=== PATIENT | male | born 1940 | race Caucasian/White ===

== ENCOUNTER 2016-10-22 20:12 | Inpatient (IN) | payer MEDICARE ==
[~2016-10-22] VITALS: Ht 167.6 cm; Wt 66.6 kg
[2016-10-22 20:13] VITALS: O2SAT 96
[2016-10-22] MEDS ORDERED: DIPHTH/TETANUS/ACEL PERTUSSIS (BOOSTER) 0.5 ML VIAL/PFS IM ONE (20:39)
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
[2016-10-22] MEDS ORDERED: MORPHINE SULFATE 4 MG/ML INJ IV PUSH ONE (20:45)
[2016-10-22 20:46] LABS: AUTOMATED NEUTROPHIL # 6.8 TH/MM3 (1.8-7.7); BASOPHIL % 0.5 % (0.0-2.0); EOSINOPHIL # 0.2 TH/MM3 (0-0.4); EOSINOPHIL % 2.3 % (0.0-4.0); HEMATOCRIT 37.9 % (39.0-51.0); HEMO FLAGS DIFF FINAL; LYMPH % 24.9 % (9.0-44.0); LYMPHOCYTE # 2.6 TH/MM3 (1.0-4.8); MEAN CORPUSCULAR HEMOGLOBIN 32.7 PG (27.0-34.0); MEAN CORPUSCULAR HGB CONC 33.7 % (32.0-36.0); MONO % 7.4 % (0.0-8.0); NEUT % 64.9 % (16.0-70.0); PLATELET COUNT 147 TH/MM3 (150-450); RED BLOOD COUNT 3.91 MIL/MM3 (4.50-5.90); RED CELL DISTRIBUTION WIDTH 14.2 % (11.6-17.2); WHITE BLOOD COUNT 10.4 TH/MM3 (4.0-11.0)
[2016-10-22 20:52] LABS: I-STAT POTASSIUM 3.5 MMOL/L (3.5-4.9)
[2016-10-22] MEDS ORDERED: IOHEXOL 350 MG/ML 10 ML VIAL (for RAD DIAG) IV ONE (20:55)
[2016-10-22 20:58] LABS: APTT (PATIENT) 28.8 SEC (24.3-30.1); PROTHROMBIN TIME - PATIENT 11.6 SEC (9.8-11.6)
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
[2016-10-22] MEDS ORDERED: HYDROmorphone HCL PF 1 MG/ML VIAL IV PUSH ONE (22:00)
[2016-10-22] MEDS ORDERED: MORPHINE SULFATE 30 MG/30 ML PCA IV SCH (22:15)
[2016-10-22] MEDS ORDERED: ONDANSETRON HCL 4 MG/2 ML VIAL IV PRN (22:15)
[2016-10-22] MEDS ORDERED: NALOXONE HCL 0.4 MG/ML AMP IV PRN (22:15)
[2016-10-22] MEDS ORDERED: MAGNESIUM HYDROXIDE SUSP 30 ML CUP PO PRN (22:15)
[2016-10-22] MEDS ORDERED: ENALAPRILAT 1.25 MG/ML VIAL IV PRN (22:15)
[2016-10-22] MEDS: PCA - TOTAL MG MORPHINE DELIVERED PER SHIFT SCH (22:15)
[2016-10-22] MEDS ORDERED: MISCELLANEOUS NURSING INFORMATION XX SCH ×2 (22:15)
[2016-10-22] MEDS ORDERED: CHLORHEXIDINE GLUCONATE 2 % 1 PACK (2 CLOTHS) TOP PRN (22:15)
[2016-10-22 22:29] LABS: BLOOD GAS BASE EXCESS -2.4 mmol/L (-2-2); BLOOD GAS HCO3 22 mmol/L (22-26); BLOOD GAS METHEMOGLOBIN 0.3 % (0-2); BLOOD GAS O2 HGB SATURATION 98 % (90-100); BLOOD GAS OXYGEN CONTENT 13.2 Vol % (12.0-20.0); BLOOD GAS PCO2 39 mmHg (38-42); BLOOD GAS PO2 141 mmHG (61-120); BLOOD GAS TOTAL HGB 9.4 G/DL (12.0-16.0); TEMP CORR TO 98.6
[2016-10-22 22:30] LABS: CRITICAL VALUE NO; DRAW SITE RT RADIAL; FIO2 100 %; LITER FLOW 15 L/M; NUMBER OF ARTERIAL PUNCTURES 1; STAT YES; ULNAR PULSE PRESENT
[2016-10-22] MEDS ORDERED: CALCIUM CHLORIDE 10% SOLN 1 GRAM/10 ML SYR IV PUSH ONE (23:00)
[2016-10-22] MEDS ORDERED: SODIUM CHLOR 0.9% 1000 ML INJ 1,000 ML IV ONE (23:15)
[2016-10-22] MEDS ORDERED: NOREPINEPHRINE-DEXTROSE DRIP 250 ML IV ONE (23:16)
[2016-10-22] MEDS ORDERED: ALBUMIN HUMAN 5% 25 GM/500 ML BOTTLE ONE (23:19)
[2016-10-22] MEDS ORDERED: NOREPINEPHRINE 4 MG/4 ML AMP ONE (23:25)
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
[2016-10-22 23:42] VITALS: BP_SYST 104; BP_SYST 105; BP_SYST 107; BP_SYST 114; BP_DIAS 45; BP_DIAS 66; BP_DIAS 71; BP_DIAS 75; PULSE 105; PULSE 95; RESP 20; RESP 32; TEMP 97.6; O2SAT 95; O2SAT 96
[2016-10-22] MEDS: PANTOPRAZOLE SODIUM 40 MG VIAL IVP SCH (23:52)
[2016-10-22 23:54] LABS: INTERNATIONAL NORMALIZED RATIO 1.2 RATIO; PROTHROMBIN TIME - PATIENT 13.2 SEC (9.8-11.6)
[2016-10-22 23:55] VITALS: BP_SYST 102; BP_SYST 103; BP_DIAS 62; BP_DIAS 65; PULSE 95; RESP 22; TEMP 97.6; O2SAT 95
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
[2016-10-23] VITALS (18 sets, daily range): BP systolic 82–165; BP diastolic 43–69; PULSE 84–110; RESP 20–38; TEMP 97.6–99.4; O2SAT 90–100
[2016-10-23] MEDS ORDERED: GLUCAGON 1 MG/ML VIAL OTHER PRN ×2 (00:15→15:30)
[2016-10-23] MEDS ORDERED: DEXTROSE 50% IN WATER 50 ML VIAL(D50) IV PUSH PRN ×2 (00:15→15:30)
[2016-10-23] MEDS ORDERED: RESP: ALBUTEROL 2.5 MG/3 ML NEB (PRN) NEB (00:15)
--- NOTE | 2016-10-23 00:45 | RADRPT ---
EXAM DATE/TIME: 10/23/2016 00:11 [facility] COMPARISON: CHEST SINGLE AP, October 22, 2016, 20:23. INDICATIONS : Central line placement. MEDICAL HISTORY : Unobtainable. SURGICAL HISTORY : Unobtainable. ENCOUNTER: Subsequent ACUITY: 1 day PAIN SCORE: Non-responsive. LOCATION: Bilateral chest FINDINGS: Interval placement of right subclavian catheter with tip projected over the mid superior vena cava. Persistent opacity at the right apex. Multiple right rib fractures and fracture right clavicle. The heart is normal size. Both hemidiaphragms are well delineated. No pneumothorax is seen on the supi ne film, but CT performed earlier today had demonstrated a small right pneumothorax. CONCLUSION: Right central line good position. Persistent opacity right upper lung. Stanley Street MD on October 23, 2016 at 0:41 Board Certified Radiologist. This report was verified electronically.
--- NOTE | 2016-10-23 01:04 | PD.PROCEDR ---
Procedure Note Procedure DATE: 10/22/16 PROCEDURE: Left radial arterial catheter placement INDICATION: Hemorrhagic shock DETAILS OF PROCEDURE The patient was placed in supine position. The skin was cleansed with Chloraprep 2. Additional barrier precautions included large sterile drape, sterile gloves, sterile gown, face mask, and hat. Under direct ultrasound guidance and on the first attempt, the artery was accessed with an introducer needle. The guide wire was advanced. Using Seldinger technique 20 gauge arterial catheter was placed. The guide wire was removed. The catheter was connected to a transducer line and flushed with saline. The video monitor displayed normal arterial wave forms. The catheter was secured with 2-0 silk. A sterile dressing with antibiotic disc was applied. ESTIMATED BLOOD LOSS: minimal COMPLICATIONS: None Destinee Lew MD Oct 23, 2016 01:04
[2016-10-23] MEDS ORDERED: MAGNESIUM OXIDE 400 MG TAB PO PRN (01:30)
[2016-10-23] MEDS ORDERED: POTASSIUM PHOSPHATE MONOBASIC 500 MG TAB PO PRN (01:30)
[2016-10-23] MEDS ORDERED: MAGNESIUM SULFATE INJ 4 GM in SODIUM CHLORIDE 0.9% INJ 92 ML IV PRN (01:30)
[2016-10-23] MEDS ORDERED: SODIUM CHLOR 0.9% 250 ML INJ 250 ML IV ONE ×2 (01:30→11:00)
[2016-10-23] MEDS ORDERED: POTASSIUM CHLOR 40 MEQ PREMIX 100 ML IV PRN (01:30)
[2016-10-23] MEDS ORDERED: POTASSIUM PHOSPHATE MONOBASIC 500 MG TAB PO/TUBE PRN (01:30)
[2016-10-23] MEDS ORDERED: POTASSIUM PHOSPHATE INJ 30 MMOL in SODIUM CHLOR 0.9% 250 ML INJ 250 ML IV PRN (01:30)
[2016-10-23] MEDS ORDERED: MAGNESIUM SULFATE INJ 2 GM in SODIUM CHLORIDE 0.9% INJ 96 ML IV PRN (01:30)
[2016-10-23] MEDS: SODIUM CHLOR 0.9% 1000 ML INJ 1,000 ML IV SCH ×5 (01:43→23:59)
[2016-10-23] MEDS: INSULIN ASPART SUPPLEMENTAL SCALE SQ SCH ×5 (01:51→23:58)
[2016-10-23] MEDS: BACITRACIN TOP OINT 15 GM TUBE TOP SCH ×3 (02:06→21:17)
[2016-10-23] MEDS: RESP: ALBUTEROL 2.5 MG/IPRATROPIUM 0.5 MG NEB (SCH) NEB ×4 (03:39→20:46)
[2016-10-23] MEDS: CHLORHEXIDINE GLUCONATE 2 % 1 PACK (2 CLOTHS) TOP SCH (04:13)
[2016-10-23 04:19] LABS: AUTOMATED NEUTROPHIL # 9.9 TH/MM3 (1.8-7.7); BASOPHIL % 0.1 % (0.0-2.0); HEMATOCRIT 23.5 % (39.0-51.0); LYMPH % 4.6 % (9.0-44.0); LYMPHOCYTE # 0.5 TH/MM3 (1.0-4.8); MEAN CELL VOLUME 92.8 FL (80.0-100.0); MEAN CORPUSCULAR HGB CONC 34.5 % (32.0-36.0); MONO % 7.7 % (0.0-8.0); NEUT % 87.6 % (16.0-70.0); PLATELET COUNT 83 TH/MM3 (150-450); RED BLOOD COUNT 2.53 MIL/MM3 (4.50-5.90); RED CELL DISTRIBUTION WIDTH 16.8 % (11.6-17.2); WHITE BLOOD COUNT 11.3 TH/MM3 (4.0-11.0)
[2016-10-23 04:27] LABS: HEMO FLAGS AUTO DIFF
[2016-10-23 04:46] LABS: BICARBONATE 24.7 MEQ/L (21.0-32.0); POTASSIUM 4.6 MEQ/L (3.5-5.1)
[2016-10-23 05:44] LABS: APTT (PATIENT) 28.9 SEC (24.3-30.1); INTERNATIONAL NORMALIZED RATIO 1.1 RATIO; PROTHROMBIN TIME - PATIENT 12.7 SEC (9.8-11.6)
[2016-10-23] MEDS: PCA - TOTAL MG MORPHINE DELIVERED PER SHIFT SCH ×3 (06:00→21:09)
[2016-10-23 06:28] LABS: BLOOD, URINE LARGE (NEG); GLUCOSE,URINE NEG (NEG); KETONE, URINE NEG (NEG); MUCUS URINE FEW /lpf (OCC); NITRITE,URINE NEG (NEG); PH, URINE 5.5 (5.0-8.5); SQUAMOUS EPITHELIAL CELL URINE 1 /hpf (0-5); URINE COLOR YELLOW (YELLW/STRAW)
[2016-10-23 06:29] LABS: COMMENT (UR) CATH-CULTURE IND; CULTURE IF INDICATED CATH CULTURE IND
--- NOTE | 2016-10-23 08:09 | RADRPT ---
EXAM DATE/TIME: 10/23/2016 07:51 [facility] COMPARISON: CT THORAX W CONTRAST, October 22, 2016, 20:30. CHEST SINGLE AP, October 23, 2016, 0:11. INDICATIONS : Short of Breath. MEDICAL HISTORY : Unobtainable. SURGICAL HISTORY : Unobtainable. ENCOUNTER: Initial ACUITY: 1 day PAIN SCORE: Non-responsive. LOCATION: Bilateral chest FINDINGS: There is a right subclavian line in good position. The heart size is normal. There continues to be in creased density over the right upper lung. The lungs are otherwise clear. There is a possible small p neumothorax seen along the lateral and upper right chest without mass effect. Multiple right rib frac tures and a right clavicle fracture are seen. CONCLUSION: 1. Persistent increased density in the right upper lung likely related to contusion or aspiration. 2. Numerous right rib fractures and right clavicle fracture. 3. Possible minimal pneumothorax along the lateral and upper right chest measuring only a few millime ters in thickness. The patient did have a small pneumothorax seen on the CT examination of the chest. Charly Arias MD on October 23, 2016 at 8:02 Board Certified Radiologist. This report was verified electronically.
[2016-10-23] MEDS ORDERED: LIDOCAINE HCL 5% PATCH TD SCH (09:00)
[2016-10-23] MEDS: METHOCARBAMOL 500 MG TAB PO SCH ×3 (09:13→21:11)
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
[2016-10-23 09:24] LABS: BANDS 21 % (0-6); NEUTROPHIL # MANUAL DIFF 10.6 TH/MM3 (1.8-7.7); POLYS (SEG NEUTROPHILS) 73 % (16-70); WBC DIFF SAMPLE 100
[2016-10-23 09:25] LABS: PLATELET ESTIMATE SMEAR LOW (NORMAL); PLATELET MORPHOLOGY NORMAL (NORMAL); SCAN/DIFF FINAL DIFF MANUAL
[2016-10-23] MEDS: ACETAMINOPHEN 1000 MG/100 ML VIAL IV SCH ×3 (09:43→21:09)
[2016-10-23] MEDS: POLYETHYLENE GLYCOL 17 GM PKG PO SCH (09:57)
[2016-10-23] MEDS: DOCUSATE SODIUM 100 MG CAP PO SCH ×2 (09:57→20:32)
[2016-10-23 10:06] LABS: HEMATOCRIT 21.3 % (39.0-51.0); MEAN CELL VOLUME 92.7 FL (80.0-100.0); MEAN CORPUSCULAR HEMOGLOBIN 31.9 PG (27.0-34.0); MEAN CORPUSCULAR HGB CONC 34.5 % (32.0-36.0); PLATELET COUNT 81 TH/MM3 (150-450); RED CELL DISTRIBUTION WIDTH 16.7 % (11.6-17.2); WHITE BLOOD COUNT 9.9 TH/MM3 (4.0-11.0)
[2016-10-23 10:10] LABS: REVIEW FLAG FINAL
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
[2016-10-23 10:29] LABS: INTERNATIONAL NORMALIZED RATIO 1.2 RATIO; PROTHROMBIN TIME - PATIENT 13.1 SEC (9.8-11.6)
[2016-10-23] MEDS ORDERED: TERBUTALINE INJ 1 MG/ML AMP SQ PRN (10:45)
[2016-10-23 11:03] LABS: BLOOD GAS BASE EXCESS -5.2 mmol/L (-2-2); BLOOD GAS CARBOXYHEMOGLOBIN 1.5 % (0-4); BLOOD GAS HCO3 19 mmol/L (22-26); BLOOD GAS METHEMOGLOBIN 0.8 % (0-2); BLOOD GAS O2 HGB SATURATION 95 % (90-100); BLOOD GAS OXYGEN CONTENT 9.7 Vol % (12.0-20.0); BLOOD GAS PCO2 32 mmHg (38-42); BLOOD GAS PO2 88 mmHg (61-120); BLOOD GAS TOTAL HGB 7.1 G/DL (12.0-16.0); CRITICAL VALUE NO; DRAW SITE ART LINE; FIO2 50 %; LITER FLOW 6 L/M; OXYGEN DEVICE Venti Mask; STAT YES; TEMP CORR TO 98.6
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
[2016-10-23] MEDS: LEVOFLOXACIN 500 MG PREMIX INJ 100 ML IV SCH (11:33)
[2016-10-23] MEDS ORDERED: IOHEXOL 350 MG/ML 10 ML VIAL (for RAD DIAG) IV ONE (12:32)
--- NOTE | 2016-10-23 13:09 | RADRPT ---
EXAM DATE/TIME: 10/23/2016 12:27 [facility] COMPARISON: CHEST SINGLE AP, October 23, 2016, 7:51. CT THORAX W CONTRAST, October 22, 2016, 20:30. INDICATIONS : Shortness of breath. IV CONTRAST: 77 cc Omnipaque 350 (iohexol) IV ; Cumulative dose for multiple exams. RADIATION DOSE: 19.45 CTDIvol (mGy) ; Combined studies - Thorax/Abdomen/Pelvis MEDICAL HISTORY : None SURGICAL HISTORY : Umbilical hernia repair. ENCOUNTER: Initial ACUITY: 1 day PAIN SCALE: 7/10 LOCATION: Bilateral lower chest TECHNIQUE: Volumetric scanning of the chest was performed. Using automated exposure control and adjustment of t he mA and/or kV according to patient size, radiation dose was kept as low as reasonably achievable to obtain optimal diagnostic quality images. FINDINGS: There continues to be a mild pneumothorax seen over the anterior and superior aspect of the right alysha g. Significant shift of the heart and mediastinal structures is not seen. This pneumothorax appears similar to slightly larger on the current examination. It measures up to 1.5 cm in AP dimension. T here continues to be increased density in the posterior right upper lung likely related to contusion or potentially aspiration. There is increased density at the posterior right lower lung and to a les ser degree posterior left lower lobe likely related to contusions or areas of atelectasis. The media stinal structures appear grossly intact. Coronary artery calcifications are present. There is fracturing of the right clavicle. There is fracturing of the 2nd through 9th right ribs. T he more inferior ribs are not included on the CT examination of the chest. There is air in the poste rior soft tissues. There does appear to be increased soft-tissue density in the posterolateral soft tissues lateral to the fractured ribs consistent with a soft tissue hematoma. CONCLUSION: 1. Persistent mild right pneumothorax. 2. Numerous right-sided rib fractures and right clavicle fracture with increased soft-tissue density in the posterolateral soft tissues consistent with a soft tissue hematoma. 3. Increased density in the right upper lung related to contusion or aspiration. 4. Increased density identified in the posterior lung bases being worse on the right related to cont usions or areas of atelectasis. Charly Arias MD on October 23, 2016 at 12:54 Board Certified Radiologist. This report was verified electronically.
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
--- NOTE | 2016-10-23 13:14 | RADRPT ---
EXAM DATE/TIME: 10/23/2016 12:27 [facility] COMPARISON: CT ABDOMEN & PELVIS W CONTRAST, October 22, 2016, 20:30. INDICATIONS : Abdominal pain. IV CONTRAST: 77 cc Omnipaque 350 (iohexol) IV ; Cumulative dose for multiple exams. ORAL CONTRAST: No oral contrast ingested. RADIATION DOSE: 19.45 CTDIvol (mGy) ; Combined studies - Thorax/Abdomen/Pelvis MEDICAL HISTORY : None SURGICAL HISTORY : Umbilical hernia repair. ENCOUNTER: Initial ACUITY: 1 day PAIN SCALE: 7/10 LOCATION: Bilateral upper quadrant TECHNIQUE: Volumetric scanning of the abdomen and pelvis was performed. Using automated exposure control and ad justment of the mA and/or kV according to patient size, radiation dose was kept as low as reasonably achievable to obtain optimal diagnostic quality images. FINDINGS: There is fracturing of the L1 through L5 transverse process on the right. There is fracturing of the L1 and L2 transverse process on the left. There is fracturing of the L4 and L5 spinous processes. There is fracturing of multiple lower right ribs. Again noted is a large right psoas hematoma. There is also hematoma at the right gluteus cosme. T he muscle is enlarged. This area measures approximately 12 x 5 cm. There is some induration likely representing some hemorrhage in the right retroperitoneum and extending into the right pericolic gutt er region. The liver, spleen, adrenal glands and kidneys appear grossly normal. There is fatty atrophy of the p ancreas. There is a Hanks catheter in the bladder. Pelvic structures appear grossly intact. Coloni c diverticula are present. CONCLUSION: 1. Fracturing of multiple transverse processes being more prominent on the right than the left. The re is a right psoas and paraspinous hematoma and a right gluteal hematoma. These have progressed sin ce the prior examination and appear larger. There is also some induration in the right retroperitone um and extending into the posterior right peritoneal reflection. This finding also appears more prom inent. Charly Arias MD on October 23, 2016 at 13:03 Board Certified Radiologist. This report was verified electronically.
[2016-10-23 14:37] LABS: BICARBONATE 21.6 MEQ/L (21.0-32.0); CALCIUM-PROTEIN CORRECTED 8.4 MG/DL (8.5-10.1); POTASSIUM 4.8 MEQ/L (3.5-5.1); TOTAL BILIRUBIN ADULT 0.9 MG/DL (0.2-1.0)
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
[2016-10-23 15:59] LABS: LACTIC ACID GHOST NOT REPORTABLE
[2016-10-23] MEDS ORDERED: INSULIN NovoLIN REGULAR SUPPLEMENTAL SCALE SQ SCH (16:00)
[2016-10-23 18:00] LABS: HEMATOCRIT 23.6 % (39.0-51.0); MEAN CORPUSCULAR HEMOGLOBIN 31.3 PG (27.0-34.0); MEAN CORPUSCULAR HGB CONC 34.7 % (32.0-36.0); PLATELET COUNT 61 TH/MM3 (150-450); RED BLOOD COUNT 2.62 MIL/MM3 (4.50-5.90); RED CELL DISTRIBUTION WIDTH 16.1 % (11.6-17.2); WHITE BLOOD COUNT 8.9 TH/MM3 (4.0-11.0)
[2016-10-23 18:06] LABS: REVIEW FLAG FINAL
[2016-10-23 18:11] LABS: APTT (PATIENT) 29.1 SEC (24.3-30.1); INTERNATIONAL NORMALIZED RATIO 1.1 RATIO; PROTHROMBIN TIME - PATIENT 12.3 SEC (9.8-11.6)
[2016-10-23] MEDS: levETIRAcetam INJ 500 MG in SODIUM CHLORIDE 0.9% INJ 100 ML IV SCH (20:32)
[2016-10-23] MEDS ORDERED: REMOVE OLD PATCH T-DERMAL SCH (21:00)
[2016-10-23] MEDS: PANTOPRAZOLE SODIUM 40 MG VIAL IVP SCH (22:25)
[2016-10-24] VITALS (20 sets, daily range): BP systolic 96–144; BP diastolic 47–65; PULSE 84–109; RESP 12–26; TEMP 97.4–99; O2SAT 96–100
[2016-10-24 01:49] LABS: BLOOD GAS BASE EXCESS -4.2 mmol/L (-2-2); BLOOD GAS CARBOXYHEMOGLOBIN 1.7 % (0-4); BLOOD GAS HCO3 20 mmol/L (22-26); BLOOD GAS METHEMOGLOBIN 0.6 % (0-2); BLOOD GAS O2 HGB SATURATION 93 % (90-100); BLOOD GAS OXYGEN CONTENT 9.7 Vol % (12.0-20.0); BLOOD GAS PCO2 34 mmHg (38-42); BLOOD GAS PO2 73 mmHg (61-120); BLOOD GAS TOTAL HGB 7.3 G/DL (12.0-16.0); TEMP CORR TO 98.6
[2016-10-24 01:50] LABS: CRITICAL VALUE YES; DRAW SITE ALINE; FIO2 50 %; LITER FLOW 6 L/M; OXYGEN DEVICE Venti Mask; STAT YES
[2016-10-24] MEDS: ALPRAZolam 0.5 MG TAB PO PRN (03:05)
[2016-10-24] MEDS: ACETAMINOPHEN 1000 MG/100 ML VIAL IV SCH (03:21)
[2016-10-24] MEDS: RESP: ALBUTEROL 2.5 MG/IPRATROPIUM 0.5 MG NEB (SCH) NEB ×4 (04:00→20:23)
[2016-10-24] MEDS: CHLORHEXIDINE GLUCONATE 2 % 1 PACK (2 CLOTHS) TOP SCH (04:02)
[2016-10-24 04:10] LABS: AUTOMATED NEUTROPHIL # 4.1 TH/MM3 (1.8-7.7); BASOPHIL % 0.1 % (0.0-2.0); EOSINOPHIL % 0.6 % (0.0-4.0); LYMPH % 16.4 % (9.0-44.0); LYMPHOCYTE # 0.9 TH/MM3 (1.0-4.8); MEAN CELL VOLUME 90.9 FL (80.0-100.0); MEAN CORPUSCULAR HEMOGLOBIN 31.4 PG (27.0-34.0); MEAN CORPUSCULAR HGB CONC 34.5 % (32.0-36.0); MONO % 8.3 % (0.0-8.0); NEUT % 74.6 % (16.0-70.0); PLATELET COUNT 45 TH/MM3 (150-450); RED BLOOD COUNT 2.22 MIL/MM3 (4.50-5.90); RED CELL DISTRIBUTION WIDTH 16.2 % (11.6-17.2); WHITE BLOOD COUNT 5.4 TH/MM3 (4.0-11.0)
[2016-10-24 04:28] LABS: HEMATOCRIT 20.2 % (39.0-51.0); HEMO FLAGS DIFF FINAL
[2016-10-24] MEDS ORDERED: THIAMINE IV ONE (04:30)
[2016-10-24] MEDS ORDERED: [UNRECOGNIZED DRUG - OTHER] IV ONE (04:30)
[2016-10-24] MEDS ORDERED: MULTIVITAMIN IV ONE (04:30)
[2016-10-24] MEDS ORDERED: FOLIC ACID IV ONE (04:30)
[2016-10-24 04:38] LABS: APTT (PATIENT) 29.9 SEC (24.3-30.1); INTERNATIONAL NORMALIZED RATIO 1.2 RATIO; PROTHROMBIN TIME - PATIENT 13.1 SEC (9.8-11.6)
[2016-10-24 05:01] LABS: BICARBONATE 23.8 MEQ/L (21.0-32.0); MAGNESIUM 1.7 MG/DL (1.5-2.5); POTASSIUM 3.9 MEQ/L (3.5-5.1)
[2016-10-24 05:29] LABS: CALCIUM-PROTEIN CORRECTED 8.5 MG/DL (8.5-10.1); CKMB 13.3 NG/ML (0.5-3.6)
[2016-10-24] MEDS ORDERED: MORPHINE SULFATE 4 MG/ML INJ IV PUSH STA (05:54)
[2016-10-24] MEDS: PCA - TOTAL MG MORPHINE DELIVERED PER SHIFT SCH (06:00)
[2016-10-24] MEDS: METHOCARBAMOL 500 MG TAB PO SCH ×3 (06:16→21:06)
[2016-10-24] MEDS: INSULIN ASPART SUPPLEMENTAL SCALE SQ SCH (06:16)
[2016-10-24] MEDS: SODIUM CHLOR 0.9% 1000 ML INJ 1,000 ML IV SCH ×3 (06:27→20:51)
[2016-10-24] MEDS ORDERED: MORPHINE SULFATE 4 MG/ML INJ IV ONE (06:30)
--- NOTE | 2016-10-24 06:31 | RADRPT ---
EXAM DATE/TIME: 10/24/2016 04:33 [facility] COMPARISON: CT THORAX W CONTRAST, October 23, 2016, 12:27. CHEST SINGLE AP, October 23, 2016, 7:51. INDICATIONS : Shortness of breath. MEDICAL HISTORY : None. SURGICAL HISTORY : None. ENCOUNTER: Subsequent ACUITY: 3 days PAIN SCORE: Non-responsive. LOCATION: Bilateral chest FINDINGS: Extensive subcutaneous emphysema about the lateral right chest wall. Multiple right rib fractures an d fracture of the right clavicle. 3 mm apical pneumothorax. Right subclavian catheter tip projects over the mid superior vena cava. There are some patchy areas of opacity in the lower and lateral rig ht lung. There is left basilar consolidation or atelectasis with air bronchograms. The mid and uppe r left lung are clear. The heart is normal size. CONCLUSION: 1. 3 mm apical right pneumothorax similar in size to prior CT. 2. Patchy areas of infiltrate in the right lower lung and left basilar consolidation or atelectasis. Stanley Street MD on October 24, 2016 at 6:27 Board Certified Radiologist. This report was verified electronically.
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
[2016-10-24] MEDS ORDERED: PROPOFOL 1000 MG/100 ML INJ 100 ML ONE ×3 (07:23→12:26)
[2016-10-24] MEDS ORDERED: ETOMIDATE 20 MG/10 ML VIAL ONE (07:23)
[2016-10-24] MEDS ORDERED: SUCCINYLCHOLINE CHLORIDE 200 MG/10 ML VIAL ONE (07:23)
--- NOTE | 2016-10-24 08:02 | PD.PROCEDR ---
Procedure Note Procedure Date: October 24, 2016 Time: 755 AM Indication: Respiratory Distress A time-out was completed verifying correct patient, procedure, site, positioning , and special equipment if applicable. The patient was placed in a flat position. Sedation was obtained using Etomidate 20mg>. The patient was easily ventilated using an ambu bag. The <[employer]/ MAC 4 BLADE> was used and inserted into the oropharynx at which time there was a Grade 1 view of the vocal cords. A 8-setswana endotracheal tube was inserted and visualized going through the vocal cords. The stylette was removed. Colorimetric change was visualized on the CO2 meter. Breath sounds were heard in both lung tidwell equally. The endotracheal tube was placed at 23 cm, measured at the teeth. A chest x-ray was ordered to assess for pneumothorax and verify endotrachealtube placement. Shotry Pop MD Oct 24, 2016 08:02
[2016-10-24] MEDS: fentaNYL DRIP 250 ML IV SCH ×2 (08:34→22:00)
[2016-10-24] MEDS: POLYETHYLENE GLYCOL 17 GM PKG PO SCH (08:34)
[2016-10-24] MEDS: ALLOPURINOL 100 MG TAB PO SCH (08:34)
[2016-10-24] MEDS: levETIRAcetam INJ 500 MG in SODIUM CHLORIDE 0.9% INJ 100 ML IV SCH ×2 (08:34→20:52)
[2016-10-24] MEDS: DOCUSATE SODIUM 100 MG CAP PO SCH ×2 (08:34→20:52)
--- NOTE | 2016-10-24 08:58 | RADRPT ---
EXAM DATE/TIME: 10/24/2016 08:17 [facility] COMPARISON: CT THORAX W CONTRAST, October 23, 2016, 12:27. CHEST SINGLE AP, October 24, 2016, 4:33. INDICATIONS : Evaluate ET tube placement. MEDICAL HISTORY : None. SURGICAL HISTORY : None. ENCOUNTER: Initial ACUITY: 3 days PAIN SCORE: 0/10 LOCATION: Bilateral chest FINDINGS: The ET tube NG tube and right subclavian line are well placed. There is a right pneumothorax seen med ially and along the superior and lateral aspects of the right chest. Shift of the mediastinal structu res is not seen. There is extensive subcutaneous emphysema seen in the right neck and chest. Multiple right rib fractures and a right clavicle fracture are seen. There some minimal increased density at the left base. CONCLUSION: 1. ET tube in good position. 2. Persistent right pneumothorax. This is at least mild. This was present previously. Mediastinal jessica ft is not seen. 3. Multiple right rib fractures and right clavicle fracture. Charly Arias MD on October 24, 2016 at 8:53 Board Certified Radiologist. This report was verified electronically.
[2016-10-24] MEDS: BACITRACIN TOP OINT 15 GM TUBE TOP SCH ×2 (09:00→22:01)
[2016-10-24 10:11] LABS: BLOOD GAS BASE EXCESS -4.3 mmol/L (-2-2); BLOOD GAS CARBOXYHEMOGLOBIN 1.5 % (0-4); BLOOD GAS HCO3 21 mmol/L (22-26); BLOOD GAS METHEMOGLOBIN 0.9 % (0-2); BLOOD GAS O2 HGB SATURATION 96 % (90-100); BLOOD GAS OXYGEN CONTENT 11.7 Vol % (12.0-20.0); BLOOD GAS PCO2 44 mmHg (38-42); BLOOD GAS PO2 112 mmHg (61-120); BLOOD GAS TOTAL HGB 8.5 G/DL (12.0-16.0); CRITICAL VALUE NO; DRAW SITE ART LINE; FIO2 60 %; OXYGEN DEVICE VENTILATOR; TEMP CORR TO 98.6; VENT SETTINGS A/C 12/550/5PEEP
[2016-10-24] MEDS ORDERED: FUROSEMIDE 40 MG/4 ML VIAL IV PUSH ONE (12:00)
--- NOTE | 2016-10-24 12:25 | RADRPT ---
EXAM DATE/TIME: 10/24/2016 11:27 [facility] COMPARISON: CT BRAIN W/O CONTRAST, October 22, 2016, 20:27. INDICATIONS : Follow up bleed. RADIATION DOSE: 56.35 CTDIvol (mGy) MEDICAL HISTORY : Non-responsive. SURGICAL HISTORY : Non-responsive. ENCOUNTER: Subsequent ACUITY: 2 days PAIN SCALE: Non-responsive LOCATION: cranial TECHNIQUE: Multiple contiguous axial images were obtained of the head. Using automated exposure control and adj ustment of the mA and/or kV according to patient size, radiation dose was kept as low as reasonably a chievable to obtain optimal diagnostic quality images. FINDINGS: CEREBRUM: There are small focal areas of hemorrhage seen in the superior medial left parietal region likely rel ated to focal subarachnoid hemorrhage. 2 focal areas are seen measuring less than 1 cm. Significant m ass effect is not seen. The ventricles are normal for age. No evidence of midline shift, mass lesion , or acute infarction. No extra-axial fluid collections are seen. POSTERIOR FOSSA: The cerebellum and brainstem are intact. The 4th ventricle is midline. The cerebellopontine angle i s unremarkable. EXTRACRANIAL: The visualized portion of the orbits is intact. SKULL: The calvaria is intact. No evidence of skull fracture. CONCLUSION: Small focal areas of suspected subarachnoid hemorrhage in the superior medial left parietal lobe. Charly Arias MD on October 24, 2016 at 12:18 Board Certified Radiologist. This report was verified electronically.
[2016-10-24] MEDS: LEVOFLOXACIN 500 MG PREMIX INJ 100 ML IV SCH (12:30)
[2016-10-24 14:16] LABS: BICARBONATE 26.9 MEQ/L (21.0-32.0)
[2016-10-24 14:35] LABS: CALCIUM-PROTEIN CORRECTED 7.9 MG/DL (8.5-10.1)
--- NOTE | 2016-10-24 16:36 | RADRPT ---
EXAM DATE/TIME: 10/24/2016 16:22 [facility] COMPARISON: CHEST SINGLE AP, October 24, 2016, 8:17. INDICATIONS : Chest tube placement. MEDICAL HISTORY : None. SURGICAL HISTORY : None. ENCOUNTER: Initial ACUITY: 1 day PAIN SCORE: Non-responsive. LOCATION: Bilateral chest FINDINGS: Right chest tube has been placed, tip projecting over the suprahilar region. I don't see a pneumothor ax but considerable chest wall emphysema again seen. Multiple right rib fractures are again noted. Mild diffuse consolidation on the right and basilar consolidation on the left, not significantly pierson ged. Endotracheal tube tip is about 2.5 cm above the jamey. There is a nasogastric tube coiled in the sto mach. Right subclavian central venous catheter are again seen, tip in the superior vena cava. CONCLUSION: New right chest tube as above. No pneumothorax. Considerable chest wall emphysema again noted. No sig nificant change of other findings in the interim. Charly Lizarraga MD on October 24, 2016 at 16:32 Board Certified Radiologist. This report was verified electronically.
--- NOTE | 2016-10-24 17:01 | PD.PROCEDR ---
Procedure Note Procedure DX: Right Tension Pneumothorax. OP: Insertion Right Anterior Chest Tube Indications: Patient developed right tension pneumothorax with peak airway pressures 45 - 50 cm H2O, hypoxemia, and sudden 5 cm vertical post- traumatic subcutaneous emphysema over the entire right anterior and lateral chest wall. Procedure: Right anterior chest wall prepped and draped. 2 cm horizontal incision made over the 3rd rib, mid-clavicular line. Blunt dissection carried down to the top of the 3rd rib and ventilator circuit disconnected. Pleural space entered with blunt dissection and 28 Fr chest tube delivered into the upper thorax using a sterile Crile clamp. Large sanabria of air encountered and ventilator reconnected. Chest tube placed to suction, sewn to skin with 0-silk, dressing applied. Panfilo Moreau MD Oct 24, 2016 17:01
[2016-10-24] MEDS: PROPOFOL 1000 MG/100 ML INJ 100 ML IV SCH (18:04)
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
[2016-10-24] MEDS: CHLORHEXIDINE 0.12% (ORAL KIT) 15 ML CUP MT SCH (20:51)
[2016-10-24] MEDS: PANTOPRAZOLE SODIUM 40 MG VIAL IVP SCH (23:06)
[2016-10-25] VITALS (17 sets, daily range): BP systolic 100–136; BP diastolic 47–58; PULSE 70–86; RESP 16–27; TEMP 97.8–100.1; O2SAT 92–100
[2016-10-25] MEDS ORDERED: CALCIUM GLUCONATE INJ 1 GM in SODIUM CHLORIDE 0.9% INJ 100 ML IV ONE (00:15)
[2016-10-25] MEDS ORDERED: DEXTROSE 50% IN WATER 50 ML VIAL(D50) IV PUSH PRN (00:15)
[2016-10-25] MEDS ORDERED: GLUCAGON 1 MG/ML VIAL OTHER PRN (00:15)
[2016-10-25] MEDS ORDERED: SODIUM CHLOR 0.9% 1000 ML INJ 1,000 ML IV STA (01:46)
[2016-10-25] MEDS: SODIUM CHLOR 0.9% 1000 ML INJ 1,000 ML IV SCH (02:53)
[2016-10-25] MEDS: NOREPINEPHRINE-DEXTROSE DRIP 250 ML IV SCH ×2 (03:12→11:58)
[2016-10-25] MEDS: RESP: ALBUTEROL 2.5 MG/IPRATROPIUM 0.5 MG NEB (SCH) NEB ×3 (03:38→17:22)
[2016-10-25 03:54] LABS: AUTOMATED NEUTROPHIL # 4.1 TH/MM3 (1.8-7.7); BASOPHIL % 0.3 % (0.0-2.0); EOSINOPHIL # 0.1 TH/MM3 (0-0.4); EOSINOPHIL % 2.3 % (0.0-4.0); LYMPHOCYTE # 0.7 TH/MM3 (1.0-4.8); MEAN CELL VOLUME 90.7 FL (80.0-100.0); MEAN CORPUSCULAR HEMOGLOBIN 30.8 PG (27.0-34.0); MONO % 9.2 % (0.0-8.0); NEUT % 75.2 % (16.0-70.0); PLATELET COUNT 69 TH/MM3 (150-450); RED BLOOD COUNT 2.54 MIL/MM3 (4.50-5.90); RED CELL DISTRIBUTION WIDTH 16.1 % (11.6-17.2); WHITE BLOOD COUNT 5.4 TH/MM3 (4.0-11.0)
[2016-10-25 04:03] LABS: HEMO FLAGS AUTO DIFF
[2016-10-25 04:35] LABS: BICARBONATE 25.3 MEQ/L (21.0-32.0); CALCIUM-PROTEIN CORRECTED 8.5 MG/DL (8.5-10.1); TOTAL BILIRUBIN ADULT 1.1 MG/DL (0.2-1.0)
[2016-10-25] MEDS: CHLORHEXIDINE GLUCONATE 2 % 1 PACK (2 CLOTHS) TOP SCH (04:47)
[2016-10-25 04:56] LABS: BANDS 25 % (0-6); EOSINOPHILS 4 % (0-4); METAMYELOCYTES 1 % (0-1); NEUTROPHIL # MANUAL DIFF 4.8 TH/MM3 (1.8-7.7); POLYS (SEG NEUTROPHILS) 62 % (16-70); SCAN/DIFF FINAL DIFF MANUAL; WBC DIFF SAMPLE 100
[2016-10-25 04:57] LABS: PLATELET ESTIMATE SMEAR LOW (NORMAL); PLATELET MORPHOLOGY NORMAL (NORMAL); TOXIC GRANULATION 1+ (NORMAL)
[2016-10-25 05:39] LABS: BLOOD GAS BASE EXCESS -3.4 mmol/L (-2-2); BLOOD GAS CARBOXYHEMOGLOBIN 1.6 % (0-4); BLOOD GAS HCO3 21 mmol/L (22-26); BLOOD GAS METHEMOGLOBIN 0.8 % (0-2); BLOOD GAS O2 HGB SATURATION 95 % (90-100); BLOOD GAS OXYGEN CONTENT 15.1 Vol % (12.0-20.0); BLOOD GAS PCO2 38 mmHg (38-42); BLOOD GAS PO2 89 mmHg (61-120); BLOOD GAS TOTAL HGB 11.2 G/DL (12.0-16.0); TEMP CORR TO 98.6
[2016-10-25 05:40] LABS: CRITICAL VALUE NO; DRAW SITE ALINE; FIO2 40 %; OXYGEN DEVICE VENTILATOR; STAT NO
[2016-10-25] MEDS: METHOCARBAMOL 500 MG TAB PO SCH ×3 (05:58→22:00)
--- NOTE | 2016-10-25 06:01 | RADRPT ---
EXAM DATE/TIME: 10/25/2016 04:29 [facility] COMPARISON: CHEST SINGLE AP, October 24, 2016, 16:22. INDICATIONS : Shortness of breath. MEDICAL HISTORY : Arthritis. SURGICAL HISTORY : None. ENCOUNTER: Subsequent ACUITY: 3 days PAIN SCORE: Non-responsive. LOCATION: Bilateral chest FINDINGS: Single AP view of the chest. Endotracheal tube, nasogastric tube, right subclavian central venous cat heter, and right-sided chest tube remain in place. Lung volumes are low. Extensive bilateral subcutan eous emphysema again seen. No evidence of pneumothorax. CONCLUSION: No significant interval change. Persistent bilateral subcutaneous emphysema. No evidence of pneumotho rax. Walker Morillo MD on October 25, 2016 at 5:58 Board Certified Radiologist. This report was verified electronically.
[2016-10-25] MEDS: INSULIN ASPART SUPPLEMENTAL SCALE SQ SCH ×4 (06:10→18:00)
[2016-10-25] MEDS: PROPOFOL 1000 MG/100 ML INJ 100 ML IV SCH ×3 (06:19→20:39)
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
[2016-10-25] MEDS: POLYETHYLENE GLYCOL 17 GM PKG PO SCH (08:57)
[2016-10-25] MEDS: levETIRAcetam INJ 500 MG in SODIUM CHLORIDE 0.9% INJ 100 ML IV SCH ×2 (08:57→21:00)
[2016-10-25] MEDS: ALLOPURINOL 100 MG TAB PO SCH (08:58)
[2016-10-25] MEDS: DOCUSATE SODIUM 100 MG CAP PO SCH ×2 (08:58→21:00)
[2016-10-25] MEDS: CHLORHEXIDINE 0.12% (ORAL KIT) 15 ML CUP MT SCH ×2 (08:59→20:00)
[2016-10-25] MEDS: fentaNYL DRIP 250 ML IV SCH (08:59)
[2016-10-25] MEDS: BACITRACIN TOP OINT 15 GM TUBE TOP SCH ×2 (08:59→21:00)
--- NOTE | 2016-10-25 10:15 | PD.ORT.PN ---
Subjective Subjective Remarks Intubated and stable Objective Vitals Vital Signs Date Time Temp Pulse Resp B/P Pulse Ox O2 Delivery O2 Flow Rate FiO2 10/25/16 08:30 97 40 10/25/16 08:00 99.5 78 16 120/56 95 10/25/16 08:00 79 10/25/16 07:00 96 Mechanical Ventilator 40 10/25/16 06:00 74 10/25/16 04:00 99.6 86 27 114/56 96 111/58 10/25/16 04:00 83 10/25/16 03:39 98 40 10/25/16 02:00 81 10/25/16 00:00 100.1 84 22 100/55 100 108/47 10/25/16 00:00 84 10/24/16 22:00 91 10/24/16 20:23 98 50 10/24/16 20:00 89 10/24/16 20:00 98.9 84 22 96/51 100 107/47 10/24/16 19:00 100 Mechanical Ventilator 50 10/24/16 18:00 86 10/24/16 17:30 98 50 10/24/16 16:00 100 10/24/16 16:00 97.8 100 12 132/65 98 10/24/16 15:26 99 50 10/24/16 14:00 95 10/24/16 12:00 97.6 89 12 129/63 99 10/24/16 12:00 100 10/24/16 11:20 99 50 10/24/16 10:12 96 55 I/O 10/24/16 10/24/16 10/24/16 10/25/16 10/25/16 10/25/16 07:00 15:00 23:00 07:00 15:00 23:00 Intake Total 2099 ml 1354 ml 1432 ml 3010 ml Output Total 450 ml 800 ml 943 ml 900 ml Balance 1649 ml 554 ml 489 ml 2110 ml IV Total 1811 ml 1354 ml 1432 ml 2990 ml Platelets 288 ml Other 20 ml Output Urine Total 450 ml 800 ml 750 ml 425 ml Gastric Drainage Total 125 ml 150 ml Chest Tube Drainage Total 68 ml 325 ml # Bowel Movements 0 0 Result Diagram: 10/25/16 0340 10/25/16 0340 Imaging Last 72 hours Impressions Chest X-Ray 10/24/16 0600 Signed Impressions: Service Date/Time: Monday, October 24, 2016 04:33 - CONCLUSION: 1. 3 mm apical right pneumothorax similar in size to prior CT. 2. Patchy areas of infiltrate in the right lower lung and left basilar consolidation or atelectasis. Stanley Street MD Chest X-Ray 10/24/16 0000 Signed Impressions: Service Date/Time: Monday, October 24, 2016 08:17 - CONCLUSION: 1. ET tube in good position. 2. Persistent right pneumothorax. This is at least mild. This was present previously. Mediastinal shift is not seen. 3. Multiple right rib fractures and right clavicle fracture. Charly Arias MD Lumbar Spine CT 10/23/16 0000 Signed Impressions: Service Date/Time: Saturday, October 22, 2016 20:49 - CONCLUSION: 1. Fractures of the L1 through L5 right transverse processes and theleft L1 transverse process. There is some questionable minimal deformity at the 2nd left transverse process. 2. Fracturing of the L4 and L5 spinous processes. 3. Fracturing of the right 12th rib. 4. Mild lower lumbar degenerative change especially at the facet joints. Charly Arias MD Chest X-Ray 10/23/16 0000 Signed Impressions: Service Date/Time: Sunday, October 23, 2016 07:51 - CONCLUSION: 1. Persistent increased density in the right upper lung likely related to contusion or aspiration. 2. Numerous right rib fractures and right clavicle fracture. 3. Possible minimal pneumothorax along the lateral and upper right chest measuring only a few millimeters in thickness. The patient did have a small pneumothorax seen on the CT examination of the chest. Charly Arias MD Chest CT 10/23/16 0000 Signed Impressions: Service Date/Time: Sunday, October 23, 2016 12:27 - CONCLUSION: 1. Persistent mild right pneumothorax. 2. Numerous right-sided rib fractures and right clavicle fracture with increased soft-tissue density in the posterolateral soft tissues consistent with a soft tissue hematoma. 3. Increased density in the right upper lung related to contusion or aspiration. 4. Increased density identified in the posterior lung bases being worse on the right related to contusions or areas of atelectasis. Charly Arias MD Abdomen/Pelvis CT 10/23/16 0000 Signed Impressions: Service Date/Time: Sunday, October 23, 2016 12:27 - CONCLUSION: 1. Fracturing of multiple transverse processes being more prominent on the right than the left. There is a right psoas and paraspinous hematoma and a right gluteal hematoma. These have progressed since the prior examination and appear larger. There is also some induration in the right retroperitoneum and extending into the posterior right peritoneal reflection. This finding also appears more prominent. Charly Arias MD Pelvis X-Ray 10/22/162023 Signed Impressions: Service Date/Time: Saturday, October 22, 2016 20:23 - CONCLUSION: Intact pelvis. Charly Lizarraga MD Head CT 10/22/162023 Signed Impressions: Service Date/Time: Saturday, October 22, 2016 20:27 - CONCLUSION: Suspected small intracranial hemorrhage as above. Followup noncontrast chest CT surveillance recommended. Charly Lizarraga MD Chest X-Ray 10/22/162023 Signed Impressions: Service Date/Time: Saturday, October 22, 2016 20:23 - CONCLUSION: Right upper lobe and left base consolidation. Multiple right rib fractures. No definite pneumothorax. Chest CT to follow. Charly Lizarraga MD Chest CT 10/22/162023 Signed Impressions: Service Date/Time: Saturday, October 22, 2016 20:30 - CONCLUSION: 1. Right posterior and posterolateral rib fractures, third through 12. 2. Fairly large parenchymal contusion in the right lung, especially the right upper. 3. Small right pneumothorax. No tension. 4. Very small right hemothorax. 5. No acute abnormality seen of the heart or mediastinum. 6. There is a comminuted but not significantly displaced fracture of the midshaft of the right clavicle. Charly Lizarraga MD Cervical Spine CT 10/22/162023 Signed Impressions: Service Date/Time: Saturday, October 22, 2016 20:29 - CONCLUSION: Intact cervical spine. Charly Lizarraga MD Abdomen/Pelvis CT 10/22/162023 Signed Impressions: Service Date/Time: Saturday, October 22, 2016 20:30 - CONCLUSION: 1. Posterior spinous and bilateral transverse process fractures of the lumbar spine as above. Also the lower right ribs are all fractured. There is a paraspinous hematoma of the right lumbar region with hematomas in the paraspinous muscles, subcutaneous fat and psoas muscle. There is a focus of active bleeding within the right psoas muscle. 2. Small right retroperitoneal component of hematoma without evidence of active bleeding. 3. No visceral organ injury. Charly Lizarraga MD Objective Remarks Right upper extremity moderate swelling over clavicle. No laxity in elbow or wrist. Distally good capillary refills in distal pulses Assessment & Plan Assessment and Plan Right clavicle fracture Right-sided rib fractures 3 through 12 Nothing by mouth after midnight Plan surgery tomorrow for plating of ribs between 3 through [address] Arriaga and Sign consents Need to move A-line to left side NAFISA MYRICK PA-C Oct 25, 2016 10:15
[2016-10-25] MEDS ORDERED: FUROSEMIDE 40 MG/4 ML VIAL IV PUSH ONE (10:30)
[2016-10-25] MEDS: LEVOFLOXACIN 500 MG PREMIX INJ 100 ML IV SCH (10:54)
[2016-10-25] MEDS ORDERED: SODIUM CHLOR 0.9% 250 ML INJ 250 ML IV ONE (12:00)
--- NOTE | 2016-10-25 13:43 | PD.PROCEDR ---
Central Line Procedure REASON FOR PROCEDURE Central venous access PROCEDURE PERFORMED Central line placement: L subclavian central line CONSENT Informed consent for procedure was obtained and time out performed. The risks and benefits of the procedure were discussed to include but limited to bleeding , clot formation, infection, and even . ANESTHESIA Local injection of 1% Lidocaine DESCRIPTION OF THE PROCEDURE The patient was placed in supine, mild Trendelenburg position. The area was exposed and cleansed with ChloraPrep, times two. Large sterile drape was used to cover the patient, with the site exposed, under sterile conditions including cap, face mask, sterile gown, and sterile gloves. On single attempt, the introducer needle was inserted with negative pressure in syringe and venous flash was obtained. The guide wire was then advanced without any restriction and the needle was removed. The dilator was used without any complications. Using Seldinger technique the 20 CM 7F catheter was advanced over the guide wire to a depth of 18 centimeters. The guide wire was removed. All ports were aspirated with dark venous blood return and flushed easily with sterile saline. All ports were capped. Antibiotic disc was placed around central line at puncture site. The central line was secured to the skin with two interrupted 2.0 silk sutures. The area was bandaged with sterile see-through central line bandage. COMPLICATIONS: No apparent complications ESTIMATED BLOOD LOSS: Less than 1 cc. Amber Parks MD Oct 25, 2016 13:42
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
--- NOTE | 2016-10-25 14:41 | RADRPT ---
EXAM DATE/TIME: 10/25/2016 13:47 [place] COMPARISON: CHEST SINGLE AP, October 25, 2016, 4:29. INDICATIONS : Central line placement. MEDICAL HISTORY : None. Multiple rib fractures. SURGICAL HISTORY : ENCOUNTER: [facility] ACUITY: 4 - 6 days PAIN SCORE: Non-responsive. LOCATION: Chest FINDINGS: There is a right-sided chest tube in place. There is a mild pneumothorax seen along the lower lateral right chest measuring 7 mm in thickness. Midline shift is not seen. The ET tube, NG tube and bilat eral subclavian lines are well placed. The heart size is upper limits of normal. There is some patch y density seen at the lung bases bilaterally. There is silhouetting of the left hemidiaphragm. Ther e is fairly extensive subcutaneous emphysema. There is a right clavicle fracture and right rib fract ures present. CONCLUSION: 1. Right-sided chest tube with a small right pneumothorax. 2. Patchy density at the bases likely representing some atelectasis. Some mild effusion on the left side cannot be excluded. 3. Subcutaneous emphysema. Charly Arias MD on October 25, 2016 at 14:32 Board Certified Radiologist. This report was verified electronically.
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
[2016-10-25] MEDS: PANTOPRAZOLE SODIUM 40 MG VIAL IVP SCH (23:00)
[2016-10-26] VITALS (16 sets, daily range): BP systolic 108–145; BP diastolic 46–64; PULSE 40–110; RESP 16; TEMP 96.7–100.5; O2SAT 93–100
[2016-10-26] MEDS: fentaNYL DRIP 250 ML IV SCH ×2 (00:29→08:38)
[2016-10-26] MEDS: SODIUM CHLOR 0.9% 1000 ML INJ 1,000 ML IV SCH (01:55)
[2016-10-26] MEDS: CHLORHEXIDINE GLUCONATE 2 % 1 PACK (2 CLOTHS) TOP SCH (04:00)
[2016-10-26] MEDS: RESP: ALBUTEROL 2.5 MG/IPRATROPIUM 0.5 MG NEB (SCH) NEB ×4 (04:01→20:12)
--- NOTE | 2016-10-26 04:49 | RADRPT ---
EXAM DATE/TIME: 10/26/2016 03:45 [facility] COMPARISON: CHEST SINGLE AP, October 25, 2016, 4:29. CHEST SINGLE AP, October 25, 2016, 13:47. INDICATIONS : Short of breath. MEDICAL HISTORY : None. SURGICAL HISTORY : None. ENCOUNTER: Subsequent ACUITY: 4 - 6 days PAIN SCORE: Non-responsive. LOCATION: Bilateral chest FINDINGS: Single AP view of the chest. Endotracheal tube, nasogastric tube, left subclavian central venous cath eter, and right-sided chest tube remain in place. Right-sided subclavian central venous catheter is n o longer seen. Right-sided pneumothorax is again seen and has increased in size, now measuring 2 cm l aterally at the level of the midlung. Subcutaneous emphysema again noted bilaterally. Small bilateral pleural effusions. No evidence of pneumothorax on the left. Bilateral pulmonary parenchymal opacity unchanged. CONCLUSION: 1. Increase in size of right-sided pneumothorax, now measuring 2 cm at the level of the midlung laura red to 0.7 cm on the prior study. Right-sided chest tube remains in place. 2. Right subclavian central venous catheter no longer seen. 3. No other significant interval change. Walker Morillo MD on October 26, 2016 at 4:42 Board Certified Radiologist. This report was verified electronically.
[2016-10-26] MEDS: METHOCARBAMOL 500 MG TAB PO SCH ×2 (06:00→20:45)
[2016-10-26] MEDS: INSULIN ASPART SUPPLEMENTAL SCALE SQ SCH ×4 (06:00→18:00)
[2016-10-26] MEDS: CHLORHEXIDINE 0.12% (ORAL KIT) 15 ML CUP MT SCH ×2 (08:00→20:46)
--- NOTE | 2016-10-26 08:34 | PD.ORT.PN ---
Subjective Subjective Remarks s/p right clavicle and rib fxs Objective Vitals Vital Signs Date Time Temp Pulse Resp B/P Pulse Ox O2 Delivery O2 Flow Rate FiO2 10/26/16 07:47 98 30 10/26/16 06:00 60 10/26/16 04:01 95 30 10/26/16 04:00 99.0 70 16 124/54 95 10/26/16 04:00 30 10/26/16 04:00 70 10/26/16 02:00 78 10/26/16 01:20 94 30 10/26/16 00:00 100.5 80 16 130/52 93 10/26/16 00:00 30 10/26/16 00:00 80 10/25/16 22:32 92 30 10/25/16 22:00 82 10/25/16 20:00 98.9 80 16 136/56 93 10/25/16 20:00 80 10/25/16 20:00 30 10/25/16 19:00 96 Mechanical Ventilator 40 10/25/16 18:00 81 10/25/16 17:17 100 30 10/25/16 16:00 97.8 74 16 118/52 99 10/25/16 16:00 74 10/25/16 14:00 74 10/25/16 12:22 100 40 10/25/16 12:00 70 10/25/16 12:00 98.5 70 16 122/54 97 10/25/16 10:00 73 I/O 10/25/16 10/25/16 10/25/16 10/26/16 10/26/16 10/26/16 07:00 15:00 23:00 07:00 15:00 23:00 Intake Total 3010 ml 1495 ml 1279 ml 1094 ml Output Total 900 ml 3050 ml 570 ml 500 ml Balance 2110 ml -1555 ml 709 ml 594 ml IV Total 2990 ml 1495 ml 633 ml 594 ml Lipid 56 ml Platelets 590 ml 500 ml Other 20 ml Output Urine Total 425 ml 2700 ml 450 ml 400 ml Stool Total 0 ml 0 ml Gastric Drainage Total 150 ml 0 ml 0 ml 0 ml Chest Tube Drainage Total 325 ml 350 ml 120 ml 100 ml # Bowel Movements 0 0 Result Diagram: 10/25/16 0340 10/25/16 0340 Imaging Last 72 hours Impressions Chest X-Ray 10/24/16 0600 Signed Impressions: Service Date/Time: Monday, October 24, 2016 04:33 - CONCLUSION: 1. 3 mm apical right pneumothorax similar in size to prior CT. 2. Patchy areas of infiltrate in the right lower lung and left basilar consolidation or atelectasis. Stanley Street MD Chest X-Ray 10/24/16 0000 Signed Impressions: Service Date/Time: Monday, October 24, 2016 08:17 - CONCLUSION: 1. ET tube in good position. 2. Persistent right pneumothorax. This is at least mild. This was present previously. Mediastinal shift is not seen. 3. Multiple right rib fractures and right clavicle fracture. Charly Arias MD Lumbar Spine CT 10/23/16 Signed Impressions: Service Date/Time: Saturday, October 22, 2016 20:49 - CONCLUSION: 1. Fractures of the L1 through L5 right transverse processes and theleft L1 transverse process. There is some questionable minimal deformity at the 2nd left transverse process. 2. Fracturing of the L4 and L5 spinous processes. 3. Fracturing of the right 12th rib. 4. Mild lower lumbar degenerative change especially at the facet joints. Charly Arias MD Chest X-Ray 10/23/16 Signed Impressions: Service Date/Time: Sunday, October 23, 2016 07:51 - CONCLUSION: 1. Persistent increased density in the right upper lung likely related to contusion or aspiration. 2. Numerous right rib fractures and right clavicle fracture. 3. Possible minimal pneumothorax along the lateral and upper right chest measuring only a few millimeters in thickness. The patient did have a small pneumothorax seen on the CT examination of the chest. Charly Arias MD Chest CT 10/23/16 Signed Impressions: Service Date/Time: Sunday, October 23, 2016 12:27 - CONCLUSION: 1. Persistent mild right pneumothorax. 2. Numerous right-sided rib fractures and right clavicle fracture with increased soft-tissue density in the posterolateral soft tissues consistent with a soft tissue hematoma. 3. Increased density in the right upper lung related to contusion or aspiration. 4. Increased density identified in the posterior lung bases being worse on the right related to contusions or areas of atelectasis. Charly Arias MD Abdomen/Pelvis CT 10/23/16 Signed Impressions: Service Date/Time: Sunday, October 23, 2016 12:27 - CONCLUSION: 1. Fracturing of multiple transverse processes being more prominent on the right than the left. There is a right psoas and paraspinous hematoma and a right gluteal hematoma. These have progressed since the prior examination and appear larger. There is also some induration in the right retroperitoneum and extending into the posterior right peritoneal reflection. This finding also appears more prominent. Charly Arias MD Pelvis X-Ray 10/22/162023 Signed Impressions: Service Date/Time: Saturday, October 22, 2016 20:23 - CONCLUSION: Intact pelvis. Charly Lizarraga MD Head CT 10/22/162023 Signed Impressions: Service Date/Time: Saturday, October 22, 2016 20:27 - CONCLUSION: Suspected small intracranial hemorrhage as above. Followup noncontrast chest CT surveillance recommended. Charly Lizarraga MD Chest X-Ray 10/22/162023 Signed Impressions: Service Date/Time: Saturday, October 22, 2016 20:23 - CONCLUSION: Right upper lobe and left base consolidation. Multiple right rib fractures. No definite pneumothorax. Chest CT to follow. Charly Lizarraga MD Chest CT 10/22/162023 Signed Impressions: Service Date/Time: Saturday, October 22, 2016 20:30 - CONCLUSION: 1. Right posterior and posterolateral rib fractures, third through 12. 2. Fairly large parenchymal contusion in the right lung, especially the right upper. 3. Small right pneumothorax. No tension. 4. Very small right hemothorax. 5. No acute abnormality seen of the heart or mediastinum. 6. There is a comminuted but not significantly displaced fracture of the midshaft of the right clavicle. Charly Lizarraga MD Cervical Spine CT 10/22/162023 Signed Impressions: Service Date/Time: Saturday, October 22, 2016 20:29 - CONCLUSION: Intact cervical spine. Charly Lizarraga MD Abdomen/Pelvis CT 10/22/162023 Signed Impressions: Service Date/Time: Saturday, October 22, 2016 20:30 - CONCLUSION: 1. Posterior spinous and bilateral transverse process fractures of the lumbar spine as above. Also the lower right ribs are all fractured. There is a paraspinous hematoma of the right lumbar region with hematomas in the paraspinous muscles, subcutaneous fat and psoas muscle. There is a focus of active bleeding within the right psoas muscle. 2. Small right retroperitoneal component of hematoma without evidence of active bleeding. 3. No visceral organ injury. Charly Lizarraga MD Objective Remarks Right upper extremity moderate swelling over clavicle. No laxity in elbow or wrist. Distally good capillary refills in distal pulses Assessment & Plan Assessment and Plan 1) Right clavicle fracture 2) Right-sided rib fractures 3 through 12 surgery today for rib plating Saulo Samuel Oct 26, 2016 08:34
[2016-10-26] MEDS: PROPOFOL 1000 MG/100 ML INJ 100 ML IV SCH ×3 (08:38→20:45)
[2016-10-26] MEDS: ALLOPURINOL 100 MG TAB PO SCH (08:38)
[2016-10-26] MEDS: DOCUSATE SODIUM 100 MG CAP PO SCH ×2 (08:38→21:00)
[2016-10-26] MEDS: BACITRACIN TOP OINT 15 GM TUBE TOP SCH ×2 (08:39→21:00)
[2016-10-26] MEDS: levETIRAcetam INJ 500 MG in SODIUM CHLORIDE 0.9% INJ 100 ML IV SCH ×2 (08:39→20:45)
[2016-10-26] MEDS: POLYETHYLENE GLYCOL 17 GM PKG PO SCH (08:39)
[2016-10-26 08:59] LABS: AUTOMATED NEUTROPHIL # 3.2 TH/MM3 (1.8-7.7); BASOPHIL % 0.3 % (0.0-2.0); EOSINOPHIL # 0.2 TH/MM3 (0-0.4); EOSINOPHIL % 3.8 % (0.0-4.0); HEMATOCRIT 30.2 % (39.0-51.0); HEMO FLAGS DIFF FINAL; LYMPH % 12.8 % (9.0-44.0); LYMPHOCYTE # 0.6 TH/MM3 (1.0-4.8); MEAN CELL VOLUME 88.9 FL (80.0-100.0); MEAN CORPUSCULAR HEMOGLOBIN 30.6 PG (27.0-34.0); MEAN CORPUSCULAR HGB CONC 34.5 % (32.0-36.0); MONO % 8.6 % (0.0-8.0); NEUT % 74.5 % (16.0-70.0); PLATELET COUNT 111 TH/MM3 (150-450); RED CELL DISTRIBUTION WIDTH 15.9 % (11.6-17.2); WHITE BLOOD COUNT 4.3 TH/MM3 (4.0-11.0)
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
--- NOTE | 2016-10-26 09:18 | PD.PROCEDR ---
Procedure Note Procedure DX: Right pneumothorax, Hypoxemia. OP: Insertion right chest tube 32 fr Procedure: Through 2 cm horizontal incision, using blunt dissection over the 3rd rib, a 32 Fr chest tube was delivered into the right thorax utilizing the 2nd intercostal space. Gush of air released, sats to m100%. Dressing applied after sutures placed. CXR ordered. Panfilo Moreau MD Oct 26, 2016 09:18
[2016-10-26 09:30] LABS: BICARBONATE 27.6 MEQ/L (21.0-32.0); CALCIUM-PROTEIN CORRECTED 8.2 MG/DL (8.5-10.1); POTASSIUM 3.3 MEQ/L (3.5-5.1)
--- NOTE | 2016-10-26 09:34 | EC ---
Study Study Date:10/25/2016 STUDY CONCLUSIONS SUMMARY - Procedure narrative: Image quality was poor. Technically difficult due to chest trauma. - Left ventricle: The cavity size was normal. Systolic function was probably normal. The estimated ejection fraction was in the range of 50% to 55%. - Tricuspid valve: Mild regurgitation. - Pericardium, extracardiac: In limited views, no pericardial effusion is noted. If concern clinically, consider other modality. If LV function is below 40, please consider prescribing an ACEI or ARB or document rationale for non-use. PROCEDURE DATA STUDY STATUS: Elective. Procedure: Transthoracic echocardiography. Image quality was poor. Scanning was performed from the parasternal, apical, and subcostal acoustic windows. Study completion: The patient tolerated the procedure well. Transthoracic echocardiography. M-mode, complete 2D, complete spectral Doppler, and color Doppler. Patient status: Inpatient. CARDIAC ANATOMY LEFT VENTRICLE: The cavity size was normal. Systolic function was probably normal. The estimated ejection fraction was in the range of 50% to 55%. Images were inadequate for LV wall motion assessment. AORTIC VALVE: The valve appears to be grossly normal. Doppler: There was no stenosis. No significant regurgitation. Peak gradient: 11mm Hg (S). MITRAL VALVE: The valve appears to be grossly normal. Doppler: There was no evidence for stenosis. Trace regurgitation. Peak gradient: 3mm Hg (D). RIGHT VENTRICLE: The cavity size was normal. PULMONIC VALVE: Not well visualized. TRICUSPID VALVE: The valve appears to be grossly normal. Doppler: There was no evidence for stenosis. Mild regurgitation. PERICARDIUM: In limited views, no pericardial effusion is noted. If concern clinically, consider other modality. BASIC MEASUREMENTS ADULT Normal Left ventricle LV internal dimension, ED, chordal level, 51.6 mm 43-52 PLAX LV internal dimension, ES, chordal level, *39.2 mm 23-38 PLAX Fractional shortening, chordal level, PLAX *24 % >29 LV posterior wall thickness, ED 7.08 mm IVS/LVPW ratio, ED 1.13 <1.3 Ventricular septum Septal thickness, ED 7.97 mm Aortic valve Leaflet separation 20 mm 15-26 Left atrium Anterior-posterior dimension 32 mm BASIC MEASUREMENTS ADULT Normal Aortic valve Leaflet separation 20 mm 15-26 Aorta Root diameter, ED 36 mm 20-37 DOPPLER MEASUREMENTS ADULT Normal Aortic valve Peak velocity, S 167 cm/s Peak gradient, S 11 mm Hg Mitral valve Peak E-wave velocity 79.5 cm/s Peak A-wave velocity 98.2 cm/s Peak gradient, D 3 mm Hg Peak E/A ratio 0.8 Tricuspid valve Regurgitant peak velocity 296 cm/s Peak RV-RA gradient, S 35 mm Hg Maximal regurgitant velocity 296 cm/s LEGEND: Mean values are shown as u=mean value. Asterisk (*) enciso values outside specified normal range. Prepared and signed by Matt Pruett [id number]
--- NOTE | 2016-10-26 09:58 | RADRPT ---
EXAM DATE/TIME: 10/26/2016 09:09 [facility] COMPARISON: CHEST SINGLE AP, October 26, 2016, 3:45. INDICATIONS: Post chest tube placement MEDICAL HISTORY: Pneumothorax, subcutaneous air SURGICAL HISTORY: None. ENCOUNTER: Subsequent ACUITY: 4 - 6 days PAIN SCORE: Non-responsive. LOCATION: Bilateral chest FINDINGS: Patient is intubated with the tip of the ET tube 3 cm from the jamey. An NG tube is in place with t ip directed into the stomach. There is a right-sided chest tube in place. A pneumothorax is not seen . There is fairly extensive subcutaneous emphysema seen. The heart size is borderline enlarged. Th ere is patchy density identified at the lung bases. There is some pleural disease along the right la teral chest. Patient has right rib and right clavicle fractures. There is a left subclavian line in place with tip overlying the SVC. CONCLUSION: 1. Tubes and lines in good position. 2. The previously seen right pneumothorax has been successfully treated with a right-sided chest tub e. 3. Bibasilar areas of consolidation or atelectasis. Charly Arias MD on October 26, 2016 at 9:50 Board Certified Radiologist. This report was verified electronically.
[2016-10-26] MEDS ORDERED: SODIUM CHLOR 0.9% 250 ML INJ 250 ML IV ONE (12:15)
[2016-10-26] MEDS ORDERED: PROPOFOL 200 MG/20 ML AMP IV ONE (12:15)
[2016-10-26] MEDS ORDERED: SUGAMMADEX SODIUM 200 MG/2 ML VIAL IV PUSH ONE ×2 (12:38)
[2016-10-26] MEDS ORDERED: GENTAMICIN SULFATE 80 MG/2 ML VIAL ONE (13:43)
[2016-10-26] MEDS ORDERED: BUPIVACAINE/EPINEPHRINE 0.25% 50 ML VIAL ONE (13:44)
[2016-10-26] MEDS ORDERED: ASPI81CH37 CHEW (14:26)
[2016-10-26] MEDS ORDERED: ALLO100T PO (14:26)
[2016-10-26] MEDS ORDERED: METF500T PO (14:26)
[2016-10-26] MEDS ORDERED: ceFAZolin INJ 1,000 MG VIAL ONE (14:39)
[2016-10-26] MEDS ORDERED: VANCOMYCIN HCL 1000 MG VIAL ONE (14:39)
[2016-10-26] MEDS ORDERED: SODIUM CHLOR 0.9% 250 ML INJ 250 ML ONE (14:39)
--- NOTE | 2016-10-26 14:44 | EKG ---
Date Performed: 10/26/2016 Time Performed: 05:47:10 PTAGE: 75 years EKG: Sinus rhythm Normal ECG NO PREVIOUS TRACING DOCTOR: Shamar Sanders Interpretating Date/Time 10/26/2016 14:39:54
[2016-10-26] MEDS ORDERED: HYDROmorphone HCL PF 2 MG/ML VIAL ONE (15:02)
[2016-10-26] MEDS ORDERED: ACETAMINOPHEN 1000 MG/100 ML VIAL IV ONE (15:03)
--- NOTE | 2016-10-26 16:34 | HHI.PR ---
cc: Garth Gallo MD Immediate Post Op Note Procedure Date: Oct 26, 2016 Pre Op Diagnosis: right sided flail chest from multiple rib fractures Post Op Diagnosis: Surgeon: Garth Albert Truck Loader Overhead Crane(s): Catalino Odonnell PA-C The surgical procedure was assisted by my physician assistant softball coach. My P.A. presence was necessary throughout this case for the manipulation and positioning of the surgical extremity. My P.A. was assisting me throughout the duration of this procedure. The skill set of a physician assistant softball coach was medically necessary to complete this procedure. During the surgical case the surgical scrub technician was working at the back table and the physician assistant softball coach was directly assisting me. Procedure: Right-sided chest wall reconstruction with open reduction internal fixation of ribs 5,6,7,&8 Estimated blood loss: 200 cc Anesthesia: General Drains: LC Patient to: [facility] Garth Gallo MD Oct 26, 2016 16:34
--- NOTE | 2016-10-26 16:45 | RADRPT ---
EXAM DATE/TIME: 10/26/2016 16:06 [facility] COMPARISON: No previous studies available for comparison. INDICATIONS : ORIF right ribs in the operating room. MEDICAL HISTORY : None. SURGICAL HISTORY : None. ENCOUNTER: Subsequent ACUITY: 4 - 6 days PAIN SCORE: Non-responsive. LOCATION: Right chest FINDINGS: Multiple views of the right ribs were performed. There are long plates seen along 4 adjacent right r ibs. CONCLUSION: Placement of 4 plates along 4 adjacent right ribs. Charly Arias MD on October 26, 2016 at 16:42 Board Certified Radiologist. This report was verified electronically.
[2016-10-26] MEDS: LACTATED RINGER'S 1000 ML INJ 1,000 ML IV SCH (17:00)
[2016-10-26] MEDS ORDERED: MIDAZOLAM HCL 2 MG/2 ML VIAL ONE (17:13)
[2016-10-26] MEDS ORDERED: fentaNYL CITRATE 250 MCG/5 ML AMP ONE (17:14)
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
--- NOTE | 2016-10-26 19:10 | RADRPT ---
EXAM DATE/TIME: 10/26/2016 17:25 [facility] COMPARISON: CHEST SINGLE AP, October 26, 2016, 9:09. INDICATIONS : Post rib-surgery. MEDICAL HISTORY : Pneumothorax, subcutaneous air SURGICAL HISTORY : None. ENCOUNTER: Subsequent ACUITY: 4 - 6 days PAIN SCORE: Non-responsive. LOCATION: Bilateral chest FINDINGS: A single AP semierect portable view of the chest was obtained and again demonstrates the endotracheal tube in place with tip approximately 3-4 cm above the jamey. A nasogastric tube is seen coursing th rough the esophagus and stomach. There is a right-sided chest tube in place. Extensive bilateral subc utaneous emphysema is present. There has been placement of multiple right-sided screw-plate fixation devices over 4 of the ribs. There is no definite visualized pneumothorax. The heart size is at the up per limits of normal. There is abnormal opacity at the left lung base with obscuration of the left he midiaphragm and blunting of the costophrenic angle. The left subclavian central venous line remains i n place. CONCLUSION: 1. Interval placement for screw-plate fixation devices along the right ribs. 2. Subcutaneous emphysema with no definite visualized pneumothorax. A right-sided chest tube remains in place. 3. Endotracheal tube and nasogastric tube remain in place. Randal Mabry MD on October 26, 2016 at 19:07 Board Certified Radiologist. This report was verified electronically.
[2016-10-26] MEDS: ceFAZolin 2 GM PREMIX 50 ML IV SCH (22:00)
[2016-10-26] MEDS: PANTOPRAZOLE SODIUM 40 MG VIAL IVP SCH (23:00)
[2016-10-27] VITALS (18 sets, daily range): BP systolic 101–134; BP diastolic 44–56; PULSE 64–89; RESP 12–16; TEMP 97.8–100.5; O2SAT 97–100
[2016-10-27] MEDS: PROPOFOL 1000 MG/100 ML INJ 100 ML IV SCH ×3 (01:03→08:02)
[2016-10-27] MEDS: fentaNYL DRIP 250 ML IV SCH ×2 (01:04→08:04)
[2016-10-27] MEDS: LACTATED RINGER'S 1000 ML INJ 1,000 ML IV SCH ×3 (03:00→23:00)
[2016-10-27] MEDS: CHLORHEXIDINE GLUCONATE 2 % 1 PACK (2 CLOTHS) TOP SCH (04:00)
[2016-10-27 04:56] LABS: AUTOMATED NEUTROPHIL # 3.3 TH/MM3 (1.8-7.7); BASOPHIL % 0.4 % (0.0-2.0); EOSINOPHIL # 0.2 TH/MM3 (0-0.4); EOSINOPHIL % 4.5 % (0.0-4.0); HEMATOCRIT 29.5 % (39.0-51.0); HEMO FLAGS DIFF FINAL; LYMPH % 12.9 % (9.0-44.0); LYMPHOCYTE # 0.6 TH/MM3 (1.0-4.8); MEAN CELL VOLUME 89.1 FL (80.0-100.0); MEAN CORPUSCULAR HEMOGLOBIN 30.7 PG (27.0-34.0); MEAN CORPUSCULAR HGB CONC 34.5 % (32.0-36.0); MONO % 12.1 % (0.0-8.0); NEUT % 70.1 % (16.0-70.0); PLATELET COUNT 111 TH/MM3 (150-450); RED BLOOD COUNT 3.32 MIL/MM3 (4.50-5.90); RED CELL DISTRIBUTION WIDTH 15.3 % (11.6-17.2); WHITE BLOOD COUNT 4.7 TH/MM3 (4.0-11.0)
--- NOTE | 2016-10-27 05:11 | RADRPT ---
EXAM DATE/TIME: 10/27/2016 03:52 [facility] COMPARISON: CHEST SINGLE AP, October 26, 2016, 17:25. INDICATIONS : Shortness of breath. MEDICAL HISTORY : None. SURGICAL HISTORY : None. ENCOUNTER: Subsequent ACUITY: 3 days PAIN SCORE: Non-responsive. LOCATION: Bilateral chest FINDINGS: Single AP view of the chest. Endotracheal tube, nasogastric tube, and left subclavian central venous catheter remain in place. Right-sided chest tube remains in place. Lung volumes are low. Decrease in bilateral perihilar opacity suggesting decreased pulmonary edema. Left lower lobe atelectasis again s een. Bilateral subcutaneous emphysema. Possible pneumothorax versus skinfold on the right. It is a pn eumothorax then measures 2 cm at the apex. CONCLUSION: 1. Possible right pneumothorax versus skinfold. Right-sided chest tube remains in place. Recommend at tention on followup. 2. Decreased lung volumes. Decreased pulmonary edema. Walker Morillo MD on October 27, 2016 at 5:04 Board Certified Radiologist. This report was verified electronically.
[2016-10-27 05:15] LABS: BICARBONATE 28.5 MEQ/L (21.0-32.0); CALCIUM-PROTEIN CORRECTED 8.4 MG/DL (8.5-10.1); MAGNESIUM 1.7 MG/DL (1.5-2.5); POTASSIUM 3.8 MEQ/L (3.5-5.1); TOTAL BILIRUBIN ADULT 2.4 MG/DL (0.2-1.0)
[2016-10-27] MEDS: INSULIN ASPART SUPPLEMENTAL SCALE SQ SCH ×4 (06:00→18:00)
[2016-10-27] MEDS: ceFAZolin 2 GM PREMIX 50 ML IV SCH ×3 (06:00→22:00)
[2016-10-27] MEDS: METHOCARBAMOL 500 MG TAB PO SCH ×3 (06:00→22:00)
[2016-10-27 06:16] LABS: BLOOD GAS HCO3 27 mmol/L (22-26); BLOOD GAS METHEMOGLOBIN 1.2 % (0-2); BLOOD GAS O2 HGB SATURATION 93 % (90-100); BLOOD GAS OXYGEN CONTENT 13.2 Vol % (12.0-20.0); BLOOD GAS PCO2 45 mmHg (38-42); BLOOD GAS PO2 78 mmHg (61-120); BLOOD GAS TOTAL HGB 10.1 G/DL (12.0-16.0); CRITICAL VALUE NO; OXYGEN DEVICE VENTILATOR; TEMP CORR TO 98.6
[2016-10-27 06:17] LABS: DRAW SITE ART LINE; FIO2 50 %; STAT NO; VENT SETTINGS PRVC/AC
[2016-10-27 07:12] LABS: STAT NO
--- NOTE | 2016-10-27 07:25 | PD.ORT.PN ---
Subjective Subjective Remarks POD 1 s/p ORIF Right ribs s/p right clavicle fx nurse reports drainage of right rib cage that was reinforced with ABD Objective Vitals Vital Signs Date Time Temp Pulse Resp B/P Pulse Ox O2 Delivery O2 Flow Rate FiO2 10/27/16 06:00 68 10/27/16 04:25 99 50 10/27/16 04:00 30 10/27/16 04:00 97.9 70 16 134/56 100 10/27/16 04:00 70 10/27/16 02:00 64 10/27/16 01:22 98 50 10/27/16 00:00 97.8 64 16 102/44 100 10/27/16 00:00 30 10/27/16 00:00 64 10/26/16 22:00 64 10/26/16 20:30 100 50 10/26/16 20:00 97.8 62 16 108/46 98 10/26/16 20:00 62 10/26/16 20:00 30 10/26/16 19:00 Mechanical Ventilator 10/26/16 18:00 68 10/26/16 17:00 96.7 70 16 128/58 100 10/26/16 12:00 30 10/26/16 12:00 67 10/26/16 12:00 98.6 67 16 145/64 100 10/26/16 11:16 97 50 10/26/16 10:00 40 10/26/16 08:00 30 10/26/16 08:00 98.8 110 16 144/62 95 10/26/16 08:00 70 10/26/16 07:47 98 30 I/O 10/26/16 10/26/16 10/26/16 10/27/16 10/27/16 10/27/16 07:00 15:00 23:00 07:00 15:00 23:00 Intake Total 1094 ml 786 ml 920 ml 1097 ml Output Total 500 ml 580 ml 920 ml 388 ml Balance 594 ml 206 ml 0 ml 709 ml IV Total 594 ml 786 ml 920 ml 1097 ml Platelets 500 ml Output Urine Total 400 ml 300 ml 350 ml 300 ml Stool Total 0 ml 0 ml 0 ml Gastric Drainage Total 0 ml 0 ml 400 ml Chest Tube Drainage Total 100 ml 280 ml 170 ml 58 ml Drainage Total 30 ml # Bowel Movements 0 Result Diagram: 10/27/16 0430 10/27/16 0430 Imaging Last 72 hours Impressions Chest X-Ray 10/24/16 0600 Signed Impressions: Service Date/Time: Monday, October 24, 2016 04:33 - CONCLUSION: 1. 3 mm apical right pneumothorax similar in size to prior CT. 2. Patchy areas of infiltrate in the right lower lung and left basilar consolidation or atelectasis. Stanley Street MD Chest X-Ray 10/24/16 0000 Signed Impressions: Service Date/Time: Monday, October 24, 2016 08:17 - CONCLUSION: 1. ET tube in good position. 2. Persistent right pneumothorax. This is at least mild. This was present previously. Mediastinal shift is not seen. 3. Multiple right rib fractures and right clavicle fracture. Charly Arias MD Lumbar Spine CT 10/23/16 0000 Signed Impressions: Service Date/Time: Saturday, October 22, 2016 20:49 - CONCLUSION: 1. Fractures of the L1 through L5 right transverse processes and theleft L1 transverse process. There is some questionable minimal deformity at the 2nd left transverse process. 2. Fracturing of the L4 and L5 spinous processes. 3. Fracturing of the right 12th rib. 4. Mild lower lumbar degenerative change especially at the facet joints. Charly Arias MD Chest X-Ray 10/23/16 0000 Signed Impressions: Service Date/Time: Sunday, October 23, 2016 07:51 - CONCLUSION: 1. Persistent increased density in the right upper lung likely related to contusion or aspiration. 2. Numerous right rib fractures and right clavicle fracture. 3. Possible minimal pneumothorax along the lateral and upper right chest measuring only a few millimeters in thickness. The patient did have a small pneumothorax seen on the CT examination of the chest. Charly Arias MD Chest CT 10/23/16 0000 Signed Impressions: Service Date/Time: Sunday, October 23, 2016 12:27 - CONCLUSION: 1. Persistent mild right pneumothorax. 2. Numerous right-sided rib fractures and right clavicle fracture with increased soft-tissue density in the posterolateral soft tissues consistent with a soft tissue hematoma. 3. Increased density in the right upper lung related to contusion or aspiration. 4. Increased density identified in the posterior lung bases being worse on the right related to contusions or areas of atelectasis. Charly Arias MD Abdomen/Pelvis CT 10/23/16 0000 Signed Impressions: Service Date/Time: Sunday, October 23, 2016 12:27 - CONCLUSION: 1. Fracturing of multiple transverse processes being more prominent on the right than the left. There is a right psoas and paraspinous hematoma and a right gluteal hematoma. These have progressed since the prior examination and appear larger. There is also some induration in the right retroperitoneum and extending into the posterior right peritoneal reflection. This finding also appears more prominent. Charly Arias MD Pelvis X-Ray 10/22/162023 Signed Impressions: Service Date/Time: Saturday, October 22, 2016 20:23 - CONCLUSION: Intact pelvis. Charly Lizarraga MD Head CT 10/22/162023 Signed Impressions: Service Date/Time: Saturday, October 22, 2016 20:27 - CONCLUSION: Suspected small intracranial hemorrhage as above. Followup noncontrast chest CT surveillance recommended. Charly Lizarraga MD Chest X-Ray 10/22/162023 Signed Impressions: Service Date/Time: Saturday, October 22, 2016 20:23 - CONCLUSION: Right upper lobe and left base consolidation. Multiple right rib fractures. No definite pneumothorax. Chest CT to follow. Charly Lizarraga MD Chest CT 10/22/162023 Signed Impressions: Service Date/Time: Saturday, October 22, 2016 20:30 - CONCLUSION: 1. Right posterior and posterolateral rib fractures, third through 12. 2. Fairly large parenchymal contusion in the right lung, especially the right upper. 3. Small right pneumothorax. No tension. 4. Very small right hemothorax. 5. No acute abnormality seen of the heart or mediastinum. 6. There is a comminuted but not significantly displaced fracture of the midshaft of the right clavicle. Charly Lizarraga MD Cervical Spine CT 10/22/162023 Signed Impressions: Service Date/Time: Saturday, October 22, 2016 20:29 - CONCLUSION: Intact cervical spine. Charly Lizarraga MD Abdomen/Pelvis CT 10/22/162023 Signed Impressions: Service Date/Time: Saturday, October 22, 2016 20:30 - CONCLUSION: 1. Posterior spinous and bilateral transverse process fractures of the lumbar spine as above. Also the lower right ribs are all fractured. There is a paraspinous hematoma of the right lumbar region with hematomas in the paraspinous muscles, subcutaneous fat and psoas muscle. There is a focus of active bleeding within the right psoas muscle. 2. Small right retroperitoneal component of hematoma without evidence of active bleeding. 3. No visceral organ injury. Charly Lizarraga MD Objective Remarks Right upper extremity: moderate swelling over clavicle. No laxity in elbow or wrist. Distally good capillary refills in distal pulses. dressings of right rib cage are intact. mild drainage. +drain Assessment & Plan Assessment and Plan 1) Right clavicle fracture 2) Right-sided rib fractures 3 through 12 s/p ORIF - POD 1 -maintain sling right arm -maintain drain -dressing changes to right rib cage -[facility] Saulo Samuel Oct 27, 2016 07:25
[2016-10-27] MEDS: DOCUSATE SODIUM 100 MG CAP PO SCH ×2 (08:01→21:00)
[2016-10-27] MEDS: ALLOPURINOL 100 MG TAB PO SCH (08:01)
[2016-10-27] MEDS: POLYETHYLENE GLYCOL 17 GM PKG PO SCH (08:02)
[2016-10-27] MEDS: levETIRAcetam INJ 500 MG in SODIUM CHLORIDE 0.9% INJ 100 ML IV SCH ×2 (08:02→21:00)
[2016-10-27] MEDS: CHLORHEXIDINE 0.12% (ORAL KIT) 15 ML CUP MT SCH ×2 (08:04→20:00)
[2016-10-27] MEDS: BACITRACIN TOP OINT 15 GM TUBE TOP SCH ×2 (08:04→21:00)
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
[2016-10-27 09:20] LABS: BLOOD GAS BASE EXCESS 0.6 mmol/L (-2-2); BLOOD GAS HCO3 26 mmol/L (22-26); BLOOD GAS METHEMOGLOBIN 0.9 % (0-2); BLOOD GAS O2 HGB SATURATION 93 % (90-100); BLOOD GAS OXYGEN CONTENT 17.5 Vol % (12.0-20.0); BLOOD GAS PCO2 48 mmHg (38-42); BLOOD GAS PO2 85 mmHg (61-120); BLOOD GAS TOTAL HGB 13.3 G/DL (12.0-16.0); CRITICAL VALUE NO; OXYGEN DEVICE VENTILATOR; TEMP CORR TO 98.6
[2016-10-27 09:22] LABS: DRAW SITE ART LINE; FIO2 50 %; STAT NO; VENT SETTINGS BIPHASIC/APRV
[2016-10-27] MEDS ORDERED: POTASSIUM CHLOR 40 MEQ PREMIX 100 ML IV ONE (12:30)
[2016-10-27] MEDS ORDERED: FUROSEMIDE 40 MG/4 ML VIAL IV PUSH ONE (12:30)
[2016-10-27] MEDS: MAGNESIUM SULFATE 1 GM PREMIX 100 ML IV SCH ×2 (12:47→14:47)
[2016-10-27] MEDS: ENOXAPARIN SODIUM 30 MG/0.3 ML SYRINGE SQ SCH (12:47)
--- NOTE | 2016-10-27 16:34 | RADRPT ---
EXAM DATE/TIME: 10/27/2016 15:35 [facility] COMPARISON: CHEST SINGLE AP, October 27, 2016, 3:52. INDICATIONS : Short of breath. MEDICAL HISTORY : None. SURGICAL HISTORY : None. ENCOUNTER: Subsequent ACUITY: 4 - 6 days PAIN SCORE: Non-responsive. LOCATION: Bilateral chest FINDINGS: There continues to be a right-sided chest tube. There continues to be a right pneumothorax seen over the right apex measuring approximately 8 mm. This is unchanged from the prior exam. There continue s to be subcutaneous emphysema. The patient is intubated with tip of the ET tube 5 cm from the joellen a. An NG tube is in place with tip directed into the stomach. There is a left subclavian line in pl iris with tip overlying the SVC. There is surgical hardware seen over four adjacent right ribs. Skin johnathan are seen over this region. There is a right mid clavicle fracture. The heart size appears normal. The lungs are grossly clear. CONCLUSION: 1. Right chest tube with a persistent small right pneumothorax. This is unchanged from the prior exa m. 2. Fairly extensive subcutaneous emphysema. 3. Surgical hardware along four adjacent right ribs. Charly Arias MD on October 27, 2016 at 16:17 Board Certified Radiologist. This report was verified electronically.
[2016-10-27 17:15] LABS: BLOOD GAS BASE EXCESS 0.4 mmol/L (-2-2); BLOOD GAS CARBOXYHEMOGLOBIN 2.1 % (0-4); BLOOD GAS HCO3 24 mmol/L (22-26); BLOOD GAS METHEMOGLOBIN 0.9 % (0-2); BLOOD GAS O2 HGB SATURATION 96 % (90-100); BLOOD GAS OXYGEN CONTENT 14.1 Vol % (12.0-20.0); BLOOD GAS PCO2 31 mmHg (38-42); BLOOD GAS PO2 104 mmHg (61-120); BLOOD GAS TOTAL HGB 10.4 G/DL (12.0-16.0); TEMP CORR TO 98.6
[2016-10-27 17:16] LABS: CRITICAL VALUE NO; OXYGEN DEVICE VENTILATOR
[2016-10-27 17:17] LABS: DRAW SITE ART LINE; FIO2 40 %; STAT YES; VENT SETTINGS APRV
[2016-10-27 17:53] LABS: MAGNESIUM 2.1 MG/DL (1.5-2.5)
[2016-10-27 18:09] LABS: CKMB 3.6 NG/ML (0.5-3.6)
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
[2016-10-27 22:12] LABS: BICARBONATE 27.8 MEQ/L (21.0-32.0); POTASSIUM 3.8 MEQ/L (3.5-5.1)
[2016-10-27 22:35] LABS: CALCIUM-PROTEIN CORRECTED 8.2 MG/DL (8.5-10.1)
[2016-10-27] MEDS: PANTOPRAZOLE SODIUM 40 MG VIAL IVP SCH (23:00)
[2016-10-27 23:59] LABS: BLOOD GAS BASE EXCESS 2.5 mmol/L (-2-2); BLOOD GAS CARBOXYHEMOGLOBIN 1.8 % (0-4); BLOOD GAS HCO3 25 mmol/L (22-26); BLOOD GAS METHEMOGLOBIN 0.9 % (0-2); BLOOD GAS O2 HGB SATURATION 95 % (90-100); BLOOD GAS OXYGEN CONTENT 18.5 Vol % (12.0-20.0); BLOOD GAS PCO2 31 mmHg (38-42); BLOOD GAS PO2 81 mmHg (61-120); BLOOD GAS TOTAL HGB 13.9 G/DL (12.0-16.0); TEMP CORR TO 98.6
[2016-10-28] VITALS (18 sets, daily range): BP systolic 112–130; BP diastolic 55–58; PULSE 61–82; RESP 12–16; TEMP 98.8–99.8; O2SAT 92–97
[2016-10-28] LABS: CRITICAL VALUE YES; OXYGEN DEVICE VENTILATOR
[2016-10-28 00:02] LABS: FIO2 40 %
[2016-10-28 00:03] LABS: DRAW SITE ART LINE; STAT YES; ULNAR PULSE PRESENT
[2016-10-28] MEDS: CHLORHEXIDINE GLUCONATE 2 % 1 PACK (2 CLOTHS) TOP SCH (04:00)
[2016-10-28 04:45] LABS: BASOPHIL % 0.3 % (0.0-2.0); EOSINOPHIL # 0.1 TH/MM3 (0-0.4); EOSINOPHIL % 2.2 % (0.0-4.0); HEMATOCRIT 30.1 % (39.0-51.0); HEMO FLAGS DIFF FINAL; LYMPH % 10.6 % (9.0-44.0); LYMPHOCYTE # 0.7 TH/MM3 (1.0-4.8); MEAN CORPUSCULAR HEMOGLOBIN 30.5 PG (27.0-34.0); MEAN CORPUSCULAR HGB CONC 34.2 % (32.0-36.0); MONO % 12.4 % (0.0-8.0); NEUT % 74.5 % (16.0-70.0); PLATELET COUNT 119 TH/MM3 (150-450); RED BLOOD COUNT 3.39 MIL/MM3 (4.50-5.90); RED CELL DISTRIBUTION WIDTH 15.5 % (11.6-17.2); WHITE BLOOD COUNT 6.7 TH/MM3 (4.0-11.0)
[2016-10-28 04:57] LABS: BLOOD GAS BASE EXCESS 2.8 mmol/L (-2-2); BLOOD GAS CARBOXYHEMOGLOBIN 1.7 % (0-4); BLOOD GAS HCO3 26 mmol/L (22-26); BLOOD GAS METHEMOGLOBIN 0.7 % (0-2); BLOOD GAS O2 HGB SATURATION 96 % (90-100); BLOOD GAS OXYGEN CONTENT 19.4 Vol % (12.0-20.0); BLOOD GAS PCO2 36 mmHg (38-42); BLOOD GAS PO2 97 mmHg (61-120); BLOOD GAS TOTAL HGB 14.4 G/DL (12.0-16.0); CRITICAL VALUE NO; OXYGEN DEVICE VENTILATOR; TEMP CORR TO 98.6
[2016-10-28 04:59] LABS: DRAW SITE ART LINE; FIO2 40 %; STAT NO; ULNAR PULSE PRESENT
[2016-10-28 05:17] LABS: BICARBONATE 27.9 MEQ/L (21.0-32.0); CALCIUM-PROTEIN CORRECTED 8.1 MG/DL (8.5-10.1); MAGNESIUM 2.3 MG/DL (1.5-2.5); POTASSIUM 3.7 MEQ/L (3.5-5.1); TOTAL BILIRUBIN ADULT 2.3 MG/DL (0.2-1.0)
[2016-10-28] MEDS: METHOCARBAMOL 500 MG TAB PO SCH ×3 (06:00→22:00)
[2016-10-28] MEDS: INSULIN ASPART SUPPLEMENTAL SCALE SQ SCH ×4 (06:00→17:47)
[2016-10-28] MEDS: ceFAZolin 2 GM PREMIX 50 ML IV SCH ×3 (06:00→22:00)
--- NOTE | 2016-10-28 06:28 | RADRPT ---
EXAM DATE/TIME: 10/28/2016 05:23 [place] COMPARISON: CHEST SINGLE AP, October 27, 2016, 15:35. INDICATIONS : Follow up pneumothorax. MEDICAL HISTORY : None. SURGICAL HISTORY : None. ENCOUNTER: Subsequent ACUITY: 3 days PAIN SCORE: Non-responsive. LOCATION: Bilateral chest FINDINGS: Single AP view of the chest. Endotracheal tube, nasogastric tube, and left subclavian central venous catheter remain in place. Right-sided chest tube remains in place. Subcutaneous emphysema seen bilate rally. Right apical pneumothorax measures 7 mm compared to 8 mm on the prior study. No pneumothorax i s seen on the left. Persistent left lower lobe consolidation versus atelectasis. CONCLUSION: 1. No significant interval change. Persistent right-sided chest tube and small right apical pneumotho rax. 2. Left lower lobe atelectasis versus consolidation. Walker Morillo MD on October 28, 2016 at 6:25 Board Certified Radiologist. This report was verified electronically.
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
[2016-10-28] MEDS ORDERED: BISACODYL 10 MG SUPP RECTAL ONE (07:30)
[2016-10-28] MEDS ORDERED: BISACODYL 10 MG SUPP RECTAL PRN (07:30)
[2016-10-28] MEDS: CHLORHEXIDINE 0.12% (ORAL KIT) 15 ML CUP MT SCH ×2 (08:00→20:00)
[2016-10-28] MEDS: DOCUSATE SODIUM 50 MG/SENNA 8.6 MG TAB PO SCH ×2 (08:01→21:00)
[2016-10-28] MEDS: POLYETHYLENE GLYCOL 17 GM PKG PO SCH (08:01)
[2016-10-28] MEDS: ALLOPURINOL 100 MG TAB PO SCH (08:01)
[2016-10-28] MEDS: levETIRAcetam INJ 500 MG in SODIUM CHLORIDE 0.9% INJ 100 ML IV SCH ×2 (08:02→21:00)
[2016-10-28] MEDS: BACITRACIN TOP OINT 15 GM TUBE TOP SCH ×2 (08:02→21:00)
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
[2016-10-28] MEDS: fentaNYL DRIP 250 ML IV SCH (08:39)
[2016-10-28] MEDS: LACTATED RINGER'S 1000 ML INJ 1,000 ML IV SCH ×2 (08:40→19:00)
[2016-10-28] MEDS: SODIUM PHOSPHATE INJ 30 MMOL in SODIUM CHLOR 0.9% 250 ML INJ 240 ML IV PRN (09:09)
[2016-10-28] MEDS: ENOXAPARIN SODIUM 30 MG/0.3 ML SYRINGE SQ SCH ×2 (12:42)
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
[2016-10-28] MEDS: PROPOFOL 1000 MG/100 ML INJ 100 ML IV SCH (16:46)
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
[2016-10-28] MEDS: PANTOPRAZOLE SODIUM 40 MG VIAL IVP SCH (23:00)
[2016-10-29] VITALS (19 sets, daily range): BP systolic 108–126; BP diastolic 50–62; PULSE 69–85; RESP 15–22; TEMP 98.4–100; O2SAT 92–98
[2016-10-29] MEDS: CHLORHEXIDINE GLUCONATE 2 % 1 PACK (2 CLOTHS) TOP SCH (04:00)
[2016-10-29 04:40] LABS: AUTOMATED NEUTROPHIL # 4.8 TH/MM3 (1.8-7.7); BASOPHIL % 0.7 % (0.0-2.0); EOSINOPHIL # 0.2 TH/MM3 (0-0.4); EOSINOPHIL % 3.6 % (0.0-4.0); HEMO FLAGS DIFF FINAL; LYMPH % 10.2 % (9.0-44.0); LYMPHOCYTE # 0.7 TH/MM3 (1.0-4.8); MEAN CORPUSCULAR HEMOGLOBIN 29.7 PG (27.0-34.0); MEAN CORPUSCULAR HGB CONC 32.7 % (32.0-36.0); MONO % 11.3 % (0.0-8.0); NEUT % 74.2 % (16.0-70.0); PLATELET COUNT 106 TH/MM3 (150-450); RED BLOOD COUNT 3.51 MIL/MM3 (4.50-5.90); RED CELL DISTRIBUTION WIDTH 15.7 % (11.6-17.2); WHITE BLOOD COUNT 6.5 TH/MM3 (4.0-11.0)
[2016-10-29] MEDS: LACTATED RINGER'S 1000 ML INJ 1,000 ML IV SCH ×2 (05:00→15:00)
--- NOTE | 2016-10-29 05:06 | RADRPT ---
EXAM DATE/TIME: 10/29/2016 04:07 [place] COMPARISON: CHEST SINGLE AP, October 28, 2016, 5:23. INDICATIONS : Shortness of breath. MEDICAL HISTORY : None. SURGICAL HISTORY : None. ENCOUNTER: Subsequent ACUITY: 1 week PAIN SCORE: Non-responsive. LOCATION: chest FINDINGS: A single view of the chest demonstrates a small to moderate right pneumothorax with about 2.3 cm pleu ral separation which is increased over the last day. Right chest tube remains present. There is plate and screw fixation of multiple right rib fractures. There is bibasal airspace disease in the lungs. Left central line in superior vena cava. Endotracheal tube in satisfactory position. NG enters stomach. CONCLUSION: 1. Right chest tube with [id number] right pneumothorax that has increased over the last day. E ndotracheal tube, nasogastric tube and left central line unchanged. Maximus Arita MD on October 29, 2016 at 5:02 Board Certified Radiologist. This report was verified electronically.
[2016-10-29 05:22] LABS: CALCIUM-PROTEIN CORRECTED 8.2 MG/DL (8.5-10.1); MAGNESIUM 2.5 MG/DL (1.5-2.5); POTASSIUM 4.1 MEQ/L (3.5-5.1); TOTAL BILIRUBIN ADULT 2.9 MG/DL (0.2-1.0)
[2016-10-29 05:28] LABS: BLOOD GAS BASE EXCESS 4.6 mmol/L (-2-2); BLOOD GAS CARBOXYHEMOGLOBIN 2.2 % (0-4); BLOOD GAS HCO3 29 mmol/L (22-26); BLOOD GAS METHEMOGLOBIN 0.5 % (0-2); BLOOD GAS O2 HGB SATURATION 94 % (90-100); BLOOD GAS OXYGEN CONTENT 16.1 Vol % (12.0-20.0); BLOOD GAS PCO2 44 mmHg (38-42); BLOOD GAS PO2 85 mmHg (61-120); BLOOD GAS TOTAL HGB 12.1 G/DL (12.0-16.0); CRITICAL VALUE NO; FIO2 40 %; OXYGEN DEVICE VENTILATOR; TEMP CORR TO 98.6
[2016-10-29 05:29] LABS: DRAW SITE ALINE; STAT NO
[2016-10-29] MEDS: METHOCARBAMOL 500 MG TAB PO SCH ×3 (06:00→21:05)
[2016-10-29] MEDS: INSULIN ASPART SUPPLEMENTAL SCALE SQ SCH ×5 (06:00→23:24)
[2016-10-29] MEDS: ceFAZolin 2 GM PREMIX 50 ML IV SCH ×2 (06:00→14:00)
[2016-10-29] MEDS: SODIUM PHOSPHATE INJ 30 MMOL in SODIUM CHLOR 0.9% 250 ML INJ 240 ML IV PRN (06:23)
[2016-10-29] MEDS: PROPOFOL 1000 MG/100 ML INJ 100 ML IV SCH ×2 (07:44→17:02)
[2016-10-29] MEDS: CHLORHEXIDINE 0.12% (ORAL KIT) 15 ML CUP MT SCH ×2 (07:44→21:00)
--- NOTE | 2016-10-29 07:49 | PD.ORT.PN ---
Subjective Subjective Remarks POD 3 s/p ORIF Right ribs s/p right clavicle fx nurse reports drainage of right rib cage that was reinforced with ABD. dressing change performed and nurse reports incision healing well Objective Vitals Vital Signs Date Time Temp Pulse Resp B/P Pulse Ox O2 Delivery O2 Flow Rate FiO2 10/29/16 07:14 96 40 10/29/16 06:00 78 10/29/16 04:26 96 40 10/29/16 04:00 98.6 74 22 126/62 96 10/29/16 04:00 30 10/29/16 04:00 74 10/29/16 02:00 78 10/29/16 00:57 93 40 10/29/16 00:00 30 10/29/16 00:00 72 10/29/16 00:00 99.2 72 16 118/56 96 10/28/16 22:00 78 10/28/16 20:00 70 10/28/16 20:00 30 10/28/16 20:00 99.0 70 16 116/58 96 10/28/16 19:42 96 40 10/28/16 18:00 68 10/28/16 16:29 97 50 10/28/16 16:00 98.8 72 16 112/56 94 10/28/16 16:00 50 10/28/16 16:00 72 10/28/16 14:00 78 10/28/16 12:00 30 10/28/16 12:00 82 10/28/16 12:00 98.9 82 16 124/58 94 10/28/16 11:27 92 30 10/28/16 10:00 82 10/28/16 08:00 30 10/28/16 08:00 99.2 68 16 122/56 94 10/28/16 08:00 68 I/O 10/28/16 10/28/16 10/28/16 10/29/16 10/29/16 10/29/16 07:00 15:00 23:00 07:00 15:00 23:00 Intake Total 1323 ml 1727 ml 1509 ml 1335 ml Output Total 640 ml 1540 ml 1300 ml 1010 ml Balance 683 ml 187 ml 209 ml 325 ml IV Total 1145 ml 1358 ml 999 ml 825 ml Tube Feeding 178 ml 309 ml 450 ml 450 ml Tube Irrigant 60 ml 60 ml 60 ml Output Urine Total 300 ml 475 ml 350 ml 300 ml Tube Feeding Residual Discard 0 ml 0 ml 0 ml Chest Tube Drainage Total 330 ml 1050 ml 950 ml 700 ml Drainage Total 10 ml 15 ml 0 ml 10 ml # Bowel Movements 0 0 0 Result Diagram: 10/29/16 0425 10/29/16 0425 Imaging Last 72 hours Impressions Chest X-Ray 10/24/16 0600 Signed Impressions: Service Date/Time: Monday, October 24, 2016 04:33 - CONCLUSION: 1. 3 mm apical right pneumothorax similar in size to prior CT. 2. Patchy areas of infiltrate in the right lower lung and left basilar consolidation or atelectasis. Stanley Street MD Chest X-Ray 10/24/16 0000 Signed Impressions: Service Date/Time: Monday, October 24, 2016 08:17 - CONCLUSION: 1. ET tube in good position. 2. Persistent right pneumothorax. This is at least mild. This was present previously. Mediastinal shift is not seen. 3. Multiple right rib fractures and right clavicle fracture. Charly Arias MD Lumbar Spine CT 10/23/16 0000 Signed Impressions: Service Date/Time: Saturday, October 22, 2016 20:49 - CONCLUSION: 1. Fractures of the L1 through L5 right transverse processes and theleft L1 transverse process. There is some questionable minimal deformity at the 2nd left transverse process. 2. Fracturing of the L4 and L5 spinous processes. 3. Fracturing of the right 12th rib. 4. Mild lower lumbar degenerative change especially at the facet joints. Charly Arias MD Chest X-Ray 10/23/16 0000 Signed Impressions: Service Date/Time: Sunday, October 23, 2016 07:51 - CONCLUSION: 1. Persistent increased density in the right upper lung likely related to contusion or aspiration. 2. Numerous right rib fractures and right clavicle fracture. 3. Possible minimal pneumothorax along the lateral and upper right chest measuring only a few millimeters in thickness. The patient did have a small pneumothorax seen on the CT examination of the chest. Charly Arias MD Chest CT 10/23/16 0000 Signed Impressions: Service Date/Time: Sunday, October 23, 2016 12:27 - CONCLUSION: 1. Persistent mild right pneumothorax. 2. Numerous right-sided rib fractures and right clavicle fracture with increased soft-tissue density in the posterolateral soft tissues consistent with a soft tissue hematoma. 3. Increased density in the right upper lung related to contusion or aspiration. 4. Increased density identified in the posterior lung bases being worse on the right related to contusions or areas of atelectasis. Charly Arias MD Abdomen/Pelvis CT 10/23/16 0000 Signed Impressions: Service Date/Time: Sunday, October 23, 2016 12:27 - CONCLUSION: 1. Fracturing of multiple transverse processes being more prominent on the right than the left. There is a right psoas and paraspinous hematoma and a right gluteal hematoma. These have progressed since the prior examination and appear larger. There is also some induration in the right retroperitoneum and extending into the posterior right peritoneal reflection. This finding also appears more prominent. Charly Arias MD Pelvis X-Ray 10/22/162023 Signed Impressions: Service Date/Time: Saturday, October 22, 2016 20:23 - CONCLUSION: Intact pelvis. Charly Lizarraga MD Head CT 10/22/162023 Signed Impressions: Service Date/Time: Saturday, October 22, 2016 20:27 - CONCLUSION: Suspected small intracranial hemorrhage as above. Followup noncontrast chest CT surveillance recommended. Charly Lizarraga MD Chest X-Ray 10/22/162023 Signed Impressions: Service Date/Time: Saturday, October 22, 2016 20:23 - CONCLUSION: Right upper lobe and left base consolidation. Multiple right rib fractures. No definite pneumothorax. Chest CT to follow. Charly Lizarraga MD Chest CT 10/22/162023 Signed Impressions: Service Date/Time: Saturday, October 22, 2016 20:30 - CONCLUSION: 1. Right posterior and posterolateral rib fractures, third through 12. 2. Fairly large parenchymal contusion in the right lung, especially the right upper. 3. Small right pneumothorax. No tension. 4. Very small right hemothorax. 5. No acute abnormality seen of the heart or mediastinum. 6. There is a comminuted but not significantly displaced fracture of the midshaft of the right clavicle. Charly Lizarraga MD Cervical Spine CT 10/22/162023 Signed Impressions: Service Date/Time: Saturday, October 22, 2016 20:29 - CONCLUSION: Intact cervical spine. Charly Lizarraga MD Abdomen/Pelvis CT 10/22/162023 Signed Impressions: Service Date/Time: Saturday, October 22, 2016 20:30 - CONCLUSION: 1. Posterior spinous and bilateral transverse process fractures of the lumbar spine as above. Also the lower right ribs are all fractured. There is a paraspinous hematoma of the right lumbar region with hematomas in the paraspinous muscles, subcutaneous fat and psoas muscle. There is a focus of active bleeding within the right psoas muscle. 2. Small right retroperitoneal component of hematoma without evidence of active bleeding. 3. No visceral organ injury. Charly Lizarraga MD Objective Remarks Right upper extremity: moderate swelling over clavicle. No laxity in elbow or wrist. Distally good capillary refills in distal pulses. dressings of right rib cage are intact. mild drainage. +drain Assessment & Plan Assessment and Plan 1) Right clavicle fracture 2) Right-sided rib fractures 3 through 12 s/p ORIF - POD3 -maintain sling right arm -maintain drain -dressing changes to right rib cage -[facility] Saulo Samuel Oct 29, 2016 07:49
[2016-10-29] MEDS: POLYETHYLENE GLYCOL 17 GM PKG PO SCH (08:49)
[2016-10-29] MEDS: levETIRAcetam INJ 500 MG in SODIUM CHLORIDE 0.9% INJ 100 ML IV SCH ×2 (08:49→21:05)
[2016-10-29] MEDS: ALLOPURINOL 100 MG TAB PO SCH (09:00)
[2016-10-29] MEDS: DOCUSATE SODIUM 50 MG/SENNA 8.6 MG TAB PO SCH ×2 (09:00→21:05)
[2016-10-29] MEDS: BACITRACIN TOP OINT 15 GM TUBE TOP SCH ×2 (09:00→21:01)
[2016-10-29] MEDS: fentaNYL DRIP 250 ML IV SCH (10:06)
[2016-10-29] MEDS ORDERED: BISACODYL 10 MG SUPP RECTAL ONE (10:45)
[2016-10-29] MEDS: ENOXAPARIN SODIUM 30 MG/0.3 ML SYRINGE SQ SCH ×3 (12:35→23:00)
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
[2016-10-29] MEDS ORDERED: IOHEXOL 350 MG/ML 10 ML VIAL (for RAD DIAG) IV ONE (14:24)
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
--- NOTE | 2016-10-29 14:49 | RADRPT ---
EXAM DATE/TIME: 10/29/2016 14:22 [facility] COMPARISON: CT THORAX W CONTRAST, October 23, 2016, 12:27. INDICATIONS : Follow up trauma. IV CONTRAST: 70 cc Omnipaque 350 (iohexol) IV RADIATION DOSE: 7.86 CTDIvol (mGy) MEDICAL HISTORY : Non-responsive. SURGICAL HISTORY : Non-responsive. ENCOUNTER: Subsequent ACUITY: 1 week PAIN SCALE: Non-responsive LOCATION: Left chest TECHNIQUE: Volumetric scanning of the chest was performed. Using automated exposure control and adjustment of t he mA and/or kV according to patient size, radiation dose was kept as low as reasonably achievable to obtain optimal diagnostic quality images. FINDINGS: LUNGS: A right-sided pneumothorax has enlarged. A large bore thoracostomy tube is identified entering the ri ght hemithorax from the anterior apical region. Right lower lobe consolidation is worsening. Lung con tusion with possible laceration is identified the superior segment of the right lower lobe. There is a focal wedge-shaped defect in the lung which is now fluid-filled. Small left pleural effusion with peripheral consolidating airspace disease is seen in the left b ase. Left lung is otherwise well-expanded without evidence of pneumothorax. PLEURA: Small bilateral pleural effusions are present. MEDIASTINUM: Stable without evidence of vascular injury or significant hematoma. AXILLAE: Subcutaneous emphysema has developed extends into the right axilla. SKELETAL: Displaced right-sided rib fractures have been openly reduced and fixated with plates. These include t he sixth, seventh, eighth and ninth ribs. Nondisplaced fractures of the second, third, fourth and fifth ribs are stable. Again noted is fr acture of the right clavicle. Multiple nondisplaced rib fractures on the right adjacent to the costovertebral junction are sta ble. Thoracic vertebral bodies remain intact without evidence of significant compression deformity or listhesis. MISCELLANEOUS: The visualized upper abdominal organs demonstrate no acute abnormality. CONCLUSION: Enlarging right pneumothorax. Suspected lung laceration involving the superior segment of the right lower lobe which is now fluid-f illed. Interval placement of a right-sided large bore thoracostomy tube Developing subcutaneous emphysema. Status post ORIF of displaced rib fractures as described. Stable right-sided nondisplaced rib fractures. Endotracheal and nasogastric tubes are in good position. Randy Oliver MD on October 29, 2016 at 14:34 Board Certified Radiologist. This report was verified electronically.
[2016-10-29] MEDS: PANTOPRAZOLE SODIUM 40 MG VIAL IVP SCH (22:08)
[2016-10-30] VITALS (18 sets, daily range): BP systolic 112–146; BP diastolic 47–59; PULSE 66–88; RESP 14–17; TEMP 98.8–100.1; O2SAT 93–100
[2016-10-30] MEDS: LACTATED RINGER'S 1000 ML INJ 1,000 ML IV SCH (01:00)
[2016-10-30] MEDS: CHLORHEXIDINE GLUCONATE 2 % 1 PACK (2 CLOTHS) TOP SCH (03:11)
[2016-10-30] MEDS: fentaNYL DRIP 250 ML IV SCH (03:15)
[2016-10-30] MEDS: PROPOFOL 1000 MG/100 ML INJ 100 ML IV SCH ×2 (03:15→15:45)
[2016-10-30 03:51] LABS: AUTOMATED NEUTROPHIL # 4.9 TH/MM3 (1.8-7.7); BASOPHIL % 0.3 % (0.0-2.0); EOSINOPHIL # 0.2 TH/MM3 (0-0.4); EOSINOPHIL % 3.3 % (0.0-4.0); HEMATOCRIT 30.1 % (39.0-51.0); HEMO FLAGS DIFF FINAL; LYMPH % 10.2 % (9.0-44.0); LYMPHOCYTE # 0.7 TH/MM3 (1.0-4.8); MEAN CELL VOLUME 91.7 FL (80.0-100.0); MEAN CORPUSCULAR HEMOGLOBIN 30.4 PG (27.0-34.0); MEAN CORPUSCULAR HGB CONC 33.2 % (32.0-36.0); MONO % 10.6 % (0.0-8.0); NEUT % 75.6 % (16.0-70.0); PLATELET COUNT 117 TH/MM3 (150-450); RED BLOOD COUNT 3.28 MIL/MM3 (4.50-5.90); RED CELL DISTRIBUTION WIDTH 15.8 % (11.6-17.2); WHITE BLOOD COUNT 6.4 TH/MM3 (4.0-11.0)
[2016-10-30 04:29] LABS: BICARBONATE 31.4 MEQ/L (21.0-32.0); CALCIUM-PROTEIN CORRECTED 8.3 MG/DL (8.5-10.1); MAGNESIUM 2.7 MG/DL (1.5-2.5); POTASSIUM 4.4 MEQ/L (3.5-5.1); TOTAL BILIRUBIN ADULT 2.7 MG/DL (0.2-1.0)
[2016-10-30] MEDS: INSULIN ASPART SUPPLEMENTAL SCALE SQ SCH ×3 (05:35→17:05)
[2016-10-30] MEDS: METHOCARBAMOL 500 MG TAB PO SCH ×3 (05:35→21:01)
--- NOTE | 2016-10-30 07:22 | RADRPT ---
EXAM DATE/TIME: 10/30/2016 04:22 [facility] COMPARISON: CHEST SINGLE AP, October 29, 2016, 4:07. INDICATIONS : Shortness of breath. MEDICAL HISTORY : None. SURGICAL HISTORY : None. ENCOUNTER: Subsequent ACUITY: 1 week PAIN SCORE: Non-responsive. LOCATION: Bilateral chest FINDINGS: Endotracheal tube in satisfactory position. Left central line in superior vena cava. NG coiled in sto mach. Previous fixation of multiple right rib fractures. Right chest tube present without significant pneumothorax identified on the current exam. Subcutaneous air in right chest wall. CONCLUSION: 1. Right chest tube remains present with decrease in size of previous right pneumothorax. Postoperati ve fixation of lower right ribs. Basilar airspace disease relatively stable. Maximus Arita MD on October 30, 2016 at 7:19 Board Certified Radiologist. This report was verified electronically.
[2016-10-30] MEDS: DOCUSATE SODIUM 50 MG/SENNA 8.6 MG TAB PO SCH ×2 (08:32→20:05)
[2016-10-30] MEDS: POLYETHYLENE GLYCOL 17 GM PKG PO SCH (08:32)
[2016-10-30] MEDS: ALLOPURINOL 100 MG TAB PO SCH (08:32)
[2016-10-30] MEDS: levETIRAcetam INJ 500 MG in SODIUM CHLORIDE 0.9% INJ 100 ML IV SCH ×2 (08:33→20:05)
[2016-10-30] MEDS: BACITRACIN TOP OINT 15 GM TUBE TOP SCH ×2 (08:33→20:06)
[2016-10-30] MEDS: CHLORHEXIDINE 0.12% (ORAL KIT) 15 ML CUP MT SCH ×2 (08:33→19:47)
[2016-10-30] MEDS: ENOXAPARIN SODIUM 30 MG/0.3 ML SYRINGE SQ SCH (11:26)
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
[2016-10-30 14:50] LABS: BLOOD GAS BASE EXCESS 5.7 mmol/L (-2-2); BLOOD GAS CARBOXYHEMOGLOBIN 2.3 % (0-4); BLOOD GAS HCO3 30 mmol/L (22-26); BLOOD GAS METHEMOGLOBIN 0.8 % (0-2); BLOOD GAS O2 HGB SATURATION 93 % (90-100); BLOOD GAS OXYGEN CONTENT 14.5 Vol % (12.0-20.0); BLOOD GAS PCO2 42 mmHg (38-42); BLOOD GAS PO2 76 mmHg (61-120); BLOOD GAS TOTAL HGB 11.1 G/DL (12.0-16.0); CRITICAL VALUE NO; DRAW SITE ART LINE; FIO2 40 %; OXYGEN DEVICE VENTILATOR; STAT NO; TEMP CORR TO 98.6; ULNAR PULSE PRESENT; VENT SETTINGS PRVC/AC
--- NOTE | 2016-10-30 15:28 | RADRPT ---
EXAM DATE/TIME: 10/30/2016 15:08 [facility] COMPARISON: CT BRAIN W/O CONTRAST, October 24, 2016, 11:27. INDICATIONS : Unequal pupils, upward left gaze. History of recent hemorrhage. RADIATION DOSE: 44.04 CTDIvol (mGy) MEDICAL HISTORY : Non-responsive. SURGICAL HISTORY : Non-responsive. ENCOUNTER: Initial ACUITY: 1 day PAIN SCALE: Non-responsive LOCATION: cranial TECHNIQUE: Multiple contiguous axial images were obtained of the head. Using automated exposure control and adj ustment of the mA and/or kV according to patient size, radiation dose was kept as low as reasonably a chievable to obtain optimal diagnostic quality images. FINDINGS: CEREBRUM: The ventricles are normal for age. No evidence of midline shift, mass lesion, hemorrhage or acute in farction. No extra-axial fluid collections are seen. POSTERIOR FOSSA: The cerebellum and brainstem are intact. The 4th ventricle is midline. The cerebellopontine angle i s unremarkable. EXTRACRANIAL: The visualized portion of the orbits is intact. There is mucosal thickening in the ethmoidal air cell s and left maxillary sinus. SKULL: The calvaria is intact. No evidence of skull fracture. CONCLUSION: 1. No acute hemorrhage or mass effect. 2. Mucosal thickening in the ethmoidal air cells and left maxillary sinus. Randal Mabry MD on October 30, 2016 at 15:25 Board Certified Radiologist. This report was verified electronically.
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
[2016-10-31] VITALS (18 sets, daily range): BP systolic 122–160; BP diastolic 51–65; PULSE 73–102; RESP 11–25; TEMP 99.4–101; O2SAT 94–100
[2016-10-31] MEDS: PANTOPRAZOLE SODIUM 40 MG VIAL IVP SCH ×2 (00:01→23:48)
[2016-10-31] MEDS: ENOXAPARIN SODIUM 30 MG/0.3 ML SYRINGE SQ SCH ×3 (00:02→23:48)
[2016-10-31] MEDS: INSULIN ASPART SUPPLEMENTAL SCALE SQ SCH ×5 (00:07→23:49)
[2016-10-31] MEDS: CHLORHEXIDINE GLUCONATE 2 % 1 PACK (2 CLOTHS) TOP SCH (03:10)
[2016-10-31 04:59] LABS: AUTOMATED NEUTROPHIL # 8.1 TH/MM3 (1.8-7.7); BASOPHIL % 0.2 % (0.0-2.0); EOSINOPHIL # 0.2 TH/MM3 (0-0.4); EOSINOPHIL % 2.3 % (0.0-4.0); HEMATOCRIT 32.6 % (39.0-51.0); HEMO FLAGS DIFF FINAL; LYMPH % 7.6 % (9.0-44.0); LYMPHOCYTE # 0.8 TH/MM3 (1.0-4.8); MEAN CELL VOLUME 92.8 FL (80.0-100.0); MEAN CORPUSCULAR HEMOGLOBIN 30.4 PG (27.0-34.0); MEAN CORPUSCULAR HGB CONC 32.8 % (32.0-36.0); MONO % 7.5 % (0.0-8.0); NEUT % 82.4 % (16.0-70.0); PLATELET COUNT 115 TH/MM3 (150-450); RED BLOOD COUNT 3.51 MIL/MM3 (4.50-5.90); RED CELL DISTRIBUTION WIDTH 16.2 % (11.6-17.2); WHITE BLOOD COUNT 9.8 TH/MM3 (4.0-11.0)
[2016-10-31] MEDS: METHOCARBAMOL 500 MG TAB PO SCH ×3 (05:16→21:01)
[2016-10-31 05:28] LABS: ANION GAP 9 MEQ/L (5-15); AST (GOT) 80 U/L (15-37); BICARBONATE 30.3 MEQ/L (21.0-32.0); BLOOD UREA NITROGEN 39 MG/DL (7-18); CHLORIDE 112 MEQ/L (98-107); GLOMERULAR FILTRATION RATE 79 ML/MIN (>89); POTASSIUM 4.4 MEQ/L (3.5-5.1); SODIUM (NA) 151 MEQ/L (136-145)
[2016-10-31 05:31] LABS: ALKALINE PHOSPHATASE 289 U/L (45-117); ALT (GPT) 35 U/L (12-78); TOTAL BILIRUBIN ADULT 3.1 MG/DL (0.2-1.0)
--- NOTE | 2016-10-31 06:14 | RADRPT ---
EXAM DATE/TIME: 10/31/2016 04:45 [place] COMPARISON: CHEST SINGLE AP, October 30, 2016, 4:22. INDICATIONS : Shortness of breath. MEDICAL HISTORY : None. SURGICAL HISTORY : None. ENCOUNTER: Subsequent ACUITY: 1 week PAIN SCORE: Non-responsive. LOCATION: Bilateral chest FINDINGS: Endotracheal tube in satisfactory position. NG enters stomach. A central line in superior vena cava. Right chest tube without significant pneumothorax. Plain screw fixation multiple right ribs. Basilar airspace disease similar to prior study. CONCLUSION: 1. Stable exam since October 30. Support apparatus unchanged and in satisfactory position. Maximus Arita MD on October 31, 2016 at 6:12 Board Certified Radiologist. This report was verified electronically.
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
[2016-10-31] MEDS ORDERED: FUROSEMIDE 40 MG/4 ML VIAL IV PUSH ONE (08:15)
[2016-10-31] MEDS: CHLORHEXIDINE 0.12% (ORAL KIT) 15 ML CUP MT SCH ×2 (08:27→20:03)
[2016-10-31] MEDS: DOCUSATE SODIUM 50 MG/SENNA 8.6 MG TAB PO SCH ×2 (08:28→20:03)
[2016-10-31] MEDS: SODIUM CHLORIDE 0.9% FLUSH 5 ML FLUSH IVF PRN (08:28)
[2016-10-31] MEDS: levETIRAcetam INJ 500 MG in SODIUM CHLORIDE 0.9% INJ 100 ML IV SCH ×2 (08:28→20:02)
[2016-10-31] MEDS: ALLOPURINOL 100 MG TAB PO SCH (08:28)
[2016-10-31] MEDS: POLYETHYLENE GLYCOL 17 GM PKG PO SCH (08:28)
[2016-10-31] MEDS: SODIUM PHOSPHATE INJ 30 MMOL in SODIUM CHLOR 0.9% 250 ML INJ 240 ML IV PRN (08:28)
[2016-10-31] MEDS: BACITRACIN TOP OINT 15 GM TUBE TOP SCH ×2 (08:29→20:03)
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
[2016-10-31 16:19] LABS: HDL CHOLESTEROL 19.3 MG/DL (40.0-60.0)
[2016-10-31 18:30] LABS: CHOLESTEROL, PLEURAL FLUID LESS THAN 50 MG/DL
[2016-10-31] MEDS: ACETAMINOPHEN 325 MG TAB PO PRN (21:01)
[2016-11-01] VITALS (20 sets, daily range): BP systolic 138–160; BP diastolic 60–73; PULSE 84–100; RESP 17–26; TEMP 99.1–101.7; O2SAT 93–97
[2016-11-01] MEDS: ALPRAZolam 0.5 MG TAB PO PRN (02:37)
[2016-11-01] MEDS: CHLORHEXIDINE GLUCONATE 2 % 1 PACK (2 CLOTHS) TOP SCH (03:34)
[2016-11-01 04:27] LABS: AUTOMATED NEUTROPHIL # 11.3 TH/MM3 (1.8-7.7); BASOPHIL % 0.3 % (0.0-2.0); EOSINOPHIL # 0.1 TH/MM3 (0-0.4); EOSINOPHIL % 0.5 % (0.0-4.0); HEMO FLAGS DIFF FINAL; LYMPHOCYTE # 0.9 TH/MM3 (1.0-4.8); MEAN CELL VOLUME 92.4 FL (80.0-100.0); MEAN CORPUSCULAR HEMOGLOBIN 29.7 PG (27.0-34.0); MEAN CORPUSCULAR HGB CONC 32.1 % (32.0-36.0); MONO % 5.9 % (0.0-8.0); NEUT % 86.3 % (16.0-70.0); PLATELET COUNT 122 TH/MM3 (150-450); RED BLOOD COUNT 3.57 MIL/MM3 (4.50-5.90); RED CELL DISTRIBUTION WIDTH 15.9 % (11.6-17.2); WHITE BLOOD COUNT 13.1 TH/MM3 (4.0-11.0)
[2016-11-01 04:47] LABS: ALT (GPT) 40 U/L (12-78); ANION GAP 7 MEQ/L (5-15); AST (GOT) 69 U/L (15-37); BICARBONATE 32.8 MEQ/L (21.0-32.0); BLOOD UREA NITROGEN 44 MG/DL (7-18); CHLORIDE 111 MEQ/L (98-107); GLOMERULAR FILTRATION RATE 77 ML/MIN (>89); MAGNESIUM 2.7 MG/DL (1.5-2.5); POTASSIUM 4.1 MEQ/L (3.5-5.1); SODIUM (NA) 151 MEQ/L (136-145)
[2016-11-01 04:49] LABS: ALKALINE PHOSPHATASE 270 U/L (45-117); TOTAL BILIRUBIN ADULT 3.1 MG/DL (0.2-1.0)
--- NOTE | 2016-11-01 05:16 | RADRPT ---
EXAM DATE/TIME: 11/01/2016 04:12 [place] COMPARISON: CHEST SINGLE AP, October 31, 2016, 4:45. INDICATIONS : Shortness of breath. MEDICAL HISTORY : None. SURGICAL HISTORY : None. ENCOUNTER: Subsequent ACUITY: 1 week PAIN SCORE: Non-responsive. LOCATION: Bilateral chest FINDINGS: EKG leads, endotracheal tube and left subclavian line are noted. NG tube courses beneath the diaphrag m. The lungs are clear. Plate and screw fixation of 4 right lateral thoracic ribs. Surgical skin stap les are seen on the right. Right-sided chest tube is present. CONCLUSION: Clear lungs. Fady Cochran MD on November 01, 2016 at 5:13 Board Certified Radiologist. This report was verified electronically.
[2016-11-01] MEDS: ACETAMINOPHEN 325 MG TAB PO PRN (05:42)
[2016-11-01] MEDS: METHOCARBAMOL 500 MG TAB PO SCH ×3 (05:42→20:10)
[2016-11-01] MEDS: INSULIN ASPART SUPPLEMENTAL SCALE SQ SCH ×3 (05:50→17:07)
[2016-11-01] MEDS: POLYETHYLENE GLYCOL 17 GM PKG PO SCH (08:06)
[2016-11-01] MEDS: DOCUSATE SODIUM 50 MG/SENNA 8.6 MG TAB PO SCH ×2 (08:06→20:04)
[2016-11-01] MEDS: levETIRAcetam INJ 500 MG in SODIUM CHLORIDE 0.9% INJ 100 ML IV SCH ×2 (08:12→20:10)
[2016-11-01] MEDS: CHLORHEXIDINE 0.12% (ORAL KIT) 15 ML CUP MT SCH ×2 (08:12→20:03)
[2016-11-01] MEDS: ALLOPURINOL 100 MG TAB PO SCH (08:12)
[2016-11-01] MEDS: BACITRACIN TOP OINT 15 GM TUBE TOP SCH ×2 (08:13→20:10)
[2016-11-01] MEDS: ENOXAPARIN SODIUM 30 MG/0.3 ML SYRINGE SQ SCH ×2 (11:34→23:17)
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
[2016-11-01] MEDS: PANTOPRAZOLE SODIUM 40 MG VIAL IVP SCH (23:17)
[2016-11-02] VITALS (18 sets, daily range): BP systolic 141–159; BP diastolic 61–79; PULSE 90–98; RESP 14–26; TEMP 97.9–100.2; O2SAT 90–99
[2016-11-02] MEDS: CHLORHEXIDINE GLUCONATE 2 % 1 PACK (2 CLOTHS) TOP SCH (03:35)
[2016-11-02 04:18] LABS: AUTOMATED NEUTROPHIL # 12.7 TH/MM3 (1.8-7.7); BASOPHIL # 0.2 TH/MM3 (0-0.2); BASOPHIL % 1.2 % (0.0-2.0); EOSINOPHIL % 0.3 % (0.0-4.0); HEMATOCRIT 32.8 % (39.0-51.0); LYMPH % 5.3 % (9.0-44.0); LYMPHOCYTE # 0.8 TH/MM3 (1.0-4.8); MEAN CELL VOLUME 91.8 FL (80.0-100.0); MEAN CORPUSCULAR HEMOGLOBIN 30.6 PG (27.0-34.0); MEAN CORPUSCULAR HGB CONC 33.4 % (32.0-36.0); MONO % 5.7 % (0.0-8.0); NEUT % 87.5 % (16.0-70.0); PLATELET COUNT 143 TH/MM3 (150-450); RED BLOOD COUNT 3.58 MIL/MM3 (4.50-5.90); RED CELL DISTRIBUTION WIDTH 16.1 % (11.6-17.2); WHITE BLOOD COUNT 14.5 TH/MM3 (4.0-11.0)
[2016-11-02 04:22] LABS: HEMO FLAGS AUTO DIFF
[2016-11-02 04:46] LABS: ANION GAP 7 MEQ/L (5-15); AST (GOT) 65 U/L (15-37); BICARBONATE 31.2 MEQ/L (21.0-32.0); BLOOD UREA NITROGEN 46 MG/DL (7-18); CHLORIDE 112 MEQ/L (98-107); GLOMERULAR FILTRATION RATE 77 ML/MIN (>89); MAGNESIUM 2.8 MG/DL (1.5-2.5); POTASSIUM 4.1 MEQ/L (3.5-5.1); SODIUM (NA) 150 MEQ/L (136-145)
[2016-11-02 04:51] LABS: ALKALINE PHOSPHATASE 261 U/L (45-117); ALT (GPT) 40 U/L (12-78); TOTAL BILIRUBIN ADULT 2.9 MG/DL (0.2-1.0)
--- NOTE | 2016-11-02 05:53 | RADRPT ---
EXAM DATE/TIME: 11/02/2016 04:01 [place] COMPARISON: CHEST SINGLE AP, November 01, 2016, 4:12. INDICATIONS : Shortness of breath. MEDICAL HISTORY : None. SURGICAL HISTORY : None. ENCOUNTER: Subsequent ACUITY: 1 week PAIN SCORE: Non-responsive. LOCATION: Bilateral chest FINDINGS: Endotracheal tube, left subclavian line, enteric tube and right-sided chest tube again seen. The lung s are clear. Plate and screw fixation of the right sixth through ninth ribs identified, right-sided r ib fractures are present. Skin johnathan are seen. CONCLUSION: No significant change has occurred. Fady Cochran MD on November 02, 2016 at 5:50 Board Certified Radiologist. This report was verified electronically.
[2016-11-02] MEDS: INSULIN ASPART SUPPLEMENTAL SCALE SQ SCH ×2 (06:00)
[2016-11-02] MEDS: METHOCARBAMOL 500 MG TAB PO SCH ×3 (06:37→20:11)
[2016-11-02 06:54] LABS: BANDS 2 % (0-6); MYELOCYTES 2 % (0-0); NEUTROPHIL # MANUAL DIFF 13.1 TH/MM3 (1.8-7.7); POLYS (SEG NEUTROPHILS) 86 % (16-70); WBC DIFF SAMPLE 100
[2016-11-02 06:56] LABS: PLATELET ESTIMATE SMEAR LOW (NORMAL); PLATELET MORPHOLOGY ENLARGED (NORMAL); SCAN/DIFF FINAL DIFF MANUAL
[2016-11-02] MEDS: POLYETHYLENE GLYCOL 17 GM PKG PO SCH (07:42)
[2016-11-02] MEDS: DOCUSATE SODIUM 50 MG/SENNA 8.6 MG TAB PO SCH ×2 (07:42→20:11)
[2016-11-02] MEDS: CHLORHEXIDINE 0.12% (ORAL KIT) 15 ML CUP MT SCH ×2 (08:00→20:10)
[2016-11-02] MEDS: levETIRAcetam INJ 500 MG in SODIUM CHLORIDE 0.9% INJ 100 ML IV SCH ×2 (08:16→20:10)
[2016-11-02] MEDS: BACITRACIN TOP OINT 15 GM TUBE TOP SCH ×2 (08:16→20:11)
[2016-11-02] MEDS: ALLOPURINOL 100 MG TAB PO SCH (08:16)
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
[2016-11-02] MEDS ORDERED: DEXTROSE 50% IN WATER 50 ML VIAL(D50) IV PUSH PRN (11:00)
[2016-11-02] MEDS: ENOXAPARIN SODIUM 30 MG/0.3 ML SYRINGE SQ SCH ×2 (11:39→23:10)
[2016-11-02] MEDS: INSULIN NovoLIN REGULAR SUPPLEMENTAL SCALE SQ SCH ×3 (11:39→23:10)
[2016-11-02 12:21] LABS: BLOOD, URINE NEG (NEG); GLUCOSE,URINE TRACE mg/dL (NEG); KETONE, URINE NEG (NEG); MUCUS URINE FEW /lpf (OCC); NITRITE,URINE NEG (NEG); PH, URINE 5.5 (5.0-8.5); URINE COLOR DARK-YELLOW (YELLW/STRAW)
[2016-11-02 12:27] LABS: COMMENT (UR) CATH-CULT NOT IND; CULTURE IF INDICATED CATH CULTURE NOT IND
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
[2016-11-02] MEDS: PANTOPRAZOLE SODIUM 40 MG VIAL IVP SCH (22:32)
[2016-11-03] VITALS (21 sets, daily range): BP systolic 113–145; BP diastolic 65–73; PULSE 81–102; RESP 17–27; TEMP 98.5–100.7; O2SAT 92–97
[2016-11-03] MEDS: ALPRAZolam 0.5 MG TAB PO PRN (00:28)
[2016-11-03] MEDS: CHLORHEXIDINE GLUCONATE 2 % 1 PACK (2 CLOTHS) TOP SCH (03:11)
[2016-11-03 04:16] LABS: AUTOMATED NEUTROPHIL # 11.2 TH/MM3 (1.8-7.7); BASOPHIL % 0.2 % (0.0-2.0); EOSINOPHIL # 0.1 TH/MM3 (0-0.4); EOSINOPHIL % 0.6 % (0.0-4.0); HEMATOCRIT 33.3 % (39.0-51.0); HEMO FLAGS DIFF FINAL; LYMPH % 5.8 % (9.0-44.0); LYMPHOCYTE # 0.8 TH/MM3 (1.0-4.8); MEAN CELL VOLUME 93.2 FL (80.0-100.0); MEAN CORPUSCULAR HGB CONC 32.1 % (32.0-36.0); NEUT % 86.4 % (16.0-70.0); PLATELET COUNT 135 TH/MM3 (150-450); RED BLOOD COUNT 3.57 MIL/MM3 (4.50-5.90); RED CELL DISTRIBUTION WIDTH 16.3 % (11.6-17.2)
[2016-11-03 04:37] LABS: ALT (GPT) 51 U/L (12-78); ANION GAP 7 MEQ/L (5-15); AST (GOT) 82 U/L (15-37); BICARBONATE 32.6 MEQ/L (21.0-32.0); BLOOD UREA NITROGEN 44 MG/DL (7-18); CHLORIDE 113 MEQ/L (98-107); GLOMERULAR FILTRATION RATE 76 ML/MIN (>89); MAGNESIUM 2.8 MG/DL (1.5-2.5); POTASSIUM 3.7 MEQ/L (3.5-5.1); SODIUM (NA) 153 MEQ/L (136-145)
[2016-11-03 04:39] LABS: ALKALINE PHOSPHATASE 278 U/L (45-117); TOTAL BILIRUBIN ADULT 3.5 MG/DL (0.2-1.0)
--- NOTE | 2016-11-03 04:48 | RADRPT ---
EXAM DATE/TIME: 11/03/2016 03:39 [facility] COMPARISON: CHEST SINGLE AP, November 02, 2016, 4:01. INDICATIONS : Shortness of breath. MEDICAL HISTORY : None. SURGICAL HISTORY : None. ENCOUNTER: Subsequent ACUITY: 2 weeks PAIN SCORE: Non-responsive. LOCATION: Bilateral chest FINDINGS: No change in appearance of the chest. Endotracheal tube, enteric tube, right-sided chest tube, plate and screw fixation of multiple right ribs are noted. Lungs are clear. CONCLUSION: No significant change has occurred. Fady Cochran MD on November 03, 2016 at 4:46 Board Certified Radiologist. This report was verified electronically.
[2016-11-03 05:25] LABS: BLOOD GAS BASE EXCESS 9.6 mmol/L (-2-2); BLOOD GAS CARBOXYHEMOGLOBIN 1.7 % (0-4); BLOOD GAS HCO3 34 mmol/L (22-26); BLOOD GAS METHEMOGLOBIN 0.7 % (0-2); BLOOD GAS O2 HGB SATURATION 97 % (90-100); BLOOD GAS OXYGEN CONTENT 23.1 Vol % (12.0-20.0); BLOOD GAS PCO2 47 mmHg (38-42); BLOOD GAS PO2 153 mmHg (61-120); BLOOD GAS TOTAL HGB 16.8 G/DL (12.0-16.0); TEMP CORR TO 98.6
[2016-11-03 05:26] LABS: CRITICAL VALUE NO; DRAW SITE RT RADIAL; FIO2 40 %; NUMBER OF ARTERIAL PUNCTURES 1; OXYGEN DEVICE VENTILATOR; STAT NO; ULNAR PULSE PRESENT
[2016-11-03] MEDS: METHOCARBAMOL 500 MG TAB PO SCH (05:39)
[2016-11-03] MEDS: INSULIN NovoLIN REGULAR SUPPLEMENTAL SCALE SQ SCH ×4 (05:39→20:00)
[2016-11-03] MEDS: CHLORHEXIDINE 0.12% (ORAL KIT) 15 ML CUP MT SCH ×2 (08:00→20:00)
[2016-11-03] MEDS ORDERED: DEXTROSE 50% IN WATER 50 ML VIAL(D50) IV PUSH PRN (08:15)
[2016-11-03] MEDS ORDERED: FUROSEMIDE 40 MG/4 ML VIAL IV PUSH ONE (08:15)
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
[2016-11-03] MEDS: LACTULOSE SYRUP 20 GM/30 ML CUP PO SCH ×3 (08:57→21:18)
[2016-11-03] MEDS: DOCUSATE SODIUM 50 MG/SENNA 8.6 MG TAB PO SCH ×2 (08:58→21:00)
[2016-11-03] MEDS: ALLOPURINOL 100 MG TAB PO SCH (08:58)
[2016-11-03] MEDS: BACITRACIN TOP OINT 15 GM TUBE TOP SCH ×2 (08:58→21:00)
[2016-11-03] MEDS: levETIRAcetam INJ 500 MG in SODIUM CHLORIDE 0.9% INJ 100 ML IV SCH ×2 (08:58→21:17)
[2016-11-03] MEDS: POLYETHYLENE GLYCOL 17 GM PKG PO SCH (08:58)
[2016-11-03] MEDS: INSULIN DETEMIR 100 UNITS/ML VIAL SQ SCH (08:58)
[2016-11-03] MEDS: ENOXAPARIN SODIUM 30 MG/0.3 ML SYRINGE SQ SCH (11:11)
--- NOTE | 2016-11-03 12:59 | RADRPT ---
EXAM DATE/TIME: 11/03/2016 11:58 [facility] COMPARISON: CHEST SINGLE AP, November 03, 2016, 3:39. INDICATIONS : Water seal chest tube. MEDICAL HISTORY : Unobtainable. SURGICAL HISTORY : Unobtainable. ENCOUNTER: Subsequent ACUITY: 2 weeks PAIN SCORE: Non-responsive. LOCATION: Bilateral chest FINDINGS: The right-sided chest tube is again noted and unchanged. No pneumothorax is noted. Hardware is note d within at least four contiguous ribs on the right and is unchanged. There are fractures involving the lateral aspects of the right third, fourth and fifth ribs also which are stable. The endotrachea l tube has its tip 4 cm above the jamey. A nasogastric tube has its tip below the diaphragm. The l eft lung is clear. The heart is stable. CONCLUSION: 1. No pneumothorax. 2. Multiple tubes and lines are stable. Alberto Stroud MD on November 03, 2016 at 12:49 Board Certified Radiologist. This report was verified electronically.
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
[2016-11-03] MEDS: ACETAMINOPHEN 325 MG TAB PO PRN (21:18)
[2016-11-03] MEDS: SODIUM CHLORIDE 0.9% FLUSH 5 ML FLUSH IVF PRN (21:18)
[2016-11-03] MEDS: PANTOPRAZOLE SODIUM 40 MG VIAL IVP SCH (21:18)
[2016-11-04] VITALS (19 sets, daily range): BP systolic 113–141; BP diastolic 60–75; PULSE 78–106; RESP 19–31; TEMP 97.9–102.1; O2SAT 92–100
[2016-11-04] MEDS: ENOXAPARIN SODIUM 30 MG/0.3 ML SYRINGE SQ SCH ×3 (02:29→22:58)
[2016-11-04] MEDS: INSULIN NovoLIN REGULAR SUPPLEMENTAL SCALE SQ SCH ×6 (02:57→19:54)
[2016-11-04] MEDS: CHLORHEXIDINE GLUCONATE 2 % 1 PACK (2 CLOTHS) TOP SCH (02:59)
[2016-11-04] MEDS ORDERED: ACETAMINOPHEN 1000 MG/100 ML VIAL IV PRN (04:15)
[2016-11-04 04:31] LABS: AUTOMATED NEUTROPHIL # 13.5 TH/MM3 (1.8-7.7); BASOPHIL % 0.2 % (0.0-2.0); EOSINOPHIL # 0.1 TH/MM3 (0-0.4); EOSINOPHIL % 0.7 % (0.0-4.0); HEMO FLAGS DIFF FINAL; LYMPH % 3.7 % (9.0-44.0); LYMPHOCYTE # 0.5 TH/MM3 (1.0-4.8); MEAN CELL VOLUME 93.1 FL (80.0-100.0); MEAN CORPUSCULAR HEMOGLOBIN 30.5 PG (27.0-34.0); MEAN CORPUSCULAR HGB CONC 32.8 % (32.0-36.0); MONO % 4.7 % (0.0-8.0); NEUT % 90.7 % (16.0-70.0); PLATELET COUNT 159 TH/MM3 (150-450); RED BLOOD COUNT 3.76 MIL/MM3 (4.50-5.90); RED CELL DISTRIBUTION WIDTH 16.8 % (11.6-17.2); WHITE BLOOD COUNT 14.8 TH/MM3 (4.0-11.0)
[2016-11-04 04:53] LABS: ALKALINE PHOSPHATASE 327 U/L (45-117); ALT (GPT) 75 U/L (12-78); ANION GAP 10 MEQ/L (5-15); AST (GOT) 108 U/L (15-37); BICARBONATE 28.4 MEQ/L (21.0-32.0); BLOOD UREA NITROGEN 47 MG/DL (7-18); CHLORIDE 116 MEQ/L (98-107); GLOMERULAR FILTRATION RATE 67 ML/MIN (>89); MAGNESIUM 2.8 MG/DL (1.5-2.5); SODIUM (NA) 154 MEQ/L (136-145); TOTAL BILIRUBIN ADULT 4.6 MG/DL (0.2-1.0)
[2016-11-04 05:03] LABS: POTASSIUM 2.9 MEQ/L (3.5-5.1)
[2016-11-04] MEDS: POTASSIUM CHLOR 20 MEQ PREMIX 100 ML IV PRN ×2 (05:15→12:09)
[2016-11-04] MEDS ORDERED: Vancomycin Consult Pharmacy 1 EA OTHER SCH (06:30)
[2016-11-04] MEDS: metroNIDAZOLE 500 MG INJ 100 ML IV SCH ×3 (06:38→19:55)
[2016-11-04] MEDS: FREE WATER G-TUBE SCH ×4 (07:15→22:57)
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
[2016-11-04] MEDS: CHLORHEXIDINE 0.12% (ORAL KIT) 15 ML CUP MT SCH ×2 (08:00→19:54)
[2016-11-04] MEDS: LACTULOSE SYRUP 20 GM/30 ML CUP PO SCH ×4 (08:01→19:56)
[2016-11-04] MEDS: levETIRAcetam INJ 500 MG in SODIUM CHLORIDE 0.9% INJ 100 ML IV SCH ×2 (08:01→19:56)
[2016-11-04] MEDS: ALLOPURINOL 100 MG TAB PO SCH (08:01)
[2016-11-04] MEDS: CEFEPIME INJ 1,000 MG in SODIUM CHLORIDE 0.9% INJ 100 ML IV SCH ×3 (08:01→22:58)
[2016-11-04] MEDS: INSULIN DETEMIR 100 UNITS/ML VIAL SQ SCH (08:02)
[2016-11-04] MEDS: BACITRACIN TOP OINT 15 GM TUBE TOP SCH ×2 (08:02→19:57)
[2016-11-04] MEDS: DOCUSATE SODIUM 50 MG/SENNA 8.6 MG TAB PO SCH ×2 (08:02→19:56)
[2016-11-04] MEDS: POLYETHYLENE GLYCOL 17 GM PKG PO SCH (08:02)
--- NOTE | 2016-11-04 08:44 | PD.ORT.PN ---
Subjective Subjective Remarks POD 9 s/p ORIF Right ribs s/p right clavicle fx nurse reports rib incision is clean and dry and healing appropriate. drain was DCd. reports that chest tube is still in place and has been draining profusely Objective Vitals Vital Signs Date Time Temp Pulse Resp B/P Pulse Ox O2 Delivery O2 Flow Rate FiO2 11/04/16 08:22 96 50 11/04/16 06:00 103 11/04/16 05:30 21 11/04/16 04:00 40 11/04/16 04:00 106 11/04/16 04:00 101.7 104 21 141/73 95 11/04/16 04:00 94 40 11/04/16 02:00 102 11/04/16 01:12 92 50 11/04/16 00:00 103 11/04/16 00:00 40 11/04/16 00:00 102.1 93 27 113/65 96 11/03/16 22:46 92 40 11/03/16 22:18 24 11/03/16 22:00 102 11/03/16 20:14 95 40 11/03/16 20:00 96 11/03/16 20:00 100.7 93 27 113/65 96 11/03/16 20:00 40 11/03/16 18:16 95 40 11/03/16 18:16 40 11/03/16 18:00 95 11/03/16 17:27 97 40 11/03/16 16:00 93 11/03/16 16:00 40 11/03/16 16:00 100.7 93 27 113/65 96 11/03/16 14:00 91 11/03/16 13:55 97 40 11/03/16 12:00 40 11/03/16 12:00 94 11/03/16 12:00 99.0 92 27 120/70 97 11/03/16 11:11 96 40 11/03/16 10:00 97 I/O 11/03/16 11/03/16 11/03/16 11/04/16 11/04/16 11/04/16 07:00 15:00 23:00 07:00 15:00 23:00 Intake Total 374 ml 657 ml 517 ml 543 ml Output Total 1150 ml 3300 ml 1450 ml 600 ml Balance -776 ml -2643 ml -933 ml -57 ml IV Total 117 ml 167 ml Tube Feeding 314 ml 420 ml 397 ml 316 ml Other 60 ml 120 ml 120 ml 60 ml Output Urine Total 450 ml 2100 ml 950 ml 600 ml Chest Tube Drainage Total 700 ml 1200 ml 500 ml # Bowel Movements 1 2 2 2 Result Diagram: 11/04/1640011/04/16 0401 Imaging Last 72 hours Impressions Chest X-Ray 10/24/16 0600 Signed Impressions: Service Date/Time: Monday, October 24, 2016 04:33 - CONCLUSION: 1. 3 mm apical right pneumothorax similar in size to prior CT. 2. Patchy areas of infiltrate in the right lower lung and left basilar consolidation or atelectasis. Stanley Street MD Chest X-Ray 10/24/16 0000 Signed Impressions: Service Date/Time: Monday, October 24, 2016 08:17 - CONCLUSION: 1. ET tube in good position. 2. Persistent right pneumothorax. This is at least mild. This was present previously. Mediastinal shift is not seen. 3. Multiple right rib fractures and right clavicle fracture. Charly Arias MD Lumbar Spine CT 10/23/16 0000 Signed Impressions: Service Date/Time: Saturday, October 22, 2016 20:49 - CONCLUSION: 1. Fractures of the L1 through L5 right transverse processes and theleft L1 transverse process. There is some questionable minimal deformity at the 2nd left transverse process. 2. Fracturing of the L4 and L5 spinous processes. 3. Fracturing of the right 12th rib. 4. Mild lower lumbar degenerative change especially at the facet joints. Charly Arias MD Chest X-Ray 10/23/16 0000 Signed Impressions: Service Date/Time: Sunday, October 23, 2016 07:51 - CONCLUSION: 1. Persistent increased density in the right upper lung likely related to contusion or aspiration. 2. Numerous right rib fractures and right clavicle fracture. 3. Possible minimal pneumothorax along the lateral and upper right chest measuring only a few millimeters in thickness. The patient did have a small pneumothorax seen on the CT examination of the chest. Charly Arias MD Chest CT 10/23/16 0000 Signed Impressions: Service Date/Time: Sunday, October 23, 2016 12:27 - CONCLUSION: 1. Persistent mild right pneumothorax. 2. Numerous right-sided rib fractures and right clavicle fracture with increased soft-tissue density in the posterolateral soft tissues consistent with a soft tissue hematoma. 3. Increased density in the right upper lung related to contusion or aspiration. 4. Increased density identified in the posterior lung bases being worse on the right related to contusions or areas of atelectasis. Charly Arias MD Abdomen/Pelvis CT 10/23/16 0000 Signed Impressions: Service Date/Time: Sunday, October 23, 2016 12:27 - CONCLUSION: 1. Fracturing of multiple transverse processes being more prominent on the right than the left. There is a right psoas and paraspinous hematoma and a right gluteal hematoma. These have progressed since the prior examination and appear larger. There is also some induration in the right retroperitoneum and extending into the posterior right peritoneal reflection. This finding also appears more prominent. Charly Arias MD Pelvis X-Ray 10/22/162023 Signed Impressions: Service Date/Time: Saturday, October 22, 2016 20:23 - CONCLUSION: Intact pelvis. Charly Lizarraga MD Head CT 10/22/162023 Signed Impressions: Service Date/Time: Saturday, October 22, 2016 20:27 - CONCLUSION: Suspected small intracranial hemorrhage as above. Followup noncontrast chest CT surveillance recommended. Charly Lizarraga MD Chest X-Ray 10/22/162023 Signed Impressions: Service Date/Time: Saturday, October 22, 2016 20:23 - CONCLUSION: Right upper lobe and left base consolidation. Multiple right rib fractures. No definite pneumothorax. Chest CT to follow. Charly Lizarraga MD Chest CT 10/22/162023 Signed Impressions: Service Date/Time: Saturday, October 22, 2016 20:30 - CONCLUSION: 1. Right posterior and posterolateral rib fractures, third through 12. 2. Fairly large parenchymal contusion in the right lung, especially the right upper. 3. Small right pneumothorax. No tension. 4. Very small right hemothorax. 5. No acute abnormality seen of the heart or mediastinum. 6. There is a comminuted but not significantly displaced fracture of the midshaft of the right clavicle. Charly Lizarraga MD Cervical Spine CT 10/22/162023 Signed Impressions: Service Date/Time: Saturday, October 22, 2016 20:29 - CONCLUSION: Intact cervical spine. Charly Lizarraga MD Abdomen/Pelvis CT 10/22/162023 Signed Impressions: Service Date/Time: Saturday, October 22, 2016 20:30 - CONCLUSION: 1. Posterior spinous and bilateral transverse process fractures of the lumbar spine as above. Also the lower right ribs are all fractured. There is a paraspinous hematoma of the right lumbar region with hematomas in the paraspinous muscles, subcutaneous fat and psoas muscle. There is a focus of active bleeding within the right psoas muscle. 2. Small right retroperitoneal component of hematoma without evidence of active bleeding. 3. No visceral organ injury. Charly Lizarraga MD Objective Remarks Right upper extremity: moderate swelling over clavicle. No laxity in elbow or wrist. Distally good capillary refills in distal pulses. dressings of right rib cage are intact. Assessment & Plan Assessment and Plan 1) Right clavicle fracture 2) Right-sided rib fractures 3 through 12 s/p ORIF - POD9 -maintain sling right arm -dressing changes to right rib cage -[facility] -Dr Hsu informed today that unknown cause of fever. concerned may be empyema or related to chest tube. will further evaluate and let us know if any infection around rib plating. Saulo Samuel Nov 04, 2016 08:44
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
[2016-11-04] MEDS ORDERED: VANCOMYCIN INJ 1,250 MG in SODIUM CHLOR 0.9% 250 ML INJ 250 ML IV ONE (09:00)
[2016-11-04] MEDS ORDERED: PROPOFOL 500 MG/50 ML INJ 50 ML ONE (10:28)
[2016-11-04] MEDS ORDERED: IOHEXOL 350 MG/ML 10 ML VIAL (for RAD DIAG) IV ONE (10:49)
[2016-11-04 10:59] LABS: C. DIFF EPI 027 PRESUMPTIVE NEGATIVE (NEGATIVE); C. DIFF TOXIN PCR NEGATIVE (NEGATIVE)
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
[2016-11-04] MEDS: VANCOMYCIN INJ 1,500 MG in SODIUM CHLORID 0.9% 500 ML INJ 500 ML IV SCH (19:56)
[2016-11-04] MEDS: PANTOPRAZOLE SODIUM 40 MG VIAL IVP SCH (22:57)
[2016-11-04] MEDS: ACETAMINOPHEN 1000 MG/100 ML VIAL IV PRN (22:58)
[2016-11-05] VITALS (19 sets, daily range): BP systolic 102–136; BP diastolic 55–73; PULSE 78–102; RESP 19–28; TEMP 99.3–100.8; O2SAT 94–98
[2016-11-05] MEDS: metroNIDAZOLE 500 MG INJ 100 ML IV SCH ×4 (00:07→17:14)
[2016-11-05 03:43] LABS: AUTOMATED NEUTROPHIL # 11.5 TH/MM3 (1.8-7.7); BASOPHIL % 0.3 % (0.0-2.0); EOSINOPHIL % 0.3 % (0.0-4.0); HEMATOCRIT 33.5 % (39.0-51.0); LYMPH % 4.4 % (9.0-44.0); LYMPHOCYTE # 0.6 TH/MM3 (1.0-4.8); MEAN CELL VOLUME 94.2 FL (80.0-100.0); MEAN CORPUSCULAR HEMOGLOBIN 30.2 PG (27.0-34.0); MONO % 4.6 % (0.0-8.0); NEUT % 90.4 % (16.0-70.0); PLATELET COUNT 140 TH/MM3 (150-450); RED BLOOD COUNT 3.56 MIL/MM3 (4.50-5.90); RED CELL DISTRIBUTION WIDTH 17.2 % (11.6-17.2); WHITE BLOOD COUNT 12.7 TH/MM3 (4.0-11.0)
[2016-11-05 03:44] LABS: HEMO FLAGS AUTO DIFF
[2016-11-05] MEDS: INSULIN NovoLIN REGULAR SUPPLEMENTAL SCALE SQ SCH ×6 (04:00→20:00)
[2016-11-05] MEDS: CHLORHEXIDINE GLUCONATE 2 % 1 PACK (2 CLOTHS) TOP SCH (04:00)
[2016-11-05 04:06] LABS: ALT (GPT) 71 U/L (12-78); ANION GAP 10 MEQ/L (5-15); AST (GOT) 84 U/L (15-37); BICARBONATE 24.3 MEQ/L (21.0-32.0); BLOOD UREA NITROGEN 50 MG/DL (7-18); CHLORIDE 118 MEQ/L (98-107); GLOMERULAR FILTRATION RATE 61 ML/MIN (>89); POTASSIUM 3.2 MEQ/L (3.5-5.1); SODIUM (NA) 152 MEQ/L (136-145)
[2016-11-05 04:09] LABS: ALKALINE PHOSPHATASE 303 U/L (45-117); TOTAL BILIRUBIN ADULT 3.5 MG/DL (0.2-1.0)
[2016-11-05] MEDS: POTASSIUM CHLOR 40 MEQ PREMIX 100 ML IV PRN ×2 (04:49→09:08)
[2016-11-05] MEDS: FREE WATER G-TUBE SCH ×3 (05:00→18:00)
[2016-11-05 05:04] LABS: BANDS 19 % (0-6); EOSINOPHILS 1 % (0-4); NEUTROPHIL # MANUAL DIFF 11.4 TH/MM3 (1.8-7.7); POLYS (SEG NEUTROPHILS) 71 % (16-70); WBC DIFF SAMPLE 100
[2016-11-05 05:05] LABS: SCAN/DIFF FINAL DIFF MANUAL
[2016-11-05 05:07] LABS: PLATELET ESTIMATE SMEAR LOW (NORMAL); PLATELET MORPHOLOGY NORMAL (NORMAL)
--- NOTE | 2016-11-05 07:24 | PD.ORT.PN ---
Subjective Subjective Remarks POD 10 s/p ORIF Right ribs s/p right clavicle fx nurse reports rib incision is clean and dry and healing appropriate. drain was DCd. reports that chest tube is still in place and has been draining profusely Objective Vitals Vital Signs Date Time Temp Pulse Resp B/P Pulse Ox O2 Delivery O2 Flow Rate FiO2 11/05/16 06:00 87 11/05/16 04:52 95 50 11/05/16 04:00 90 11/05/16 04:00 100.0 90 20 110/55 95 11/05/16 04:00 40 11/05/16 02:00 93 11/05/16 01:29 96 40 11/05/16 00:00 40 11/05/16 00:00 102 11/05/16 00:00 100.8 102 20 102/60 94 11/04/16 22:30 93 40 11/04/16 22:00 103 11/04/16 21:22 94 50 11/04/16 20:00 101.2 103 22 141/75 94 11/04/16 20:00 40 11/04/16 20:00 100 11/04/16 18:00 94 11/04/16 17:08 92 40 11/04/16 16:00 93 11/04/16 16:00 40 11/04/16 16:00 99.1 93 31 126/60 92 11/04/16 14:00 85 11/04/16 12:00 40 11/04/16 12:00 97.9 78 23 119/66 96 11/04/16 12:00 78 11/04/16 11:36 50 11/04/16 11:35 94 50 11/04/16 10:30 100 100 11/04/16 10:00 83 11/04/16 08:22 96 50 11/04/16 08:00 87 11/04/16 08:00 100.4 87 19 118/60 96 11/04/16 08:00 40 I/O 11/04/16 11/04/16 11/04/16 11/05/16 11/05/16 11/05/16 07:00 15:00 23:00 07:00 15:00 23:00 Intake Total 543 ml 1694 ml 1259 ml 1558 ml Output Total 600 ml 1235 ml 1710 ml 1950 ml Balance -57 ml 459 ml -451 ml -392 ml IV Total 167 ml 1184 ml 693 ml 560 ml Tube Feeding 316 ml 90 ml 446 ml 398 ml Other 60 ml 420 ml 120 ml 600 ml Output Urine Total 600 ml 650 ml 500 ml 430 ml Stool Total 25 ml 250 ml 300 ml Gastric Drainage Total 20 ml 20 ml Chest Tube Drainage Total 560 ml 940 ml 1200 ml # Bowel Movements 2 Result Diagram: 11/05/16 0321 11/05/16 0321 Imaging Last 72 hours Impressions Chest X-Ray 10/24/16 0600 Signed Impressions: Service Date/Time: Monday, October 24, 2016 04:33 - CONCLUSION: 1. 3 mm apical right pneumothorax similar in size to prior CT. 2. Patchy areas of infiltrate in the right lower lung and left basilar consolidation or atelectasis. Stanley Street MD Chest X-Ray 10/24/16 0000 Signed Impressions: Service Date/Time: Monday, October 24, 2016 08:17 - CONCLUSION: 1. ET tube in good position. 2. Persistent right pneumothorax. This is at least mild. This was present previously. Mediastinal shift is not seen. 3. Multiple right rib fractures and right clavicle fracture. Charly Arias MD Lumbar Spine CT 10/23/16 0000 Signed Impressions: Service Date/Time: Saturday, October 22, 2016 20:49 - CONCLUSION: 1. Fractures of the L1 through L5 right transverse processes and theleft L1 transverse process. There is some questionable minimal deformity at the 2nd left transverse process. 2. Fracturing of the L4 and L5 spinous processes. 3. Fracturing of the right 12th rib. 4. Mild lower lumbar degenerative change especially at the facet joints. Charly Arias MD Chest X-Ray 10/23/16 0000 Signed Impressions: Service Date/Time: Sunday, October 23, 2016 07:51 - CONCLUSION: 1. Persistent increased density in the right upper lung likely related to contusion or aspiration. 2. Numerous right rib fractures and right clavicle fracture. 3. Possible minimal pneumothorax along the lateral and upper right chest measuring only a few millimeters in thickness. The patient did have a small pneumothorax seen on the CT examination of the chest. Charly Arias MD Chest CT 10/23/16 0000 Signed Impressions: Service Date/Time: Sunday, October 23, 2016 12:27 - CONCLUSION: 1. Persistent mild right pneumothorax. 2. Numerous right-sided rib fractures and right clavicle fracture with increased soft-tissue density in the posterolateral soft tissues consistent with a soft tissue hematoma. 3. Increased density in the right upper lung related to contusion or aspiration. 4. Increased density identified in the posterior lung bases being worse on the right related to contusions or areas of atelectasis. Charly Arias MD Abdomen/Pelvis CT 10/23/16 0000 Signed Impressions: Service Date/Time: Sunday, October 23, 2016 12:27 - CONCLUSION: 1. Fracturing of multiple transverse processes being more prominent on the right than the left. There is a right psoas and paraspinous hematoma and a right gluteal hematoma. These have progressed since the prior examination and appear larger. There is also some induration in the right retroperitoneum and extending into the posterior right peritoneal reflection. This finding also appears more prominent. Charly Arias MD Pelvis X-Ray 10/22/162023 Signed Impressions: Service Date/Time: Saturday, October 22, 2016 20:23 - CONCLUSION: Intact pelvis. Charly Lizarraga MD Head CT 10/22/162023 Signed Impressions: Service Date/Time: Saturday, October 22, 2016 20:27 - CONCLUSION: Suspected small intracranial hemorrhage as above. Followup noncontrast chest CT surveillance recommended. Charly Lizarraga MD Chest X-Ray 10/22/162023 Signed Impressions: Service Date/Time: Saturday, October 22, 2016 20:23 - CONCLUSION: Right upper lobe and left base consolidation. Multiple right rib fractures. No definite pneumothorax. Chest CT to follow. Charly Lizarraga MD Chest CT 10/22/162023 Signed Impressions: Service Date/Time: Saturday, October 22, 2016 20:30 - CONCLUSION: 1. Right posterior and posterolateral rib fractures, third through 12. 2. Fairly large parenchymal contusion in the right lung, especially the right upper. 3. Small right pneumothorax. No tension. 4. Very small right hemothorax. 5. No acute abnormality seen of the heart or mediastinum. 6. There is a comminuted but not significantly displaced fracture of the midshaft of the right clavicle. Charly Lizarraga MD Cervical Spine CT 10/22/162023 Signed Impressions: Service Date/Time: Saturday, October 22, 2016 20:29 - CONCLUSION: Intact cervical spine. Charly Lizarraga MD Abdomen/Pelvis CT 10/22/162023 Signed Impressions: Service Date/Time: Saturday, October 22, 2016 20:30 - CONCLUSION: 1. Posterior spinous and bilateral transverse process fractures of the lumbar spine as above. Also the lower right ribs are all fractured. There is a paraspinous hematoma of the right lumbar region with hematomas in the paraspinous muscles, subcutaneous fat and psoas muscle. There is a focus of active bleeding within the right psoas muscle. 2. Small right retroperitoneal component of hematoma without evidence of active bleeding. 3. No visceral organ injury. Charly Lizarraga MD Objective Remarks Right upper extremity: moderate swelling over clavicle. No laxity in elbow or wrist. Distally good capillary refills in distal pulses. dressings of right rib cage are intact. Assessment & Plan Assessment and Plan 1) Right clavicle fracture 2) Right-sided rib fractures 6 through 9 s/p ORIF - POD10 -maintain sling right arm -dressing changes to right rib cage -[facility] Saulo Samuel Nov 05, 2016 07:24
[2016-11-05] MEDS: LACTULOSE SYRUP 20 GM/30 ML CUP PO SCH ×4 (08:43→20:49)
[2016-11-05] MEDS: CHLORHEXIDINE 0.12% (ORAL KIT) 15 ML CUP MT SCH ×2 (08:45→20:55)
[2016-11-05] MEDS: CEFEPIME INJ 1,000 MG in SODIUM CHLORIDE 0.9% INJ 100 ML IV SCH ×2 (08:45→17:13)
[2016-11-05] MEDS: levETIRAcetam INJ 500 MG in SODIUM CHLORIDE 0.9% INJ 100 ML IV SCH ×2 (08:47→20:55)
[2016-11-05] MEDS: POLYETHYLENE GLYCOL 17 GM PKG PO SCH (08:47)
[2016-11-05] MEDS: ALLOPURINOL 100 MG TAB PO SCH (08:47)
[2016-11-05] MEDS: BACITRACIN TOP OINT 15 GM TUBE TOP SCH ×2 (08:47→20:55)
[2016-11-05] MEDS: INSULIN DETEMIR 100 UNITS/ML VIAL SQ SCH (08:47)
[2016-11-05] MEDS: DOCUSATE SODIUM 50 MG/SENNA 8.6 MG TAB PO SCH ×2 (08:47→20:55)
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
[2016-11-05] MEDS: ENOXAPARIN SODIUM 30 MG/0.3 ML SYRINGE SQ SCH (12:29)
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
[2016-11-05] MEDS: VANCOMYCIN INJ 1,500 MG in SODIUM CHLORID 0.9% 500 ML INJ 500 ML IV SCH (15:00)
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
[2016-11-05] MEDS ORDERED: AMANTADINE HCL 100 MG CAP PO ONE (16:00)
[2016-11-05] MEDS: ACETAMINOPHEN 1000 MG/100 ML VIAL IV PRN (16:06)
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
[2016-11-06] VITALS (20 sets, daily range): BP systolic 98–135; BP diastolic 59–72; PULSE 76–93; RESP 18–29; TEMP 97.7–99.9; O2SAT 94–100
[2016-11-06] MEDS: PIPERACIL-TAZO 3.375 GM PREMIX 50 ML IV SCH ×6 (00:24→23:12)
[2016-11-06] MEDS: ENOXAPARIN SODIUM 30 MG/0.3 ML SYRINGE SQ SCH ×3 (00:24→23:12)
[2016-11-06] MEDS: CHLORHEXIDINE GLUCONATE 2 % 1 PACK (2 CLOTHS) TOP SCH (03:57)
[2016-11-06] MEDS: INSULIN NovoLIN REGULAR SUPPLEMENTAL SCALE SQ SCH ×7 (04:00→23:36)
[2016-11-06 05:16] LABS: AUTOMATED NEUTROPHIL # 8.9 TH/MM3 (1.8-7.7); BASOPHIL % 0.2 % (0.0-2.0); EOSINOPHIL # 0.3 TH/MM3 (0-0.4); EOSINOPHIL % 2.6 % (0.0-4.0); HEMATOCRIT 33.6 % (39.0-51.0); HEMO FLAGS DIFF FINAL; LYMPH % 6.1 % (9.0-44.0); LYMPHOCYTE # 0.6 TH/MM3 (1.0-4.8); MEAN CELL VOLUME 94.7 FL (80.0-100.0); MEAN CORPUSCULAR HEMOGLOBIN 30.3 PG (27.0-34.0); MEAN CORPUSCULAR HGB CONC 32.1 % (32.0-36.0); MONO % 5.8 % (0.0-8.0); NEUT % 85.3 % (16.0-70.0); PLATELET COUNT 164 TH/MM3 (150-450); RED BLOOD COUNT 3.55 MIL/MM3 (4.50-5.90); RED CELL DISTRIBUTION WIDTH 17.2 % (11.6-17.2); WHITE BLOOD COUNT 10.4 TH/MM3 (4.0-11.0)
[2016-11-06 05:29] LABS: ALKALINE PHOSPHATASE 314 U/L (45-117); ALT (GPT) 62 U/L (12-78); ANION GAP 9 MEQ/L (5-15); AST (GOT) 71 U/L (15-37); BICARBONATE 24.5 MEQ/L (21.0-32.0); BLOOD UREA NITROGEN 45 MG/DL (7-18); CHLORIDE 126 MEQ/L (98-107); GLOMERULAR FILTRATION RATE 83 ML/MIN (>89); POTASSIUM 3.4 MEQ/L (3.5-5.1); TOTAL BILIRUBIN ADULT 2.6 MG/DL (0.2-1.0)
[2016-11-06 05:34] LABS: SODIUM (NA) 159 MEQ/L (136-145)
[2016-11-06] MEDS: FREE WATER G-TUBE SCH ×7 (05:41→23:12)
[2016-11-06] MEDS: POTASSIUM CHLOR 20 MEQ PREMIX 100 ML IV PRN ×2 (05:43→11:55)
[2016-11-06] MEDS: AMANTADINE HCL 100 MG CAP PO SCH ×2 (05:44→08:46)
--- NOTE | 2016-11-06 05:46 | RADRPT ---
EXAM DATE/TIME: 11/06/2016 04:49 [place] COMPARISON: CHEST SINGLE AP, November 03, 2016, 11:58. INDICATIONS : Shortness of breath, possible pulmonary disease. MEDICAL HISTORY : None. SURGICAL HISTORY : None. ENCOUNTER: Subsequent ACUITY: 2 weeks PAIN SCORE: Non-responsive. LOCATION: Bilateral chest FINDINGS: A single portable frontal view of the chest shows the tip of the endotracheal tube 4 cm cephalad to t he jamey. Right-sided thoracostomy tube and nasogastric tube noted. No pneumothorax. Lungs are clear . No effusions. Orthopedic plates seen involving multiple right sided ribs. CONCLUSION: Clear lungs. Stanley Hernandez Jr., MD on November 06, 2016 at 5:44 Board Certified Radiologist. This report was verified electronically.
[2016-11-06] MEDS: DEXTROSE 5% IN WATE 1000ML INJ 1,000 ML IV SCH (06:15)
[2016-11-06] MEDS: CHLORHEXIDINE 0.12% (ORAL KIT) 15 ML CUP MT SCH ×2 (08:00→20:41)
[2016-11-06] MEDS: LACTULOSE SYRUP 20 GM/30 ML CUP PO SCH ×4 (08:45→20:40)
[2016-11-06] MEDS: levETIRAcetam INJ 500 MG in SODIUM CHLORIDE 0.9% INJ 100 ML IV SCH ×2 (08:45→20:40)
[2016-11-06] MEDS ORDERED: PHARMACY ORDERED LAB XX ONE (08:45)
[2016-11-06] MEDS: POLYETHYLENE GLYCOL 17 GM PKG PO SCH (08:45)
[2016-11-06] MEDS: DOCUSATE SODIUM 50 MG/SENNA 8.6 MG TAB PO SCH ×2 (08:45→21:00)
[2016-11-06] MEDS: BACITRACIN TOP OINT 15 GM TUBE TOP SCH ×2 (08:46→21:00)
[2016-11-06] MEDS: INSULIN DETEMIR 100 UNITS/ML VIAL SQ SCH (08:46)
[2016-11-06] MEDS: ALLOPURINOL 100 MG TAB PO SCH (08:46)
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
[2016-11-06] MEDS: SODIUM CHLORIDE 0.9% FLUSH 5 ML FLUSH IVF PRN (20:41)
[2016-11-06] MEDS ORDERED: PROPOFOL 1000 MG/100 ML IV SCH (23:15)
[2016-11-07] VITALS (19 sets, daily range): BP systolic 108–163; BP diastolic 64–75; PULSE 77–86; RESP 16–27; TEMP 99–100.2; O2SAT 97–99
[2016-11-07] MEDS: DEXTROSE 5% IN WATE 1000ML INJ 1,000 ML IV SCH ×2 (03:36→22:15)
[2016-11-07] MEDS: INSULIN NovoLIN REGULAR SUPPLEMENTAL SCALE SQ SCH ×6 (04:00→23:35)
[2016-11-07] MEDS: CHLORHEXIDINE GLUCONATE 2 % 1 PACK (2 CLOTHS) TOP SCH (04:00)
[2016-11-07] MEDS: FREE WATER G-TUBE SCH ×6 (04:00→23:35)
[2016-11-07] MEDS: PIPERACIL-TAZO 3.375 GM PREMIX 50 ML IV SCH ×4 (05:14→23:35)
--- NOTE | 2016-11-07 06:17 | RADRPT ---
EXAM DATE/TIME: 11/07/2016 05:17 [facility] COMPARISON: CHEST SINGLE AP, November 06, 2016, 4:49. INDICATIONS : Shortness of breath, possible pulmonary disease. MEDICAL HISTORY : None. SURGICAL HISTORY : None. ENCOUNTER: Subsequent ACUITY: 2 weeks PAIN SCORE: Non-responsive. LOCATION: Bilateral chest FINDINGS: A single view of the chest demonstrates the lungs to be symmetrically aerated without evidence of mas s, infiltrate or effusion. The cardiomediastinal contours are unremarkable. Tip of the endotracheal tube 4 cm proximal to jamey. Nasogastric tube tip courses off the inferior margin of the film. Right thoracostomy tube without pneumothorax. Multiple orthopedic plates involving multiple right sided ri bs. CONCLUSION: Clear lungs. No pneumothorax. Stanley Hernandez Jr., MD on November 07, 2016 at 6:15 Board Certified Radiologist. This report was verified electronically.
[2016-11-07 06:39] LABS: ALKALINE PHOSPHATASE 351 U/L (45-117); ALT (GPT) 59 U/L (12-78); ANION GAP 7 MEQ/L (5-15); AST (GOT) 68 U/L (15-37); BICARBONATE 26.1 MEQ/L (21.0-32.0); BLOOD UREA NITROGEN 43 MG/DL (7-18); CHLORIDE 122 MEQ/L (98-107); GLOMERULAR FILTRATION RATE 84 ML/MIN (>89); MAGNESIUM 2.9 MG/DL (1.5-2.5); POTASSIUM 3.7 MEQ/L (3.5-5.1); SODIUM (NA) 155 MEQ/L (136-145); TOTAL BILIRUBIN ADULT 1.8 MG/DL (0.2-1.0)
[2016-11-07 07:16] LABS: AUTOMATED NEUTROPHIL # 6.5 TH/MM3 (1.8-7.7); BASOPHIL % 0.2 % (0.0-2.0); EOSINOPHIL # 0.4 TH/MM3 (0-0.4); EOSINOPHIL % 4.5 % (0.0-4.0); LYMPH % 9.7 % (9.0-44.0); LYMPHOCYTE # 0.8 TH/MM3 (1.0-4.8); MEAN CORPUSCULAR HGB CONC 31.6 % (32.0-36.0); MONO % 7.9 % (0.0-8.0); NEUT % 77.7 % (16.0-70.0); PLATELET COUNT 178 TH/MM3 (150-450); RED BLOOD COUNT 3.58 MIL/MM3 (4.50-5.90); RED CELL DISTRIBUTION WIDTH 17.4 % (11.6-17.2); WHITE BLOOD COUNT 8.3 TH/MM3 (4.0-11.0)
[2016-11-07] MEDS: CHLORHEXIDINE 0.12% (ORAL KIT) 15 ML CUP MT SCH ×2 (07:49→20:16)
[2016-11-07] MEDS: POLYETHYLENE GLYCOL 17 GM PKG PO SCH (07:50)
[2016-11-07] MEDS: DOCUSATE SODIUM 50 MG/SENNA 8.6 MG TAB PO SCH ×2 (07:50→20:16)
[2016-11-07] MEDS: ALLOPURINOL 100 MG TAB PO SCH (08:02)
[2016-11-07] MEDS: INSULIN DETEMIR 100 UNITS/ML VIAL SQ SCH (08:02)
[2016-11-07] MEDS: BACITRACIN TOP OINT 15 GM TUBE TOP SCH ×2 (08:02→20:17)
[2016-11-07] MEDS: LACTULOSE SYRUP 20 GM/30 ML CUP PO SCH ×4 (08:02→20:16)
[2016-11-07] MEDS: levETIRAcetam INJ 500 MG in SODIUM CHLORIDE 0.9% INJ 100 ML IV SCH ×2 (08:02→20:16)
[2016-11-07] MEDS: AMANTADINE HCL 100 MG CAP PO SCH (08:02)
[2016-11-07 08:12] LABS: HEMO FLAGS AUTO DIFF
[2016-11-07 10:51] LABS: BANDS 16 % (0-6); EOSINOPHILS 3 % (0-4); PLATELET ESTIMATE SMEAR NORMAL (NORMAL); PLATELET MORPHOLOGY CLUMPED (NORMAL); POLYS (SEG NEUTROPHILS) 68 % (16-70); SCAN/DIFF FINAL DIFF MANUAL; WBC DIFF SAMPLE 100
[2016-11-07] MEDS: ALPRAZolam 0.5 MG TAB PO PRN ×2 (11:21→22:49)
[2016-11-07] MEDS: ENOXAPARIN SODIUM 30 MG/0.3 ML SYRINGE SQ SCH ×2 (11:21→23:35)
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
[2016-11-08] VITALS (20 sets, daily range): BP systolic 105–128; BP diastolic 55–75; PULSE 65–81; RESP 14–25; TEMP 97.7–99.7; O2SAT 32–100
[2016-11-08] MEDS: FREE WATER G-TUBE SCH ×5 (03:34→20:45)
[2016-11-08] MEDS: CHLORHEXIDINE GLUCONATE 2 % 1 PACK (2 CLOTHS) TOP SCH (03:35)
[2016-11-08] MEDS: INSULIN NovoLIN REGULAR SUPPLEMENTAL SCALE SQ SCH ×5 (03:35→20:00)
[2016-11-08 04:23] LABS: AUTOMATED NEUTROPHIL # 5.7 TH/MM3 (1.8-7.7); BASOPHIL # 0.1 TH/MM3 (0-0.2); BASOPHIL % 0.8 % (0.0-2.0); EOSINOPHIL # 0.3 TH/MM3 (0-0.4); EOSINOPHIL % 3.9 % (0.0-4.0); HEMATOCRIT 34.8 % (39.0-51.0); LYMPH % 10.9 % (9.0-44.0); LYMPHOCYTE # 0.8 TH/MM3 (1.0-4.8); MEAN CORPUSCULAR HEMOGLOBIN 30.8 PG (27.0-34.0); MEAN CORPUSCULAR HGB CONC 32.8 % (32.0-36.0); MONO % 8.7 % (0.0-8.0); NEUT % 75.7 % (16.0-70.0); PLATELET COUNT 178 TH/MM3 (150-450); RED BLOOD COUNT 3.71 MIL/MM3 (4.50-5.90); RED CELL DISTRIBUTION WIDTH 17.1 % (11.6-17.2); WHITE BLOOD COUNT 7.5 TH/MM3 (4.0-11.0)
[2016-11-08 04:25] LABS: HEMO FLAGS AUTO DIFF
[2016-11-08 04:39] LABS: ANION GAP 7 MEQ/L (5-15); AST (GOT) 85 U/L (15-37); BICARBONATE 25.8 MEQ/L (21.0-32.0); BLOOD UREA NITROGEN 38 MG/DL (7-18); CHLORIDE 120 MEQ/L (98-107); GLOMERULAR FILTRATION RATE 96 ML/MIN (>89); MAGNESIUM 2.7 MG/DL (1.5-2.5); POTASSIUM 3.9 MEQ/L (3.5-5.1); SODIUM (NA) 153 MEQ/L (136-145)
[2016-11-08 04:41] LABS: ALKALINE PHOSPHATASE 470 U/L (45-117); ALT (GPT) 68 U/L (12-78)
[2016-11-08 05:29] LABS: SCAN/DIFF AUTO DIFF CONFIRMED
[2016-11-08] MEDS: PIPERACIL-TAZO 3.375 GM PREMIX 50 ML IV SCH ×2 (05:43→12:12)
--- NOTE | 2016-11-08 06:11 | RADRPT ---
EXAM DATE/TIME: 11/08/2016 05:17 [place] COMPARISON: CHEST SINGLE AP, November 07, 2016, 5:17. INDICATIONS : Follow up trauma. Respiratory status. MEDICAL HISTORY : None. SURGICAL HISTORY : None. ORIF ENCOUNTER: Subsequent ACUITY: 4 - 6 days PAIN SCORE: Non-responsive. LOCATION: Bilateral chest FINDINGS: A single view of the chest demonstrates right-sided chest tube, unchanged. No pneumothorax. Minimal r ight basilar atelectasis. Postsurgical changes with multiple plate and screws along multiple right si ded ribs. Endotracheal tube and nasogastric tube are unchanged. CONCLUSION: Minimal right basal atelectasis. Jerardo Hearn MD on November 08, 2016 at 6:08 Board Certified Radiologist. This report was verified electronically.
[2016-11-08] MEDS: BACITRACIN TOP OINT 15 GM TUBE TOP SCH ×2 (08:54→20:46)
[2016-11-08] MEDS: INSULIN DETEMIR 100 UNITS/ML VIAL SQ SCH (08:54)
[2016-11-08] MEDS: LACTULOSE SYRUP 20 GM/30 ML CUP PO SCH ×4 (08:54→20:45)
[2016-11-08] MEDS: ALLOPURINOL 100 MG TAB PO SCH (08:55)
[2016-11-08] MEDS: POLYETHYLENE GLYCOL 17 GM PKG PO SCH (08:55)
[2016-11-08] MEDS: AMANTADINE HCL 100 MG CAP PO SCH (08:55)
[2016-11-08] MEDS: levETIRAcetam INJ 500 MG in SODIUM CHLORIDE 0.9% INJ 100 ML IV SCH ×2 (08:57→20:45)
[2016-11-08] MEDS: CHLORHEXIDINE 0.12% (ORAL KIT) 15 ML CUP MT SCH ×2 (09:01→20:45)
[2016-11-08] MEDS: DOCUSATE SODIUM 50 MG/SENNA 8.6 MG TAB PO SCH ×2 (09:02→20:46)
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
[2016-11-08] MEDS: ENOXAPARIN SODIUM 30 MG/0.3 ML SYRINGE SQ SCH (12:13)
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
[2016-11-08] MEDS: cefTRIAXone INJ 2,000 MG in SODIUM CHLORIDE 0.9% INJ 100 ML IV SCH (15:50)
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
[2016-11-08] MEDS: OCTREOTIDE INJ 100 MCG/ML VIAL SQ SCH (17:55)
[2016-11-09] VITALS (17 sets, daily range): BP systolic 114–130; BP diastolic 60–77; PULSE 64–71; RESP 12–24; TEMP 98.1–99.1; O2SAT 93–100
[2016-11-09] MEDS: ENOXAPARIN SODIUM 30 MG/0.3 ML SYRINGE SQ SCH ×2 (00:12→09:23)
[2016-11-09] MEDS: ALPRAZolam 0.5 MG TAB PO PRN (00:12)
[2016-11-09] MEDS: FREE WATER G-TUBE SCH ×7 (00:13→23:14)
[2016-11-09] MEDS: OCTREOTIDE INJ 100 MCG/ML VIAL SQ SCH ×3 (02:06→16:10)
[2016-11-09] MEDS: INSULIN NovoLIN REGULAR SUPPLEMENTAL SCALE SQ SCH ×6 (04:00→20:00)
[2016-11-09] MEDS: CHLORHEXIDINE GLUCONATE 2 % 1 PACK (2 CLOTHS) TOP SCH (04:00)
[2016-11-09 04:04] LABS: AUTOMATED NEUTROPHIL # 6.5 TH/MM3 (1.8-7.7); BASOPHIL # 0.1 TH/MM3 (0-0.2); BASOPHIL % 0.7 % (0.0-2.0); EOSINOPHIL # 0.3 TH/MM3 (0-0.4); EOSINOPHIL % 3.8 % (0.0-4.0); HEMATOCRIT 34.4 % (39.0-51.0); LYMPH % 13.2 % (9.0-44.0); LYMPHOCYTE # 1.2 TH/MM3 (1.0-4.8); MEAN CELL VOLUME 94.1 FL (80.0-100.0); MEAN CORPUSCULAR HEMOGLOBIN 30.5 PG (27.0-34.0); MEAN CORPUSCULAR HGB CONC 32.4 % (32.0-36.0); MONO % 8.5 % (0.0-8.0); NEUT % 73.8 % (16.0-70.0); PLATELET COUNT 204 TH/MM3 (150-450); RED BLOOD COUNT 3.65 MIL/MM3 (4.50-5.90); RED CELL DISTRIBUTION WIDTH 17.3 % (11.6-17.2); WHITE BLOOD COUNT 8.8 TH/MM3 (4.0-11.0)
[2016-11-09 04:07] LABS: HEMO FLAGS AUTO DIFF
[2016-11-09 04:19] LABS: ALT (GPT) 67 U/L (12-78); ANION GAP 8 MEQ/L (5-15); AST (GOT) 71 U/L (15-37); BICARBONATE 26.9 MEQ/L (21.0-32.0); BLOOD UREA NITROGEN 41 MG/DL (7-18); CHLORIDE 116 MEQ/L (98-107); GLOMERULAR FILTRATION RATE 104 ML/MIN (>89); MAGNESIUM 2.6 MG/DL (1.5-2.5); POTASSIUM 4.1 MEQ/L (3.5-5.1); SODIUM (NA) 151 MEQ/L (136-145)
[2016-11-09 04:22] LABS: ALKALINE PHOSPHATASE 422 U/L (45-117); TOTAL BILIRUBIN ADULT 1.9 MG/DL (0.2-1.0)
[2016-11-09 05:28] LABS: BLOOD GAS BASE EXCESS 1.5 mmol/L (-2-2); BLOOD GAS CARBOXYHEMOGLOBIN 1.8 % (0-4); BLOOD GAS HCO3 25 mmol/L (22-26); BLOOD GAS METHEMOGLOBIN 0.7 % (0-2); BLOOD GAS O2 HGB SATURATION 94 % (90-100); BLOOD GAS OXYGEN CONTENT 17.9 Vol % (12.0-20.0); BLOOD GAS PCO2 39 mmHg (38-42); BLOOD GAS PO2 87 mmHg (61-120); BLOOD GAS TOTAL HGB 13.5 G/DL (12.0-16.0); CRITICAL VALUE NO; DRAW SITE LT FOOT; FIO2 40 %; NUMBER OF ARTERIAL PUNCTURES 1; OXYGEN DEVICE VENTILATOR; STAT NO; TEMP CORR TO 98.6; VENT SETTINGS CPAP 8PEEP 10PS
--- NOTE | 2016-11-09 06:23 | RADRPT ---
EXAM DATE/TIME: 11/09/2016 04:30 [place] COMPARISON: CHEST SINGLE AP, November 08, 2016, 5:17. INDICATIONS : Shortness of breath. MEDICAL HISTORY : None. SURGICAL HISTORY : None. ENCOUNTER: Subsequent ACUITY: 2 weeks PAIN SCORE: Non-responsive. LOCATION: Bilateral chest FINDINGS: Endotracheal tube in satisfactory position. NG enters stomach. Right chest tube with tiny right-sided pneumothorax. Plate and screw fixation multiple right ribs. Basilar airspace disease similar to James magnus 27. CONCLUSION: 1. Right chest tube with tiny right apical pneumothorax not seen on prior study. Endotracheal tube an d nasogastric tube unchanged. Maximus Arita MD on November 09, 2016 at 6:20 Board Certified Radiologist. This report was verified electronically.
[2016-11-09 07:04] LABS: BANDS 11 % (0-6); BASOPHILS 2 % (0-2); EOSINOPHILS 7 % (0-4); METAMYELOCYTES 1 % (0-1); MYELOCYTES 2 % (0-0); POLYS (SEG NEUTROPHILS) 66 % (16-70); WBC DIFF SAMPLE 100
[2016-11-09 07:05] LABS: PLATELET ESTIMATE SMEAR NORMAL (NORMAL); PLATELET MORPHOLOGY ENLARGED (NORMAL)
[2016-11-09 07:06] LABS: SCAN/DIFF FINAL DIFF MANUAL
[2016-11-09] MEDS: CHLORHEXIDINE 0.12% (ORAL KIT) 15 ML CUP MT SCH ×2 (07:49→20:58)
[2016-11-09] MEDS: AMANTADINE HCL 100 MG CAP PO SCH (07:49)
[2016-11-09] MEDS: levETIRAcetam INJ 500 MG in SODIUM CHLORIDE 0.9% INJ 100 ML IV SCH (07:50)
[2016-11-09] MEDS: POLYETHYLENE GLYCOL 17 GM PKG PO SCH (07:50)
[2016-11-09] MEDS: SODIUM CHLORIDE 0.9% FLUSH 5 ML FLUSH IVF PRN (07:50)
[2016-11-09] MEDS: DOCUSATE SODIUM 50 MG/SENNA 8.6 MG TAB PO SCH ×2 (07:50→20:58)
[2016-11-09] MEDS: ALLOPURINOL 100 MG TAB PO SCH (07:50)
[2016-11-09] MEDS: LACTULOSE SYRUP 20 GM/30 ML CUP PO SCH ×4 (07:50→20:58)
[2016-11-09] MEDS: BACITRACIN TOP OINT 15 GM TUBE TOP SCH ×2 (07:53→20:58)
[2016-11-09] MEDS: INSULIN DETEMIR 100 UNITS/ML VIAL SQ SCH (07:54)
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
[2016-11-09] MEDS ORDERED: RESP: RACEPINEPHRINE 2.25% 0.5 ML NEB ONE (13:00)
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
[2016-11-09] MEDS: LACTATED RINGER'S 1000 ML INJ 1,000 ML IV SCH (16:02)
[2016-11-09] MEDS: cefTRIAXone INJ 2,000 MG in SODIUM CHLORIDE 0.9% INJ 100 ML IV SCH (16:09)
[2016-11-10] VITALS (15 sets, daily range): BP systolic 120–144; BP diastolic 55–68; PULSE 58–74; RESP 15–26; TEMP 97.5–98.4; O2SAT 93–98
[2016-11-10] MEDS: LACTATED RINGER'S 1000 ML INJ 1,000 ML IV SCH ×2 (03:41→11:31)
[2016-11-10] MEDS: FREE WATER G-TUBE SCH ×4 (03:41→15:09)
[2016-11-10] MEDS: OCTREOTIDE INJ 100 MCG/ML VIAL SQ SCH ×3 (03:41→17:06)
[2016-11-10] MEDS: INSULIN NovoLIN REGULAR SUPPLEMENTAL SCALE SQ SCH ×7 (04:00→23:37)
[2016-11-10] MEDS: CHLORHEXIDINE GLUCONATE 2 % 1 PACK (2 CLOTHS) TOP SCH (04:00)
[2016-11-10 04:32] LABS: AUTOMATED NEUTROPHIL # 5.9 TH/MM3 (1.8-7.7); BASOPHIL % 0.5 % (0.0-2.0); EOSINOPHIL # 0.3 TH/MM3 (0-0.4); EOSINOPHIL % 4.2 % (0.0-4.0); LYMPH % 12.3 % (9.0-44.0); MEAN CELL VOLUME 94.8 FL (80.0-100.0); MEAN CORPUSCULAR HEMOGLOBIN 31.3 PG (27.0-34.0); MEAN CORPUSCULAR HGB CONC 33.1 % (32.0-36.0); PLATELET COUNT 183 TH/MM3 (150-450); RED CELL DISTRIBUTION WIDTH 17.4 % (11.6-17.2)
[2016-11-10 04:40] LABS: HEMO FLAGS AUTO DIFF
[2016-11-10 04:51] LABS: ALKALINE PHOSPHATASE 412 U/L (45-117); ALT (GPT) 54 U/L (12-78); ANION GAP 5 MEQ/L (5-15); AST (GOT) 54 U/L (15-37); BICARBONATE 30.8 MEQ/L (21.0-32.0); BLOOD UREA NITROGEN 35 MG/DL (7-18); CHLORIDE 114 MEQ/L (98-107); GLOMERULAR FILTRATION RATE 114 ML/MIN (>89); POTASSIUM 4.1 MEQ/L (3.5-5.1); SODIUM (NA) 150 MEQ/L (136-145); TOTAL BILIRUBIN ADULT 2.5 MG/DL (0.2-1.0)
[2016-11-10 05:35] LABS: SCAN/DIFF AUTO DIFF CONFIRMED
[2016-11-10] MEDS: LACTULOSE SYRUP 20 GM/30 ML CUP PO SCH ×5 (08:18→19:53)
[2016-11-10] MEDS: DOCUSATE SODIUM 50 MG/SENNA 8.6 MG TAB PO SCH ×2 (08:19→19:53)
[2016-11-10] MEDS: INSULIN DETEMIR 100 UNITS/ML VIAL SQ SCH (08:19)
[2016-11-10] MEDS: ALLOPURINOL 100 MG TAB PO SCH ×2 (08:19→10:50)
[2016-11-10] MEDS: AMANTADINE HCL 100 MG CAP PO SCH ×2 (08:19→10:50)
[2016-11-10] MEDS: BACITRACIN TOP OINT 15 GM TUBE TOP SCH ×2 (08:29→20:24)
[2016-11-10] MEDS: CHLORHEXIDINE 0.12% (ORAL KIT) 15 ML CUP MT SCH (08:30)
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
[2016-11-10] MEDS: ENOXAPARIN SODIUM 30 MG/0.3 ML SYRINGE SQ SCH ×2 (10:50→23:37)
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
[2016-11-10] MEDS: cefTRIAXone INJ 2,000 MG in SODIUM CHLORIDE 0.9% INJ 100 ML IV SCH (15:10)
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
[2016-11-10] MEDS: RESP: ALBUTEROL 2.5 MG/IPRATROPIUM 0.5 MG NEB (SCH) NEB ×2 (16:50→20:33)
[2016-11-10] MEDS: NYSTATIN SUSP 500,000 U/5 ML CUP SWISH-SWAL SCH ×2 (17:06→20:23)
[2016-11-10] MEDS: RIFAXIMIN 550 MG TAB PO SCH (20:23)
[2016-11-11] VITALS (14 sets, daily range): BP systolic 112–138; BP diastolic 52–68; PULSE 60–85; RESP 12–28; TEMP 96.1–98.4; O2SAT 92–98
[2016-11-11] MEDS: LACTATED RINGER'S 1000 ML INJ 1,000 ML IV SCH ×2 (03:24→11:27)
[2016-11-11] MEDS: OCTREOTIDE INJ 100 MCG/ML VIAL SQ SCH ×3 (03:24→18:08)
--- NOTE | 2016-11-11 03:24 | RADRPT ---
EXAM DATE/TIME: 11/11/2016 02:17 [place] COMPARISON: CHEST SINGLE AP, November 09, 2016, 4:30. INDICATIONS : Respiratory failure. MEDICAL HISTORY : None. SURGICAL HISTORY : None. ENCOUNTER: Subsequent ACUITY: 1 week PAIN SCORE: Non-responsive. LOCATION: Bilateral chest FINDINGS: A single view of the chest demonstrates right chest tube. Plate and screw fixation multiple right rib s. No pneumothorax. Mildly displaced right clavicle fracture. Mild airspace disease in the lungs. CONCLUSION: Interval extubation and removal of NG tube. Mild airspace disease in the lung slightly increased from prior study on November 09. Right chest tube remains without pneumothorax. Maximus Arita MD on November 11, 2016 at 3:18 Board Certified Radiologist. This report was verified electronically.
[2016-11-11] MEDS: RESP: ALBUTEROL 2.5 MG/IPRATROPIUM 0.5 MG NEB (SCH) NEB ×4 (03:34→20:54)
[2016-11-11] MEDS: CHLORHEXIDINE GLUCONATE 2 % 1 PACK (2 CLOTHS) TOP SCH (03:35)
[2016-11-11] MEDS: INSULIN NovoLIN REGULAR SUPPLEMENTAL SCALE SQ SCH ×5 (04:00→20:00)
[2016-11-11 04:23] LABS: HEMATOCRIT 38.2 % (39.0-51.0); MEAN CELL VOLUME 96.3 FL (80.0-100.0); MEAN CORPUSCULAR HEMOGLOBIN 30.5 PG (27.0-34.0); MEAN CORPUSCULAR HGB CONC 31.7 % (32.0-36.0); PLATELET COUNT 168 TH/MM3 (150-450); RED BLOOD COUNT 3.97 MIL/MM3 (4.50-5.90); RED CELL DISTRIBUTION WIDTH 17.1 % (11.6-17.2); REVIEW FLAG FINAL; WHITE BLOOD COUNT 8.1 TH/MM3 (4.0-11.0)
[2016-11-11 04:47] LABS: BICARBONATE 28.2 MEQ/L (21.0-32.0); POTASSIUM 3.9 MEQ/L (3.5-5.1)
[2016-11-11] MEDS: LACTULOSE SYRUP 20 GM/30 ML CUP PO SCH ×4 (08:06→20:44)
[2016-11-11] MEDS: ALLOPURINOL 100 MG TAB PO SCH (08:06)
[2016-11-11] MEDS: DOCUSATE SODIUM 50 MG/SENNA 8.6 MG TAB PO SCH ×2 (08:06→20:44)
[2016-11-11] MEDS: NYSTATIN SUSP 500,000 U/5 ML CUP SWISH-SWAL SCH ×4 (08:06→20:44)
[2016-11-11] MEDS: BACITRACIN TOP OINT 15 GM TUBE TOP SCH ×2 (08:06→20:44)
[2016-11-11] MEDS: AMANTADINE HCL 100 MG CAP PO SCH (08:06)
[2016-11-11] MEDS: RIFAXIMIN 550 MG TAB PO SCH ×2 (08:06→20:44)
[2016-11-11] MEDS: INSULIN DETEMIR 100 UNITS/ML VIAL SQ SCH (08:07)
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
[2016-11-11] MEDS: ENOXAPARIN SODIUM 30 MG/0.3 ML SYRINGE SQ SCH (11:27)
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
[2016-11-11] MEDS: cefTRIAXone INJ 2,000 MG in SODIUM CHLORIDE 0.9% INJ 100 ML IV SCH (16:10)
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
[2016-11-12] VITALS (7 sets, daily range): BP systolic 110–132; BP diastolic 64–73; PULSE 69–86; RESP 16–18; TEMP 95.6–97.5; O2SAT 92–97
[2016-11-12] MEDS: ENOXAPARIN SODIUM 30 MG/0.3 ML SYRINGE SQ SCH ×2 (00:29→11:50)
[2016-11-12] MEDS: RESP: ALBUTEROL 2.5 MG/IPRATROPIUM 0.5 MG NEB (SCH) NEB ×4 (02:45→21:07)
[2016-11-12] MEDS: OCTREOTIDE INJ 100 MCG/ML VIAL SQ SCH ×3 (03:27→18:08)
[2016-11-12] MEDS: CHLORHEXIDINE GLUCONATE 2 % 1 PACK (2 CLOTHS) TOP SCH (04:00)
[2016-11-12] MEDS: INSULIN NovoLIN REGULAR SUPPLEMENTAL SCALE SQ SCH ×6 (04:00→19:49)
[2016-11-12] MEDS: LACTATED RINGER'S 1000 ML INJ 1,000 ML IV SCH ×2 (05:54→13:01)
[2016-11-12 07:36] LABS: HEMATOCRIT 36.4 % (39.0-51.0); MEAN CELL VOLUME 94.8 FL (80.0-100.0); MEAN CORPUSCULAR HEMOGLOBIN 32.1 PG (27.0-34.0); MEAN CORPUSCULAR HGB CONC 33.9 % (32.0-36.0); PLATELET COUNT 207 TH/MM3 (150-450); RED BLOOD COUNT 3.84 MIL/MM3 (4.50-5.90); RED CELL DISTRIBUTION WIDTH 17.7 % (11.6-17.2); REVIEW FLAG FINAL; WHITE BLOOD COUNT 7.3 TH/MM3 (4.0-11.0)
[2016-11-12 08:05] LABS: POTASSIUM 3.8 MEQ/L (3.5-5.1)
[2016-11-12] MEDS: ALLOPURINOL 100 MG TAB PO SCH (09:05)
[2016-11-12] MEDS: LACTULOSE SYRUP 20 GM/30 ML CUP PO SCH ×4 (09:05→19:49)
[2016-11-12] MEDS: DOCUSATE SODIUM 50 MG/SENNA 8.6 MG TAB PO SCH ×2 (09:05→19:49)
[2016-11-12] MEDS: RIFAXIMIN 550 MG TAB PO SCH ×2 (09:05→19:50)
[2016-11-12] MEDS: NYSTATIN SUSP 500,000 U/5 ML CUP SWISH-SWAL SCH ×4 (09:05→19:51)
[2016-11-12] MEDS: INSULIN DETEMIR 100 UNITS/ML VIAL SQ SCH (09:19)
[2016-11-12] MEDS: BACITRACIN TOP OINT 15 GM TUBE TOP SCH ×2 (09:37→19:53)
[2016-11-12] MEDS: AMANTADINE HCL 100 MG CAP PO SCH (09:37)
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
[2016-11-12] MEDS: cefTRIAXone INJ 2,000 MG in SODIUM CHLORIDE 0.9% INJ 100 ML IV SCH (16:32)
[2016-11-12] MEDS: FAMOTIDINE 20 MG TAB PO SCH (19:50)
[2016-11-13] VITALS (7 sets, daily range): BP systolic 108–125; BP diastolic 68–82; PULSE 73–89; RESP 17–18; TEMP 95.9–97; O2SAT 92–95
[2016-11-13] MEDS: ENOXAPARIN SODIUM 30 MG/0.3 ML SYRINGE SQ SCH ×2 (00:25→11:45)
[2016-11-13] MEDS: OCTREOTIDE INJ 100 MCG/ML VIAL SQ SCH ×3 (02:38→17:48)
[2016-11-13] MEDS: RESP: ALBUTEROL 2.5 MG/IPRATROPIUM 0.5 MG NEB (SCH) NEB ×4 (03:15→20:16)
[2016-11-13] MEDS: INSULIN NovoLIN REGULAR SUPPLEMENTAL SCALE SQ SCH ×6 (03:41→20:00)
--- NOTE | 2016-11-13 06:45 | RADRPT ---
EXAM DATE/TIME: 11/13/2016 05:42 [place] COMPARISON: CHEST SINGLE AP, November 11, 2016, 2:17. INDICATIONS : Shortness of breath. MEDICAL HISTORY : None. SURGICAL HISTORY : None. ENCOUNTER: Subsequent ACUITY: 3 weeks PAIN SCORE: Non-responsive. LOCATION: Bilateral chest FINDINGS: Portable AP view of the chest demonstrates a normal-sized cardiac silhouette. Right chest tube remain s present and no pneumothorax is seen. Lungs are underinflated with likely some atelectasis at the ri ght base. Rib side plate and screws remain present at 4 adjacent levels. Right clavicle fracture mukul ins visualized. CONCLUSION: 1. Right chest tube remains present and no pneumothorax is visualized. 2. Underinflation with mild atelectasis at the lung bases. Charly Juárez MD on November 13, 2016 at 6:42 Board Certified Radiologist. This report was verified electronically.
[2016-11-13] MEDS: NYSTATIN SUSP 500,000 U/5 ML CUP SWISH-SWAL SCH ×4 (08:22→21:00)
[2016-11-13] MEDS: ALLOPURINOL 100 MG TAB PO SCH (08:22)
[2016-11-13] MEDS: RIFAXIMIN 550 MG TAB PO SCH ×2 (08:22→21:00)
[2016-11-13] MEDS: INSULIN DETEMIR 100 UNITS/ML VIAL SQ SCH (08:23)
[2016-11-13] MEDS: AMANTADINE HCL 100 MG CAP PO SCH (08:25)
[2016-11-13] MEDS: DOCUSATE SODIUM 50 MG/SENNA 8.6 MG TAB PO SCH ×2 (08:25→20:59)
[2016-11-13] MEDS: LACTULOSE SYRUP 20 GM/30 ML CUP PO SCH ×4 (08:25→20:59)
[2016-11-13] MEDS: BACITRACIN TOP OINT 15 GM TUBE TOP SCH ×2 (08:27→21:01)
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
[2016-11-13] MEDS: cefTRIAXone INJ 2,000 MG in SODIUM CHLORIDE 0.9% INJ 100 ML IV SCH (15:32)
[2016-11-13] MEDS: FAMOTIDINE 20 MG TAB PO SCH (21:00)
[2016-11-14] VITALS (7 sets, daily range): BP systolic 114–133; BP diastolic 60–92; PULSE 68–90; RESP 16–20; TEMP 96–98; O2SAT 94–99
[2016-11-14] MEDS: ENOXAPARIN SODIUM 30 MG/0.3 ML SYRINGE SQ SCH ×2 (00:43→11:43)
[2016-11-14] MEDS: OCTREOTIDE INJ 100 MCG/ML VIAL SQ SCH ×3 (00:44→11:25)
[2016-11-14] MEDS: RESP: ALBUTEROL 2.5 MG/IPRATROPIUM 0.5 MG NEB (SCH) NEB ×2 (03:55→07:03)
[2016-11-14] MEDS: INSULIN NovoLIN REGULAR SUPPLEMENTAL SCALE SQ SCH ×6 (04:00→20:00)
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
[2016-11-14] MEDS: RIFAXIMIN 550 MG TAB PO SCH ×2 (07:44→20:39)
[2016-11-14] MEDS: LACTULOSE SYRUP 20 GM/30 ML CUP PO SCH ×4 (07:44→20:38)
[2016-11-14] MEDS: AMANTADINE HCL 100 MG CAP PO SCH (07:44)
[2016-11-14] MEDS: DOCUSATE SODIUM 50 MG/SENNA 8.6 MG TAB PO SCH ×2 (07:44→20:39)
[2016-11-14] MEDS: ALLOPURINOL 100 MG TAB PO SCH (07:44)
[2016-11-14] MEDS: BACITRACIN TOP OINT 15 GM TUBE TOP SCH ×2 (07:45→20:39)
[2016-11-14] MEDS: INSULIN DETEMIR 100 UNITS/ML VIAL SQ SCH (07:50)
[2016-11-14] MEDS: NYSTATIN SUSP 500,000 U/5 ML CUP SWISH-SWAL SCH ×4 (09:09→20:39)
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
[2016-11-14] MEDS: cefTRIAXone INJ 2,000 MG in SODIUM CHLORIDE 0.9% INJ 100 ML IV SCH (15:46)
[2016-11-14] MEDS: OCTREOTIDE INJ 500 MCG/ML AMP SQ SCH (20:00)
[2016-11-14] MEDS: FAMOTIDINE 20 MG TAB PO SCH (20:39)
[2016-11-15] VITALS: BP 121/74; PULSE 88; RESP 20; TEMP 98.2; O2SAT 96
[2016-11-15] MEDS: ENOXAPARIN SODIUM 30 MG/0.3 ML SYRINGE SQ SCH ×2 (01:08→12:17)
[2016-11-15] MEDS: INSULIN NovoLIN REGULAR SUPPLEMENTAL SCALE SQ SCH ×6 (04:00→20:00)
[2016-11-15] MEDS: OCTREOTIDE INJ 500 MCG/ML AMP SQ SCH ×3 (04:09→20:00)
--- NOTE | 2016-11-15 06:35 | RADRPT ---
EXAM DATE/TIME: 11/15/2016 05:43 [facility] COMPARISON: CHEST SINGLE AP, November 14, 2016, 5:41. INDICATIONS : Short of breath, evaluate right pneumothorax and chest tube MEDICAL HISTORY : right rib fractures, pneumothorax, right clavicle fracture SURGICAL HISTORY : right rib fractures repaired ENCOUNTER: Subsequent ACUITY: 3 weeks PAIN SCORE: 0/10 LOCATION: Right chest FINDINGS: A single view of the chest demonstrates the lungs to be symmetrically aerated without evidence of mas s, infiltrate or effusion. A much better inspiratory effort seen on current study. The cardiomediasti nal contours are unremarkable. A right thoracostomy tube again noted. No pneumothorax. Orthopedic mora tomas seen involving 4 right ribs. A right clavicular fracture noted. CONCLUSION: 1. No pneumothorax. Stanley Hernandez Jr., MD on November 15, 2016 at 6:32 Board Certified Radiologist. This report was verified electronically.
[2016-11-15 08:00] VITALS: BP 117/69; PULSE 75; RESP 16; TEMP 95.9; O2SAT 95
[2016-11-15] MEDS: AMANTADINE HCL 100 MG CAP PO SCH (08:13)
[2016-11-15] MEDS: NYSTATIN SUSP 500,000 U/5 ML CUP SWISH-SWAL SCH ×4 (08:13→21:05)
[2016-11-15] MEDS: RIFAXIMIN 550 MG TAB PO SCH ×2 (08:13→21:00)
[2016-11-15] MEDS: LACTULOSE SYRUP 20 GM/30 ML CUP PO SCH ×4 (08:13→21:00)
[2016-11-15] MEDS: ALLOPURINOL 100 MG TAB PO SCH (08:13)
[2016-11-15] MEDS: DOCUSATE SODIUM 50 MG/SENNA 8.6 MG TAB PO SCH ×2 (08:13→21:05)
[2016-11-15] MEDS: INSULIN DETEMIR 100 UNITS/ML VIAL SQ SCH (08:14)
[2016-11-15] MEDS: BACITRACIN TOP OINT 15 GM TUBE TOP SCH ×2 (08:15→21:06)
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
[2016-11-15 12:00] VITALS: BP 135/60; PULSE 68; RESP 16; TEMP 95.8; O2SAT 94
[2016-11-15] MEDS ORDERED: ACETAMINOPHEN 325 MG TAB PO PRN (13:15)
[2016-11-15] MEDS: cefTRIAXone INJ 2,000 MG in SODIUM CHLORIDE 0.9% INJ 100 ML IV SCH (15:30)
[2016-11-15 16:00] VITALS: BP 111/64; PULSE 65; RESP 16; TEMP 95.6; O2SAT 92
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
[2016-11-15] MEDS: FAMOTIDINE 20 MG TAB PO SCH (21:05)
[2016-11-16] VITALS: BP 145/70; PULSE 66; RESP 20; TEMP 97; O2SAT 96
[2016-11-16] MEDS: ENOXAPARIN SODIUM 30 MG/0.3 ML SYRINGE SQ SCH ×2 (00:28→11:42)
[2016-11-16] MEDS: OCTREOTIDE INJ 500 MCG/ML AMP SQ SCH ×3 (03:03→20:59)
[2016-11-16] MEDS: INSULIN NovoLIN REGULAR SUPPLEMENTAL SCALE SQ SCH ×6 (03:04→20:00)
[2016-11-16 08:00] VITALS: BP 135/66; PULSE 70; RESP 18; TEMP 97.1; O2SAT 93
[2016-11-16] MEDS: BACITRACIN TOP OINT 15 GM TUBE TOP SCH ×2 (09:00→21:00)
[2016-11-16] MEDS: INSULIN DETEMIR 100 UNITS/ML VIAL SQ SCH (09:02)
[2016-11-16] MEDS: ALLOPURINOL 100 MG TAB PO SCH (09:02)
[2016-11-16] MEDS: RIFAXIMIN 550 MG TAB PO SCH ×2 (09:02→20:59)
[2016-11-16] MEDS: LACTULOSE SYRUP 20 GM/30 ML CUP PO SCH ×2 (09:02→11:42)
[2016-11-16] MEDS: AMANTADINE HCL 100 MG CAP PO SCH (09:02)
[2016-11-16] MEDS: DOCUSATE SODIUM 50 MG/SENNA 8.6 MG TAB PO SCH ×2 (09:02→20:59)
[2016-11-16] MEDS: NYSTATIN SUSP 500,000 U/5 ML CUP SWISH-SWAL SCH ×4 (09:02→20:59)
[2016-11-16 12:00] VITALS: BP 133/69; PULSE 68; RESP 17; TEMP 97.6; O2SAT 94
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
[2016-11-16] MEDS: cefTRIAXone INJ 2,000 MG in SODIUM CHLORIDE 0.9% INJ 100 ML IV SCH (16:17)
[2016-11-16 20:00] VITALS: BP 119/66; PULSE 62; RESP 18; TEMP 96.2; O2SAT 94
[2016-11-16] MEDS: FAMOTIDINE 20 MG TAB PO SCH (20:59)
[2016-11-17] VITALS: BP 116/72; PULSE 69; RESP 18; TEMP 97.2; O2SAT 93
[2016-11-17] MEDS: ENOXAPARIN SODIUM 30 MG/0.3 ML SYRINGE SQ SCH ×3 (00:30→23:25)
[2016-11-17] MEDS: INSULIN NovoLIN REGULAR SUPPLEMENTAL SCALE SQ SCH ×6 (04:00→20:00)
[2016-11-17] MEDS: OCTREOTIDE INJ 500 MCG/ML AMP SQ SCH ×3 (04:21→23:25)
[2016-11-17 06:13] LABS: ALKALINE PHOSPHATASE 585 U/L (45-117); ALT (GPT) 53 U/L (12-78); ANION GAP 9 MEQ/L (5-15); AST (GOT) 63 U/L (15-37); BICARBONATE 28.4 MEQ/L (21.0-32.0); BLOOD UREA NITROGEN 16 MG/DL (7-18); CHLORIDE 102 MEQ/L (98-107); GLOMERULAR FILTRATION RATE 120 ML/MIN (>89); POTASSIUM 3.9 MEQ/L (3.5-5.1); SODIUM (NA) 139 MEQ/L (136-145); TOTAL BILIRUBIN ADULT 1.5 MG/DL (0.2-1.0)
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
[2016-11-17 08:00] VITALS: BP 124/71; PULSE 64; RESP 17; TEMP 97.2; O2SAT 96
[2016-11-17 08:30] LABS: AUTOMATED NEUTROPHIL # 5.4 TH/MM3 (1.8-7.7); BASOPHIL % 0.5 % (0.0-2.0); EOSINOPHIL # 0.2 TH/MM3 (0-0.4); EOSINOPHIL % 3.4 % (0.0-4.0); HEMATOCRIT 39.3 % (39.0-51.0); HEMO FLAGS DIFF FINAL; LYMPH % 15.7 % (9.0-44.0); LYMPHOCYTE # 1.1 TH/MM3 (1.0-4.8); MEAN CELL VOLUME 95.8 FL (80.0-100.0); MEAN CORPUSCULAR HEMOGLOBIN 31.7 PG (27.0-34.0); MEAN CORPUSCULAR HGB CONC 33.1 % (32.0-36.0); MONO % 6.7 % (0.0-8.0); NEUT % 73.7 % (16.0-70.0); PLATELET COUNT 132 TH/MM3 (150-450); RED BLOOD COUNT 4.11 MIL/MM3 (4.50-5.90); WHITE BLOOD COUNT 7.3 TH/MM3 (4.0-11.0)
[2016-11-17] MEDS: INSULIN DETEMIR 100 UNITS/ML VIAL SQ SCH (08:40)
[2016-11-17] MEDS: LACTULOSE SYRUP 20 GM/30 ML CUP PO SCH (08:42)
[2016-11-17] MEDS: RIFAXIMIN 550 MG TAB PO SCH ×2 (08:42→23:25)
[2016-11-17] MEDS: NYSTATIN SUSP 500,000 U/5 ML CUP SWISH-SWAL SCH ×4 (08:42→23:25)
[2016-11-17] MEDS: ALLOPURINOL 100 MG TAB PO SCH (08:44)
[2016-11-17] MEDS: DOCUSATE SODIUM 50 MG/SENNA 8.6 MG TAB PO SCH ×2 (08:44→23:25)
[2016-11-17] MEDS: BACITRACIN TOP OINT 15 GM TUBE TOP SCH ×2 (08:44→23:25)
[2016-11-17] MEDS: AMANTADINE HCL 100 MG CAP PO SCH (09:00)
[2016-11-17 12:00] VITALS: BP 127/66; PULSE 73; RESP 18; TEMP 97.3; O2SAT 98
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
[2016-11-17 16:00] VITALS: BP 117/71; PULSE 66; RESP 16; TEMP 97.2; O2SAT 93
[2016-11-17] MEDS ORDERED: SODIUM CHLORIDE 0.9% FLUSH 10 ML FLUSH IV FLUSH PRN (16:00)
[2016-11-17] MEDS ORDERED: CHLORHEXIDINE GLUCONATE 4% SOLN 120 ML BTL TOPICAL SCH (16:00)
[2016-11-17] MEDS ORDERED: ceFAZolin 2 GM PREMIX 50 ML IV SCH (16:00)
[2016-11-17] MEDS ORDERED: CEFAZOLIN INJ 500 MG in SODIUM CHLORIDE 0.9% IRR BTL 500 ML IRRIGATION SCH (16:00)
[2016-11-17] MEDS: cefTRIAXone INJ 2,000 MG in SODIUM CHLORIDE 0.9% INJ 100 ML IV SCH (16:06)
[2016-11-17 20:27] VITALS: BP 140/74; PULSE 83; RESP 18; TEMP 97; O2SAT 96
[2016-11-17] MEDS: SODIUM CHLORIDE 0.9% FLUSH 10 ML FLUSH IV FLUSH SCH (21:00)
[2016-11-17] MEDS: FAMOTIDINE 20 MG TAB PO SCH (23:25)
[2016-11-18] VITALS: BP 128/64; PULSE 67; RESP 18; TEMP 97.1; O2SAT 94
[2016-11-18] MEDS: INSULIN NovoLIN REGULAR SUPPLEMENTAL SCALE SQ SCH ×7 (04:00→23:58)
[2016-11-18] MEDS: OCTREOTIDE INJ 500 MCG/ML AMP SQ SCH ×3 (04:53→20:50)
--- NOTE | 2016-11-18 06:51 | RADRPT ---
EXAM DATE/TIME: 11/18/2016 06:07 [place] COMPARISON: CHEST SINGLE AP, November 15, 2016, 5:43. INDICATIONS : Short of breath, evaluate right pneumothorax and chest tube MEDICAL HISTORY : right rib fractures, pneumothorax, right clavicle fracture SURGICAL HISTORY : right ribs repaired ENCOUNTER: Subsequent ACUITY: 3 weeks PAIN SCORE: 5/10 LOCATION: Right chest FINDINGS: 2 portable frontal views of the chest show a right thoracostomy tube. A tiny apical pneumothorax is n ow seen. Low lung volumes noted. No infiltrates or effusions the heart is normal in size. Orthopedic plates involving multiple right ribs. CONCLUSION: 1. Tiny apical pneumothorax on the right. Stanley Hernandez Jr., MD on November 18, 2016 at 6:48 Board Certified Radiologist. This report was verified electronically.
[2016-11-18 08:00] VITALS: BP 98/63; PULSE 100; RESP 16; TEMP 97.2; O2SAT 94
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
[2016-11-18] MEDS: BACITRACIN TOP OINT 15 GM TUBE TOP SCH ×2 (09:00→20:51)
[2016-11-18] MEDS: ALLOPURINOL 100 MG TAB PO SCH (09:17)
[2016-11-18] MEDS: RIFAXIMIN 550 MG TAB PO SCH ×2 (09:17→20:50)
[2016-11-18] MEDS: AMANTADINE HCL 100 MG CAP PO SCH (09:18)
[2016-11-18] MEDS: INSULIN DETEMIR 100 UNITS/ML VIAL SQ SCH (09:18)
[2016-11-18] MEDS: NYSTATIN SUSP 500,000 U/5 ML CUP SWISH-SWAL SCH ×4 (09:18→20:50)
[2016-11-18] MEDS: DOCUSATE SODIUM 50 MG/SENNA 8.6 MG TAB PO SCH ×2 (09:18→20:50)
[2016-11-18] MEDS: LACTULOSE SYRUP 20 GM/30 ML CUP PO SCH (09:18)
[2016-11-18] MEDS: SODIUM CHLORIDE 0.9% FLUSH 10 ML FLUSH IV FLUSH SCH ×2 (09:19→20:50)
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
[2016-11-18 12:00] VITALS: BP 127/64; PULSE 76; RESP 17; TEMP 97.2; O2SAT 94
[2016-11-18] MEDS: ENOXAPARIN SODIUM 30 MG/0.3 ML SYRINGE SQ SCH ×2 (12:34→23:55)
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
[2016-11-18 16:00] VITALS: BP 135/68; PULSE 74; RESP 18; TEMP 96.1; O2SAT 95
[2016-11-18] MEDS: cefTRIAXone INJ 2,000 MG in SODIUM CHLORIDE 0.9% INJ 100 ML IV SCH (16:00)
--- NOTE | 2016-11-18 16:36 | PD.CAR.PN ---
CVT Progress Note Subjective/Hospital Course: pt has 510cc/ chest tube drainage in 12 hrs Torin Ozuna spoke with Dr Hernandez / pt to have pleurodesis through chest tube today by IR if unsuccessful will need surgical pleurodesis possible on tuesday discussed with pt and family Objective: GENERAL: SKIN: Warm and dry.right posterior lateral chest incision intact and well approximated HEAD: Normocephalic. EYES: No scleral icterus. No injection or drainage. NECK: Supple, trachea midline. No JVD or lymphadenopathy. CARDIOVASCULAR: Regular rate and rhythm without murmurs, gallops, or rubs. RESPIRATORY: diminished in right lower lobe, chest tube to wall suction, no air leak draining serous drainage No accessory muscle use. GASTROINTESTINAL: Abdomen soft, non-tender, nondistended. MUSCULOSKELETAL: No cyanosis, or edema. BACK: Nontender without obvious deformity. No CVA tenderness. Vital Signs Date Time Temp Pulse Resp B/P Pulse Ox O2 Delivery O2 Flow Rate FiO2 11/18/16 12:00 97.2 76 17 127/64 94 11/18/16 08:00 97.2 100 16 98/63 94 11/18/16 00:00 97.1 67 18 128/64 94 11/17/16 20:27 97.0 83 18 140/74 96 Result Diagram: 11/17/16 0816 11/17/16 0525 Telemetry: NSR (1) Multiple rib fractures (2) Right pulmonary contusion Plan: s/p right chest plating persistent chest tube drainage eval for pleurodesis by IR if unsuccessful / eval for surgical pleurodesis next week Problem Qualifiers (1) Multiple rib fractures: Qualified Code: S22.41XA - Closed fracture of multiple ribs of right side, initial encounter Francoise Colón Nov 18, 2016 16:36
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
[2016-11-18 20:00] VITALS: BP 119/64; PULSE 69; RESP 18; TEMP 96; O2SAT 92
[2016-11-18] MEDS: FAMOTIDINE 20 MG TAB PO SCH (20:50)
[2016-11-19] VITALS: BP 117/68; PULSE 61; RESP 16; TEMP 96.3; O2SAT 93
[2016-11-19] MEDS: OCTREOTIDE INJ 500 MCG/ML AMP SQ SCH (03:56)
[2016-11-19] MEDS: INSULIN NovoLIN REGULAR SUPPLEMENTAL SCALE SQ SCH ×6 (03:57→23:53)
[2016-11-19 08:00] VITALS: BP 110/63; PULSE 76; RESP 18; TEMP 96.4; O2SAT 92
[2016-11-19] MEDS: ALLOPURINOL 100 MG TAB PO SCH (08:43)
[2016-11-19] MEDS: DOCUSATE SODIUM 50 MG/SENNA 8.6 MG TAB PO SCH ×2 (08:43→19:52)
[2016-11-19] MEDS: RIFAXIMIN 550 MG TAB PO SCH ×2 (08:43→19:52)
[2016-11-19] MEDS: INSULIN DETEMIR 100 UNITS/ML VIAL SQ SCH (08:44)
[2016-11-19] MEDS: NYSTATIN SUSP 500,000 U/5 ML CUP SWISH-SWAL SCH ×4 (08:44→19:52)
[2016-11-19] MEDS: BACITRACIN TOP OINT 15 GM TUBE TOP SCH ×2 (08:49→19:52)
[2016-11-19] MEDS: LACTULOSE SYRUP 20 GM/30 ML CUP PO SCH (08:53)
[2016-11-19] MEDS: SODIUM CHLORIDE 0.9% FLUSH 10 ML FLUSH IV FLUSH SCH ×2 (08:54→19:51)
[2016-11-19] MEDS: ENOXAPARIN SODIUM 30 MG/0.3 ML SYRINGE SQ SCH ×2 (11:28→23:52)
[2016-11-19 12:00] VITALS: BP 124/69; PULSE 83; RESP 20; TEMP 95.8; O2SAT 94
[2016-11-19] MEDS: AMANTADINE HCL 100 MG CAP PO SCH (12:18)
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
[2016-11-19] MEDS ORDERED: LACTATED RINGER'S 1000 ML INJ 1,000 ML IV PRN (14:00)
--- NOTE | 2016-11-19 15:30 | PD.CAR.PN ---
CVT Progress Note Subjective/Hospital Course: pt has 7000cc/ chest tube drainage in 24hrs, 150ml since 7am IR unsuccessful for pleuodesis yesterday will start decardron IV in hopes of decreases chest tube drainage then clamp chest tube , tuesday am / to allow fluid collection/ for surgery on Tuesday discussed with pt and family Objective: GENERAL: SKIN: Warm and dry. incision intact to right posterior chest wall chest tube to wall suction with serous drainage HEAD: Normocephalic. EYES: No scleral icterus. No injection or drainage. NECK: Supple, trachea midline. No JVD or lymphadenopathy. CARDIOVASCULAR: Regular rate and rhythm without murmurs, gallops, or rubs. RESPIRATORY: diminished right lower lobe No accessory muscle use. GASTROINTESTINAL: Abdomen soft, non-tender, nondistended. MUSCULOSKELETAL: No cyanosis, or edema. BACK: Nontender without obvious deformity. No CVA tenderness. Vital Signs Date Time Temp Pulse Resp B/P Pulse Ox O2 Delivery O2 Flow Rate FiO2 11/19/16 12:00 95.8 83 20 124/69 94 11/19/16 08:00 96.4 76 18 110/63 92 11/19/16 00:00 96.3 61 16 117/68 93 11/18/16 20:00 96.0 69 18 119/64 92 11/18/16 16:00 96.1 74 18 135/68 95 Result Diagram: 11/17/16 0816 11/17/16 0525 (1) Multiple rib fractures (2) Right pulmonary contusion Plan: s/p right chest plating persistent chest tube drainage for surgical pleurodesis on tuesday Problem Qualifiers (1) Multiple rib fractures: Qualified Code: S22.41XA - Closed fracture of multiple ribs of right side, initial encounter Francoise Colón Nov 19, 2016 15:30
[2016-11-19 16:00] VITALS: BP 109/58; PULSE 86; RESP 16; TEMP 97.2; O2SAT 93
[2016-11-19] MEDS: cefTRIAXone INJ 2,000 MG in SODIUM CHLORIDE 0.9% INJ 100 ML IV SCH (17:04)
[2016-11-19] MEDS: DEXAMETHASONE SOD PHOS 4 MG/ML VIAL IV PUSH SCH ×2 (17:04→23:53)
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
[2016-11-19] MEDS: FAMOTIDINE 20 MG TAB PO SCH (19:52)
[2016-11-19 20:00] VITALS: BP 122/70; PULSE 67; RESP 18; TEMP 96.2; O2SAT 93
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
[2016-11-20] VITALS: BP 117/64; PULSE 56; RESP 18; TEMP 95.8; O2SAT 93
[2016-11-20] MEDS: INSULIN NovoLIN REGULAR SUPPLEMENTAL SCALE SQ SCH ×5 (04:00→20:00)
[2016-11-20 08:00] VITALS: BP 105/69; PULSE 82; RESP 16; TEMP 96.5; O2SAT 94
[2016-11-20] MEDS: INSULIN DETEMIR 100 UNITS/ML VIAL SQ SCH (08:10)
[2016-11-20] MEDS: DEXAMETHASONE SOD PHOS 4 MG/ML VIAL IV PUSH SCH ×2 (08:16→15:52)
[2016-11-20] MEDS: ALLOPURINOL 100 MG TAB PO SCH (08:17)
[2016-11-20] MEDS: NYSTATIN SUSP 500,000 U/5 ML CUP SWISH-SWAL SCH ×4 (08:17→21:03)
[2016-11-20] MEDS: RIFAXIMIN 550 MG TAB PO SCH ×2 (08:17→21:03)
[2016-11-20] MEDS: SODIUM CHLORIDE 0.9% FLUSH 10 ML FLUSH IV FLUSH SCH ×2 (08:18→21:00)
[2016-11-20] MEDS: DOCUSATE SODIUM 50 MG/SENNA 8.6 MG TAB PO SCH ×2 (08:18→21:03)
[2016-11-20] MEDS: LACTULOSE SYRUP 20 GM/30 ML CUP PO SCH (08:18)
[2016-11-20] MEDS: AMANTADINE HCL 100 MG CAP PO SCH (08:19)
[2016-11-20] MEDS: BACITRACIN TOP OINT 15 GM TUBE TOP SCH ×2 (08:22→21:03)
[2016-11-20 12:00] VITALS: BP 112/67; PULSE 93; RESP 20; TEMP 96.8; O2SAT 95
[2016-11-20] MEDS: ENOXAPARIN SODIUM 30 MG/0.3 ML SYRINGE SQ SCH (12:05)
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
[2016-11-20 16:00] VITALS: BP 133/69; PULSE 94; RESP 20; TEMP 96.1; O2SAT 97
[2016-11-20 20:00] VITALS: BP 131/67; PULSE 79; RESP 20; TEMP 97.1; O2SAT 94
[2016-11-20] MEDS: FAMOTIDINE 20 MG TAB PO SCH (21:03)
[2016-11-21] VITALS: BP 149/89; PULSE 77; RESP 20; TEMP 96.1; O2SAT 95
[2016-11-21] MEDS: ENOXAPARIN SODIUM 30 MG/0.3 ML SYRINGE SQ SCH ×3 (00:36→22:34)
[2016-11-21] MEDS: DEXAMETHASONE SOD PHOS 4 MG/ML VIAL IV PUSH SCH ×3 (00:41→20:24)
[2016-11-21] MEDS: INSULIN NovoLIN REGULAR SUPPLEMENTAL SCALE SQ SCH ×6 (04:00→20:00)
[2016-11-21 04:55] LABS: AUTOMATED NEUTROPHIL # 7.9 TH/MM3 (1.8-7.7); BASOPHIL % 0.5 % (0.0-2.0); HEMATOCRIT 36.2 % (39.0-51.0); LYMPH % 6.5 % (9.0-44.0); LYMPHOCYTE # 0.6 TH/MM3 (1.0-4.8); MEAN CELL VOLUME 95.9 FL (80.0-100.0); MEAN CORPUSCULAR HEMOGLOBIN 31.3 PG (27.0-34.0); MEAN CORPUSCULAR HGB CONC 32.7 % (32.0-36.0); MONO % 4.2 % (0.0-8.0); NEUT % 88.8 % (16.0-70.0); PLATELET COUNT 90 TH/MM3 (150-450); RED BLOOD COUNT 3.78 MIL/MM3 (4.50-5.90); RED CELL DISTRIBUTION WIDTH 19.4 % (11.6-17.2); WHITE BLOOD COUNT 8.8 TH/MM3 (4.0-11.0)
[2016-11-21 05:03] LABS: BICARBONATE 30.8 MEQ/L (21.0-32.0)
[2016-11-21 05:12] LABS: HEMO FLAGS AUTO DIFF
[2016-11-21 05:13] LABS: INTERNATIONAL NORMALIZED RATIO 1.1 RATIO; PROTHROMBIN TIME - PATIENT 11.8 SEC (9.8-11.6)
[2016-11-21 08:00] VITALS: BP 117/73; PULSE 86; RESP 20; TEMP 96.5; O2SAT 98
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
[2016-11-21] MEDS: NYSTATIN SUSP 500,000 U/5 ML CUP SWISH-SWAL SCH ×4 (08:18→20:23)
[2016-11-21] MEDS: AMANTADINE HCL 100 MG CAP PO SCH (08:18)
[2016-11-21] MEDS: ALLOPURINOL 100 MG TAB PO SCH (08:18)
[2016-11-21] MEDS: LACTULOSE SYRUP 20 GM/30 ML CUP PO SCH (08:18)
[2016-11-21] MEDS: RIFAXIMIN 550 MG TAB PO SCH ×2 (08:18→20:23)
[2016-11-21] MEDS: INSULIN DETEMIR 100 UNITS/ML VIAL SQ SCH (08:18)
[2016-11-21] MEDS: SODIUM CHLORIDE 0.9% FLUSH 10 ML FLUSH IV FLUSH SCH ×2 (08:19→20:24)
[2016-11-21] MEDS: BACITRACIN TOP OINT 15 GM TUBE TOP SCH ×2 (08:19→20:25)
[2016-11-21] MEDS: DOCUSATE SODIUM 50 MG/SENNA 8.6 MG TAB PO SCH ×3 (08:19→20:25)
[2016-11-21 09:10] LABS: PLATELET ESTIMATE SMEAR LOW (NORMAL); PLATELET MORPHOLOGY NORMAL (NORMAL); SCAN/DIFF AUTO DIFF CONFIRMED
[2016-11-21 12:00] VITALS: BP 119/59; PULSE 75; RESP 16; TEMP 96.9; O2SAT 96
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
[2016-11-21 16:00] VITALS: BP 124/64; PULSE 76; RESP 18; TEMP 96.7; O2SAT 94
[2016-11-21 20:00] VITALS: BP 105/66; PULSE 64; RESP 20; TEMP 96.4; O2SAT 94
[2016-11-21] MEDS: FAMOTIDINE 20 MG TAB PO SCH (20:23)
[2016-11-22] VITALS: BP 110/68; PULSE 68; RESP 20; TEMP 97.2; O2SAT 96
[2016-11-22] MEDS ORDERED: POVIDONE IODINE 5% (ANTISEPSIS KIT) 4 APPLICATIONS EACH NARE PRN (00:15)
[2016-11-22] MEDS ORDERED: CHLORHEXIDINE GLUCONATE 2 % 1 PACK (2 CLOTHS) TOPICAL PRN (00:15)
[2016-11-22] MEDS ORDERED: LACTATED RINGER'S 1000 ML IV PRN (00:15)
[2016-11-22] MEDS: INSULIN NovoLIN REGULAR SUPPLEMENTAL SCALE SQ SCH ×6 (04:00→20:00)
[2016-11-22] MEDS ORDERED: SODIUM CHLORID 0.9% 500 ML INJ 500 ML IV ONE (07:40)
[2016-11-22] MEDS ORDERED: ONDANSETRON HCL 4 MG/2 ML VIAL IV PUSH ONE (07:40)
[2016-11-22] MEDS ORDERED: NEOSTIGMINE METHYLSULFATE 10 MG/10 ML VIAL IV PUSH ONE (07:40)
[2016-11-22] MEDS ORDERED: PROPOFOL 200 MG/20 ML AMP IV ONE (07:40)
[2016-11-22] MEDS ORDERED: LACTATED RINGER'S 1000 ML INJ 1,000 ML IV ONE (07:40)
[2016-11-22] MEDS ORDERED: NORMOSOL R INJ 1,000 ML IV ONE (07:41)
[2016-11-22 08:00] VITALS: BP 140/67; PULSE 52; RESP 16; TEMP 95.5; O2SAT 96
[2016-11-22] MEDS: DEXAMETHASONE SOD PHOS 4 MG/ML VIAL IV PUSH SCH (08:00)
[2016-11-22] MEDS: ALLOPURINOL 100 MG TAB PO SCH (08:03)
[2016-11-22] MEDS: RIFAXIMIN 550 MG TAB PO SCH ×2 (08:03→21:31)
[2016-11-22] MEDS: DOCUSATE SODIUM 50 MG/SENNA 8.6 MG TAB PO SCH ×2 (08:03→21:00)
[2016-11-22] MEDS: AMANTADINE HCL 100 MG CAP PO SCH (08:03)
[2016-11-22] MEDS: BACITRACIN TOP OINT 15 GM TUBE TOP SCH ×2 (08:04→21:34)
[2016-11-22] MEDS: SODIUM CHLORIDE 0.9% FLUSH 10 ML FLUSH IV FLUSH SCH ×2 (08:04→21:33)
[2016-11-22] MEDS: NYSTATIN SUSP 500,000 U/5 ML CUP SWISH-SWAL SCH ×4 (08:04→21:30)
[2016-11-22] MEDS: INSULIN DETEMIR 100 UNITS/ML VIAL SQ SCH (08:04)
[2016-11-22] MEDS: LACTULOSE SYRUP 20 GM/30 ML CUP PO SCH (08:04)
[2016-11-22] MEDS ORDERED: BUPIVACAINE LIPOSO PF 1.3% INJ 20 ML, DEXAMETHASONE INJ 4 MG, MORPHINE INJ 10 MG in SOD... P-ARTICULR SCH ×2 (11:00→11:30)
[2016-11-22] MEDS ORDERED: ceFAZolin 2 GM PREMIX 50 ML ONE (11:08)
[2016-11-22] MEDS ORDERED: STERILE TALC 4 GM AEROSOL CAN I-PLEURAL ONE (11:32)
[2016-11-22] MEDS: ENOXAPARIN SODIUM 30 MG/0.3 ML SYRINGE SQ SCH ×2 (12:00→23:57)
[2016-11-22] MEDS ORDERED: ACETAMINOPHEN/HYDROcodone 325 MG/5 MG TAB PO PRN (12:00)
[2016-11-22] MEDS ORDERED: Post-op Orders (for Pharmacy) MISC OTHER ONE (12:00)
[2016-11-22] MEDS ORDERED: MAGNESIUM HYDROXIDE SUSP 30 ML CUP PO PRN (12:00)
[2016-11-22] MEDS ORDERED: ACETAMINOPHEN 325 MG TAB PO PRN (12:00)
[2016-11-22] MEDS ORDERED: DO NOT ADM ANY ANTICOAGULANT DRUGS PRN (12:17)
[2016-11-22] MEDS ORDERED: fentaNYL CITRATE 250 MCG/5 ML AMP ONE (12:25)
[2016-11-22] MEDS: ACETAMINOPHEN 1000 MG/100 ML VIAL IV SCH ×3 (12:39→23:58)
[2016-11-22] MEDS: KETOROLAC TROMETHAMINE 30 MG/ML (IVP) VIAL IV PUSH SCH ×3 (12:39→23:58)
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
[2016-11-22 13:31] VITALS: BP 138/69; PULSE 50; RESP 12; TEMP 95.5; O2SAT 100
--- NOTE | 2016-11-22 13:50 | PD.OP ---
cc: Rula Albert MD; Rocio Ozuna MD; Garth Gallo MD Operative Report Date of Surgery: Nov 22, 2016 Preoperative Diagnosis: Postoperative Diagnosis: Procedure: 1. Right Video-Assisted Thoracoscopic Surgery (VATS). 2. Evacuation of Pleural Effusion. 3. PleurX catheter placement. 4. Talc Pleurodesis. 5. Intercostal Nerve Block . Surgeon: Rocio Ozuna . Mirror Specialist(s): Lima Wheeler . Operation and Findings: PREOPERATIVE DIAGNOSES 1. Right Persistent Pleural Effusion. 2. Traumatic Rib Fractures - s/p Open Rib Fixation POSTOPERATIVE DIAGNOSES Same SURGICAL PROCEDURE 1. Right Video-Assisted Thoracoscopic Surgery (VATS). 2. Evacuation of Pleural Effusion. 3. PleurX catheter placement. 4. Talc Pleurodesis. 5. Intercostal Nerve Block SURGEON Rocio Ozuna MD LIQUOR RUNNER Candelaria Wheeler, [facility] ANESTHESIA General double lumen endotracheal. MEMORIAL DESIGNER ELDON Garcia MD PREPARATION ChloraPrep. COUNTS Needle, sponge, and instrument counts are correct. DRAINS One PleurX catheter. COMPLICATIONS None. INDICATIONS The patient is a 75 to gentleman status post previous right chest tube placement for persistent pleural effusion and open rib fixation for fractures. The patient is being brought to the operating room for drainage and pleurodesis. DESCRIPTION OF PROCEDURE The patient was brought to the operating room and placed supine on the OR table. Following the induction of adequate general double lumen endotracheal anesthesia and placement of appropriate monitoring devices, the patient was placed in the left lateral decubitus position. The right chest and surrounding areas were then prepped and draped in a standard sterile fashion. A 5 mm camera port was introduced into the 9th intercostal space in posterior axillary line, and the camera introduced. A second 5 mm port was then placed anteriorly under direct visual guidance. Through the port, the suction device was advanced, and serous fluid evacuated. The right upper lobe was densely adherent to the chest wall. The screws for the rib plates were noted to be protruding into the pleural spaces beyond the posterior table about 1-2 mm. No lung injury was identified. Through the port site, talc pleurodesis was performed. The anterior port was removed and a PleurX catheter was introduced and tunneled for about 5 cm and exited through the anterolateral chest wall. This was maintained in place with a nonabsorbable suture. Both of the entry sites were injected with 0.5% Marcaine as was the port site. Following confirmation of the catheter in the proper place, the incisions were closed with 3 layers. Intercostal nerve block was performed using Ropivacaine/Morphine solution. The patient tolerated the procedure well and was extubated and transferred to the recovery room in stable condition. Rocio Ozuna MD Nov 22, 2016 13:50
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
[2016-11-22 16:00] VITALS: BP 102/60; PULSE 69; RESP 16; TEMP 96; O2SAT 97
[2016-11-22 17:53] VITALS: O2SAT 97
[2016-11-22 20:00] VITALS: BP 84/59; PULSE 84; RESP 20; TEMP 96.6; O2SAT 94
[2016-11-22] MEDS: DOCUSATE CALCIUM 240 MG CAP PO SCH (21:31)
[2016-11-22] MEDS: FAMOTIDINE 20 MG TAB PO SCH (21:31)
[2016-11-23] VITALS (7 sets, daily range): BP systolic 88–118; BP diastolic 50–63; PULSE 58–85; RESP 18–20; TEMP 96.7–97.8; O2SAT 92–95
[2016-11-23] MEDS: INSULIN NovoLIN REGULAR SUPPLEMENTAL SCALE SQ SCH ×6 (04:00→20:00)
[2016-11-23] MEDS: ACETAMINOPHEN 1000 MG/100 ML VIAL IV SCH (06:03)
[2016-11-23] MEDS: KETOROLAC TROMETHAMINE 30 MG/ML (IVP) VIAL IV PUSH SCH (06:03)
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
[2016-11-23] MEDS: NYSTATIN SUSP 500,000 U/5 ML CUP SWISH-SWAL SCH ×4 (08:32→21:03)
[2016-11-23] MEDS: SODIUM CHLORIDE 0.9% FLUSH 10 ML FLUSH IV FLUSH SCH ×2 (08:33→21:03)
[2016-11-23] MEDS: INSULIN DETEMIR 100 UNITS/ML VIAL SQ SCH (08:33)
[2016-11-23] MEDS: DOCUSATE SODIUM 50 MG/SENNA 8.6 MG TAB PO SCH ×2 (08:33→21:03)
[2016-11-23] MEDS: AMANTADINE HCL 100 MG CAP PO SCH (08:33)
[2016-11-23] MEDS: ALLOPURINOL 100 MG TAB PO SCH (08:33)
[2016-11-23] MEDS: BACITRACIN TOP OINT 15 GM TUBE TOP SCH ×2 (08:33→21:03)
[2016-11-23] MEDS: RIFAXIMIN 550 MG TAB PO SCH ×2 (08:33→21:03)
[2016-11-23] MEDS: ENOXAPARIN SODIUM 30 MG/0.3 ML SYRINGE SQ SCH (11:36)
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
[2016-11-23] MEDS ORDERED: WALKER WHEELS/F1 MIS (12:23)
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
--- NOTE | 2016-11-23 17:03 | PD.CAR.PN ---
CVT Progress Note Subjective/Hospital Course: 11/22 Right Video-Assisted Thoracoscopic Surgery (VATS), Evacuation of Pleural Effusion. , PleurX catheter placement, Talc Pleurodesis 11/23 right pleurx cath drained 500cc/ 12 hrs to wall suction at 20cm no chest tube drainage documented for right anterior chest tube / on water seal CXR noted, small apical PTX eval for removal of right anterior chest tube in am Objective: GENERAL: SKIN: Warm and dry.incision intact right posterior chest wall right anterior chest tube to water seal pleurx cath to pleura vac and suction HEAD: Normocephalic. EYES: No scleral icterus. No injection or drainage. NECK: Supple, trachea midline. No JVD or lymphadenopathy. CARDIOVASCULAR: Regular rate and rhythm without murmurs, gallops, or rubs. RESPIRATORY: diminished right lower lobe . No accessory muscle use. GASTROINTESTINAL: Abdomen soft, non-tender, nondistended. MUSCULOSKELETAL: No cyanosis, or edema. BACK: Nontender without obvious deformity. No CVA tenderness. Vital Signs Date Time Temp Pulse Resp B/P Pulse Ox O2 Delivery O2 Flow Rate FiO2 11/23/16 16:00 96.8 85 18 108/60 94 11/23/16 12:00 97.8 81 19 88/50 93 11/23/16 08:00 96.7 58 18 112/56 94 11/23/16 01:56 95 11/23/16 00:00 97.2 80 20 100/62 95 11/22/16 20:00 96.6 84 20 84/59 94 11/22/16 17:53 97 21 Result Diagram: 11/21/16 0403 11/21/16 0403 (1) Multiple rib fractures (2) Right pulmonary contusion Plan: s/p right chest plating keep right anterior chest tube to water seal pleurx cath to suction eval for removal of anterior chest tube in am Problem Qualifiers (1) Multiple rib fractures: Qualified Code: S22.41XA - Closed fracture of multiple ribs of right side, initial encounter Francoise Colón Nov 23, 2016 17:03
[2016-11-23] MEDS: ACETAMINOPHEN/HYDROcodone 325 MG/5 MG TAB PO PRN (21:03)
[2016-11-23] MEDS: FAMOTIDINE 20 MG TAB PO SCH (21:03)
[2016-11-23] MEDS: DOCUSATE CALCIUM 240 MG CAP PO SCH (21:03)
[2016-11-24] VITALS: BP 117/67; PULSE 80; RESP 18; TEMP 97.4; O2SAT 92
[2016-11-24] MEDS: ENOXAPARIN SODIUM 30 MG/0.3 ML SYRINGE SQ SCH ×2 (01:20→11:57)
[2016-11-24] MEDS: INSULIN NovoLIN REGULAR SUPPLEMENTAL SCALE SQ SCH ×6 (03:49→21:13)
--- NOTE | 2016-11-24 07:47 | RADRPT ---
EXAM DATE/TIME: 11/24/2016 06:48 [facility] COMPARISON: CHEST SINGLE AP, November 23, 2016, 6:17. INDICATIONS : Post thoracotomy. Right side chest pain. MEDICAL HISTORY : Pneumothorax. SURGICAL HISTORY : Right rib fracture repairs. Chest tube, right. ENCOUNTER: Subsequent ACUITY: 3 weeks PAIN SCORE: 5/10 LOCATION: Right chest FINDINGS: Right chest thoracostomy tube is again noted. Skin johnathan remain along the lateral chest wall. There appears to be some parenchymal opacity in the lung base and hazy density in the apex may be some ple ural thickening or loculated fluid. A Pleurx catheter is again noted coiling in the lung base. Left l mayra is stable and grossly clear. Cardiac contours are stable. CONCLUSION: No significant interval change Charly Dahl MD on November 24, 2016 at 7:42 Board Certified Radiologist. This report was verified electronically.
[2016-11-24 08:00] VITALS: BP_SYST 114; BP_DIAS 57; BP_DIAS 67; PULSE 67; RESP 16; TEMP 97; O2SAT 97
[2016-11-24] MEDS: NYSTATIN SUSP 500,000 U/5 ML CUP SWISH-SWAL SCH ×4 (08:12→21:13)
[2016-11-24] MEDS: RIFAXIMIN 550 MG TAB PO SCH ×2 (08:12→21:13)
[2016-11-24] MEDS: ALLOPURINOL 100 MG TAB PO SCH (08:12)
[2016-11-24] MEDS: DOCUSATE SODIUM 50 MG/SENNA 8.6 MG TAB PO SCH ×2 (08:12→21:13)
[2016-11-24] MEDS: INSULIN DETEMIR 100 UNITS/ML VIAL SQ SCH (08:13)
[2016-11-24] MEDS: SODIUM CHLORIDE 0.9% FLUSH 10 ML FLUSH IV FLUSH SCH ×2 (08:13→21:00)
[2016-11-24] MEDS: BACITRACIN TOP OINT 15 GM TUBE TOP SCH ×2 (08:14→21:15)
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
[2016-11-24 11:58] VITALS: BP 105/59; PULSE 66; RESP 16; TEMP 98.3; O2SAT 98
[2016-11-24] MEDS: LACTATED RINGER'S 1000 ML INJ 1,000 ML IV SCH (12:45)
[2016-11-24 12:52] VITALS: O2SAT 97
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
--- NOTE | 2016-11-24 15:55 | PD.CAR.PN ---
CVT Progress Note Subjective/Hospital Course: 11/22 Right Video-Assisted Thoracoscopic Surgery (VATS), Evacuation of Pleural Effusion. , PleurX catheter placement, Talc Pleurodesis 11/23 right pleurx cath drained 500cc/ 12 hrs to wall suction at 20cm no chest tube drainage documented for right anterior chest tube / on water seal CXR noted, small apical PTX eval for removal of right anterior chest tube in am 11/24 right anterior chest tube removed vaseline air tight dressing applied pt still has johnathan to right posterior chest from initial surgery/ discussed possible removal with BLOWER ROOM ATTENDANT for trauma recheck CXR in am ok to dc from CVS standpoint 1-2 days / has f/u in our office in 4 weeks / will go home with pleurx cath and HHC to drain Objective: GENERAL: SKIN: Warm and dry. right anterior chest tube removed Vaseline occlusive dressing applied right pleurx cath in place HEAD: Normocephalic. EYES: No scleral icterus. No injection or drainage. NECK: Supple, trachea midline. No JVD or lymphadenopathy. CARDIOVASCULAR: Regular rate and rhythm without murmurs, gallops, or rubs. RESPIRATORY: diminished right lower lobe Breath sounds equal bilaterally. No accessory muscle use. GASTROINTESTINAL: Abdomen soft, non-tender, nondistended. MUSCULOSKELETAL: No cyanosis, or edema. BACK: Nontender without obvious deformity. No CVA tenderness. Vital Signs Date Time Temp Pulse Resp B/P Pulse Ox O2 Delivery O2 Flow Rate FiO2 11/24/16 12:52 97 Nasal Cannula 2.00 11/24/16 11:58 98.3 66 16 105/59 98 11/24/16 08:00 97.0 67 16 114/57 97 11/24/16 00:00 97.4 80 18 117/67 92 11/23/16 21:32 92 Nasal Cannula 2.00 11/23/16 20:00 97.8 75 18 118/63 92 11/23/16 16:00 96.8 85 18 108/60 94 Result Diagram: 11/21/1640211/21/16402 (1) Multiple rib fractures (2) Right pulmonary contusion Plan: s/p right chest plating right anterior chest tube removed pleurx cath to suction ok to dc in 1-2 days will see as f/u in office 4 weeks / with CXR pleurx cath in place / HHC to drain Problem Qualifiers (1) Multiple rib fractures: Qualified Code: S22.41XA - Closed fracture of multiple ribs of right side, initial encounter Francoise Colón Nov 24, 2016 15:54
[2016-11-24] MEDS ORDERED: MILKSUS PO (17:07)
[2016-11-24] MEDS ORDERED: COLA100C3 PO (17:07)
[2016-11-24 20:13] VITALS: BP 134/67; PULSE 68; RESP 17; TEMP 97.9; O2SAT 96
[2016-11-24] MEDS: DOCUSATE CALCIUM 240 MG CAP PO SCH (21:14)
[2016-11-24] MEDS: FAMOTIDINE 20 MG TAB PO SCH (21:14)
[2016-11-25] MEDS: INSULIN NovoLIN REGULAR SUPPLEMENTAL SCALE SQ SCH ×6 (00:11→20:00)
[2016-11-25] MEDS: ENOXAPARIN SODIUM 30 MG/0.3 ML SYRINGE SQ SCH ×2 (00:11→11:42)
[2016-11-25 00:29] VITALS: BP 158/77; PULSE 70; RESP 18; TEMP 97.6; O2SAT 96
[2016-11-25] MEDS: LACTATED RINGER'S 1000 ML INJ 1,000 ML IV SCH (03:57)
--- NOTE | 2016-11-25 04:57 | RADRPT ---
EXAM DATE/TIME: 11/25/2016 04:18 [facility] COMPARISON: CHEST SINGLE AP, November 24, 2016, 6:48. INDICATIONS : Evaluate right pnuemothorax MEDICAL HISTORY : None. SURGICAL HISTORY : Right rib fracture repairs. Chest tube, right. ENCOUNTER: Subsequent ACUITY: 3 weeks PAIN SCORE: 4/10 LOCATION: Right chest FINDINGS: A single view of the chest demonstrates right-sided pleural-parenchymal density. Multiple right-sided rib fractures and right clavicle fracture. There is some volume loss on the right. No definite pneum othorax status post chest tube removal. The cardiomediastinal contours are unremarkable. CONCLUSION: Status post chest tube removal on the right. No pneumothorax. Jerardo Hearn MD on November 25, 2016 at 4:54 Board Certified Radiologist. This report was verified electronically.
[2016-11-25 05:09] LABS: AUTOMATED NEUTROPHIL # 4.6 TH/MM3 (1.8-7.7); BASOPHIL % 0.1 % (0.0-2.0); EOSINOPHIL # 0.2 TH/MM3 (0-0.4); EOSINOPHIL % 3.3 % (0.0-4.0); HEMATOCRIT 36.7 % (39.0-51.0); LYMPH % 9.7 % (9.0-44.0); LYMPHOCYTE # 0.6 TH/MM3 (1.0-4.8); MEAN CELL VOLUME 96.6 FL (80.0-100.0); MEAN CORPUSCULAR HEMOGLOBIN 32.4 PG (27.0-34.0); MEAN CORPUSCULAR HGB CONC 33.5 % (32.0-36.0); MONO % 7.5 % (0.0-8.0); NEUT % 79.4 % (16.0-70.0); PLATELET COUNT 63 TH/MM3 (150-450); RED CELL DISTRIBUTION WIDTH 20.1 % (11.6-17.2); WHITE BLOOD COUNT 5.7 TH/MM3 (4.0-11.0)
[2016-11-25 05:22] LABS: HEMO FLAGS AUTO DIFF
[2016-11-25 05:36] LABS: ALT (GPT) 90 U/L (12-78); ANION GAP 6 MEQ/L (5-15); AST (GOT) 81 U/L (15-37); BICARBONATE 29.6 MEQ/L (21.0-32.0); BLOOD UREA NITROGEN 13 MG/DL (7-18); CHLORIDE 103 MEQ/L (98-107); GLOMERULAR FILTRATION RATE 179 ML/MIN (>89); POTASSIUM 3.8 MEQ/L (3.5-5.1); SODIUM (NA) 139 MEQ/L (136-145)
[2016-11-25 05:37] LABS: ALKALINE PHOSPHATASE 548 U/L (45-117); TOTAL BILIRUBIN ADULT 1.4 MG/DL (0.2-1.0)
[2016-11-25 06:58] LABS: PLATELET ESTIMATE SMEAR LOW (NORMAL); PLATELET MORPHOLOGY NORMAL (NORMAL); SCAN/DIFF AUTO DIFF CONFIRMED
[2016-11-25 08:00] VITALS: BP 131/75; PULSE 74; RESP 16; TEMP 97.4; O2SAT 96
[2016-11-25] MEDS: INSULIN DETEMIR 100 UNITS/ML VIAL SQ SCH (08:09)
[2016-11-25] MEDS: NYSTATIN SUSP 500,000 U/5 ML CUP SWISH-SWAL SCH ×4 (08:10→21:46)
[2016-11-25] MEDS: BACITRACIN TOP OINT 15 GM TUBE TOP SCH ×2 (08:10→21:46)
[2016-11-25] MEDS: ALLOPURINOL 100 MG TAB PO SCH (08:10)
[2016-11-25] MEDS: RIFAXIMIN 550 MG TAB PO SCH ×2 (08:10→21:46)
[2016-11-25] MEDS: DOCUSATE SODIUM 50 MG/SENNA 8.6 MG TAB PO SCH ×2 (08:10→21:00)
[2016-11-25] MEDS: SODIUM CHLORIDE 0.9% FLUSH 10 ML FLUSH IV FLUSH SCH ×2 (08:10→21:45)
[2016-11-25 09:00] VITALS: O2SAT 97
[2016-11-25 12:00] VITALS: BP 125/68; PULSE 73; RESP 16; TEMP 96.5; O2SAT 95
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
[2016-11-25 16:00] VITALS: BP 126/73; PULSE 77; RESP 16; TEMP 98.4; O2SAT 95
--- NOTE | 2016-11-25 16:48 | PD.CAR.PN ---
CVT Progress Note Subjective/Hospital Course: 11/22 Right Video-Assisted Thoracoscopic Surgery (VATS), Evacuation of Pleural Effusion. , PleurX catheter placement, Talc Pleurodesis 11/23 right pleurx cath drained 500cc/ 12 hrs to wall suction at 20cm no chest tube drainage documented for right anterior chest tube / on water seal CXR noted, small apical PTX eval for removal of right anterior chest tube in am 11/24 right anterior chest tube removed vaseline air tight dressing applied pt still has johnathan to right posterior chest from initial surgery/ discussed possible removal with BULKING MACHINE OPERATOR for trauma recheck CXR in am ok to dc from [facility]S standpoint 1-2 days / has f/u in our office in 4 weeks / will go home with pleurx cath and HHC to drain 11/25 pt having significant drainage to right anterior chest tube site serous drainage / multiple dressing changes cxr noted no ptx right pleurx cath now not draining despite attempts at readjusting, tightly sutured in place may need replacement by IR , will re-eval in am Objective: GENERAL: SKIN: Warm and dry. dressing to right anterior chest wall serous drainage HEAD: Normocephalic. EYES: No scleral icterus. No injection or drainage. NECK: Supple, trachea midline. No JVD or lymphadenopathy. CARDIOVASCULAR: Regular rate and rhythm without murmurs, gallops, or rubs. RESPIRATORY: diminished on right No accessory muscle use. GASTROINTESTINAL: Abdomen soft, non-tender, nondistended. MUSCULOSKELETAL: No cyanosis, or edema. BACK: Nontender without obvious deformity. No CVA tenderness. Vital Signs Date Time Temp Pulse Resp B/P Pulse Ox O2 Delivery O2 Flow Rate FiO2 11/25/16 12:00 96.5 73 16 125/68 95 11/25/16 09:00 97 Nasal Cannula 2.00 11/25/16 08:00 97.4 74 16 131/75 96 11/25/16 00:29 97.6 70 18 158/77 96 11/24/16 20:13 97.9 68 17 134/67 96 11/24/16 18:22 21 Result Diagram: 11/25/16 0413 11/25/16 0413 (1) Multiple rib fractures (2) Right pulmonary contusion Plan: s/p right chest plating right anterior chest tube removed pleurx cath to suction no drainage in pleurx connectors all in place CXR viewed may need replacment may need small suture placed to right anterior chest wall CT site Problem Qualifiers (1) Multiple rib fractures: Qualified Code: S22.41XA - Closed fracture of multiple ribs of right side, initial encounter Francoise Colón Nov 25, 2016 16:48
[2016-11-25 20:00] VITALS: BP 147/69; PULSE 78; RESP 24; TEMP 97.8; O2SAT 96
[2016-11-25] MEDS: DOCUSATE CALCIUM 240 MG CAP PO SCH (21:00)
[2016-11-25] MEDS: FAMOTIDINE 20 MG TAB PO SCH (21:45)
[2016-11-26] VITALS: BP 145/75; PULSE 70; RESP 22; TEMP 97.8; O2SAT 95
[2016-11-26] MEDS: ENOXAPARIN SODIUM 30 MG/0.3 ML SYRINGE SQ SCH ×2 (00:11→11:25)
[2016-11-26] MEDS: INSULIN NovoLIN REGULAR SUPPLEMENTAL SCALE SQ SCH ×6 (04:00→19:48)
--- NOTE | 2016-11-26 07:31 | RADRPT ---
EXAM DATE/TIME: 11/26/2016 07:18 [place] COMPARISON: CHEST SINGLE AP, November 25, 2016, 4:18. CHEST SINGLE AP, November 24, 2016, 6:48. INDICATIONS : Evaluate right chest tube, short of breath. MEDICAL HISTORY : right rib fractures SURGICAL HISTORY : right ribs repaired, right chest tube ENCOUNTER: Subsequent ACUITY: 3 weeks PAIN SCORE: 4/10 LOCATION: Bilateral chest FINDINGS: A single view of the chest demonstrates the patient has 4 ribs fixated on the right. There is residua l right pleural effusion with consolidation right lung base. Left lung is relatively clear. Heart and mediastinum are stable. Right clavicular fracture unchanged. CONCLUSION: Multiple fixated where fractures. Moderate right pleural effusion with bilateral small and lines pers ist. Camilo Jain MD on November 26, 2016 at 7:29 Board Certified Radiologist. This report was verified electronically.
[2016-11-26 08:00] VITALS: BP 132/77; PULSE 67; RESP 17; TEMP 97.1; O2SAT 96
[2016-11-26] MEDS: SODIUM CHLORIDE 0.9% FLUSH 10 ML FLUSH IV FLUSH SCH ×2 (08:19→21:00)
[2016-11-26] MEDS: RIFAXIMIN 550 MG TAB PO SCH ×2 (08:19→20:08)
[2016-11-26] MEDS: BACITRACIN TOP OINT 15 GM TUBE TOP SCH ×2 (08:19→20:09)
[2016-11-26] MEDS: NYSTATIN SUSP 500,000 U/5 ML CUP SWISH-SWAL SCH ×4 (08:19→20:08)
[2016-11-26] MEDS: INSULIN DETEMIR 100 UNITS/ML VIAL SQ SCH (08:19)
[2016-11-26] MEDS: ALLOPURINOL 100 MG TAB PO SCH (08:19)
[2016-11-26] MEDS: DOCUSATE SODIUM 50 MG/SENNA 8.6 MG TAB PO SCH ×3 (08:19→20:07)
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
[2016-11-26 12:00] VITALS: BP 140/78; PULSE 60; RESP 17; TEMP 97.2; O2SAT 96
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
[2016-11-26 16:00] VITALS: BP 116/66; PULSE 84; RESP 16; TEMP 97.6; O2SAT 93
[2016-11-26 20:00] VITALS: BP 111/67; PULSE 79; RESP 20; TEMP 98.2; O2SAT 93
[2016-11-26] MEDS: DOCUSATE CALCIUM 240 MG CAP PO SCH (20:07)
[2016-11-26] MEDS: FAMOTIDINE 20 MG TAB PO SCH (20:08)
[2016-11-26 20:20] VITALS: O2SAT 95
[2016-11-27] VITALS: BP 122/72; PULSE 71; RESP 20; TEMP 97.9; O2SAT 93
[2016-11-27] MEDS: INSULIN NovoLIN REGULAR SUPPLEMENTAL SCALE SQ SCH ×7 (00:30→23:44)
[2016-11-27] MEDS: ENOXAPARIN SODIUM 30 MG/0.3 ML SYRINGE SQ SCH ×3 (00:31→23:44)
[2016-11-27 08:00] VITALS: BP 141/76; PULSE 75; RESP 17; TEMP 96.3; O2SAT 98
[2016-11-27] MEDS: RIFAXIMIN 550 MG TAB PO SCH ×2 (08:04→20:34)
[2016-11-27] MEDS: DOCUSATE SODIUM 50 MG/SENNA 8.6 MG TAB PO SCH ×2 (08:05→20:32)
[2016-11-27] MEDS: ALLOPURINOL 100 MG TAB PO SCH (08:05)
[2016-11-27] MEDS: NYSTATIN SUSP 500,000 U/5 ML CUP SWISH-SWAL SCH ×4 (08:06→20:34)
[2016-11-27] MEDS: SODIUM CHLORIDE 0.9% FLUSH 10 ML FLUSH IV FLUSH SCH ×2 (08:12→20:32)
[2016-11-27] MEDS: BACITRACIN TOP OINT 15 GM TUBE TOP SCH ×2 (08:13→20:35)
[2016-11-27] MEDS: INSULIN DETEMIR 100 UNITS/ML VIAL SQ SCH (09:23)
[2016-11-27 09:39] VITALS: O2SAT 96
[2016-11-27] MEDS ORDERED: METH500T3 PO (10:39)
[2016-11-27] MEDS ORDERED: ACET325T PO (10:39)
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
[2016-11-27 12:00] VITALS: BP 111/68; PULSE 93; RESP 16; TEMP 96.7; O2SAT 98
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
[2016-11-27 16:00] VITALS: BP 135/82; PULSE 92; RESP 17; TEMP 95.6; O2SAT 97
[2016-11-27 20:00] VITALS: BP 113/72; PULSE 86; RESP 20; TEMP 98.1; O2SAT 95
[2016-11-27] MEDS: DOCUSATE CALCIUM 240 MG CAP PO SCH (20:32)
[2016-11-27] MEDS: ACETAMINOPHEN/HYDROcodone 325 MG/5 MG TAB PO PRN (20:46)
[2016-11-27] MEDS: FAMOTIDINE 20 MG TAB PO SCH (20:46)
[2016-11-28] VITALS: BP 106/64; PULSE 74; RESP 20; TEMP 96.7; O2SAT 95
[2016-11-28] MEDS: INSULIN NovoLIN REGULAR SUPPLEMENTAL SCALE SQ SCH ×6 (04:00→23:54)
[2016-11-28 08:00] VITALS: BP 117/68; PULSE 68; RESP 16; TEMP 97; O2SAT 94
[2016-11-28] MEDS: ALLOPURINOL 100 MG TAB PO SCH (08:16)
[2016-11-28] MEDS: NYSTATIN SUSP 500,000 U/5 ML CUP SWISH-SWAL SCH ×4 (08:16→20:31)
[2016-11-28] MEDS: DOCUSATE SODIUM 50 MG/SENNA 8.6 MG TAB PO SCH ×3 (08:16→20:30)
[2016-11-28] MEDS: RIFAXIMIN 550 MG TAB PO SCH ×2 (08:16→20:30)
[2016-11-28] MEDS: SODIUM CHLORIDE 0.9% FLUSH 10 ML FLUSH IV FLUSH SCH ×2 (08:16→20:30)
[2016-11-28] MEDS: INSULIN DETEMIR 100 UNITS/ML VIAL SQ SCH (08:21)
[2016-11-28] MEDS: BACITRACIN TOP OINT 15 GM TUBE TOP SCH ×2 (08:27→20:32)
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
[2016-11-28] MEDS: ENOXAPARIN SODIUM 30 MG/0.3 ML SYRINGE SQ SCH ×2 (11:20→23:54)
[2016-11-28 12:00] VITALS: BP 108/60; PULSE 77; RESP 20; TEMP 97.8; O2SAT 96
[2016-11-28 16:00] VITALS: BP 102/59; PULSE 85; RESP 20; TEMP 97.2; O2SAT 95
[2016-11-28 20:00] VITALS: BP 118/60; PULSE 88; RESP 20; TEMP 98; O2SAT 94
[2016-11-28] MEDS: DOCUSATE CALCIUM 240 MG CAP PO SCH (20:30)
[2016-11-28] MEDS: FAMOTIDINE 20 MG TAB PO SCH (20:30)
[2016-11-28] MEDS: ACETAMINOPHEN/HYDROcodone 325 MG/5 MG TAB PO PRN (20:32)
[2016-11-29] VITALS: BP 112/64; PULSE 84; RESP 20; TEMP 97; O2SAT 95
[2016-11-29] MEDS: INSULIN NovoLIN REGULAR SUPPLEMENTAL SCALE SQ SCH ×4 (04:00→16:47)
--- NOTE | 2016-11-29 07:11 | RADRPT ---
EXAM DATE/TIME: 11/29/2016 05:44 [place] COMPARISON: CHEST SINGLE AP, November 26, 2016, 7:18. INDICATIONS : Short of breath, evaluate chest tube MEDICAL HISTORY : rib fractures SURGICAL HISTORY : ribs repaired, chest tube ENCOUNTER: Subsequent ACUITY: 3 weeks PAIN SCORE: 4/10 LOCATION: Bilateral chest FINDINGS: There is a right chest tube in place. There is a small right pneumothorax with 1.1 cm of separation.. The lungs are grossly clear. There is evidence of previous surgery to the right ribs. The heart size is stable. There are no pleural effusions. The bony structures are stable. CONCLUSION: Small right pneumothorax 1.1 cm of separation. Chay Marte MD on November 29, 2016 at 7:06 Board Certified Radiologist. This report was verified electronically.
[2016-11-29 08:00] VITALS: BP 119/65; PULSE 68; RESP 18; TEMP 96.3; O2SAT 95
[2016-11-29] MEDS: INSULIN DETEMIR 100 UNITS/ML VIAL SQ SCH (08:47)
[2016-11-29] MEDS: NYSTATIN SUSP 500,000 U/5 ML CUP SWISH-SWAL SCH ×2 (08:47→12:24)
[2016-11-29] MEDS: BACITRACIN TOP OINT 15 GM TUBE TOP SCH (08:47)
[2016-11-29] MEDS: ALLOPURINOL 100 MG TAB PO SCH (08:47)
[2016-11-29] MEDS: SODIUM CHLORIDE 0.9% FLUSH 10 ML FLUSH IV FLUSH SCH (08:47)
[2016-11-29] MEDS: DOCUSATE SODIUM 50 MG/SENNA 8.6 MG TAB PO SCH (08:47)
[2016-11-29] MEDS: RIFAXIMIN 550 MG TAB PO SCH (08:47)
[2016-11-29 12:00] VITALS: BP 120/67; PULSE 73; RESP 20; TEMP 97.3; O2SAT 95
[2016-11-29] MEDS: ENOXAPARIN SODIUM 30 MG/0.3 ML SYRINGE SQ SCH (12:24)
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
--- NOTE | 2016-11-29 14:58 | PD.CAR.PN ---
CVT Progress Note Subjective/Hospital Course: 11/22 Right Video-Assisted Thoracoscopic Surgery (VATS), Evacuation of Pleural Effusion. , PleurX catheter placement, Talc Pleurodesis 11/23 right pleurx cath drained 500cc/ 12 hrs to wall suction at 20cm no chest tube drainage documented for right anterior chest tube / on water seal CXR noted, small apical PTX eval for removal of right anterior chest tube in am 11/24 right anterior chest tube removed vaseline air tight dressing applied pt still has johnathan to right posterior chest from initial surgery/ discussed possible removal with [employer] for trauma recheck CXR in am ok to dc from [facility] standpoint 1-2 days / has f/u in our office in 4 weeks / will go home with pleurx cath and HHC to drain 11/25 pt having significant drainage to right anterior chest tube site serous drainage / multiple dressing changes cxr noted no ptx right pleurx cath now not draining despite attempts at readjusting, tightly sutured in place may need replacement by IR , will re-eval in am 11/26 no drainage from pleurx cath CXR noted, moderate right pleural effusion, right chest tube site draining serous drainage 1.0 silk suture placed to prior right anterior chest / optix dressing / pressure dressing applied hopefully this will help divert drainage to pleurx cath 11/29 pleurx cath now draining after suture to prior chest tube site on tuesday ok to dc home , has outpt f/u with Dr Ozuna Objective: Vital Signs Date Time Temp Pulse Resp B/P Pulse Ox O2 Delivery O2 Flow Rate FiO2 11/29/16 12:00 97.3 73 20 120/67 95 11/29/16 08:00 96.3 68 18 119/65 95 11/29/16 00:00 97.0 84 20 112/64 95 11/28/16 20:00 98.0 88 20 118/60 94 11/28/16 16:00 97.2 85 20 102/59 95 Result Diagram: 11/25/16 0413 11/25/16412 (1) Multiple rib fractures (2) Right pulmonary contusion Plan: s/p right chest plating right anterior chest tube removed pleurx cath to suction no drainage in pleurx mod right pleural effusion suture place to prior chest tube site eval if this helpd to divert pleural drainage from chest tube site to pleurx cath may need replacment Problem Qualifiers (1) Multiple rib fractures: Qualified Code: S22.41XA - Closed fracture of multiple ribs of right side, initial encounter Francoise Colón Nov 29, 2016 14:57
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
[2017-01-26] MEDS ORDERED: MULT10CA PO (09:53)
[2017-01-26] MEDS ORDERED: ALLO300T2 PO (10:02)
[2017-01-26] MEDS ORDERED: METF500T PO (10:02)
== END 2016-11-29 17:29 | disposition home health service (06) | DRG 957 ==
LOC: NEPI 20:12 → EDBD 20:25 → NEDA 20:25 → MERGE 20:25 → N03B 22:42 → N07A 11-11 21:38 → UNDODISIN 11-24 10:47
PROVIDERS: ADMIT Surgery; ATTEND Surgery
PROC: 03HY32Z Insertion of Monitoring Device into Upper Artery, Percutaneous Approach (ICD-10-PCS; 2016-10-22)
PROC: 30233K1 Transfusion of Nonautologous Frozen Plasma into Peripheral Vein, Percutaneous Approach (ICD-10-PCS; 2016-10-22)
PROC: 30233N1 Transfusion of Nonautologous Red Blood Cells into Peripheral Vein, Percutaneous Approach (ICD-10-PCS; 2016-10-22)
PROC: 02HV33Z Insertion of Infusion Device into Superior Vena Cava, Percutaneous Approach (ICD-10-PCS; 2016-10-22)
PROC: 30233R1 Transfusion of Nonautologous Platelets into Peripheral Vein, Percutaneous Approach (ICD-10-PCS; 2016-10-23)
PROC: 5A1955Z Respiratory Ventilation, Greater than 96 Consecutive Hours (ICD-10-PCS; 2016-10-24)
PROC: 0BH17EZ Insertion of Endotracheal Airway into Trachea, Via Natural or Artificial Opening (ICD-10-PCS; 2016-10-24)
PROC: 0W9930Z Drainage of Right Pleural Cavity with Drainage Device, Percutaneous Approach (ICD-10-PCS; 2016-10-24)
PROC: 05H633Z Insertion of Infusion Device into Left Subclavian Vein, Percutaneous Approach (ICD-10-PCS; 2016-10-25)
PROC: 0W9930Z Drainage of Right Pleural Cavity with Drainage Device, Percutaneous Approach (ICD-10-PCS; 2016-10-26)
PROC: 0PS104Z Reposition 1 to 2 Ribs with Internal Fixation Device, Open Approach (ICD-10-PCS; principal; 2016-10-26 14:02)
PROC: 0W9940Z Drainage of Right Pleural Cavity with Drainage Device, Percutaneous Endoscopic Approach (ICD-10-PCS; 2016-11-22)
PROC: 3E0L3GC Introduction of Other Therapeutic Substance into Pleural Cavity, Percutaneous Approach (ICD-10-PCS; 2016-11-22)
PROC: 3E0T3CZ (ICD-10-PCS; 2016-11-22)
DX: S22.5XXA Flail chest, initial encounter for closed fracture (principal); S06.6X9A Traumatic subarachnoid hemorrhage with loss of consciousness of unspecified duration, initial encounter; T79.4XXA Traumatic shock, initial encounter; J96.00 Acute respiratory failure, unspecified whether with hypoxia or hypercapnia; J90 Pleural effusion, not elsewhere classified; G93.41 Metabolic encephalopathy; S27.2XXA Traumatic hemopneumothorax, initial encounter; E87.0 Hyperosmolality and hypernatremia; S32.019A Unspecified fracture of first lumbar vertebra, initial encounter for closed fracture; D62 Acute posthemorrhagic anemia; S32.029A Unspecified fracture of second lumbar vertebra, initial encounter for closed fracture; S32.039A Unspecified fracture of third lumbar vertebra, initial encounter for closed fracture; S27.321A Contusion of lung, unilateral, initial encounter; S32.049A Unspecified fracture of fourth lumbar vertebra, initial encounter for closed fracture; S32.059A Unspecified fracture of fifth lumbar vertebra, initial encounter for closed fracture; S36.892A Contusion of other intra-abdominal organs, initial encounter; R78.81 Bacteremia; S30.1XXA Contusion of abdominal wall, initial encounter; E11.9 Type 2 diabetes mellitus without complications; S42.024A Nondisplaced fracture of shaft of right clavicle, initial encounter for closed fracture; D69.59 Other secondary thrombocytopenia; B95.4 Other streptococcus as the cause of diseases classified elsewhere; R19.7 Diarrhea, unspecified; M10.9 Gout, unspecified; V23.4XXA Motorcycle driver injured in collision with car, pick-up truck or van in traffic accident, initial encounter; Y92.410 Unspecified street and highway as the place of occurrence of the external cause; Z79.84 Long term (current) use of oral hypoglycemic drugs; Z87.891 Personal history of nicotine dependence
CPT/HCPCS: 31500; 32551; 36430; 36556; 36600; 70450; 71010; 71020; 71100; 71260; 72125; 72131; 72170; 74177; 76000; 76705; 76937; 77003; 80048; 80053; 80061; 81001; 82140; 82150; 82435; 82465; 82550; 82552; 82565; 82805; 82947; 82948; 83605; 83615; 83735; 83880; 84100; 84132; 84155; 84295; 84478; 84484; 84520; 85007; 85014; 85018; 85025; 85027; 85049; 85384; 85610; 85730; 86850; 86900; 86901; 86920; 86927; 86965; 87040; 87070; 87086; 87186; 87205; 87493; 87641; 90471; 93005; 93306; 94002; 94003; 94150; 94640; 94664; 95819; 99291; C1713; C1729; C1769; C9113; C9290; G0390; J0131; J0330; J0610; J0690; J0692; J0696; J1100; J1120; J1170; J1580; J1650; J1815; J1885; J1940; J1953; J1956; J2250; J2270; J2354; J2405; J2543; J2710; J3010; J3370; J3411; J3475; J3480; J7030; J7040; J7050; J7070; J7120; P9016; P9017; P9035; P9045; Q9967

== ENCOUNTER → 2017-01-27 | Day surgery (SDC) | payer MEDICARE ==
[~2017-01-27] VITALS: Ht 167.6 cm; Wt 72.5 kg
[~2017-01-27] MED LIST: ACETAMINOPHEN 1000 MG/100 ML VIAL IV ONE; ALLO300T2 PO; BUPIVACAINE HCL PF 0.5% 30 ML VIAL INFIL ONE; BUPIVACAINE/EPINEPHRINE 0.5% PF 30 ML VIAL INFIL ONE; BUPIVACAINE/EPINEPHRINE 0.5% PF 30 ML VIAL ONE; CHLORHEXIDINE GLUCONATE 2 % 1 PACK (2 CLOTHS) TOPICAL PRN; DO NOT ADM ANY ANTICOAGULANT DRUGS PRN; FAMOTIDINE 20 MG/2 ML VIAL ONE; INSULIN HUMAN REGULAR 1,000 UNITS/10 ML VIAL SQ PRN; LACTATED RINGER'S 1000 ML IV PRN; METF500T PO; METOPROLOL TARTRATE 25 MG TAB PO PRN; MIDAZOLAM HCL 2 MG/2 ML VIAL ONE; MULT10CA PO; PHENYLEPH/NS 1000 MCG/10 ML SYR IV ONE; POVIDONE IODINE 5% (ANTISEPSIS KIT) 4 APPLICATIONS EACH NARE PRN; SODIUM CHLORID 0.9% 500 ML IV PRN; WALKER WHEELS/F1 MIS; ceFAZolin 2 GM PREMIX 50 ML IV SCH; fentaNYL CITRATE 250 MCG/5 ML AMP ONE
[2017-01-27 06:24] VITALS: BP 112/69; PULSE 79; RESP 18; TEMP 98; O2SAT 94
[2017-01-27 07:09] LABS: PROTHROMBIN TIME - PATIENT 11.5 SEC (9.8-11.6)
--- NOTE | 2017-01-27 09:08 | RADRPT ---
EXAM DATE/TIME: 01/27/2017 07:46 [facility] COMPARISON: CHEST SINGLE AP, November 29, 2016, 5:44. INDICATIONS : PleurX catheter removal. MEDICAL HISTORY : Patient sedated, unobtainable. SURGICAL HISTORY : Patient sedated, unobtainable. ENCOUNTER: Initial ACUITY: 1 day PAIN SCORE: 5/10 LOCATION: Bilateral chest FINDINGS: Right-sided Pleurx catheter has been removed. There is no evidence of pneumothorax or significant sherri ccumulation of fluid. Lungs are hypoaerated. Mild airspace disease remains evident in the left base Heart and mediastinal structures are stable. CONCLUSION: No evidence of pneumothorax following Pleurx catheter removal Hypoaerated lungs with mild left basilar airspace disease. Randy Oliver MD on January 27, 2017 at 9:04 Board Certified Radiologist. This report was verified electronically.
[2017-01-27 09:30] VITALS: BP 114/69; PULSE 69; RESP 18; TEMP 97.5; O2SAT 96
--- NOTE | 2017-01-29 22:33 | MP ---
cc: SCAR BUTTS MD DATE OF SURGERY 01/27/17 PREOPERATIVE DIAGNOSIS 1. Recurrent right pleural effusion 2. Status post pleurodesis and Pleur-X catheter placement. 3. Resolving pleural effusion. SURGICAL PROCEDURES Removal of Pleur-X catheter SURGEON Dr. Michael Butts DEPARTMENT ADMINISTRATOR BRIAN Mark ANESTHESIA Local with IV sedation FRONT DESK REPRESENTATIVE Kacy Zhao CRNA and Merissa Valladares MD Sponge, instrument counts correct. DRAINS Bone COMPLICATIONS None. INDICATION Mr. Howard is 76 year old gentleman with recurrent right pleural effusion who underwent a right VATS with pleurodesis and Pleur-X catheter placement. With resolution of his pleural drainage and minimal output from his catheter, he is now being taken back to the operating room for removal of the catheter. PROCEDURE IN DETAIL The patient was brought to the operating room and placed supine on the OR table. Following the placement of appropriate monitoring devices. IV sedation was given and the right chest and surrounding area were prepped and draped in standard sterile fashion. The area overlying the exit site of the Pleurx catheter as well as the tunnelled portion was anesthetized with 0.5% Marcaine with epinephrine. The securing stitch was then removed and with gentle blunt and sharp dissection, the polyester cuff was then dissected free off the subcutaneous tissue and the Pleurx catheter was removed on bloc in its entirety without any difficulties. Sterile dressing was applied over the exit site and the patient was transferred to recovery room in stable condition. Scar WALTON/ /5:24 PM /10:28 PM MTDTera
== END | disposition home or self-care (01) ==
LOC: HSDC 05:33
PROVIDERS: ATTEND Thoracic Surgery (Cardiothoracic Vascular Surgery)
DX: Z48.03 Encounter for change or removal of drains (principal); Z88.8 Allergy status to other drugs, medicaments and biological substances; M10.9 Gout, unspecified; D64.9 Anemia, unspecified; E11.9 Type 2 diabetes mellitus without complications; Z85.828 Personal history of other malignant neoplasm of skin; Z79.84 Long term (current) use of oral hypoglycemic drugs
CPT/HCPCS: 32552; 71010; 85610; J0131; J0690; J2250; J2370; J3010; J7120

== ENCOUNTER 2017-03-15 09:56 | Day surgery (SDC) | payer MEDICARE ==
[~2017-03-15 09:56] MED LIST changes: -ACETAMINOPHEN 1000 MG/100 ML VIAL IV ONE; -BUPIVACAINE HCL PF 0.5% 30 ML VIAL INFIL ONE; -BUPIVACAINE/EPINEPHRINE 0.5% PF 30 ML VIAL INFIL ONE; -BUPIVACAINE/EPINEPHRINE 0.5% PF 30 ML VIAL ONE; -CHLORHEXIDINE GLUCONATE 2 % 1 PACK (2 CLOTHS) TOPICAL PRN; -DO NOT ADM ANY ANTICOAGULANT DRUGS PRN; -FAMOTIDINE 20 MG/2 ML VIAL ONE; -INSULIN HUMAN REGULAR 1,000 UNITS/10 ML VIAL SQ PRN; -LACTATED RINGER'S 1000 ML IV PRN; -METOPROLOL TARTRATE 25 MG TAB PO PRN; -MIDAZOLAM HCL 2 MG/2 ML VIAL ONE; -PHENYLEPH/NS 1000 MCG/10 ML SYR IV ONE; -POVIDONE IODINE 5% (ANTISEPSIS KIT) 4 APPLICATIONS EACH NARE PRN; -SODIUM CHLORID 0.9% 500 ML IV PRN; -WALKER WHEELS/F1 MIS; -ceFAZolin 2 GM PREMIX 50 ML IV SCH; -fentaNYL CITRATE 250 MCG/5 ML AMP ONE
[2017-03-15 10:44] VITALS: BP 116/75; PULSE 82; RESP 16; TEMP 97.1; O2SAT 96
[2017-03-15 11:20] VITALS: BP 107/67; PULSE 81; RESP 20; TEMP 98.3; O2SAT 93
[2017-03-15 11:35] VITALS: BP 103/67; PULSE 83; RESP 16; O2SAT 94
[2017-03-15 12:11] LABS: PERITONEAL HISTIOCYTES 9 %; PERITONEAL LYMPHS 86 %; PERITONEAL MESOTHELIAL 2 %; PERITONEAL POLYS(SEGS) 3 %; PERITONEAL WBC 187 /MM3 (0-10)
--- NOTE | 2017-03-15 12:31 | PD.RAD ---
Post US Procedure Prog Note Pre Procedure Diagnosis: (1) Ascites Post Procedure Diagnosis: (1) Ascites Procedure Date: Mar 15, 2017 Supervising Radiologist: Charly Juárez Estimated blood loss: none Anesthesia: Local Plan of Activity Patient to Unit: ROPU Patient Condition: Good See PACS Report for procedural detail/treatment Drainage Procedure Procedure 1 Imaging Guidance: Ultrasound Side: Right Procedure Type: Paracentesis Fluid Removal (CCs): 4000 Fluid Description: Clear, Yellow Plan to ROPU. Charly Juárez MD Mar 15, 2017 12:31
--- NOTE | 2017-03-15 12:35 | RADRPT ---
EXAM DATE/TIME: 03/15/2017 10:19 [facility] COMPARISON: No previous studies available for comparison. EXTERNAL COMPARISON: [facility], US ABDOMEN COMPLETE, Mar 03 2017. [facility], US ABDOMEN COMPLETE, Jul 29, 2016. INDICATIONS : Ascities. MEDICAL HISTORY : Arthritis. Macular degeneration of left eye. Transient ischemic attack. Rib fractures. Right side d rainage tube. Numbness. Diabetes. Skin cancer. SURGICAL HISTORY : Carpal tunnel syndrome. Right eye cataract surgery. Circumcision. ENCOUNTER: Initial ACUITY: 2 months PAIN SCORE: 3/10 LOCATION: Right lower quadrant FLUID: Total volume of 4000 cc of clear, yellow fluid was removed. Fluid was sent to lab for ordered studies. Post procedure scanning reveals no hematoma or other complication. TECHNIQUE: 1. Ultrasound guidance for abdominal paracentesis. 2. Paracentesis. The risks, benefits, and alternatives to ultrasound guided paracentesis were explained to the patient in detail including the risk of bleeding and infection. Written and verbal informed consent was obt ained. With the patient on the ultrasound table, ultrasound imaging was used to select the most appropriate approach for paracentesis. Overlying skin was prepped and draped in the usual sterile fashion and wi th a local anesthetic, a dermatotomy was made with an 11 blade scalpel. A 6 [place] [id number]-C-rufukskn ca theter was introduced into the peritoneal cavity and fluid was collected. The patient tolerated the procedure well and left the ultrasound suite in stable condition. CONCLUSION: Uncomplicated ultrasound guided paracentesis. Charly Juárez MD on March 15, 2017 at 12:19 Board Certified Radiologist. This report was verified electronically.
== END 2017-03-15 11:47 | disposition home or self-care (01) ==
LOC: HRAD 09:56 → HRIP 09:59 → HRAD 11:47
DX: R18.8 Other ascites (principal)
CPT/HCPCS: 49083; 82042; 89051; C1729

== ENCOUNTER 2017-06-10 07:50 | Day surgery (SDC) | payer MEDICARE ==
[2017-06-10 08:25] VITALS: BP 111/75; PULSE 63; RESP 16; TEMP 97; O2SAT 93
[2017-06-10] MEDS ORDERED: LIDOCAINE HCL 1% 20 ML VIAL ONE (09:15)
[2017-06-10 09:55] VITALS: BP 96/61; PULSE 61; RESP 20; TEMP 98.6; O2SAT 96
[2017-06-10 10:10] VITALS: BP 96/61; PULSE 61; RESP 20; TEMP 98.6; O2SAT 96
== END 2017-06-10 10:20 | disposition home or self-care (01) ==
LOC: HRIP 07:50 → HRAD 07:50
PROVIDERS: ATTEND Internal Medicine Gastroenterology
DX: R18.8 Other ascites (principal); K74.60 Unspecified cirrhosis of liver
CPT/HCPCS: 49083; C1729

== ENCOUNTER 2017-06-30 08:07 | Day surgery (SDC) | payer MEDICARE ==
[2017-06-30 08:29] VITALS: BP 116/72; PULSE 69; RESP 14; TEMP 97.6; O2SAT 92
[2017-06-30 09:50] VITALS: BP 92/61; PULSE 67; RESP 18; TEMP 98.2; O2SAT 98
[2017-06-30 10:05] VITALS: BP 93/64; PULSE 68; RESP 18; O2SAT 97
[2017-06-30] MEDS ORDERED: ALBUMIN HUMAN 25% 25GM-W/12.5GM FOR 37.5GM IV ONE (10:15)
[2017-06-30] MEDS ORDERED: ALBUMIN HUMAN 25% 12.5GM-W/25GM FOR 37.5GM IV ONE (10:15)
--- NOTE | 2017-06-30 11:42 | RADRPT ---
EXAM DATE/TIME: 06/30/2017 08:28 [facility] COMPARISON: EXTERNAL COMPARISON: US GUIDED ABD PARACENTESIS, June 10, 2017, 8:29. [facility], US ABDOMEN COMPLETE , Feb [id number]. INDICATIONS : Ascites. MEDICAL HISTORY : Arthritis. Diabetes mellitus type 2. Left eye macular degeneration. TIA. Skin cancer. Gout. Ascites. Occasional reflux. Numbness. SURGICAL HISTORY : Right cataract surgery. ORIF rib fractures. Right chest tube insertion. Bilateral carpel tunnel. Para centesis. ENCOUNTER: Subsequent ACUITY: 3 weeks PAIN SCORE: 3/10 LOCATION: Right lower quadrant FLUID: Total volume of 5400 cc of clear, yellow fluid was removed. Fluid was discarded. Paracentesis was therapeutic only. Post procedure scanning reveals no hematoma or other complication. TECHNIQUE: 1. Ultrasound guidance for abdominal paracentesis. 2. Paracentesis. The risks, benefits, and alternatives to ultrasound guided paracentesis were explained to the patient in detail including the risk of bleeding and infection. Written and verbal informed consent was obt ained. With the patient on the ultrasound table, ultrasound imaging was used to select the most appropriate approach for paracentesis. Overlying skin was prepped and draped in the usual sterile fashion and wi th a local anesthetic, a dermatotomy was made with an 11 blade scalpel. A 6 [place] Xmw-C-bzitfkpb ca theter was introduced into the peritoneal cavity and fluid was collected. The patient tolerated the procedure well and left the ultrasound suite in stable condition. CONCLUSION: Uncomplicated ultrasound guided paracentesis. Stanley Hernandez Jr., MD on June 30, 2017 at 11:41 Board Certified Radiologist. This report was verified electronically.
== END 2017-06-30 10:40 | disposition home or self-care (01) ==
LOC: HRIP 08:07 → HRAD 08:07
PROVIDERS: ATTEND Physician Assistant Medical
DX: R18.8 Other ascites (principal); E11.9 Type 2 diabetes mellitus without complications; Z85.828 Personal history of other malignant neoplasm of skin; M10.9 Gout, unspecified
CPT/HCPCS: 49083; 96365; C1729; P9047

== ENCOUNTER 2017-07-18 09:55 | Day surgery (SDC) | payer MEDICARE ==
[2017-07-18 10:26] VITALS: BP 116/81; PULSE 64; RESP 14; TEMP 98; O2SAT 100
[2017-07-18] MEDS ORDERED: LIDOCAINE HCL 1% 20 ML VIAL ONE (11:40)
[2017-07-18 12:35] VITALS: BP 100/59; PULSE 62; RESP 18; TEMP 98; O2SAT 92
[2017-07-18 12:50] VITALS: BP 97/59; PULSE 66; RESP 18; O2SAT 93
[2017-07-18] MEDS ORDERED: ALBUMIN HUMAN 25% 50 GM IV ONE (13:15)
--- NOTE | 2017-07-18 13:50 | RADRPT ---
EXAM DATE/TIME: 07/18/2017 10:19 [facility] COMPARISON: US GUIDED ABD PARACENTESIS, June 30, 2017, 8:28. INDICATIONS : Ascites. MEDICAL HISTORY : Arthritis. Diabetes mellitus type 2. Left eye macular degeneration. TIA. Skincancer. Gout. Ascites. O ccasional reflux. Numbness. SURGICAL HISTORY : Right cataract surgery. ORIF rib fractures. Right chest tube insertion. Bilateral carpel tunnel. Para centesis. ENCOUNTER: Subsequent ACUITY: 3 weeks PAIN SCORE: 0/10 LOCATION: Left lower quadrant FLUID: Total volume of 7,200 cc of clear, yellow fluid was removed. Fluid was discarded. Paracentesis was therapeutic only. Post procedure scanning reveals no hematoma or other complication. TECHNIQUE: 1. Ultrasound guidance for abdominal paracentesis. 2. Paracentesis. The risks, benefits, and alternatives to ultrasound guided paracentesis were explained to the patient in detail including the risk of bleeding and infection. Written and verbal informed consent was obt ained. With the patient on the ultrasound table, ultrasound imaging was used to select the most appropriate approach for paracentesis. Overlying skin was prepped and draped in the usual sterile fashion and wi th a local anesthetic, a dermatotomy was made with an 11 blade scalpel. A 6 [place]kin[place] Zcx-S-vdepmusw ca theter was introduced into the peritoneal cavity and fluid was collected. The patient tolerated the procedure well and left the ultrasound suite in stable condition. CONCLUSION: Uncomplicated ultrasound guided paracentesis. David Hillman MD on July 18, 2017 at 13:47 Board Certified Radiologist. This report was verified electronically.
== END 2017-07-18 13:52 | disposition home or self-care (01) ==
LOC: HRAD 09:55 → HRIP 09:55 → HRAD 13:52
DX: R18.8 Other ascites (principal); E11.9 Type 2 diabetes mellitus without complications; H35.30 Unspecified macular degeneration; M10.9 Gout, unspecified; K21.9 Gastro-esophageal reflux disease without esophagitis; Z86.73 Personal history of transient ischemic attack (TIA), and cerebral infarction without residual deficits
CPT/HCPCS: 49083; 96365; C1729; P9047

== ENCOUNTER 2017-07-29 07:51 | Day surgery (SDC) | payer MEDICARE ==
[2017-07-29] MEDS ORDERED: ALBUMIN HUMAN 25% 50 GM IV ONE (10:00)
[2017-07-29] MEDS ORDERED: LIDOCAINE HCL 1% 20 ML VIAL ONE (10:02)
[2017-07-29 10:05] VITALS: BP 87/56; PULSE 61; RESP 18; TEMP 96.8; O2SAT 97
[2017-07-29 10:20] VITALS: BP 92/60; PULSE 61; RESP 18; O2SAT 96
--- NOTE | 2017-07-29 11:10 | RADRPT ---
EXAM DATE/TIME: 07/29/2017 08:25 [facility] COMPARISON: EXTERNAL COMPARISON: US GUIDED ABD PARACENTESIS, July 18, 2017, 10:19. [facility], US ABDOMEN COMPLETE, Mar 03 2017. INDICATIONS : Ascites. MEDICAL HISTORY : Arthritis. Diabetes mellitus type 2. Left eye macular degeneration. TIA. Skin cancer. Gout. Ascites. Occasional reflux. Numbness. SURGICAL HISTORY : Right cataract surgery. ORIF rib fracture. Right chest tube insetion. Paracentesis. Bilateral carpel tunnel. ENCOUNTER: [facility] ACUITY: 2 weeks PAIN SCORE: 3/10 LOCATION: Right lower quadrant FLUID: Total volume of 7,200 cc of clear, yellowish green fluid was removed. Fluid was discarded. Paracentesis was therapeutic only. Post procedure scanning reveals no hematoma or other complication. TECHNIQUE: 1. Ultrasound guidance for abdominal paracentesis. 2. Paracentesis. The risks, benefits, and alternatives to ultrasound guided paracentesis were explained to the patient in detail including the risk of bleeding and infection. Written and verbal informed consent was obt ained. With the patient on the ultrasound table, ultrasound imaging was used to select the most appropriate approach for paracentesis. Overlying skin was prepped and draped in the usual sterile fashion and wi th a local anesthetic, a dermatotomy was made with an 11 blade scalpel. A 6 Romanian Gjq-H-mozpokrw ca theter was introduced into the peritoneal cavity and fluid was collected. The patient tolerated the procedure well and left the ultrasound suite in stable condition. CONCLUSION: Uncomplicated ultrasound guided paracentesis. Jessee Ramos MD on July 29, 2017 at 11:08 Board Certified Radiologist. This report was verified electronically.
== END 2017-07-29 11:15 | disposition home or self-care (01) ==
LOC: HRAD 07:51 → HRIP 07:52 → HRAD 11:15
DX: R18.8 Other ascites (principal); E11.9 Type 2 diabetes mellitus without complications; K21.9 Gastro-esophageal reflux disease without esophagitis; Z85.828 Personal history of other malignant neoplasm of skin; Z86.73 Personal history of transient ischemic attack (TIA), and cerebral infarction without residual deficits
CPT/HCPCS: 49083; 96365; 96366; C1729; P9047

== ENCOUNTER 2017-08-05 12:58 | Day surgery (SDC) | payer MEDICARE ==
[2017-08-05] MEDS ORDERED: LIDOCAINE HCL 1% 20 ML VIAL ONE (14:06)
[2017-08-05 14:35] VITALS: BP 100/69; PULSE 67; RESP 18; TEMP 97.8; O2SAT 95
--- NOTE | 2017-08-05 14:42 | RADRPT ---
EXAM DATE/TIME: 08/05/2017 13:17 [facility] COMPARISON: US GUIDED ABD PARACENTESIS, July 29, 2017, 8:25. INDICATIONS : Ascites. MEDICAL HISTORY : Arthritis. Diabetes mellitus type 2. Left eye macular degeneration. TIA. Skincancer. Gout. Ascites. O ccasional reflux. Numbness. SURGICAL HISTORY : Right cataract surgery. ORIF rib fracture. Right chest tube insetion. Paracentesis. Bilateral carpa l tunnel. ENCOUNTER: [facility] ACUITY: 2 days PAIN SCORE: 0/10 LOCATION: Right lower quadrant FLUID: Total volume of 6700 cc of clear, yellow fluid was removed. Fluid was discarded. Paracentesis was therapeutic only. Post procedure scanning reveals no hematoma or other complication. TECHNIQUE: 1. Ultrasound guidance for abdominal paracentesis. 2. Paracentesis. The risks, benefits, and alternatives to ultrasound guided paracentesis were explained to the patient in detail including the risk of bleeding and infection. Written and verbal informed consent was obt ained. With the patient on the ultrasound table, ultrasound imaging was used to select the most appropriate approach for paracentesis. Overlying skin was prepped and draped in the usual sterile fashion and wi th a local anesthetic, a dermatotomy was made with an 11 blade scalpel. A 6 Malian Jsy-D-itcvwuym ca theter was introduced into the peritoneal cavity and fluid was collected. The patient tolerated the procedure well and left the ultrasound suite in stable condition. CONCLUSION: Uncomplicated ultrasound guided paracentesis. Stanley Hernandez Jr., MD on August 05, 2017 at 14:38 Board Certified Radiologist. This report was verified electronically.
[2017-08-05] MEDS ORDERED: ALBUMIN HUMAN 25% 12.5GM-W/25GM FOR 37.5GM IV ONE (14:45)
[2017-08-05] MEDS ORDERED: ALBUMIN HUMAN 25% 25GM-W/12.5GM FOR 37.5GM IV ONE (14:45)
[2017-08-05 14:50] VITALS: BP 92/65; PULSE 65; RESP 18; O2SAT 92
== END 2017-08-05 15:30 | disposition home or self-care (01) ==
LOC: HRAD 12:58 → HRIP 13:07 → HRAD 15:30
DX: R18.8 Other ascites (principal); Z86.73 Personal history of transient ischemic attack (TIA), and cerebral infarction without residual deficits
CPT/HCPCS: 49083; 96365; C1729; P9047

== ENCOUNTER 2017-08-10 12:47 | Inpatient (IN) | payer MEDICARE ==
[~2017-08-10] VITALS: Ht 167.6 cm; Wt 58.6 kg
[~2017-08-10 12:47] MED LIST changes: +BUPIVACAINE/EPINEPHRINE 0.25% PF 30 ML VIAL ONE; +LIDOCAINE HCL 1% PF 5 ML SYRINGE OTHER ONE; +ONDANSETRON HCL 4 MG/2 ML VIAL IV ONE; +PHENYLEPH/NS 1000 MCG/10 ML SYR IV ONE; +PROPOFOL 200 MG/20 ML AMP IV ONE; +ROCURONIUM INJ 50 MG/5 ML SYRINGE IV PUSH ONE; +ePHEDrine/NS 25 MG/5 ML SYRINGE IV ONE
[2017-08-10] MEDS ORDERED: CHLORHEXIDINE GLUCONATE 2 % 1 PACK (2 CLOTHS) TOPICAL PRN (13:30)
[2017-08-10] MEDS ORDERED: LACTATED RINGER'S 1000 ML IV PRN (13:30)
[2017-08-10] MEDS ORDERED: SODIUM CHLORID 0.9% 500 ML IV PRN (13:30)
[2017-08-10] MEDS ORDERED: POVIDONE IODINE 5% (ANTISEPSIS KIT) 4 APPLICATIONS EACH NARE PRN (13:30)
[2017-08-10] MEDS ORDERED: METOPROLOL TARTRATE 25 MG TAB PO PRN (13:30)
[2017-08-10] MEDS ORDERED: FAMOTIDINE 20 MG/2 ML VIAL ONE (13:44)
[2017-08-10] MEDS ORDERED: ACETAMINOPHEN 1000 MG/100 ML 0 ML IV ONE (13:44)
[2017-08-10] MEDS ORDERED: VITA100064 PO (13:56)
[2017-08-10] MEDS ORDERED: ALDA50TA2 PO (13:56)
[2017-08-10] MEDS ORDERED: FURO20TA PO (13:56)
[2017-08-10 13:58] LABS: AUTOMATED NEUTROPHIL # 6.3 TH/MM3 (1.8-7.7); BASOPHIL % 0.6 % (0.0-2.0); EOSINOPHIL # 0.1 TH/MM3 (0-0.4); EOSINOPHIL % 1.8 % (0.0-4.0); HEMATOCRIT 41.3 % (39.0-51.0); LYMPH % 5.6 % (9.0-44.0); LYMPHOCYTE # 0.4 TH/MM3 (1.0-4.8); MEAN CORPUSCULAR HEMOGLOBIN 35.3 PG (27.0-34.0); MEAN PLATELET VOLUME 9.2 FL (7.0-11.0); MONO % 7.4 % (0.0-8.0); MONOCYTE # 0.6 TH/MM3 (0-0.9); NEUT % 84.6 % (16.0-70.0); PLATELET COUNT 221 TH/MM3 (150-450); RED BLOOD COUNT 3.98 MIL/MM3 (4.50-5.90); RED CELL DISTRIBUTION WIDTH 15.2 % (11.6-17.2); WHITE BLOOD COUNT 7.5 TH/MM3 (4.0-11.0)
[2017-08-10 14:06] LABS: INTERNATIONAL NORMALIZED RATIO 1.2 RATIO; PROTHROMBIN TIME - PATIENT 12.1 SEC (9.8-11.6)
[2017-08-10 14:17] LABS: ALBUMIN 2.6 GM/DL (3.4-5.0); ALT (GPT) 92 U/L (12-78); AST (GOT) 87 U/L (15-37); BICARBONATE 27.6 MEQ/L (21.0-32.0); BLOOD UREA NITROGEN 35 MG/DL (7-18); CALCIUM 8.5 MG/DL (8.5-10.1); CHLORIDE 98 MEQ/L (98-107); CREATININE 1.13 MG/DL (0.60-1.30); GLOMERULAR FILTRATION RATE 63 ML/MIN (>89); GLUCOSE,RANDOM 149 MG/DL (74-106); SODIUM (NA) 131 MEQ/L (136-145)
[2017-08-10 14:19] LABS: ALKALINE PHOSPHATASE 533 U/L (45-117); TOTAL BILIRUBIN ADULT 0.9 MG/DL (0.2-1.0); TOTAL PROTEIN 7.1 GM/DL (6.4-8.2)
[2017-08-10] MEDS ORDERED: SUGAMMADEX SODIUM 200 MG/2 ML VIAL IV PUSH ONE (14:52)
[2017-08-10] MEDS: ceFAZolin 2 GM PREMIX 50 ML IV SCH ×2 (14:55→15:39)
[2017-08-10] MEDS ORDERED: ALBUMIN 5% INJ 500 ML IV ONE (15:29)
[2017-08-10] MEDS ORDERED: IOHEXOL 350 MG/ML 50 ML BTL (for RAD DIAG) OTHER ONE (16:21)
[2017-08-10] MEDS ORDERED: DO NOT ADM ANY ANTICOAGULANT DRUGS PRN (17:20)
[2017-08-10] MEDS ORDERED: SODIUM CHLOR 0.9% 1000 ML INJ 1,000 ML IV SCH (17:43)
[2017-08-10] MEDS ORDERED: CHLORHEXIDINE GLUCONATE 2 % 1 PACK (2 CLOTHS) TOP PRN (17:45)
[2017-08-10] MEDS ORDERED: SODIUM CHLORIDE 0.9% FLUSH 10 ML FLUSH IV FLUSH PRN ×2 (17:45)
[2017-08-10] MEDS ORDERED: MAGNESIUM HYDROXIDE SUSP 30 ML CUP PO PRN (17:45)
[2017-08-10] MEDS ORDERED: MISCELLANEOUS NURSING INFORMATION XX SCH (17:45)
[2017-08-10] MEDS ORDERED: Post-op Orders (for Pharmacy) XX ONE (17:45)
[2017-08-10] MEDS ORDERED: SENNOSIDES 8.6 MG TAB PO PRN (17:45)
[2017-08-10] MEDS ORDERED: ONDANSETRON HCL 4 MG/2 ML VIAL IV PUSH PRN ×2 (17:45)
[2017-08-10] MEDS ORDERED: hydrOXYzine HCL 25 MG TAB PO PRN (17:45)
[2017-08-10] MEDS ORDERED: RESP: ALBUTEROL 2.5 MG/IPRATROPIUM 0.5 MG NEB (PRN) INH (17:45)
[2017-08-10] MEDS ORDERED: BENZOCAINE 20% ORAL SPR 60 ML CAN MT PRN (17:45)
[2017-08-10] MEDS ORDERED: NALOXONE HCL 0.4 MG/ML AMP IV PUSH PRN (17:45)
[2017-08-10] MEDS ORDERED: BISACODYL 10 MG SUPP RECTAL PRN (17:45)
[2017-08-10] MEDS ORDERED: MORPHINE SULFATE 2 MG/ML INJ IV PUSH PRN (17:45)
[2017-08-10] MEDS ORDERED: LACTULOSE SYRUP 20 GM/30 ML CUP PO PRN (17:45)
[2017-08-10] MEDS: PANTOPRAZOLE SOD 40 MG DELAYED RELEASE TAB PO SCH (18:00)
[2017-08-10] MEDS: SODIUM CHLOR 0.9% 1000 ML INJ 1,000 ML IV SCH (18:00)
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
[2017-08-10] MEDS ORDERED: DEXTROSE 50% IN WATER 50 ML VIAL(D50) IV PUSH PRN (18:15)
[2017-08-10] MEDS ORDERED: GLUCAGON 1 MG/ML VIAL OTHER PRN (18:15)
[2017-08-10] MEDS ORDERED: TERBUTALINE INJ 1 MG/ML AMP SQ PRN (18:15)
[2017-08-10] MEDS: ALBUMIN 25% INJ 100 ML IV SCH (18:34)
[2017-08-10] MEDS: INSULIN ASPART SUPPLEMENTAL SCALE SQ SCH (18:38)
[2017-08-10] MEDS: PIPERACIL-TAZO 3.375 GM PREMIX 50 ML IV SCH ×2 (18:39→23:32)
[2017-08-10] MEDS: NOREPINEPHRINE INJ 4 MG in SODIUM CHLOR 0.9% 250 ML INJ 246 ML IV PRN (19:34)
[2017-08-10 20:00] VITALS: BP 109/61; PULSE 61; RESP 25; TEMP 97.4; O2SAT 99
[2017-08-10 20:56] LABS: MAGNESIUM 2.2 MG/DL (1.5-2.5); PHOSPHORUS 3.8 MG/DL (2.5-4.9)
[2017-08-10] MEDS: DOCUSATE SODIUM 50 MG/SENNA 8.6 MG TAB PO SCH (21:00)
[2017-08-10] MEDS ORDERED: SODIUM CHLORIDE 0.9% FLUSH 10 ML FLUSH IV FLUSH SCH (21:00)
[2017-08-10] MEDS: MORPHINE SULFATE 2 MG/ML INJ IV PRN ×2 (21:11→23:32)
[2017-08-10] MEDS: FAMOTIDINE 20 MG/2 ML VIAL IV PUSH SCH (21:11)
[2017-08-10 22:00] VITALS: PULSE 58
[2017-08-10] MEDS: SODIUM CHLORIDE 0.9% FLUSH 10 ML FLUSH IV FLUSH SCH (22:14)
[2017-08-11] VITALS (13 sets, daily range): BP systolic 92–106; BP diastolic 48–71; PULSE 62–89; RESP 16–23; TEMP 97.9–99; O2SAT 95–99
[2017-08-11] MEDS: ALBUMIN 25% INJ 100 ML IV SCH ×4 (00:05→18:17)
[2017-08-11] MEDS: INSULIN ASPART SUPPLEMENTAL SCALE SQ SCH ×4 (00:15→18:30)
[2017-08-11] MEDS: CHLORHEXIDINE GLUCONATE 2 % 1 PACK (2 CLOTHS) TOP SCH (04:00)
[2017-08-11] MEDS: SODIUM CHLOR 0.9% 1000 ML INJ 1,000 ML IV SCH ×2 (04:20→18:17)
[2017-08-11] MEDS: MORPHINE SULFATE 2 MG/ML INJ IV PRN ×2 (04:20→11:15)
[2017-08-11 04:33] LABS: AUTOMATED NEUTROPHIL # 10.4 TH/MM3 (1.8-7.7); BASOPHIL % 0.3 % (0.0-2.0); EOSINOPHIL # 0.2 TH/MM3 (0-0.4); EOSINOPHIL % 1.3 % (0.0-4.0); HEMATOCRIT 37.8 % (39.0-51.0); HEMOGLOBIN 12.8 GM/DL (13.0-17.0); LYMPH % 3.8 % (9.0-44.0); LYMPHOCYTE # 0.4 TH/MM3 (1.0-4.8); MEAN CELL VOLUME 103.5 FL (80.0-100.0); MEAN CORPUSCULAR HGB CONC 33.8 % (32.0-36.0); MEAN PLATELET VOLUME 9.1 FL (7.0-11.0); MONO % 7.1 % (0.0-8.0); MONOCYTE # 0.8 TH/MM3 (0-0.9); NEUT % 87.5 % (16.0-70.0); PLATELET COUNT 193 TH/MM3 (150-450); RED BLOOD COUNT 3.65 MIL/MM3 (4.50-5.90); RED CELL DISTRIBUTION WIDTH 15.3 % (11.6-17.2); WHITE BLOOD COUNT 11.9 TH/MM3 (4.0-11.0)
[2017-08-11 04:45] LABS: INTERNATIONAL NORMALIZED RATIO 1.2 RATIO
[2017-08-11 05:02] LABS: BICARBONATE 22.1 MEQ/L (21.0-32.0); CALCIUM 7.8 MG/DL (8.5-10.1); CREATININE 0.76 MG/DL (0.60-1.30)
[2017-08-11] MEDS: PIPERACIL-TAZO 3.375 GM PREMIX 50 ML IV SCH ×3 (05:02→18:17)
--- NOTE | 2017-08-11 07:49 | MP ---
cc: QUINN CAAL DATE OF SURGERY 08/10/2017 PREOPERATIVE DIAGNOSES 1. Cirrhosis with uncontrolled abdominal ascites. 2. Severe chronic and acute cholecystitis. POSTOPERATIVE DIAGNOSIS 1. Cirrhosis with ascites. 2. Gangrenous cholecystitis. SURGERIES 1. Laparoscopic cholecystectomy. 2. Drainage of intraabdominal ascites. 3. Laparoscopic liver biopsy. 4. Attempted intraoperative cholangiogram. 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 ANESTHESIA General and local anesthetic. BLOOD LOSS 150 cc. COMPLICATIONS None. FINDINGS Severe longstanding gangrenous cholecystitis with feculent-appearing bile. Complete obliteration of the cystic duct. INDICATIONS FOR PROCEDURE The patient is a 76-year-old male who has a history of a cirrhosis well-controlled. The patient developed several weeks of increasing severe right upper quadrant pain, weight loss, inability to eat p.o. diet and overall decline. Workup did show evidence of gallbladder problems such as acute and chronic cholecystitis. The patient was referred for surgery. After a long discussion with the patient and his about his significant increased risk of complications and from performing cholecystectomy with active cirrhosis and uncontrolled ascites, the patient agreed to undergo the procedure. The alternatives were discussed as well and the patient also failed a trial of oral antibiotics. PROCEDURE The patient was taken to the operative room, placed in the supine position, placed under general endotracheal anesthesia. The patient's abdomen was shaved, prepped and draped in sterile fashion. Time-out was performed. The abdomen was entered through an Opti-View technique just to the left of the umbilicus. Made a small incision with an 11-blade scalpel and, after local anesthetic was instilled, used a 0-degree 5-mm camera to enter the abdomen. Once entered the abdomen we did suction out some ascites. We insufflated the abdomen. We surveyed the end with a 5-mm 30-degree camera without any evidence of any complication from our entry. There was significant cirrhosis of the liver. The gallbladder was green and gangrenous. There was what appeared to be a mild almost peritonitis throughout the abdomen as well. At this point in time we placed a 10-mm subxiphoid port and two 5-mm right upper quadrant ports under direct visualization of the laparoscope. He used a suction merchandise shopper to suction all ascites. We were able to grasp the gallbladder, retract it upward. There was limited mobility due to the patient's cirrhosis and the gallbladder being gangrenous. Basically this falling apart. At this point in time extensive dissection approximately over 1 hour of dissection with harmonic scalpel in a dome-down approach removing all gangrenous tissue from the gallbladder fossa. There was some relatively more viable tissue right at the infundibulum of the gallbladder as we got down to the infundibulum. At this point in time there was really no discernible triangle of Calot at this point time and I elected to perform an intraoperative angiogram. We did place a cholangiogram catheter, a Cook type catheter into the infundibulum of the gallbladder, making a small cholecystotomy with hot blade of a harmonic scalpel. We then placed a large locking clamp across the gangrenous portion of the gallbladder to decrease backflow into the gallbladder as we had debrided some of the necrotic portions of gallbladder and suctioned out all the bile and stones. Attempts with saline flush; there was essentially no flow past into the cystic duct. At this point in time I felt that the cystic duct was obliterated as we had not divided anything below the infundibulum. This again could not be discerned externally on looking at the mucosal side of the gallbladder nor externally. We used the harmonic scalpel to basically perform resection of the gallbladder wall and mucosa to remove this as a nidus of infection as this was gangrenous tissue. Again at this point in time there was still no discernible cystic duct and likely this was obliterated. There was a small artery anterior that was possibly consistent with the cystic artery but this was sealed with the harmonic scalpel. The gallbladder was removed with EndoCatch bag and sent for permanent processing and also sent for culture. We then used suction merchandise shopper again to irrigate the right upper quadrants until suctioning was clear. We had no bleeding, no bile leak. I felt that, even though the cystic duct was likely obliterated and we had no bile leak, this would likely need to be drained despite the patient's ascites due to the high risk of leak due to the gangrenous process extending down to the rosemarie hepatis. We placed a 10-Chilean round drain in the right upper quadrant with the drain in the gallbladder fossa. This was brought out through the lateral 10-mm port. We then placed this to bulb suction. We did perform a liver biopsy using a one pass with a Gautam-Cut. We needed some Bovie electrocautery to get hemostasis after we took the sample. This was a good solid core sample. It was sent for permanent processing, again had excellent hemostasis. We did place some Surgicel over the area of the liver biopsy as well as the area of the omentum with a small hematoma. Prior to leaving, we did remove all ports under visualization of the laparoscope and expressed pneumoperitoneum. We closed the fascia of four port sites including the port site with the drain traversing it. We closed the skin with 4-0 Monocryl and Dermabond. The patient was discontinued from anesthesia and taken to the PACU in stable condition. The patient tolerated the procedure well with no apparent complications. All counts were correct and I was present and scrubbed for the entire procedure. Quinn Caal MD AWG/SSB /5:35 PM /7:03 AM
[2017-08-11] MEDS: FAMOTIDINE 20 MG/2 ML VIAL IV PUSH SCH ×2 (10:36→21:33)
[2017-08-11] MEDS: DOCUSATE SODIUM 50 MG/SENNA 8.6 MG TAB PO SCH ×2 (10:36→21:33)
[2017-08-11] MEDS: SODIUM CHLORIDE 0.9% FLUSH 10 ML FLUSH IV FLUSH SCH ×2 (10:36→22:15)
[2017-08-11] MEDS: NOREPINEPHRINE INJ 4 MG in SODIUM CHLOR 0.9% 250 ML INJ 246 ML IV PRN ×2 (11:35→20:33)
--- NOTE | 2017-08-11 11:45 | HHI.CCPN ---
Subjective Remarks/Hospital Course 76 y/o man with chronic ascites and alcoholic cirrhosis required cholecystectomy today for gangrenous gall bladder. Intraoperatively 7 liters of ascites was removed to facilitate visualization. The man comes in reguklarly to IR for ascites removal. INR normal on admission and no problems with bleeding during operation. Received considerable albumin during the procedure. Extubated in PACU and breathing comfortably. 08/11: Good night but persistent hypotension. Some levophed still required due to reaccumulation of ascites. Does not appear septic. Objective Vital Signs Date Time Temp Pulse Resp B/P (MAP) Pulse Ox O2 Delivery O2 Flow Rate FiO2 08/11/17 11:35 90 90/48 08/11/17 04:25 17 08/11/17 04:00 98.5 98 08/10/17 19:45 Room Air 08/10/17 17:30 3 Intake and Output 08/11/17 08/11/17 08/12/17 08:00 16:00 00:00 Intake Total 1350 ml 300 ml Output Total 975 ml Balance 375 ml 300 ml Result Diagram: 08/11/1740908/11/17 041 Objective Remarks Head: Normal. Neck: Supple, airway widely patent. Lungs: Clear, good excursions, comfortable pattern. Good cough effort. Heart: NL S1S2, RRR. No JVD. Abdomen: Post-surgical, quiet. Moderately distended. Extremities; Warm, well perfused. Neuro: O X 3, alert, moves 4 limbs to command. A/P Assessment and Plan Assessment: 1. Gangrenous cholecystitis. 2. Alcoholic cirrhosis. 3. Intractable ascites. 4. Diabetes mellitus, Type 2. 5. S/P major chest injury and ICU course October 2016. Plan: 1. NC O2, BiPAP prn if abdominal distention ensues. 2. Albumin 3. Hold spironolactone and lasix tonight, restart a.m. 4. Low dose levophed prn to keep MAP > 65. 5. Broad abx coverage. 6. SCDs. 7. Avoid chemical DVT prophylaxis. 8. SSI for euglycemia. Overall impression: Elderly man with multiple severe medical problems - anticipated hemodynamic and large volume requirements despite our best efforts to avoid immediate recollection of ascites. Tolerating moderate fluid well, will restart spironolactone and lasix.. Panfilo Moreau MD Aug 11, 2017 11:44
--- NOTE | 2017-08-11 14:42 | HHI.PR ---
Subjective Subjective Notes Up to chair "I'm thirsty." Objective Vitals/I&O Vital Signs Date Time Temp Pulse Resp B/P (MAP) Pulse Ox O2 Delivery O2 Flow Rate FiO2 08/11/17 13:08 89 08/11/17 12:00 99.0 16 96/48 (64) 99 08/11/17 09:00 Room Air 08/11/17 07:00 2.00 Labs Laboratory Tests Test 08/10/17 21:55 08/11/17 04:10 Nasal Screen MRSA (PCR) MRSA NOT DETECTED White Blood Count 11.9 Red Blood Count 3.65 Hemoglobin 12.8 Hematocrit 37.8 Mean Corpuscular Volume 103.5 Mean Corpuscular Hemoglobin 35.0 Mean Corpuscular Hemoglobin Concent 33.8 Red Cell Distribution Width 15.3 Platelet Count 193 Mean Platelet Volume 9.1 Neutrophils (%) (Auto) 87.5 Lymphocytes (%) (Auto) 3.8 Monocytes (%) (Auto) 7.1 Eosinophils (%) (Auto) 1.3 Basophils (%) (Auto) 0.3 Neutrophils # (Auto) 10.4 Lymphocytes # (Auto) 0.4 Monocytes # (Auto) 0.8 Eosinophils # (Auto) 0.2 Basophils # (Auto) 0.0 CBC Comment DIFF FINAL Differential Comment Prothrombin Time 12.0 Prothromb Time International Ratio 1.2 Blood Urea Nitrogen 29 Creatinine 0.76 Random Glucose 118 Calcium Level 7.8 Sodium Level 135 Potassium Level 3.9 Chloride Level 104 Carbon Dioxide Level 22.1 Anion Gap 9 Estimat Glomerular Filtration Rate 100 Lactic Acid Level 1.3 Date/Time Source Procedure Growth Status 08/10/17 16:36 Fluid Other Fungal Smear - Final NO FUNGAL ELEMENTS SEEN. Resulted 08/10/17 16:36 Fluid Other Fungal Culture Pending Resulted Cardiovascular: Regular Lungs: Clear Abdomen: Other (distended; lap sites c/d/i; minimal tenderness; LC with serosanguineous) Extremities: No edema A/P Assessment and Plan 76 year old male POD1 lap yobany; drainage of 7L of intraabdominal ascites; liver biopsy -Starts sips of clear liquids ---low sodium -Continue diuretics -Continue routine LC care -Monitor labs -Wean Levophed as tolerated Attending Statement The exam, history, and the medical decision-making described in the above note were completed with the assistance of the mid-level provider. I reviewed and agree with the findings presented. I attest that I had a [id number] encounter with the patient on the same day, and personally performed and documented my assessment and findings in the medical record. gangrenous gallbladder, cirrhosis stable overall, continue fluid management, appreciate ICU help Maria T Perez Aug 11, 2017 14:42 Jonathan Bishop MD Aug 11, 2017 18:39
[2017-08-11] MEDS: PANTOPRAZOLE SOD 40 MG DELAYED RELEASE TAB PO SCH (18:17)
[2017-08-11] MEDS: FUROSEMIDE 20 MG TAB PO SCH (21:33)
[2017-08-11] MEDS: SPIRONOLACTONE 50 MG TAB PO SCH (21:34)
[2017-08-12] VITALS (16 sets, daily range): BP systolic 98–120; BP diastolic 48–76; PULSE 66–100; RESP 12–27; TEMP 97.5–98.4; O2SAT 97–100
[2017-08-12] MEDS: INSULIN ASPART SUPPLEMENTAL SCALE SQ SCH ×4 (00:15→18:15)
[2017-08-12] MEDS: PIPERACIL-TAZO 3.375 GM PREMIX 50 ML IV SCH ×5 (00:29→23:30)
[2017-08-12] MEDS: CHLORHEXIDINE GLUCONATE 2 % 1 PACK (2 CLOTHS) TOP SCH (03:11)
[2017-08-12] MEDS: NOREPINEPHRINE INJ 4 MG in SODIUM CHLOR 0.9% 250 ML INJ 246 ML IV PRN ×3 (07:13→23:30)
[2017-08-12] MEDS: FAMOTIDINE 20 MG/2 ML VIAL IV PUSH SCH ×2 (08:47→20:31)
[2017-08-12] MEDS: SODIUM CHLORIDE 0.9% FLUSH 10 ML FLUSH IV FLUSH SCH ×2 (08:47→20:32)
[2017-08-12] MEDS: DOCUSATE SODIUM 50 MG/SENNA 8.6 MG TAB PO SCH ×2 (08:48→20:31)
[2017-08-12] MEDS: FUROSEMIDE 20 MG TAB PO SCH ×2 (08:50→20:31)
[2017-08-12] MEDS: SPIRONOLACTONE 50 MG TAB PO SCH ×2 (08:59→20:31)
--- NOTE | 2017-08-12 09:07 | HHI.CCPN ---
Subjective Remarks/Hospital Course 76 y/o man with chronic ascites and alcoholic cirrhosis required cholecystectomy today for gangrenous gall bladder. Intraoperatively 7 liters of ascites was removed to facilitate visualization. The man comes in reguklarly to IR for ascites removal. INR normal on admission and no problems with bleeding during operation. Received considerable albumin during the procedure. Extubated in PACU and breathing comfortably. 08/11: Good night but persistent hypotension. Some levophed still required due to reaccumulation of ascites. Does not appear septic. 08/12: Stabilizing blood pressure. Diuretics restarted. Objective Vital Signs Date Time Temp Pulse Resp B/P (MAP) Pulse Ox O2 Delivery O2 Flow Rate FiO2 08/12/17 08:02 97 21 08/12/17 07:13 75 110/57 08/12/17 04:00 97.6 12 08/11/17 19:00 Room Air 08/11/17 07:00 2.00 Intake and Output 08/12/17 08/12/17 08/13/17 08:00 16:00 00:00 Intake Total 1001 ml Output Total 2090 ml Balance -1089 ml Result Diagram: 08/11/1740908/11/17409 Objective Remarks Head: Normal. Neck: Supple, airway widely patent. No obstruction. Lungs: Clear, good excursions, comfortable pattern. Good cough effort. Heart: NL S1S2, RRR. No JVD. Abdomen: Post-surgical, BS active. Moderately distended. Extremities; Warm, well perfused. Neuro: O X 3, alert, moves 4 limbs to command. Conversant. A/P Assessment and Plan Assessment: 1. Gangrenous cholecystitis. 2. Alcoholic cirrhosis. 3. Intractable ascites. 4. Diabetes mellitus, Type 2. 5. S/P major chest injury and ICU course October 2016. Plan: 1. NC O2, BiPAP prn if abdominal distention ensues. 2. Albumin 3. Start spironolactone and lasix tonight 4. Low dose levophed prn to keep MAP > 65. 5. Broad abx coverage. 6. SCDs. 7. Avoid chemical DVT prophylaxis. 8. SSI for euglycemia. Overall impression: Elderly man with multiple severe medical problems - anticipated hemodynamic and large volume requirements despite our best efforts to avoid immediate recollection of ascites. Stabilized now. Panfilo Moreau MD Aug 12, 2017 09:07
[2017-08-12] MEDS: SODIUM CHLOR 0.9% 1000 ML INJ 1,000 ML IV SCH (12:12)
--- NOTE | 2017-08-12 16:16 | HHI.PR ---
Subjective Subjective Notes Resting in bed Daughter at bedside No issues; tolerated breakfast and lunch today Objective Vitals/I&O Vital Signs Date Time Temp Pulse Resp B/P (MAP) Pulse Ox O2 Delivery O2 Flow Rate FiO2 08/12/17 12:00 97.8 91 27 120/68 (85) 100 08/12/17 08:02 21 08/12/17 07:00 Room Air 08/11/17 07:00 2.00 Labs Date/Time Source Procedure Growth Status 08/10/17 16:36 Fluid Other Fungal Smear - Final NO FUNGAL ELEMENTS SEEN. Resulted 08/10/17 16:36 Fluid Other Fungal Culture Pending Resulted Cardiovascular: Regular Lungs: Clear Abdomen: Other (distended (chronically); lap sites c/d/i; LC with SS drainage ) Extremities: No edema A/P Assessment and Plan 76 year old male POD2 lap yobany; drainage of 7L of intraabdominal ascites; liver biopsy -Regular diet -Continue diuretics -Continue routine LC care -Monitor labs -Levophed off; DC art line -Transfer to floor -Discussed with Dr. Moreau Attending Statement The exam, history, and the medical decision-making described in the above note were completed with the assistance of the mid-level provider. I reviewed and agree with the findings presented. I attest that I had a [id number] encounter with the patient on the same day, and personally performed and documented my assessment and findings in the medical record. Abdominal Exam: soft, non-distended, no rebound tenderness or peritonitis, postop tenderness more stable overnight appreciate fitness teacher help Maria T Perez Aug 12, 2017 16:16 Jonathan Bishop MD Aug 25, 2017 23:56
[2017-08-12] MEDS: PANTOPRAZOLE SOD 40 MG DELAYED RELEASE TAB PO SCH (18:37)
[2017-08-13] VITALS (14 sets, daily range): BP systolic 83–98; BP diastolic 55–67; PULSE 79–98; RESP 18–27; TEMP 97.6–99.1; O2SAT 96–98
[2017-08-13] MEDS: INSULIN ASPART SUPPLEMENTAL SCALE SQ SCH ×5 (00:24→23:37)
[2017-08-13] MEDS: CHLORHEXIDINE GLUCONATE 2 % 1 PACK (2 CLOTHS) TOP SCH ×2 (04:00→23:37)
[2017-08-13] MEDS: PIPERACIL-TAZO 3.375 GM PREMIX 50 ML IV SCH ×4 (05:24→23:32)
[2017-08-13] MEDS: SODIUM CHLOR 0.9% 1000 ML INJ 1,000 ML IV SCH (08:14)
[2017-08-13] MEDS: SPIRONOLACTONE 50 MG TAB PO SCH ×2 (08:35→21:00)
[2017-08-13] MEDS: DOCUSATE SODIUM 50 MG/SENNA 8.6 MG TAB PO SCH ×2 (08:35→21:18)
[2017-08-13] MEDS: FUROSEMIDE 20 MG TAB PO SCH ×2 (08:36→21:17)
[2017-08-13] MEDS: SODIUM CHLORIDE 0.9% FLUSH 10 ML FLUSH IV FLUSH SCH ×2 (08:37→21:18)
[2017-08-13] MEDS: FAMOTIDINE 20 MG/2 ML VIAL IV PUSH SCH ×2 (08:37→21:19)
--- NOTE | 2017-08-13 11:04 | HHI.CCPN ---
Subjective Remarks/Hospital Course 76 y/o man with chronic ascites and alcoholic cirrhosis required cholecystectomy today for gangrenous gall bladder. Intraoperatively 7 liters of ascites was removed to facilitate visualization. The man comes in reguklarly to IR for ascites removal. INR normal on admission and no problems with bleeding during operation. Received considerable albumin during the procedure. Extubated in PACU and breathing comfortably. 08/11: Good night but persistent hypotension. Some levophed still required due to reaccumulation of ascites. Does not appear septic. 08/12: Stabilizing blood pressure. Diuretics restarted. 08/13: LC drain in GB bed pulling off ascites as well. Add midodrine to help wean off levophed. Spironolactone and lasix restarted. May transfer when off levophed. Objective Vital Signs Date Time Temp Pulse Resp B/P (MAP) Pulse Ox O2 Delivery O2 Flow Rate FiO2 08/13/17 10:00 98 08/13/17 08:09 97 21 08/13/17 08:00 97.9 20 92/59 (70) 08/13/17 07:00 Room Air 08/11/17 07:00 2.00 Intake and Output 08/13/17 08/13/17 08/14/17 08:00 16:00 00:00 Intake Total 300 ml Output Total 2115 ml Balance -1815 ml Result Diagram: 08/11/17 0410 08/11/17 0410 Other Results Microbiology Date/Time Source Procedure Growth Status 08/10/17 16:36 Fluid Other Gram Stain - Final Complete 08/10/17 16:36 Fluid Other Body Fluid Culture - Final NO GROWTH IN 72 HRS.--AEROBICALLY OR ... Complete Objective Remarks Head: Normal. Neck: Supple, airway widely patent. No obstruction. Lungs: Clear, good excursions, comfortable pattern. Good cough effort. Heart: NL S1S2, RRR. No JVD. Abdomen: Post-surgical, BS active. Moderately distended with ascites. LC drain RUQ.. Extremities; Warm, well perfused. Neuro: O X 3, alert, moves 4 limbs to command. Conversant. A/P Assessment and Plan Assessment: 1. Gangrenous cholecystitis. 2. Alcoholic cirrhosis. 3. Intractable ascites. 4. Diabetes mellitus, Type 2. 5. S/P major chest injury and ICU course October 2016. Plan: 1. NC O2, BiPAP prn if abdominal distention ensues. 2. Albumin 3. Start spironolactone and lasix tonight 4. Low dose levophed prn to keep MAP > 65. 5. Broad abx coverage. 6. SCDs. 7. Avoid chemical DVT prophylaxis. 8. SSI for euglycemia. 9. Start midodrine, d/c levophed. Overall impression: Elderly man with multiple severe medical problems - anticipated hemodynamic and large volume requirements despite our best efforts to avoid immediate recollection of ascites. Stabilized now. Panfilo Moreau MD Aug 13, 2017 11:04
[2017-08-13] MEDS: MIDODRINE 5 MG TAB PO SCH ×2 (11:26→17:38)
--- NOTE | 2017-08-13 13:25 | HHI.PR ---
Subjective Subjective Notes c/o abdominal distention, hiccups. LC bulb just left full. Objective Vitals/I&O Vital Signs Date Time Temp Pulse Resp B/P (MAP) Pulse Ox O2 Delivery O2 Flow Rate FiO2 08/13/17 12:00 92 08/13/17 12:00 97.6 24 84/55 (65) 96 08/13/17 08:09 21 08/13/17 07:00 Room Air 08/11/17 07:00 2.00 Labs Date/Time Source Procedure Growth Status 08/10/17 16:36 Fluid Other Fungal Smear - Final NO FUNGAL ELEMENTS SEEN. Resulted 08/10/17 16:36 Fluid Other Fungal Culture Pending Resulted Abdomen: Other (incision sites healing well. No erythema. Drain with ascites, pink tinged. Abdomen tight, firm distended.) A/P Assessment and Plan Postop lap yobany, gangrenous cholecystitis. End stage liver disease, ascites. Symptomatic now, discussed with Dr Moreau, will put drain on low wall suction to try to alleviate symptoms. Mario Lynn MD Aug 13, 2017 13:24
[2017-08-13] MEDS: PANTOPRAZOLE SOD 40 MG DELAYED RELEASE TAB PO SCH (17:38)
[2017-08-14] VITALS (14 sets, daily range): BP systolic 84–97; BP diastolic 52–65; PULSE 70–83; RESP 18–21; TEMP 97.8–98.7; O2SAT 96–98
[2017-08-14] MEDS: SODIUM CHLOR 0.9% 1000 ML INJ 1,000 ML IV SCH (04:31)
[2017-08-14] MEDS: PIPERACIL-TAZO 3.375 GM PREMIX 50 ML IV SCH ×4 (05:11→23:42)
[2017-08-14] MEDS: INSULIN ASPART SUPPLEMENTAL SCALE SQ SCH ×4 (05:12→23:42)
[2017-08-14 06:19] LABS: BASOPHIL % 0.2 % (0.0-2.0); EOSINOPHIL # 0.1 TH/MM3 (0-0.4); EOSINOPHIL % 1.8 % (0.0-4.0); HEMATOCRIT 35.4 % (39.0-51.0); HEMOGLOBIN 12.2 GM/DL (13.0-17.0); LYMPH % 6.5 % (9.0-44.0); LYMPHOCYTE # 0.5 TH/MM3 (1.0-4.8); MEAN CELL VOLUME 103.8 FL (80.0-100.0); MEAN CORPUSCULAR HEMOGLOBIN 35.8 PG (27.0-34.0); MEAN CORPUSCULAR HGB CONC 34.5 % (32.0-36.0); MONO % 11.1 % (0.0-8.0); MONOCYTE # 0.8 TH/MM3 (0-0.9); NEUT % 80.4 % (16.0-70.0); PLATELET COUNT 173 TH/MM3 (150-450); RED BLOOD COUNT 3.41 MIL/MM3 (4.50-5.90); RED CELL DISTRIBUTION WIDTH 15.3 % (11.6-17.2); WHITE BLOOD COUNT 7.4 TH/MM3 (4.0-11.0)
[2017-08-14] MEDS: MIDODRINE 5 MG TAB PO SCH ×3 (06:28→17:34)
[2017-08-14 06:31] LABS: INTERNATIONAL NORMALIZED RATIO 1.2 RATIO
[2017-08-14 06:41] LABS: BICARBONATE 24.2 MEQ/L (21.0-32.0); CALCIUM 8.3 MG/DL (8.5-10.1)
[2017-08-14] MEDS: FUROSEMIDE 20 MG TAB PO SCH ×2 (08:32→21:07)
[2017-08-14] MEDS: SODIUM CHLORIDE 0.9% FLUSH 10 ML FLUSH IV FLUSH SCH ×2 (08:32→21:09)
[2017-08-14] MEDS: FAMOTIDINE 20 MG/2 ML VIAL IV PUSH SCH ×2 (08:32→21:07)
[2017-08-14] MEDS: SPIRONOLACTONE 50 MG TAB PO SCH ×2 (08:32→21:07)
[2017-08-14] MEDS: DOCUSATE SODIUM 50 MG/SENNA 8.6 MG TAB PO SCH ×2 (08:32→21:07)
--- NOTE | 2017-08-14 10:59 | HHI.PR ---
Subjective Subjective Notes still has hiccups, ate some ziti last night, not hungry today. passing flatus, no BM Objective Vitals/I&O Vital Signs Date Time Temp Pulse Resp B/P (MAP) Pulse Ox O2 Delivery O2 Flow Rate FiO2 08/14/17 10:00 74 08/14/17 09:04 98 21 08/14/17 08:00 97.9 21 97/65 (76) 08/14/17 07:00 Room Air 08/11/17 07:00 2.00 Labs Laboratory Tests Test 08/14/17 05:31 White Blood Count 7.4 Red Blood Count 3.41 Hemoglobin 12.2 Hematocrit 35.4 Mean Corpuscular Volume 103.8 Mean Corpuscular Hemoglobin 35.8 Mean Corpuscular Hemoglobin Concent 34.5 Red Cell Distribution Width 15.3 Platelet Count 173 Mean Platelet Volume 9.0 Neutrophils (%) (Auto) 80.4 Lymphocytes (%) (Auto) 6.5 Monocytes (%) (Auto) 11.1 Eosinophils (%) (Auto) 1.8 Basophils (%) (Auto) 0.2 Neutrophils # (Auto) 6.0 Lymphocytes # (Auto) 0.5 Monocytes # (Auto) 0.8 Eosinophils # (Auto) 0.1 Basophils # (Auto) 0.0 CBC Comment DIFF FINAL Differential Comment Prothrombin Time 12.0 Prothromb Time International Ratio 1.2 Blood Urea Nitrogen 32 Creatinine 1.00 Random Glucose 164 Calcium Level 8.3 Sodium Level 133 Potassium Level 4.4 Chloride Level 101 Carbon Dioxide Level 24.2 Anion Gap 8 Estimat Glomerular Filtration Rate 73 Date/Time Source Procedure Growth Status 08/10/17 16:36 Fluid Other Fungal Smear - Final NO FUNGAL ELEMENTS SEEN. Resulted 08/10/17 16:36 Fluid Other Fungal Culture Pending Resulted Cardiovascular: Regular Lungs: Clear Abdomen: Non-tender, Post-op tenderness Narrative Exam distended, abdomen quiet, LC with only 50cc/8 hours mostly serous Wound Wound : Wound Location: Abdomen Appearance: Clean & Dry A/P Assessment and Plan s/p lap yobany hiccups likely secondary to ileus,ascites. recommended limited po intake for now needs to get OOB, d/w RN and patient supportive care, high risk for complication, will leave in ISC for now Yariel Kerr MD Aug 14, 2017 10:59
--- NOTE | 2017-08-14 11:52 | HHI.CCPN ---
Subjective Remarks/Hospital Course 76 y/o man with chronic ascites and alcoholic cirrhosis required cholecystectomy today for gangrenous gall bladder. Intraoperatively 7 liters of ascites was removed to facilitate visualization. The man comes in reguklarly to IR for ascites removal. INR normal on admission and no problems with bleeding during operation. Received considerable albumin during the procedure. Extubated in PACU and breathing comfortably. 08/11: Good night but persistent hypotension. Some levophed still required due to reaccumulation of ascites. Does not appear septic. 08/12: Stabilizing blood pressure. Diuretics restarted. 08/13: LC drain in GB bed pulling off ascites as well. Add midodrine to help wean off levophed. Spironolactone and lasix restarted. May transfer when off levophed. 08/13: Ahead free water; will double lasix dose. Continue spironolactone at present dose. Will need to tolerate mild hypotension. Taper off levophed, MAP > 60 is OK. Objective Vital Signs Date Time Temp Pulse Resp B/P (MAP) Pulse Ox O2 Delivery O2 Flow Rate FiO2 08/14/17 10:00 74 08/14/17 09:04 98 21 08/14/17 08:00 97.9 21 97/65 (76) 08/14/17 07:00 Room Air 08/11/17 07:00 2.00 Intake and Output 08/14/17 08/14/17 08/15/17 08:00 16:00 00:00 Intake Total 897 ml Output Total 600 ml Balance 297 ml Result Diagram: 08/14/17 0531 08/14/17 0531 Objective Remarks Head: Normal. Neck: Supple, airway widely patent. No obstruction. Lungs: Clear, good excursions, comfortable pattern. Good cough effort. Heart: NL S1S2, RRR. No JVD. Abdomen: Post-surgical, BS active. Moderately-severely distended with ascites. LC drain RUQ, minimal drainage now. Extremities; Warm, well perfused. Neuro: O X 3, alert, moves 4 limbs to command. Conversant. A/P Assessment and Plan Assessment: 1. Gangrenous cholecystitis. 2. Alcoholic cirrhosis. 3. Intractable ascites. 4. Diabetes mellitus, Type 2. 5. S/P major chest injury and ICU course October 2016. Plan: 1. NC O2, BiPAP prn if abdominal distention ensues. 2. Albumin 3. Spironolactone and lasix. 4. Low dose levophed prn to keep MAP > 60. 5. Broad abx coverage. 6. SCDs. 7. Avoid chemical DVT prophylaxis. 8. SSI for euglycemia. 9. Continue midodrine, d/c levophed. Overall impression: Elderly man with multiple severe medical problems. Ascites reaccumulating as expected. Tapering off levophed. Panfilo Moreau MD Aug 14, 2017 11:52
[2017-08-14] MEDS: PANTOPRAZOLE SOD 40 MG DELAYED RELEASE TAB PO SCH (17:34)
[2017-08-15] VITALS (15 sets, daily range): BP systolic 83–91; BP diastolic 53–64; PULSE 62–83; RESP 17–27; TEMP 97.7–98.7; O2SAT 95–97
[2017-08-15] MEDS: CHLORHEXIDINE GLUCONATE 2 % 1 PACK (2 CLOTHS) TOP SCH (00:53)
[2017-08-15 05:21] LABS: BICARBONATE 27.8 MEQ/L (21.0-32.0); CREATININE 1.16 MG/DL (0.60-1.30)
[2017-08-15] MEDS: INSULIN ASPART SUPPLEMENTAL SCALE SQ SCH ×4 (05:21→23:15)
[2017-08-15] MEDS: MIDODRINE 5 MG TAB PO SCH ×3 (06:12→17:25)
[2017-08-15] MEDS: PIPERACIL-TAZO 3.375 GM PREMIX 50 ML IV SCH ×4 (06:12→22:59)
[2017-08-15] MEDS: SODIUM CHLORIDE 0.9% FLUSH 10 ML FLUSH IV FLUSH SCH ×2 (07:40→20:12)
[2017-08-15] MEDS: DOCUSATE SODIUM 50 MG/SENNA 8.6 MG TAB PO SCH ×2 (08:20→20:12)
[2017-08-15] MEDS: FAMOTIDINE 20 MG/2 ML VIAL IV PUSH SCH ×2 (08:20→20:11)
[2017-08-15] MEDS: SPIRONOLACTONE 50 MG TAB PO SCH ×2 (08:20→20:11)
[2017-08-15] MEDS: FUROSEMIDE 20 MG TAB PO SCH ×2 (08:20→20:11)
--- NOTE | 2017-08-15 11:16 | HHI.CCPN ---
Subjective Remarks/Hospital Course 76 y/o man with chronic ascites and alcoholic cirrhosis required cholecystectomy today for gangrenous gall bladder. Intraoperatively 7 liters of ascites was removed to facilitate visualization. The man comes in reguklarly to IR for ascites removal. INR normal on admission and no problems with bleeding during operation. Received considerable albumin during the procedure. Extubated in PACU and breathing comfortably. 08/11: Good night but persistent hypotension. Some levophed still required due to reaccumulation of ascites. Does not appear septic. 08/12: Stabilizing blood pressure. Diuretics restarted. 08/13: LC drain in GB bed pulling off ascites as well. Add midodrine to help wean off levophed. Spironolactone and lasix restarted. May transfer when off levophed. 08/14: Ahead free water; will double lasix dose. Continue spironolactone at present dose. Will need to tolerate mild hypotension. Taper off levophed, MAP > 60 is OK. 08/15/17: Patient remains off pressors maintaining map above 60. Urine output adequate LC drain with 425 mL output in 24 hours. Objective Vital Signs Date Time Temp Pulse Resp B/P (MAP) Pulse Ox O2 Delivery O2 Flow Rate FiO2 08/15/17 10:00 64 08/15/17 08:23 95 21 08/15/17 08:00 98.5 17 87/55 (66) 08/15/17 07:00 Room Air 08/11/17 07:00 2.00 Intake and Output 08/15/17 08/15/17 08/16/17 08:00 16:00 00:00 Intake Total 240 ml Output Total 575 ml Balance -335 ml Result Diagram: 08/14/17 0531 08/15/17 0447 Objective Remarks GEN: Ill appearing 76 yr old Head: Normal. Neck: Supple, airway widely patent. No obstruction. Lungs: Clear, good excursions, comfortable pattern. Heart: NL S1S2, RRR. No JVD. Abdomen: Post-surgical, BS active. Moderate distended with ascites. LC drain RUQ , with 425 ml last 24 hours Neuro: O X 3, alert, moves 4 limbs to command. No focal deficits A/P Assessment and Plan Assessment: 1. Gangrenous cholecystitis. 2. Alcoholic cirrhosis. 3. Intractable ascites. 4. Diabetes mellitus, Type 2. 5. S/P major chest injury and ICU course October 2016. 6. Hypotension Plan: - NC O2, BiPAP prn if abdominal distention ensues. - Albumin, Spironolactone and Lasix. - Weaned off Levophed prn to keep MAP > 60. - Broad abx coverage. - SCDs. - Avoid chemical DVT prophylaxis. - SSI for euglycemia. - Continue midodrine. - Up to chair daily Overall impression: Elderly man with multiple severe medical problems. Ascites reaccumulating . Tapering off levophed. Amber Parks MD Aug 15, 2017 11:16
[2017-08-15] MEDS: PANTOPRAZOLE SOD 40 MG DELAYED RELEASE TAB PO SCH (17:25)
--- NOTE | 2017-08-15 18:41 | HHI.PR ---
Subjective Subjective Notes feels better Objective Vitals/I&O Vital Signs Date Time Temp Pulse Resp B/P (MAP) Pulse Ox O2 Delivery O2 Flow Rate FiO2 08/15/17 18:00 83 08/15/17 16:00 98.7 27 89/64 (72) 96 08/15/17 08:23 21 08/15/17 07:00 Room Air 08/11/17 07:00 2.00 Labs Laboratory Tests Test 08/15/17 04:47 Blood Urea Nitrogen 39 Creatinine 1.16 Random Glucose 134 Calcium Level 8.0 Sodium Level 133 Potassium Level 3.8 Chloride Level 99 Carbon Dioxide Level 27.8 Anion Gap 6 Estimat Glomerular Filtration Rate 62 Date/Time Source Procedure Growth Status 08/10/17 16:36 Fluid Other Fungal Smear - Final NO FUNGAL ELEMENTS SEEN. Resulted 08/10/17 16:36 Fluid Other Fungal Culture Pending Resulted Abdomen: Post-op tenderness Narrative Exam LC drain clear, fluid filled abdomen A/P Assessment and Plan 76yo male s/p lap yobany , hx cirrhosis, stable. consider removing surgical drain and performing paracentesis as needed, appreciate scrap collector help. Jonathan Bishop MD Aug 15, 2017 18:41
[2017-08-16] VITALS (13 sets, daily range): BP systolic 88–103; BP diastolic 52–63; PULSE 62–74; RESP 15–25; TEMP 96.8–98.7; O2SAT 95–98
[2017-08-16] MEDS: CHLORHEXIDINE GLUCONATE 2 % 1 PACK (2 CLOTHS) TOP SCH (04:00)
[2017-08-16] MEDS: PIPERACIL-TAZO 3.375 GM PREMIX 50 ML IV SCH ×3 (06:20→17:22)
[2017-08-16] MEDS: INSULIN ASPART SUPPLEMENTAL SCALE SQ SCH ×3 (07:01→17:22)
[2017-08-16] MEDS: FAMOTIDINE 20 MG/2 ML VIAL IV PUSH SCH (08:06)
[2017-08-16] MEDS: DOCUSATE SODIUM 50 MG/SENNA 8.6 MG TAB PO SCH ×2 (08:06→21:54)
[2017-08-16] MEDS: FUROSEMIDE 20 MG TAB PO SCH ×2 (08:06→21:54)
[2017-08-16] MEDS: SPIRONOLACTONE 50 MG TAB PO SCH ×2 (08:06→21:54)
[2017-08-16] MEDS: SODIUM CHLORIDE 0.9% FLUSH 10 ML FLUSH IV FLUSH SCH ×2 (08:06→21:55)
[2017-08-16] MEDS: MIDODRINE 5 MG TAB PO SCH ×3 (08:06→17:22)
[2017-08-16] MEDS ORDERED: ALBUMIN 25% INJ 100 ML IV ONE ×2 (11:39→12:00)
--- NOTE | 2017-08-16 12:36 | HHI.CCPN ---
Subjective Remarks/Hospital Course 76 y/o man with chronic ascites and alcoholic cirrhosis required cholecystectomy today for gangrenous gall bladder. Intraoperatively 7 liters of ascites was removed to facilitate visualization. The man comes in reguklarly to IR for ascites removal. INR normal on admission and no problems with bleeding during operation. Received considerable albumin during the procedure. Extubated in PACU and breathing comfortably. 08/11: Good night but persistent hypotension. Some levophed still required due to reaccumulation of ascites. Does not appear septic. 08/12: Stabilizing blood pressure. Diuretics restarted. 08/13: LC drain in GB bed pulling off ascites as well. Add midodrine to help wean off levophed. Spironolactone and lasix restarted. May transfer when off levophed. 08/14: Ahead free water; will double lasix dose. Continue spironolactone at present dose. Will need to tolerate mild hypotension. Taper off levophed, MAP > 60 is OK. 08/15/17: Patient remains off pressors maintaining map above 60. Urine output adequate LC drain with 425 mL output in 24 hours. 08/16/17: Remains off Levophed. Sitting up in chair. Placed back in lying position on bed for US abdomen which showed large ascites. Start IV Albumin and plan for paracentesis Objective Vital Signs Date Time Temp Pulse Resp B/P (MAP) Pulse Ox O2 Delivery O2 Flow Rate FiO2 08/16/17 10:00 68 08/16/17 08:09 97 21 08/16/17 08:00 98.2 16 103/61 (75) 08/16/17 07:00 Room Air Intake and Output 08/16/17 08/16/17 08/17/17 08:00 16:00 00:00 Intake Total 100 ml Output Total 620 ml Balance -520 ml Result Diagram: 08/14/17 0531 08/15/17 0447 Objective Remarks GEN: Ill appearing 76 yr old, overall improving Head: Normal. Neck: Supple, airway widely patent. No obstruction. Lungs: Clear, good excursions, comfortable pattern. Heart: NL S1S2, RRR. No JVD. Abdomen: Post-surgical, BS active. Moderate distended with ascites. LC drain RUQ. Bedside ultrasound shows large amount of ascites Neuro: O X 3, alert, moves 4 limbs to command. No focal deficits A/P Assessment and Plan Assessment: 1. Gangrenous cholecystitis. 2. Alcoholic cirrhosis. 3. Intractable ascites. 4. Diabetes mellitus, Type 2. 5. S/P major chest injury and ICU course October 2016. 6. Hypotension Plan: - NC O2, aggressive pulmonary toilet - Albumin, Spironolactone and Lasix. Plan for large volume paracentesis today, with fluid studies - Weaned off Levophed prn to keep MAP > 60. - Broad abx coverage. - SCDs. Avoid chemical DVT prophylaxis, increase mobility - SSI for euglycemia. - Continue midodrine. - Up to chair daily, PT daily Overall impression: Elderly man with multiple severe medical problems. Ascites reaccumulating . Plan for thoracentesis today. remains critical but stable Level 3 Amber Parks MD Aug 16, 2017 12:35
--- NOTE | 2017-08-16 12:41 | PD.PROCEDR ---
Procedure Note Procedure US guided Paracentesis Procedure Note INDICATION: Large ascites Ultrasound used to bruce location CONSENT: Consent was obtained from patient prior to the procedure. Indications, risks, and benefits were explained at length. PROCEDURE SUMMARY: A time-out was performed. A surgical cap, mask with protective eyewear, sterile gown and sterile gloves were worn throughout the procedure. After marking LLQ site with US, the area was cleansed and draped in usual sterile fashion using chlorhexidine scrub. Anesthesia was achieved with 1% lidocaine. 1% lidocaine was used to numb the skin, soft tissue and peritoneum. The paracentesis catheter was inserted and advanced with negative pressure until dark straw colored fluid was aspirated. Approximately 60 mL of ascitic fluid was collected and sent for laboratory analysis. The catheter was then connected to the Vacutainer and 4 liters of additional ascitic fluid were drained. The catheter was removed and no leaking was noted. A bandaid was placed over the puncture wound. The patient tolerated the procedure well without any immediate complications. Estimated blood loss was < 1ml. Amber Parks MD Aug 16, 2017 12:41
[2017-08-16 13:33] LABS: TOTAL PROTEIN,PERITONEAL FLUID 1.4 GM/DL
[2017-08-16 14:21] LABS: PERITONEAL HISTIOCYTES 10 %; PERITONEAL LYMPHS 39 %; PERITONEAL POLYS(SEGS) 51 %; PERITONEAL RBC 4411 /MM3 (0-0)
--- NOTE | 2017-08-16 14:50 | HHI.PR ---
Subjective Subjective Notes Sitting up in bed eating lunch Had paracentesis earlier today--- drained 4 L Objective Vitals/I&O Vital Signs Date Time Temp Pulse Resp B/P (MAP) Pulse Ox O2 Delivery O2 Flow Rate FiO2 08/16/17 14:00 74 08/16/17 12:00 98.7 21 101/63 (76) 98 08/16/17 08:09 21 08/16/17 07:00 Room Air Labs Laboratory Tests Test 08/16/17 12:50 Peritoneal Fluid WBC 200 Peritoneal Fluid RBC 4411 Peritoneal Fluid Neutrophils 51 Peritoneal Fluid Lymphocytes 39 Peritoneal Fluid Histiocytes 10 Peritoneal Fluid Total Protein 1.4 Peritoneal Fluid Albumin 0.7 Peritoneal Fluid LDH 101 Peritoneal Fluid Glucose 148 Date/Time Source Procedure Growth Status 08/16/17 12:50 Fluid Peritoneal Fluid Gram Stain Pending Received 08/16/17 12:50 Fluid Peritoneal Fluid Body Fluid Culture Pending Received Cardiovascular: Regular Lungs: Clear Abdomen: Other (soft; minimally distended; LC with ascitic fluid; lap sites c/d /i; non tender ) Extremities: No edema A/P Assessment and Plan 76 year old male POD6 lap yobany; drainage of 7L of intraabdominal ascites; liver biopsy -S/p paracentesis; removed 4L -DC LC drain -Regular diet -Continue diuretics -Transfer to floor -Discussed with Dr. Parks Attending Statement The exam, history, and the medical decision-making described in the above note were completed with the assistance of the mid-level provider. I reviewed and agree with the findings presented. I attest that I had a [id number] encounter with the patient on the same day, and personally performed and documented my assessment and findings in the medical record. Abdominal Exam: soft, non-distended, no rebound tenderness or peritonitis, postop tenderness more stable, tolerating some PO, will DC drain as soon as possible cont ABX Maria T Perez Aug 16, 2017 14:50 Jonathan Bishop MD Aug 26, 2017 00:00
[2017-08-16 15:51] LABS: ALBUMIN 2.6 GM/DL (3.4-5.0); ALKALINE PHOSPHATASE 268 U/L (45-117); ALT (GPT) 27 U/L (12-78); AST (GOT) 30 U/L (15-37); BICARBONATE 26.4 MEQ/L (21.0-32.0); BLOOD UREA NITROGEN 43 MG/DL (7-18); CALCIUM 8.2 MG/DL (8.5-10.1); CHLORIDE 96 MEQ/L (98-107); CREATININE 1.26 MG/DL (0.60-1.30); GLOMERULAR FILTRATION RATE 56 ML/MIN (>89); GLUCOSE,RANDOM 215 MG/DL (74-106); LDH SERUM 153 U/L (87-241); SODIUM (NA) 132 MEQ/L (136-145); TOTAL BILIRUBIN ADULT 1.5 MG/DL (0.2-1.0)
[2017-08-16] MEDS ORDERED: FAMOTIDINE 20 MG/2 ML VIAL IV PUSH PRN (16:15)
[2017-08-16] MEDS: PANTOPRAZOLE SOD 40 MG DELAYED RELEASE TAB PO SCH (17:22)
[2017-08-16] MEDS: ALBUMIN 25% INJ 100 ML IV SCH (21:55)
[2017-08-17] VITALS (9 sets, daily range): BP systolic 82–109; BP diastolic 51–67; PULSE 65–68; RESP 15–18; TEMP 95.7–97.9; O2SAT 95–97
[2017-08-17] MEDS: PIPERACIL-TAZO 3.375 GM PREMIX 50 ML IV SCH ×5 (00:07→23:35)
[2017-08-17] MEDS: INSULIN ASPART SUPPLEMENTAL SCALE SQ SCH ×5 (00:07→23:41)
[2017-08-17] MEDS: ALBUMIN 25% INJ 100 ML IV SCH ×3 (03:55→20:46)
[2017-08-17] MEDS: CHLORHEXIDINE GLUCONATE 2 % 1 PACK (2 CLOTHS) TOP SCH ×2 (03:55→20:40)
[2017-08-17] MEDS: MIDODRINE 5 MG TAB PO SCH ×3 (06:13→17:16)
[2017-08-17 07:12] LABS: AUTOMATED NEUTROPHIL # 4.4 TH/MM3 (1.8-7.7); BASOPHIL % 0.3 % (0.0-2.0); EOSINOPHIL # 0.2 TH/MM3 (0-0.4); EOSINOPHIL % 2.6 % (0.0-4.0); HEMOGLOBIN 10.4 GM/DL (13.0-17.0); LYMPH % 8.5 % (9.0-44.0); LYMPHOCYTE # 0.5 TH/MM3 (1.0-4.8); MEAN CELL VOLUME 102.7 FL (80.0-100.0); MEAN CORPUSCULAR HEMOGLOBIN 35.6 PG (27.0-34.0); MEAN CORPUSCULAR HGB CONC 34.7 % (32.0-36.0); MEAN PLATELET VOLUME 8.8 FL (7.0-11.0); MONO % 15.5 % (0.0-8.0); MONOCYTE # 0.9 TH/MM3 (0-0.9); NEUT % 73.1 % (16.0-70.0); PLATELET COUNT 155 TH/MM3 (150-450); RED BLOOD COUNT 2.92 MIL/MM3 (4.50-5.90)
[2017-08-17 07:39] LABS: ALBUMIN 2.8 GM/DL (3.4-5.0); ALT (GPT) 20 U/L (12-78); AST (GOT) 28 U/L (15-37); BICARBONATE 25.8 MEQ/L (21.0-32.0); BLOOD UREA NITROGEN 36 MG/DL (7-18); CALCIUM 7.9 MG/DL (8.5-10.1); CHLORIDE 99 MEQ/L (98-107); CREATININE 1.07 MG/DL (0.60-1.30); GLOMERULAR FILTRATION RATE 68 ML/MIN (>89); GLUCOSE,RANDOM 202 MG/DL (74-106); MAGNESIUM 2.2 MG/DL (1.5-2.5); SODIUM (NA) 133 MEQ/L (136-145)
[2017-08-17 07:42] LABS: ALKALINE PHOSPHATASE 255 U/L (45-117); TOTAL BILIRUBIN ADULT 1.5 MG/DL (0.2-1.0); TOTAL PROTEIN 5.7 GM/DL (6.4-8.2)
[2017-08-17 08:25] LABS: BANDS 4 % (0-6); LYMPHOCYTES 10 % (9-44); METAMYELOCYTES 1 % (0-1); MONOCYTES 20 % (0-8); MYELOCYTES 1 % (0-0); NEUTROPHIL # MANUAL DIFF 4.1 TH/MM3 (1.8-7.7); POLYS (SEG NEUTROPHILS) 62 % (16-70)
[2017-08-17] MEDS: DOCUSATE SODIUM 50 MG/SENNA 8.6 MG TAB PO SCH ×2 (08:27→20:46)
[2017-08-17] MEDS: SPIRONOLACTONE 50 MG TAB PO SCH ×2 (08:27→20:45)
[2017-08-17] MEDS: FUROSEMIDE 20 MG TAB PO SCH ×2 (08:28→20:45)
[2017-08-17] MEDS: SODIUM CHLORIDE 0.9% FLUSH 10 ML FLUSH IV FLUSH SCH ×2 (08:29→20:47)
--- NOTE | 2017-08-17 13:04 | HHI.PR ---
Subjective Subjective Notes Resting in bed In good spirits Objective Vitals/I&O Vital Signs Date Time Temp Pulse Resp B/P (MAP) Pulse Ox O2 Delivery O2 Flow Rate FiO2 08/17/17 12:00 95.8 68 18 92/56 (68) 97 08/17/17 09:00 Room Air 21 Labs Laboratory Tests Test 08/16/17 14:23 08/17/17 05:26 Blood Urea Nitrogen 43 36 Creatinine 1.26 1.07 Random Glucose 215 202 Total Protein 6.0 5.7 Albumin 2.6 2.8 Calcium Level 8.2 7.9 Alkaline Phosphatase 268 255 Aspartate Amino Transf (AST/SGOT) 30 28 Alanine Aminotransferase (ALT/SGPT) 27 20 Lactate Dehydrogenase 153 Total Bilirubin 1.5 1.5 Sodium Level 132 133 Potassium Level 3.5 3.3 Chloride Level 96 99 Carbon Dioxide Level 26.4 25.8 Anion Gap 10 8 Estimat Glomerular Filtration Rate 56 68 White Blood Count 6.0 Red Blood Count 2.92 Hemoglobin 10.4 Hematocrit 30.0 Mean Corpuscular Volume 102.7 Mean Corpuscular Hemoglobin 35.6 Mean Corpuscular Hemoglobin Concent 34.7 Red Cell Distribution Width 15.0 Platelet Count 155 Mean Platelet Volume 8.8 Neutrophils (%) (Auto) 73.1 Lymphocytes (%) (Auto) 8.5 Monocytes (%) (Auto) 15.5 Eosinophils (%) (Auto) 2.6 Basophils (%) (Auto) 0.3 Neutrophils # (Auto) 4.4 Lymphocytes # (Auto) 0.5 Monocytes # (Auto) 0.9 Eosinophils # (Auto) 0.2 Basophils # (Auto) 0.0 CBC Comment AUTO DIFF Differential Total Cells Counted 100 Neutrophils % (Manual) 62 Band Neutrophils % 4 Lymphocytes % 10 Monocytes % 20 Eosinophils % 2 Neutrophils # (Manual) 4.1 Metamyelocytes 1 Myelocytes 1 Differential Comment FINAL DIFF MANUAL Platelet Estimate NORMAL Platelet Morphology Comment NORMAL Magnesium Level 2.2 Date/Time Source Procedure Growth Status 08/16/17 12:50 Fluid Peritoneal Fluid Gram Stain - Final Resulted 08/16/17 12:50 Fluid Peritoneal Fluid Body Fluid Culture - Preliminary NO GROWTH IN 24 HOURS. Resulted Cardiovascular: Regular Lungs: Clear Abdomen: Other (abdomen soft; mildly distended; lap sites c/d/i ) Extremities: No edema A/P Assessment and Plan 76 year old male POD7 lap yobany; drainage of 7L of intraabdominal ascites; liver biopsy -S/p paracentesis; removed 4L yesterday -Regular diet -Continue diuretics -OOB and mobilize Attending Statement The exam, history, and the medical decision-making described in the above note were completed with the assistance of the mid-level provider. I reviewed and agree with the findings presented. I attest that I had a [id number] encounter with the patient on the same day, and personally performed and documented my assessment and findings in the medical record. Abdominal Exam: soft, fluid, no rebound tenderness or peritonitis, postop tenderness eating better, pain ok will need to get GI involved to help manage ascites Maria T Perez Aug 17, 2017 13:04 Jonathan Bishop MD Aug 26, 2017 00:02
[2017-08-17 13:38] LABS: AMYLASE BODY FLUID 8 U/L; AMYLASE BODY FLUID TYPE PERITONEAL
[2017-08-17] MEDS: PANTOPRAZOLE SOD 40 MG DELAYED RELEASE TAB PO SCH (17:16)
[2017-08-18 00:15] VITALS: BP 108/63; PULSE 72; RESP 17; TEMP 97.6; O2SAT 97
[2017-08-18] MEDS: INSULIN ASPART SUPPLEMENTAL SCALE SQ SCH ×3 (04:39→18:05)
[2017-08-18] MEDS: ALBUMIN 25% INJ 100 ML IV SCH ×3 (04:40→21:54)
[2017-08-18] MEDS: PIPERACIL-TAZO 3.375 GM PREMIX 50 ML IV SCH ×4 (04:40→23:57)
[2017-08-18] MEDS: MIDODRINE 5 MG TAB PO SCH ×3 (04:45→18:04)
[2017-08-18 08:00] VITALS: BP 96/59; PULSE 59; RESP 17; TEMP 97.4; O2SAT 95
[2017-08-18] MEDS: SODIUM CHLORIDE 0.9% FLUSH 10 ML FLUSH IV FLUSH SCH ×2 (09:00→21:59)
[2017-08-18] MEDS: DOCUSATE SODIUM 50 MG/SENNA 8.6 MG TAB PO SCH ×2 (09:23→21:00)
[2017-08-18] MEDS: SPIRONOLACTONE 50 MG TAB PO SCH ×3 (09:24→21:53)
[2017-08-18] MEDS: FUROSEMIDE 20 MG TAB PO SCH ×2 (09:24→21:53)
[2017-08-18 12:00] VITALS: BP 105/67; PULSE 69; RESP 18; TEMP 96.1; O2SAT 98
[2017-08-18] MEDS ORDERED: PROPRANOLOL HCL 10 MG TAB PO ONE (14:00)
--- NOTE | 2017-08-18 14:53 | MB ---
cc: VALERIE XIONG DATE OF CONSULTATION 08/18/2017 DATE OF 1940 REASON FOR CONSULTATION Evaluation of ascites and history of alcoholic cirrhosis. HISTORY OF PRESENT ILLNESS This is a 76-year-old male who was admitted initially on the 10 of August for a gangrenous gallbladder. He required a laparoscopic cholecystectomy. At the time of surgery he had seven liters of ascitic fluid removed to facilitate the procedure. He has had several paracentesis procedures performed by radiology leading up to the cholecystectomy. He has a known history of alcohol abuse and alcoholic cirrhosis as a result and portal hypertension. 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 He has had only mild abdominal pain post surgery. The patient did undergo a paracentesis on the 05 of August. I was asked to evaluate him and further manage his ascites. The patient is having hiccups at this time as well. PAST MEDICAL HISTORY 1. Gout. 2. Diabetes. 3. Previous inguinal hernia repair. MEDICATIONS 1. Metformin. 2. Allopurinol. His current medications include: 1. Spirolactone 50 mg b.i.d. 2. Albuterol. 3. Senokot. 4. Lactulose. 5. Piperacillin. 6. Pantoprazole. 7. Lasix 40 mg b.i.d. 8. Famotidine. SOCIAL HISTORY As mentioned above the patient has a history of alcohol abuse in the past. No illicit drug use. REVIEW OF SYSTEMS A 12-point review of systems review of systems as stated above. LABORATORY Hemoglobin 10.4, white count normal, platelet count 155. Liver enzymes are stable. SGOT and SGPT are 28/20. Alk phos is 255. Total bilirubin is 1.5. Electrolytes reveal a potassium of 3.5. PT and INR are 12/1.2. PHYSICAL EXAMINATION GENERAL: A well-developed male, pleasant, alert and oriented x3, in no acute distress. VITAL SIGNS: Stable. HEENT: Non-icteric. Oral mucosa is slightly dry. NECK: Supple. CARDIAC: S1, S2, regular rhythm. CHEST: Clear with a poor inspiratory effort. ABDOMEN: Mild ascites. Nontender. Surgical scars are intact and healing. Bowel sounds are present. He has no rebound tenderness or guarding. EXTREMITIES: Without peripheral edema. IMPRESSION A 76-year-old male status post laparoscopic cholecystectomy for a gangrenous gallbladder. The patient has underlying alcoholic cirrhosis with chronic ascites status post several paracentesis procedures. PLAN Will try to maximize his diuretic therapy. Will increase his Aldactone slightly at this time. Fluid and salt restriction if possible. The patient also exhibits hiccups. Will add baclofen 5 mg twice a day. The patient also should be restarted on propranolol low-dose at 10 mg a day and followed closely. Discussed the case with Dr. Bishop. Thank you kindly for this consult. MD MYRON Villa/NOAH /1:29 PM /2:12 PM
--- NOTE | 2017-08-18 14:57 | HHI.PR ---
Subjective Subjective Notes Walking in hallway with family Reports he feels strong today Objective Vitals/I&O Vital Signs Date Time Temp Pulse Resp B/P (MAP) Pulse Ox O2 Delivery O2 Flow Rate FiO2 08/18/17 12:00 96.1 69 18 105/67 (80) 98 08/17/17 21:09 Room Air 08/17/17 18:02 21 Labs Date/Time Source Procedure Growth Status 08/16/17 12:50 Fluid Peritoneal Fluid Gram Stain - Final Resulted 08/16/17 12:50 Fluid Peritoneal Fluid Body Fluid Culture - Preliminary NO GROWTH IN 48 HOURS. Resulted Cardiovascular: Regular Lungs: Clear Abdomen: Other (lap sites c/d/i; non tender) Extremities: No edema A/P Assessment and Plan 76 year old male POD8 lap yobany; drainage of 7L of intraabdominal ascites; liver biopsy -Consult to GI for ascites management -Spoke with Dr. Alvarez -S/p paracentesis; removed 4L -Regular diet -Continue diuretics -OOB and mobilize Attending Statement The exam, history, and the medical decision-making described in the above note were completed with the assistance of the mid-level provider. I reviewed and agree with the findings presented. I attest that I had a [id number] encounter with the patient on the same day, and personally performed and documented my assessment and findings in the medical record. Abdominal Exam: soft, no rebound tenderness or peritonitis, postop tenderness ascites significant issue, continue medical management and PRN paracentesis Maria T Perez Aug 18, 2017 14:57 Jonathan Bishop MD Aug 26, 2017 00:06
[2017-08-18 16:00] VITALS: BP 99/61; PULSE 68; RESP 18; TEMP 95.8; O2SAT 97
[2017-08-18] MEDS: PANTOPRAZOLE SOD 40 MG DELAYED RELEASE TAB PO SCH (18:04)
[2017-08-18 20:00] VITALS: BP 101/60; PULSE 63; RESP 20; TEMP 97.7; O2SAT 98
[2017-08-18] MEDS: BACLOFEN 10 MG TAB PO PRN (21:52)
[2017-08-18 22:10] VITALS: O2SAT 98
[2017-08-19] VITALS (9 sets, daily range): BP systolic 85–110; BP diastolic 48–66; PULSE 55–63; RESP 16–20; TEMP 97.9–98.7; O2SAT 95–98
[2017-08-19] MEDS: INSULIN ASPART SUPPLEMENTAL SCALE SQ SCH ×4 (00:10→18:15)
[2017-08-19] MEDS: CHLORHEXIDINE GLUCONATE 2 % 1 PACK (2 CLOTHS) TOP SCH (04:00)
[2017-08-19] MEDS: MIDODRINE 5 MG TAB PO SCH ×4 (05:18→18:30)
[2017-08-19] MEDS: PIPERACIL-TAZO 3.375 GM PREMIX 50 ML IV SCH ×4 (05:19→19:46)
[2017-08-19] MEDS: ALBUMIN 25% INJ 100 ML IV SCH ×2 (05:21→14:00)
[2017-08-19] MEDS: SPIRONOLACTONE 50 MG TAB PO SCH ×3 (09:00→18:25)
[2017-08-19] MEDS: SODIUM CHLORIDE 0.9% FLUSH 10 ML FLUSH IV FLUSH SCH ×2 (09:00→19:47)
[2017-08-19] MEDS: FUROSEMIDE 20 MG TAB PO SCH ×2 (09:00→20:39)
[2017-08-19] MEDS: DOCUSATE SODIUM 50 MG/SENNA 8.6 MG TAB PO SCH ×2 (13:04→19:46)
--- NOTE | 2017-08-19 17:11 | HHI.PR ---
Subjective Subjective Notes Ambulating in room No issues Objective Vitals/I&O Vital Signs Date Time Temp Pulse Resp B/P (MAP) Pulse Ox O2 Delivery O2 Flow Rate FiO2 08/19/17 12:00 98.0 62 16 102/57 (72) 97 08/19/17 08:00 Room Air 08/18/17 22:10 21 08/18/17 08:00 3.00 Labs Date/Time Source Procedure Growth Status 08/16/17 12:50 Fluid Peritoneal Fluid Gram Stain - Final Complete 08/16/17 12:50 Fluid Peritoneal Fluid Body Fluid Culture - Final NO GROWTH IN 72 HRS.--AEROBICALLY OR ... Complete Cardiovascular: Regular Lungs: Clear Abdomen: Other (mildly distended; lap sites c/d/i ) Extremities: No edema A/P Assessment and Plan 76 year old male POD9 lap yobany; drainage of 7L of intraabdominal ascites; liver biopsy -Appreciate Dr. Alvarez following for ascites management -S/p paracentesis; removed 4L -Regular diet -Continue diuretics -OOB and mobilize Attending Statement The exam, history, and the medical decision-making described in the above note were completed with the assistance of the mid-level provider. I reviewed and agree with the findings presented. I attest that I had a [id number] encounter with the patient on the same day, and personally performed and documented my assessment and findings in the medical record. looks better, appreciate GI help, DC Maria T Chew Aug 19, 2017 17:10 Jonathan Bishop MD Aug 26, 2017 00:08
--- NOTE | 2017-08-19 17:37 | HHI.GIFU ---
Subjective Remarks alert sitting in chair NAD hiccups persist.....felling slightly better Objective Vitals I&O Vital Signs Date Time Temp Pulse Resp B/P (MAP) Pulse Ox O2 Delivery O2 Flow Rate FiO2 08/19/17 12:00 98.0 62 16 102/57 (72) 97 08/19/17 11:14 97 08/19/17 10:00 98/55 (69) 08/19/17 08:00 97.9 55 18 85/48 (60) 95 08/19/17 08:00 Room Air 08/19/17 06:20 Room Air 08/19/17 04:00 97.9 60 20 103/63 (76) 96 08/19/17 00:00 98.7 62 20 100/64 (76) 96 08/18/17 22:10 98 21 08/18/17 20:00 97.7 63 20 101/60 (74) 98 I/O 08/18/17 08/18/17 08/18/17 08/19/17 08/19/17 08/19/17 07:00 15:00 23:00 07:00 15:00 23:00 Intake Total 730 ml 200 ml 870 ml 540 ml Output Total 700 ml 400 ml Balance 30 ml 200 ml 870 ml 140 ml Intake Oral 680 ml 720 ml 240 ml IV Total 50 ml 200 ml 150 ml 300 ml Output Urine Total 700 ml 400 ml # Voids 4 2 # Bowel Movements 2 3 Laboratory Date/Time Source Procedure Growth Status 08/16/17 12:50 Fluid Peritoneal Fluid Gram Stain - Final Complete 08/16/17 12:50 Fluid Peritoneal Fluid Body Fluid Culture - Final NO GROWTH IN 72 HRS.--AEROBICALLY OR ... Complete Imaging Laboratory Tests Test 08/10/17 13:34 08/10/17 21:55 08/11/17 04:10 08/14/17 05:31 Phosphorus Level 3.8 MG/DL Direct Bilirubin 0.4 MG/DL Nasal Screen MRSA (PCR) MRSA NOT DETECTED Lactic Acid Level 1.3 mmol/L Prothrombin Time 12.0 SEC Prothromb Time International Ratio 1.2 RATIO Test 08/16/17 12:50 08/16/17 14:23 08/17/17 05:26 Body Fluid Amylase Source PERITONEAL Body Fluid Amylase 8 U/L Peritoneal Fluid WBC 200 /MM3 Peritoneal Fluid RBC 4411 /MM3 Peritoneal Fluid Neutrophils 51 % Peritoneal Fluid Lymphocytes 39 % Peritoneal Fluid Histiocytes 10 % Peritoneal Fluid Total Protein 1.4 GM/DL Peritoneal Fluid Albumin 0.7 G/DL Peritoneal Fluid LDH 101 U/L Peritoneal Fluid Glucose 148 MG/DL Blood Urea Nitrogen 43 MG/DL 36 MG/DL Creatinine 1.26 MG/DL 1.07 MG/DL Random Glucose 215 MG/DL 202 MG/DL Total Protein 6.0 GM/DL 5.7 GM/DL Albumin 2.6 GM/DL 2.8 GM/DL Calcium Level 8.2 MG/DL 7.9 MG/DL Alkaline Phosphatase 268 U/L 255 U/L Aspartate Amino Transf (AST/SGOT) 30 U/L 28 U/L Alanine Aminotransferase (ALT/SGPT) 27 U/L 20 U/L Lactate Dehydrogenase 153 U/L Total Bilirubin 1.5 MG/DL 1.5 MG/DL Sodium Level 132 MEQ/L 133 MEQ/L Potassium Level 3.5 MEQ/L 3.3 MEQ/L Chloride Level 96 MEQ/L 99 MEQ/L Carbon Dioxide Level 26.4 MEQ/L 25.8 MEQ/L White Blood Count 6.0 TH/MM3 Red Blood Count 2.92 MIL/MM3 Hemoglobin 10.4 GM/DL Hematocrit 30.0 % Mean Corpuscular Volume 102.7 FL Mean Corpuscular Hemoglobin 35.6 PG Mean Corpuscular Hemoglobin Concent 34.7 % Red Cell Distribution Width 15.0 % Platelet Count 155 TH/MM3 Mean Platelet Volume 8.8 FL Neutrophils (%) (Auto) 73.1 % Lymphocytes (%) (Auto) 8.5 % Monocytes (%) (Auto) 15.5 % Eosinophils (%) (Auto) 2.6 % Basophils (%) (Auto) 0.3 % Neutrophils # (Auto) 4.4 TH/MM3 Lymphocytes # (Auto) 0.5 TH/MM3 Monocytes # (Auto) 0.9 TH/MM3 Eosinophils # (Auto) 0.2 TH/MM3 Basophils # (Auto) 0.0 TH/MM3 CBC Comment AUTO DIFF Differential Total Cells Counted 100 Neutrophils % (Manual) 62 % Band Neutrophils % 4 % Lymphocytes % 10 % Monocytes % 20 % Eosinophils % 2 % Neutrophils # (Manual) 4.1 TH/MM3 Metamyelocytes 1 % Myelocytes 1 % Differential Comment FINAL DIFF MANUAL Platelet Estimate NORMAL Platelet Morphology Comment NORMAL Magnesium Level 2.2 MG/DL Anion Gap 8 MEQ/L Estimat Glomerular Filtration Rate 68 ML/MIN Physical Exam CHEST: Chest is clear to auscultation and percussion. CARDIAC: Regular rate and rhythm with no murmur gallop or rubs. ABDOMEN: mild distention/ ascites no rebound tenderness bs pos EXTREMITIES: No clubbing, cyanosis, or edema. SKIN: Normal; no rash; no jaundice. C Assessment and Plan Plan Discussed case w pts and family....discussed that the pt has underlying cirrhosis with portal HTN and recurrent ascites and BP has been on lower side and he is recieving diuretics...and albumin..We will continue presnt therapy and follow his response...He may require repeat paracentesis as well.He also ahs hiccups and we will continue his baclofen therapy. Luis Alvarez MD Aug 19, 2017 17:37
[2017-08-19] MEDS: PANTOPRAZOLE SOD 40 MG DELAYED RELEASE TAB PO SCH (18:26)
[2017-08-20] VITALS (8 sets, daily range): BP systolic 99–130; BP diastolic 58–74; PULSE 62–91; RESP 17–22; TEMP 96.7–98.2; O2SAT 93–96
[2017-08-20] MEDS: CHLORHEXIDINE GLUCONATE 2 % 1 PACK (2 CLOTHS) TOP SCH (00:53)
[2017-08-20] MEDS: PIPERACIL-TAZO 3.375 GM PREMIX 50 ML IV SCH ×4 (00:53→17:17)
[2017-08-20] MEDS: ALBUMIN 25% INJ 100 ML IV SCH ×3 (00:53→13:13)
[2017-08-20] MEDS: INSULIN ASPART SUPPLEMENTAL SCALE SQ SCH ×4 (01:21→17:17)
[2017-08-20] MEDS: MIDODRINE 5 MG TAB PO SCH ×3 (06:43→16:29)
[2017-08-20] MEDS: FUROSEMIDE 20 MG TAB PO SCH ×2 (07:53→20:16)
[2017-08-20] MEDS: SPIRONOLACTONE 50 MG TAB PO SCH ×3 (07:54→17:17)
[2017-08-20] MEDS: BACLOFEN 10 MG TAB PO PRN (07:54)
[2017-08-20] MEDS: SODIUM CHLORIDE 0.9% FLUSH 10 ML FLUSH IV FLUSH SCH ×2 (07:54→20:18)
[2017-08-20] MEDS: DOCUSATE SODIUM 50 MG/SENNA 8.6 MG TAB PO SCH ×2 (07:56→20:16)
--- NOTE | 2017-08-20 10:11 | HHI.PR ---
cc: Vickie Leblanc MD Subjective Subjective Notes DAILY PROGRESS NOTE FOR SURGICAL ATTENDING, DR. VICKIE LEBLANC I Have More to Eat Objective Vitals/I&O Vital Signs Date Time Temp Pulse Resp B/P (MAP) Pulse Ox O2 Delivery O2 Flow Rate FiO2 08/20/17 08:00 97.3 62 17 101/59 (73) 96 08/19/17 19:55 Room Air 08/19/17 17:30 21 08/18/17 08:00 3.00 Labs Date/Time Source Procedure Growth Status 08/16/17 12:50 Fluid Peritoneal Fluid Gram Stain - Final Complete 08/16/17 12:50 Fluid Peritoneal Fluid Body Fluid Culture - Final NO GROWTH IN 72 HRS.--AEROBICALLY OR ... Complete Cardiovascular: Regular Abdomen: Other (mild ascites), Post-op tenderness Extremities: Perfused A/P Problem List: (1) Status post laparoscopic cholecystectomy ICD Codes: Z90.49 - Acquired absence of other specified parts of digestive tract Assessment and Plan 76 year old male POD10 lap yobany; drainage of 7L of intraabdominal ascites; liver biopsy -Appreciate Dr. Antonio cat for ascites management -S/p paracentesis; removed 4L -Regular diet -Continue diuretics -OOB and mobilize Attending Statement NOTE FOR SURGICAL ATTENDING, DR. VICKIE LEBLANC I attest that I had a [id number] encounter with the patient on the same day, and personally performed and documented my assessment and findings in the medical record. The following services were provided during this hospital visit: Chart data review, vital sign assessments/reviewing monitor data Review of consultations notes if present. Medication orders/review and/or management Ordering and/or reviewing lab tests Ordering and/or interpreting/reviewing x-rays and/or diagnostic studies Care of the patient and discussion of the patient with the care team Documentation time To help prompt me to consider important information that might be impacting today's encounter and assessment, information from prior notes written by myself or my colleagues may have been "brought forward/copy and pasted" into today's note. Vickie Leblanc MD Aug 20, 2017 10:11
--- NOTE | 2017-08-20 12:00 | HHI.GIFU ---
Subjective Remarks alert feeling tired Nad....ascites fluid re accumulating Objective Vitals I&O Vital Signs Date Time Temp Pulse Resp B/P (MAP) Pulse Ox O2 Delivery O2 Flow Rate FiO2 08/20/17 08:00 97.3 62 17 101/59 (73) 96 08/20/17 07:50 Room Air 08/20/17 04:00 97.8 65 18 106/67 (80) 93 08/20/17 00:00 98.2 65 20 102/63 (76) 94 08/19/17 20:00 98.3 63 20 110/66 (81) 96 08/19/17 19:55 Room Air 08/19/17 17:30 97 21 08/19/17 16:00 97.9 59 16 98/57 (71) 98 08/19/17 12:00 98.0 62 16 102/57 (72) 97 I/O 08/19/17 08/19/17 08/19/17 08/20/17 08/20/17 08/20/17 07:00 15:00 23:00 07:00 15:00 23:00 Intake Total 540 ml 970 ml 390 ml Output Total 400 ml 400 ml 300 ml Balance 140 ml 570 ml 90 ml Intake Oral 240 ml 920 ml 240 ml IV Total 300 ml 50 ml 150 ml Output Urine Total 400 ml 400 ml 300 ml # Voids 2 # Bowel Movements 2 Laboratory Date/Time Source Procedure Growth Status 08/16/17 12:50 Fluid Peritoneal Fluid Gram Stain - Final Complete 08/16/17 12:50 Fluid Peritoneal Fluid Body Fluid Culture - Final NO GROWTH IN 72 HRS.--AEROBICALLY OR ... Complete Physical Exam CHEST: Chest is clear to auscultation and percussion. CARDIAC: Regular rate and rhythm with no murmur gallop or rubs. ABDOMEN: ascites increasing, abdomen more distended/ tense no rebound SKIN: Normal; no rash; no jaundice. Assessment and Plan Assessment: (1) Portal hypertension ICD Codes: K76.6 - Portal hypertension (2) Cirrhosis of liver ICD Codes: K74.60 - Unspecified cirrhosis of liver (3) Status post laparoscopic cholecystectomy ICD Codes: Z90.49 - Acquired absence of other specified parts of digestive tract (4) Ascites ICD Codes: R18.8 - Other ascites Status: Acute Plan will repeat paracentesis w radiology as ascitic fluid has increased....will increase lasix after paracentesis completed...discussed w pt Problem Qualifiers (1) Ascites: Qualified Codes: K70.31 - Alcoholic cirrhosis of liver with ascites Luis Alvarez MD Aug 20, 2017 12:00
[2017-08-20] MEDS: PANTOPRAZOLE SOD 40 MG DELAYED RELEASE TAB PO SCH (16:29)
--- NOTE | 2017-08-20 16:35 | RADRPT ---
EXAM DATE/TIME: 08/20/2017 14:00 [facility] COMPARISON: US GUIDED ABD PARACENTESIS, August 05, 2017, 13:17.8 INDICATIONS : Ascites. MEDICAL HISTORY : Arthritis. Diabetes mellitus type 2. Left eye macular degeneration. TIA. Skincancer. Gout. Ascites. O ccasional reflux. Numbness. SURGICAL HISTORY : Bilateral carpal tunnel. Paracentesis. Right cataract surgery. ORIF rib fracture. Right chest tube i nsetion. ENCOUNTER: Sequela ACUITY: 1 day PAIN SCORE: 2/10 LOCATION: Right lower quadrant FLUID: Total volume of 4,400 cc of clear, yellow fluid was removed. Fluid was sent to lab for ordered studies. Post procedure scanning reveals no hematoma or other complication. TECHNIQUE: 1. Ultrasound guidance for abdominal paracentesis. 2. Paracentesis. The risks, benefits, and alternatives to ultrasound guided paracentesis were explained to the patient in detail including the risk of bleeding and infection. Written and verbal informed consent was obt ained. With the patient on the ultrasound table, ultrasound imaging was used to select the most appropriate approach for paracentesis. Overlying skin was prepped and draped in the usual sterile fashion and wi th a local anesthetic, a dermatotomy was made with an 11 blade scalpel. A 6 [place] Mtv-Y-cepaiszo ca theter was introduced into the peritoneal cavity and fluid was collected. The patient tolerated the procedure well and left the ultrasound suite in stable condition. CONCLUSION: Uncomplicated ultrasound guided paracentesis. Mario Nuno MD on August 20, 2017 at 16:33 Board Certified Radiologist. This report was verified electronically.
[2017-08-21] VITALS (10 sets, daily range): BP systolic 94–120; BP diastolic 57–69; PULSE 73–100; RESP 16–19; TEMP 96.9–98.9; O2SAT 94–97
[2017-08-21] MEDS: PIPERACIL-TAZO 3.375 GM PREMIX 50 ML IV SCH ×4 (00:49→18:33)
[2017-08-21] MEDS: ALBUMIN 25% INJ 100 ML IV SCH ×3 (00:49→18:32)
[2017-08-21] MEDS: CHLORHEXIDINE GLUCONATE 2 % 1 PACK (2 CLOTHS) TOP SCH (00:50)
[2017-08-21] MEDS: INSULIN ASPART SUPPLEMENTAL SCALE SQ SCH ×4 (01:01→18:33)
[2017-08-21] MEDS: MIDODRINE 5 MG TAB PO SCH ×3 (06:34→18:32)
[2017-08-21] MEDS: SPIRONOLACTONE 50 MG TAB PO SCH ×4 (09:00→18:47)
--- NOTE | 2017-08-21 09:48 | HHI.GIFU ---
Subjective Remarks alert tolerating po well feels much better post paracentesis x 4.5 liters VSS Objective Vitals I&O Vital Signs Date Time Temp Pulse Resp B/P (MAP) Pulse Ox O2 Delivery O2 Flow Rate FiO2 08/21/17 08:00 98.2 82 17 95/61 (72) 95 08/21/17 04:00 97.6 100 17 120/66 (84) 97 08/21/17 00:20 98.9 88 16 114/69 (84) 95 08/20/17 20:28 97.6 90 17 130/74 (92) 95 08/20/17 20:19 Room Air 08/20/17 17:28 96 21 08/20/17 16:00 96.7 78 19 99/58 (72) 96 08/20/17 13:45 97.1 80 18 105/65 (78) 96 08/20/17 12:00 96.8 91 22 114/65 (81) 95 I/O 08/20/17 08/20/17 08/20/17 08/21/17 08/21/17 08/21/17 07:00 15:00 23:00 07:00 15:00 23:00 Intake Total 390 ml 570 ml 730 ml Output Total 300 ml 400 ml 800 ml Balance 90 ml 170 ml -70 ml Intake Oral 240 ml 570 ml 580 ml IV Total 150 ml 150 ml Output Urine Total 300 ml 400 ml 800 ml # Voids 2 # Bowel Movements 1 Laboratory Date/Time Source Procedure Growth Status 08/20/17 14:20 Fluid Peritoneal Fluid Gram Stain - Final Resulted 08/20/17 14:20 Fluid Peritoneal Fluid Body Fluid Culture Pending Resulted Physical Exam CHEST: Chest is clear to auscultation and percussion. CARDIAC: Regular rate and rhythm with no murmur gallop or rubs. ABDOMEN: less distended NT BS pos SKIN: Normal; no rash; no jaundice. No periperal edema Assessment and Plan Assessment: (1) Portal hypertension ICD Codes: K76.6 - Portal hypertension (2) Cirrhosis of liver ICD Codes: K74.60 - Unspecified cirrhosis of liver (3) Status post laparoscopic cholecystectomy ICD Codes: Z90.49 - Acquired absence of other specified parts of digestive tract (4) Ascites ICD Codes: R18.8 - Other ascites Status: Acute Plan will increase his lasix slightly if stable hopefully d/c tomorrow Problem Qualifiers (1) Ascites: Qualified Codes: K70.31 - Alcoholic cirrhosis of liver with ascites Luis Alvarez MD Aug 21, 2017 09:48
[2017-08-21] MEDS: FUROSEMIDE 20 MG TAB PO SCH (09:50)
[2017-08-21] MEDS: DOCUSATE SODIUM 50 MG/SENNA 8.6 MG TAB PO SCH ×2 (09:50→21:24)
[2017-08-21] MEDS: SODIUM CHLORIDE 0.9% FLUSH 10 ML FLUSH IV FLUSH SCH ×2 (09:51→21:24)
--- NOTE | 2017-08-21 11:57 | HHI.PR ---
Subjective Subjective Notes no acute issues, low bp after pericentesis, +bms, no nausea Objective Vitals/I&O Vital Signs Date Time Temp Pulse Resp B/P (MAP) Pulse Ox O2 Delivery O2 Flow Rate FiO2 08/21/17 10:02 77 95/62 (73) 08/21/17 08:00 98.2 17 95 08/20/17 20:19 Room Air 08/20/17 17:28 21 08/18/17 08:00 3.00 Labs Date/Time Source Procedure Growth Status 08/20/17 14:20 Fluid Peritoneal Fluid Gram Stain - Final Resulted 08/20/17 14:20 Fluid Peritoneal Fluid Body Fluid Culture Pending Resulted Abdomen: Other (ssoft ascities, incision c/d/i) A/P Problem List: (1) Status post laparoscopic cholecystectomy ICD Codes: Z90.49 - Acquired absence of other specified parts of digestive tract Assessment and Plan 76 year old male POD11 lap yobany; drainage of 7L of intraabdominal ascites; liver biopsy -Appreciate Dr. Alvarez following for ascites management - consider holding lasix for low bp -Regular diet -OOB and mobilize - local wound care - pericentesis as needed Ray Parsons MD Aug 21, 2017 11:57
[2017-08-21 14:18] LABS: ALBUMIN 4.3 GM/DL (3.4-5.0); ALT (GPT) 26 U/L (12-78); AST (GOT) 38 U/L (15-37); BLOOD UREA NITROGEN 31 MG/DL (7-18); CALCIUM 8.7 MG/DL (8.5-10.1); CHLORIDE 93 MEQ/L (98-107); CREATININE 1.23 MG/DL (0.60-1.30); GLOMERULAR FILTRATION RATE 58 ML/MIN (>89); GLUCOSE,RANDOM 328 MG/DL (74-106); SODIUM (NA) 130 MEQ/L (136-145)
[2017-08-21 14:21] LABS: ALKALINE PHOSPHATASE 310 U/L (45-117); TOTAL BILIRUBIN ADULT 3.4 MG/DL (0.2-1.0); TOTAL PROTEIN 6.9 GM/DL (6.4-8.2)
[2017-08-21] MEDS: PANTOPRAZOLE SOD 40 MG DELAYED RELEASE TAB PO SCH (18:34)
[2017-08-21] MEDS: FUROSEMIDE 40 MG TAB PO SCH (23:26)
[2017-08-22] MEDS: ALBUMIN 25% INJ 100 ML IV SCH ×3 (01:15→17:50)
[2017-08-22] MEDS: PIPERACIL-TAZO 3.375 GM PREMIX 50 ML IV SCH ×4 (01:15→18:29)
[2017-08-22] MEDS: INSULIN ASPART SUPPLEMENTAL SCALE SQ SCH ×4 (01:27→18:02)
[2017-08-22] MEDS: CHLORHEXIDINE GLUCONATE 2 % 1 PACK (2 CLOTHS) TOP SCH (01:35)
[2017-08-22 05:20] VITALS: BP 112/64; PULSE 82; RESP 18; TEMP 98.6; O2SAT 96
[2017-08-22] MEDS: MIDODRINE 5 MG TAB PO SCH ×3 (06:42→17:50)
[2017-08-22 07:55] VITALS: BP 94/61; PULSE 78; RESP 16; TEMP 96.1; O2SAT 95
[2017-08-22] MEDS: SPIRONOLACTONE 50 MG TAB PO SCH ×4 (09:00→18:01)
[2017-08-22] MEDS: FUROSEMIDE 20 MG TAB PO SCH (09:00)
[2017-08-22] MEDS: DOCUSATE SODIUM 50 MG/SENNA 8.6 MG TAB PO SCH ×2 (09:50→22:25)
[2017-08-22] MEDS: SODIUM CHLORIDE 0.9% FLUSH 10 ML FLUSH IV FLUSH SCH ×2 (09:51→22:25)
[2017-08-22 12:00] VITALS: BP 95/58; PULSE 71; RESP 16; TEMP 96.8; O2SAT 94
[2017-08-22 16:00] VITALS: BP 99/65; PULSE 76; RESP 16; TEMP 96.3; O2SAT 94
--- NOTE | 2017-08-22 17:16 | HHI.GIFU ---
Subjective Remarks Feeling better overall discussed w family at bedside abd less distended Objective Vitals I&O Vital Signs Date Time Temp Pulse Resp B/P (MAP) Pulse Ox O2 Delivery O2 Flow Rate FiO2 08/22/17 16:00 96.3 76 16 99/65 (76) 94 08/22/17 12:00 96.8 71 16 95/58 (70) 94 08/22/17 08:45 Room Air 08/22/17 07:55 96.1 78 16 94/61 (72) 95 08/22/17 05:20 98.6 82 18 112/64 (80) 96 08/21/17 23:20 98.1 90 16 101/59 (73) 94 08/21/17 21:31 Room Air 08/21/17 20:00 97.8 82 18 104/64 (77) 96 08/21/17 18:30 105/58 (74) I/O 08/21/17 08/21/17 08/21/17 08/22/17 08/22/17 08/22/17 07:00 15:00 23:00 07:00 15:00 23:00 Intake Total 730 ml 100 ml 860 ml 830 ml Output Total 800 ml 300 ml Balance -70 ml 100 ml 560 ml 830 ml Intake Oral 580 ml 710 ml 680 ml IV Total 150 ml 100 ml 150 ml 150 ml Output Urine Total 800 ml 300 ml # Voids 4 4 # Bowel Movements 0 1 Laboratory Date/Time Source Procedure Growth Status 08/20/17 14:20 Fluid Peritoneal Fluid Gram Stain - Final Resulted 08/20/17 14:20 Fluid Peritoneal Fluid Body Fluid Culture - Preliminary NO GROWTH IN 48 HOURS. Resulted Physical Exam CHEST: Chest is clear to auscultation and percussion. CARDIAC: Regular rate and rhythm with no murmur gallop or rubs. ABDOMEN: less distended as before NT BS pos SKIN: Normal; no rash; no jaundice. No periperal edema Assessment and Plan Assessment: (1) Portal hypertension ICD Codes: K76.6 - Portal hypertension (2) Cirrhosis of liver ICD Codes: K74.60 - Unspecified cirrhosis of liver (3) Status post laparoscopic cholecystectomy ICD Codes: Z90.49 - Acquired absence of other specified parts of digestive tract (4) Ascites ICD Codes: R18.8 - Other ascites Status: Acute Plan contunue lasix 60 mg am and 40 mg pm w aldactone daily.....stable for dc outpt f/u dr Mclaughlin 08/29 thanks Problem Qualifiers (1) Ascites: Qualified Codes: K70.31 - Alcoholic cirrhosis of liver with ascites Luis Alvarez MD Aug 22, 2017 17:16
--- NOTE | 2017-08-22 17:41 | HHI.PR ---
Subjective Subjective Notes Up to chair eating dinner Objective Vitals/I&O Vital Signs Date Time Temp Pulse Resp B/P (MAP) Pulse Ox O2 Delivery O2 Flow Rate FiO2 08/22/17 16:00 96.3 76 16 99/65 (76) 94 08/22/17 08:45 Room Air 08/21/17 09:08 21 08/21/17 07:30 3.00 Labs Date/Time Source Procedure Growth Status 08/20/17 14:20 Fluid Peritoneal Fluid Gram Stain - Final Resulted 08/20/17 14:20 Fluid Peritoneal Fluid Body Fluid Culture - Preliminary NO GROWTH IN 48 HOURS. Resulted Cardiovascular: Regular Lungs: Clear Abdomen: Non-tender, Other (mild ascites; lap sites c/d/i ) Extremities: No edema A/P Problem List: (1) Status post laparoscopic cholecystectomy ICD Codes: Z90.49 - Acquired absence of other specified parts of digestive tract Assessment and Plan 76 year old male POD12 lap yobany; drainage of 7L of intraabdominal ascites; liver biopsy -Appreciate Dr. Alvarez following for ascites management -S/p paracentesis yesterday; removed 4L -Regular diet -Continue diuretics -OOB and mobilize Maria T Perez Aug 22, 2017 17:41
[2017-08-22] MEDS: PANTOPRAZOLE SOD 40 MG DELAYED RELEASE TAB PO SCH (17:56)
[2017-08-22 20:00] VITALS: BP 109/65; PULSE 82; RESP 20; TEMP 98; O2SAT 94
[2017-08-22] MEDS: FUROSEMIDE 40 MG TAB PO SCH (22:25)
[2017-08-23] VITALS: BP_SYST 110; BP_SYST 148; BP_DIAS 64; BP_DIAS 70; PULSE 62; PULSE 83; RESP 18; RESP 20; TEMP 97.7; TEMP 98.8; O2SAT 94; O2SAT 97
[2017-08-23] MEDS: INSULIN ASPART SUPPLEMENTAL SCALE SQ SCH ×2 (00:34→06:24)
[2017-08-23] MEDS: PIPERACIL-TAZO 3.375 GM PREMIX 50 ML IV SCH ×2 (00:39→06:22)
[2017-08-23] MEDS: ALBUMIN 25% INJ 100 ML IV SCH ×2 (00:40→09:14)
[2017-08-23] MEDS: CHLORHEXIDINE GLUCONATE 2 % 1 PACK (2 CLOTHS) TOP SCH (03:29)
[2017-08-23 04:00] VITALS: BP 115/75
[2017-08-23] MEDS: MIDODRINE 5 MG TAB PO SCH (06:35)
[2017-08-23 08:00] VITALS: BP 96/61; PULSE 79; RESP 16; TEMP 96; O2SAT 94
[2017-08-23 09:00] VITALS: BP 99/63
[2017-08-23] MEDS: FUROSEMIDE 20 MG TAB PO SCH (09:12)
[2017-08-23] MEDS: DOCUSATE SODIUM 50 MG/SENNA 8.6 MG TAB PO SCH (09:12)
[2017-08-23] MEDS: SPIRONOLACTONE 50 MG TAB PO SCH (09:12)
[2017-08-23] MEDS: SODIUM CHLORIDE 0.9% FLUSH 10 ML FLUSH IV FLUSH SCH (09:30)
--- NOTE | 2017-08-23 09:32 | HHI.FF ---
Face to Face Verification Diagnosis: (1) Portal hypertension (2) Ascites (3) Cirrhosis of liver (4) Status post laparoscopic cholecystectomy Physical Therapy Order: Evaluate and Treat, Improve ambulation, Strength and gait training Instructions: No restrictions Home Health Nursing Order: Medical education Wound care and dressing changes Instructions: patient in need of frequent paracentesis; monitor for signs of fluid overload; check BP --- in diuretics I have seen patient Dimitri Howard on 08/23/17. My clinical findings support the need for the requested home health care services because: Limited ability to care for self High risk of falls I certify that my clinical findings support that this patient is homebound because: Post-op weakness Maria T Perez [facility] Aug 23, 2017 09:32
[2017-08-23] MEDS ORDERED: ALDA50TA2 PO (10:26)
[2017-08-23] MEDS ORDERED: FURO40TA PO (10:26)
[2017-08-23] MEDS ORDERED: BACL10TA PO (10:26)
[2017-08-23] MEDS ORDERED: AUGM875T3 PO (10:26)
[2017-08-23] MEDS ORDERED: MIDO5TAB PO (10:26)
[2017-08-23] MEDS ORDERED: FURO20TA PO (10:26)
[2017-08-23 12:00] VITALS: BP 107/69; PULSE 83; RESP 16; TEMP 96.5; O2SAT 94
--- NOTE | 2017-08-23 14:33 | HHI.DS ---
Discharge Summary Admission Date Aug 10, 2017 at 17:47 Admitting Diagnosis (1) Status post laparoscopic cholecystectomy ICD Codes: Z90.49 - Acquired absence of other specified parts of digestive tract CBC/BMP: 08/21/17 1245 Significant Findings Laboratory Tests Test 08/21/17 12:45 Blood Urea Nitrogen 31 MG/DL (7-18) Random Glucose 328 MG/DL (74-106) Alkaline Phosphatase 310 U/L (45-117) Aspartate Amino Transf (AST/SGOT) 38 U/L (15-37) Total Bilirubin 3.4 MG/DL (0.2-1.0) Sodium Level 130 MEQ/L (136-145) Chloride Level 93 MEQ/L (98-107) Estimat Glomerular Filtration Rate 58 ML/MIN (>89) PE at Discharge LC drain clear, fluid filled abdomen Pt Condition on Discharge: Good Discharge Disposition: Disch w/ Home Health Serv Discharge Instructions DIET: Follow Instructions for: As Tolerated, No Restrictions Activities you can perform: See Additionl Instruction Other Activity Instructions: Okay to shower Avoid heavy pushing pulling or lifting No baths or swimming pools Maria T Perez Aug 23, 2017 14:33
[2017-08-23] MEDS ORDERED: FAMOTIDINE 20 MG/2 ML VIAL IV PUSH PRN (15:15)
[2017-08-23 16:00] VITALS: BP 104/70; PULSE 96; RESP 16; TEMP 98.3; O2SAT 94
[2017-08-23] MEDS ORDERED: METF500T PO (16:55)
[2017-08-23] MEDS ORDERED: AMOXICILLIN/CLAVULANATE K 875 MG TAB PO SCH (21:00)
== END 2017-08-23 17:10 | disposition home health service (06) | DRG 418 ==
LOC: HSDC 12:47 → HSDI 17:47 → N03B 20:20 → N07A 08-16 18:35
PROVIDERS: ADMIT Surgery; ATTEND Surgery
PROC: 0D9W4ZZ Drainage of Peritoneum, Percutaneous Endoscopic Approach (ICD-10-PCS; 2017-08-10)
PROC: 0FB03ZX Excision of Liver, Percutaneous Approach, Diagnostic (ICD-10-PCS; 2017-08-10)
PROC: 0FT44ZZ Resection of Gallbladder, Percutaneous Endoscopic Approach (ICD-10-PCS; principal; 2017-08-10 14:49)
PROC: 0W9G3ZX Drainage of Peritoneal Cavity, Percutaneous Approach, Diagnostic (ICD-10-PCS; 2017-08-16)
PROC: 0W9G3ZZ Drainage of Peritoneal Cavity, Percutaneous Approach (ICD-10-PCS; 2017-08-20)
DX: K80.12 Calculus of gallbladder with acute and chronic cholecystitis without obstruction (principal); K76.6 Portal hypertension; K70.31 Alcoholic cirrhosis of liver with ascites; I95.9 Hypotension, unspecified; E11.9 Type 2 diabetes mellitus without complications; K72.90 Hepatic failure, unspecified without coma; Z87.891 Personal history of nicotine dependence; M10.9 Gout, unspecified; R06.6 Hiccough
CPT/HCPCS: 49083; 80048; 80053; 82042; 82150; 82248; 82945; 82948; 83605; 83615; 83735; 84100; 84157; 85007; 85025; 85027; 85610; 86850; 86900; 86901; 86920; 87015; 87070; 87102; 87116; 87205; 87206; 87641; 88112; 88304; 88305; 88307; 88313; 89051; 94003; 94150; C1729; J0131; J0690; J1815; J2270; J2370; J2405; J2543; J3230; J7030; J7050; J7120; P9045; P9047; Q9967

== ENCOUNTER 2017-08-30 08:02 | Day surgery (SDC) | payer MEDICARE ==
[~2017-08-30 08:02] MED LIST changes: +ALDA50TA2 PO; +AUGM875T3 PO; +BACL10TA PO; -BUPIVACAINE/EPINEPHRINE 0.25% PF 30 ML VIAL ONE; +FURO20TA PO; +FURO40TA PO; -LIDOCAINE HCL 1% PF 5 ML SYRINGE OTHER ONE; +MIDO5TAB PO; -ONDANSETRON HCL 4 MG/2 ML VIAL IV ONE; -PHENYLEPH/NS 1000 MCG/10 ML SYR IV ONE; -PROPOFOL 200 MG/20 ML AMP IV ONE; -ROCURONIUM INJ 50 MG/5 ML SYRINGE IV PUSH ONE; +VITA100064 PO; -ePHEDrine/NS 25 MG/5 ML SYRINGE IV ONE
[2017-08-30 08:35] VITALS: BP 124/86; PULSE 87; RESP 16; TEMP 97.7; O2SAT 98
[2017-08-30 09:45] VITALS: BP 93/62; PULSE 85; RESP 18; TEMP 98.7; O2SAT 96
[2017-08-30] MEDS ORDERED: ALBUMIN 25% INJ 0 ML IV ONE (09:45)
[2017-08-30 10:00] VITALS: BP 124/63; PULSE 83; RESP 18; O2SAT 94
--- NOTE | 2017-08-30 10:08 | RADRPT ---
EXAM DATE/TIME: 08/30/2017 08:31 [facility] COMPARISON: US GUIDED ABD PARACENTESIS, August 20, 2017, 14:00. INDICATIONS : Ascites. MEDICAL HISTORY : Arthritis. Diabetes. TIA. Cirrhosis. Gout. Skin cancer. GERD. SURGICAL HISTORY : Cholecystectomy Carpal tunnel release. Paracentesis. ENCOUNTER: Subsequent ACUITY: 1 week PAIN SCORE: 3/10 LOCATION: Right lower quadrant FLUID: Total volume of 6000 cc of clear, yellow fluid was removed. Fluid was discarded. Paracentesis was therapeutic only. Post procedure scanning reveals no hematoma or other complication. TECHNIQUE: 1. Ultrasound guidance for abdominal paracentesis. 2. Paracentesis. The risks, benefits, and alternatives to ultrasound guided paracentesis were explained to the patient in detail including the risk of bleeding and infection. Written and verbal informed consent was obt ained. With the patient on the ultrasound table, ultrasound imaging was used to select the most appropriate approach for paracentesis. Overlying skin was prepped and draped in the usual sterile fashion and wi th a local anesthetic, a dermatotomy was made with an 11 blade scalpel. A 6 [place] Pyj-J-ctkobgyx ca theter was introduced into the peritoneal cavity and fluid was collected. The patient tolerated the procedure well and left the ultrasound suite in stable condition. CONCLUSION: Uncomplicated ultrasound guided paracentesis. Charly Juárez MD on August 30, 2017 at 10:04 Board Certified Radiologist. This report was verified electronically.
== END 2017-08-30 10:37 | disposition home or self-care (01) ==
LOC: HRAD 08:02 → HRIP 08:03 → HRAD 10:37
DX: R18.8 Other ascites (principal); E11.9 Type 2 diabetes mellitus without complications; K74.60 Unspecified cirrhosis of liver; M10.9 Gout, unspecified; M19.90 Unspecified osteoarthritis, unspecified site; K21.9 Gastro-esophageal reflux disease without esophagitis; Z86.73 Personal history of transient ischemic attack (TIA), and cerebral infarction without residual deficits; Z85.828 Personal history of other malignant neoplasm of skin
CPT/HCPCS: 49083; 96365; C1729; P9047

== ENCOUNTER → 2017-10-12 | Outpatient (CLI) | payer MEDICARE ==
[~2017-10-12] VITALS: Ht 167.6 cm; Wt 58.8 kg
[~2017-10-12] MED LIST changes: -AUGM875T3 PO; +CHLORHEXIDINE GLUCONATE 2 % 1 PACK (2 CLOTHS) TOPICAL PRN; +LACTATED RINGER'S 1000 ML IV PRN; +LIDOCAINE HCL 1% PF 5 ML SYRINGE OTHER ONE; -METF500T PO; +METOPROLOL TARTRATE 25 MG TAB PO PRN; +POVIDONE IODINE 5% (ANTISEPSIS KIT) 4 APPLICATIONS EACH NARE PRN; +PROPOFOL 200 MG/20 ML AMP IV ONE; +SODIUM CHLORID 0.9% 500 ML IV PRN; +ePHEDrine/NS 25 MG/5 ML SYRINGE IV ONE
--- NOTE | 2017-10-12 14:35 | GIPROC ---
[facility] [address] [facility] [place]. 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 He is not a liver transplant candidate; he can't tolerate a beta-rob because of a slow pulse and low blood pressure. PROCEDURE PERFORMED: EGD w/ band ligation of varices MEDICATIONS: Per Anesthesia and None. TOPICAL ANESTHETIC: CONSENT: The patient understands the risks and benefits of the procedure and understands that these risks include, but are not limited to: sedation, allergic reaction, infection, perforation and/or bleeding. Alternative means of evaluation and treatment include, among others: physical exam, x-rays, and/or surgical intervention. The patient elects to proceed with this endoscopic procedure. medical equipment was checked for proper function. Hand hygiene and appropriate measures for infection prevention was taken. After the risks, benefits and alternatives of the procedure were thoroughly explained, Informed consent was verified, confirmed and timeout was successfully executed by the treatment team. The patient was anesthetized with topical anesthesia and the endoscope was introduced through the mouth and advanced to the . Retroflexion was performed The gastroscope was then slowly withdrawn and removed. Grade III esophageal varices were noted from 27cm to the GE junction, at 38cm; these were treated with band ligation times four. A diffuse mosaic pattern was noted, consistent with portal hypertensive gastropathy. Antral erythema was noted. DUODENUM: The duodenal mucosa appeared normal. ADVERSE EVENTS: There were no complications. IMPRESSIONS: 1. Grade III esophageal varices were noted from 27cm to the GE junction, at 38cm; these were treated with band ligation times four 2. A diffuse mosaic pattern was noted, consistent with portal hypertensive gastropathy. Antral erythema was noted 3. Normal duodenal mucosa 4. Retroflexion was performed RECOMMENDATIONS: Clear liquid diet today; full liquid diet tomorrown, then resume 2 gram sodium diet on Tuesday. Follow up in the office in 2-3 weeks. We'll repeat EGD with band ligation in 4-6 weeks. PATIENT CONDITION: DISPOSITION: Home REPEAT EXAM: EGD with band ligation in 4-6 weeks. Neel Mclaughlin MD eSigned: Neel Mclaughlin MD 10/12/2017 2:35 PM cc: Adolph Brooks M.D. PATIENT NAME: Dimitri Howard MR#: [id number]
[2017-10-12 15:24] VITALS: BP 123/78; PULSE 74; RESP 18; TEMP 97.1; O2SAT 97
== END ==
LOC: HSDC 11:05
DX: K70.30 Alcoholic cirrhosis of liver without ascites (principal); I85.00 Esophageal varices without bleeding; K76.6 Portal hypertension; K31.89 Other diseases of stomach and duodenum
CPT/HCPCS: 00731; 43244; J7120

== ENCOUNTER → 2017-12-28 | Outpatient (CLI) | payer MEDICARE ==
[~2017-12-28] VITALS: Ht 167.6 cm; Wt 60.6 kg
[~2017-12-28] MED LIST changes: +INSULIN HUMAN REGULAR 1,000 UNITS/10 ML VIAL SQ PRN; -ePHEDrine/NS 25 MG/5 ML SYRINGE IV ONE
--- NOTE | 2017-12-28 12:46 | GIPROC ---
[facility] [address] [facility]. 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 He's had esophageal varices banded; he can't tolerate a beta-rob because of his low systemic blood pressure and pulse. PROCEDURE PERFORMED: EGD w/ band ligation of varices MEDICATIONS: None and Per Anesthesia. TOPICAL ANESTHETIC: CONSENT: The patient understands the risks and benefits of the procedure and understands that these risks include, but are not limited to: sedation, allergic reaction, infection, perforation and/or bleeding. Alternative means of evaluation and treatment include, among others: physical exam, x-rays, and/or surgical intervention. The patient elects to proceed with this endoscopic procedure. medical equipment was checked for proper function. Hand hygiene and appropriate measures for infection prevention was taken. After the risks, benefits and alternatives of the procedure were thoroughly explained, Informed consent was verified, confirmed and timeout was successfully executed by the treatment team. The patient was anesthetized with topical anesthesia and the Pentax [id number] endoscope was introduced through the mouth and advanced to the . Retroflexion was performed The gastroscope was then slowly withdrawn and removed. Grade II-III esophageal varices were noted; band ligation was performed x 5 with good results and no bleeding induced. Esophageal plaques were noted, consistent with candidiasis. Portal hypertensive gastropathy was noted with no gastric varices. Antral erosions were noted. Shallow duodenal bulb ulcerations were noted. The duodenal sweep appeared normal. ADVERSE EVENTS: There were no complications. IMPRESSIONS: 1. Grade II-III esophageal varices were noted; band ligation was performed x 5 with good results and no bleeding induced. Esophageal plaques were noted, consistent with candidiasis. Portal hypertensive gastropathy was noted with no gastric varices. Antral erosions were noted. Shallow duodenal bulb ulcerations were noted. The duodenal sweep appeared normal 2. Retroflexion was performed RECOMMENDATIONS: Resume prio medications Clear liquid diet today, full liquid diet tomorrow, then a two gram sodium diet. Nystatin swish and swallow for one week. Begin sucralfate to treat the gastric erosions/duodenal ulcerations. Repeat EGD with band ligation in 6-8 weeks. PATIENT CONDITION: stable DISPOSITION: REPEAT EXAM: Neel Mclaughlin MD eSigned: Neel Mclaughlin MD 12/28/2017 12:45 PM cc: Wili James M.D. PATIENT NAME: Dimitri Howard MR#: [id number]
[2017-12-28 13:10] VITALS: BP 125/72; PULSE 71; RESP 20; TEMP 98; O2SAT 96
--- NOTE | 2017-12-28 22:05 | EKG ---
Date Performed: 12/28/2017 Time Performed: 11:26:50 PTAGE: 77 years EKG: SINUS BRADYCARDIA BORDERLINE ECG PREVIOUS TRACING : 10/26/2016 05.47 Since the previous tracing, no significant change noted DOCTOR: Fito Castro Interpretating Date/Time 12/28/2017 22:04:36
== END ==
LOC: HSDC 09:45
DX: K70.30 Alcoholic cirrhosis of liver without ascites (principal); I85.10 Secondary esophageal varices without bleeding; B37.81 Candidal esophagitis; K76.6 Portal hypertension; K31.89 Other diseases of stomach and duodenum; K26.9 Duodenal ulcer, unspecified as acute or chronic, without hemorrhage or perforation; K72.90 Hepatic failure, unspecified without coma; Z01.810 Encounter for preprocedural cardiovascular examination
CPT/HCPCS: 93005

== ENCOUNTER 2018-01-04 11:48 | Inpatient (IN) | payer MEDICARE ==
[~2018-01-04] VITALS: Ht 167.6 cm; Wt 67.4 kg
[~2018-01-04 11:48] MED LIST changes: -BACL10TA PO; -CHLORHEXIDINE GLUCONATE 2 % 1 PACK (2 CLOTHS) TOPICAL PRN; -INSULIN HUMAN REGULAR 1,000 UNITS/10 ML VIAL SQ PRN; -LACTATED RINGER'S 1000 ML IV PRN; -LIDOCAINE HCL 1% PF 5 ML SYRINGE OTHER ONE; -METOPROLOL TARTRATE 25 MG TAB PO PRN; -POVIDONE IODINE 5% (ANTISEPSIS KIT) 4 APPLICATIONS EACH NARE PRN; -PROPOFOL 200 MG/20 ML AMP IV ONE; -SODIUM CHLORID 0.9% 500 ML IV PRN
[2018-01-04] MEDS ORDERED: PROPOFOL 200 MG/20 ML AMP IV ONE (12:00)
[2018-01-04] MEDS ORDERED: SUCCINYLCHOLINE CHLORIDE 100 MG/5 ML SYRINGE IV PUSH ONE (12:00)
[2018-01-04 12:09] VITALS: BP 95/57; PULSE 97; RESP 21; TEMP 97.6; O2SAT 98
[2018-01-04] MEDS ORDERED: PANTOPRAZOLE INJ 80 MG in SODIUM CHLORIDE 0.9% INJ 35 ML IV ONE (12:29)
[2018-01-04] MEDS ORDERED: SODIUM CHLORIDE 0.9% FLUSH 10 ML FLUSH IVF PRN (12:30)
[2018-01-04] MEDS ORDERED: SODIUM CHLOR 0.9% 1000 ML INJ 1,000 ML IV SCH (12:35)
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
[2018-01-04 12:44] VITALS: BP 110/70; PULSE 96
[2018-01-04 12:45] VITALS: O2SAT 98
[2018-01-04 13:19] LABS: AUTOMATED NEUTROPHIL # 10.8 TH/MM3 (1.8-7.7); BASOPHIL % 0.2 % (0.0-2.0); EOSINOPHIL % 0.1 % (0.0-4.0); HEMATOCRIT 31.1 % (39.0-51.0); HEMOGLOBIN 10.3 GM/DL (13.0-17.0); LYMPH % 4.2 % (9.0-44.0); LYMPHOCYTE # 0.5 TH/MM3 (1.0-4.8); MEAN CELL VOLUME 103.6 FL (80.0-100.0); MEAN CORPUSCULAR HEMOGLOBIN 34.4 PG (27.0-34.0); MEAN CORPUSCULAR HGB CONC 33.2 % (32.0-36.0); MEAN PLATELET VOLUME 10.6 FL (7.0-11.0); MONOCYTE # 0.9 TH/MM3 (0-0.9); NEUT % 88.5 % (16.0-70.0); PLATELET COUNT 148 TH/MM3 (150-450); RED CELL DISTRIBUTION WIDTH 15.9 % (11.6-17.2); WHITE BLOOD COUNT 12.2 TH/MM3 (4.0-11.0)
[2018-01-04 13:29] LABS: INTERNATIONAL NORMALIZED RATIO 1.3 RATIO; PROTHROMBIN TIME - PATIENT 12.9 SEC (9.8-11.6)
[2018-01-04 13:44] LABS: ALBUMIN 2.3 GM/DL (3.4-5.0); ALT (GPT) 77 U/L (12-78); AST (GOT) 73 U/L (15-37); BICARBONATE 26.7 MEQ/L (21.0-32.0); BLOOD UREA NITROGEN 66 MG/DL (7-18); CALCIUM 8.3 MG/DL (8.5-10.1); CHLORIDE 97 MEQ/L (98-107); CREATININE 1.02 MG/DL (0.60-1.30); GLOMERULAR FILTRATION RATE 71 ML/MIN (>89); GLUCOSE,RANDOM 233 MG/DL (74-106); SODIUM (NA) 136 MEQ/L (136-145)
[2018-01-04 13:46] LABS: ALKALINE PHOSPHATASE 340 U/L (45-117); TOTAL BILIRUBIN ADULT 1.2 MG/DL (0.2-1.0); TOTAL PROTEIN 6.4 GM/DL (6.4-8.2)
[2018-01-04] MEDS: PANTOPRAZOLE INJ 80 MG in SODIUM CHLORIDE 0.9% INJ 100 ML IV SCH (13:59)
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
[2018-01-04] MEDS ORDERED: SUCR1TAB PO (14:27)
[2018-01-04] MEDS ORDERED: SODIUM CHLORIDE 0.9% FLUSH 10 ML FLUSH IV FLUSH PRN (14:45)
[2018-01-04] MEDS ORDERED: ONDANSETRON ODT 4 MG TAB PO PRN (14:45)
[2018-01-04] MEDS: SODIUM CHLORIDE 0.9% FLUSH 10 ML FLUSH IV FLUSH SCH ×2 (14:45→21:00)
[2018-01-04] MEDS ORDERED: NALOXONE HCL 0.4 MG/ML AMP IV PUSH PRN (14:45)
[2018-01-04] MEDS: OCTREOTIDE INJ 500 MCG in SODIUM CHLORID 0.9% 500 ML INJ 500 ML IV SCH (15:10)
[2018-01-04] MEDS ORDERED: GLUCAGON 1 MG/ML VIAL OTHER PRN (15:15)
[2018-01-04] MEDS ORDERED: DEXTROSE 50% IN WATER 50 ML VIAL(D50) IV PUSH PRN (15:15)
--- NOTE | 2018-01-04 15:50 | RADRPT ---
EXAM DATE: 01/04/2018 3:46 PM EDT AGE/SEX: 77 years / Male INDICATIONS: Cough and shortness of breath. CLINICAL DATA: This is the patient's initial encounter. Patient reports that signs and symptoms have been present for 3 days and indicates a pain score of 0/10. MEDICAL/SURGICAL HISTORY: None. . ORIF ribs. COMPARISON: synapse default, CHEST PA & LAT, 11/21/2016. . FINDINGS: PA and lateral views of the chest demonstrate the lungs to be symmetrically aerated without evidence of mass, infiltrate or effusion. The cardiomediastinal contours are unremarkable. Osseous structures are intact. There is evidence of previous internal fixation involving multiple right-sided ribs. The hardware is grossly intact. There is an old healed fracture of the right clavicle. CONCLUSION: No acute intrathoracic disease. Electronically signed by: Chay Marte MD 01/04/2018 3:49 PM EDT
--- NOTE | 2018-01-04 16:11 | MB ---
cc: David Gibson MD,Neel Marlow MD,All ALEJO DATE: 01/04/2018 REASON FOR CONSULTATION: I was asked to see the patient in consultation for All Chand for evaluation of melena. HISTORY OF PRESENT ILLNESS: The patient is a pleasant 77-year-old white male with history of cirrhosis and esophageal varices. On 12/28/2017, the patient had upper endoscopy which showed esophageal varices, gastric erosion and duodenal ulcer. There was also radames esophagitis. There may have been portal hypertensive gastropathy also. 5 bands were applied on the esophageal varices - there are grade 2-3. He was then discharged and this morning apparently very lightheaded and dizzy and fell down. He also had black stools. He called the office and told to come to the emergency room. In the emergency room, hemoglobin was 10.3, but did have black melanotic stools. He is lightheaded upon sitting. There has been no nausea, vomiting, dysphagia, odynophagia, early satiety. No abdominal pain, no hematochezia. He is sleeping well at night. PAST MEDICAL HISTORY: Esophageal varices, cirrhosis. He has gout. He has had diabetes, osteoarthritis. He has had varices and duodenal ulcer as mentioned above was gastric erosions. He is intolerant of beta blockers. Apparently, he gets low blood pressure. PAST SURGICAL HISTORY: Upper endoscopy. He said he believes he had a colonoscopy. He has had left inguinal herniorrhaphy. Carpal tunnel. Cyst removal. OUTPATIENT MEDICATIONS: Baclofen, vitamin D3, Midodrine, Lasix 40 mg daily, spironolactone 50 mg t.i.d., allopurinol, lactulose. MEDICATIONS IN THE HOSPITAL: Spironolactone, Zofran, Narcan, octreotide and pantoprazole (the latter 2 were my suggestion). ALLERGIES: AUGMENTIN WELL TERBINAFINE (LAMISIL). REVIEW OF SYSTEMS: CONSTITUTIONAL: No weight loss or fever or chills. CARDIOPULMONARY: No chest pain, palpitation, shortness of breath. GASTROINTESTINAL: Please see above. The patient denies any confusion. Otherwise, unremarkable 10-point review of systems. FAMILY HISTORY: Denies any colon cancer or colon polyps in first degree relatives. There may have been a grandfather who had colon cancer. PHYSICAL EXAMINATION: VITAL SIGNS: Blood pressure is 110/70, pulse of 96, respiratory rate 21, temperature 97.6. GENERAL: He is an elderly white male, pale appearing. Appears to be in no acute GI distress presently. HEENT: Pupils equal and reactive to light. No obvious scleral icterus. Oropharynx showed dental caries. No deviation of tongue or candidal lesions. Hearing was intact. NECK: Supple without lymphadenopathy. LUNGS: Clear to auscultation and percussion. HEART: Regular rate and rhythm. No gross murmurs are heard. ABDOMEN: Soft, nondistended, nontender. No organomegaly, ascites or hernias. EXTREMITIES: No cyanosis, clubbing or edema. RECTAL: Exam not done. ER doctor mentioned black stools. NEUROLOGIC: Cranial nerves 2-12 are grossly intact. He appears to be alert and oriented x3. There is no asterixis. SKIN: Warm and moist. LABORATORY DATA: Revealed hemoglobin of 10.3, white blood cell count 12,200, hematocrit 31.1, MCV of 103.6. Platelet count 148,000. His prothrombin time is 13.9, INR 1.3, PTT of 29.3. BUN of 66, elevated, creatinine 1.02, normal. Total bilirubin is 1.2, glucose 233, SGOT is 73, is elevated, SGPT of 77, alkaline phosphatase of 340 is elevated, albumin 2.3, low. Total protein 6.4 is normal. IMPRESSION: 1. Melena - understands this is upper gastrointestinal bleed. The question is what is bleeding. This may be bleeding from varices, portal hypertensive gastropathy, he has had a duodenal ulcer as well as gastric erosions. In addition, he had recent esophageal variceal banding, perhaps when the banding slipped off or developed an ulcer at the variceal site. We need to find what is going on. See below for further discussion. 2. Anemia - surprisingly relatively stable. However, with hydration may drop. 3. Cirrhosis of the liver with ascites. There is no ascites clinically at this time. 4. Esophageal varices. See above. 5. History of hepatic encephalopathy - he is clinically stable at this time. He appears alert and oriented. He did feel lightheaded and he fell, but this may be related to intravascular volume depletion. RECOMMENDATIONS: 1. PPI and octreotide. Discussed with ER physicians and has been started. 2. We should proceed with upper endoscopy with possible esophageal variceal banding. I explained to the patient and the patient's that with the recent banding, I may not be able to pass the scope safely. In addition, if I do pass the scope the bands may fall off and may have to be reinserted. Sometimes reinserting the variceal apparatus is not possible. However, I need to find what is bleeding. We talked about indications, risks, complications, benefits with the patient including risk of bleeding, perforation, infection, arrhythmias and small possibility of . I had a long discussion, they would like to proceed and we can do later this evening. 3. Further recommendations will depend on what the above testing shows. David Gibson MD SPP/TL , 03:13 PM , 04:09 PM
[2018-01-04 16:15] LABS: BILIRUBIN, URINE NEG (NEG); BLOOD, URINE NEG (NEG); GLUCOSE,URINE 70 mg/dL (NEG); HYALINE CAST, URINE 2 /lpf (RARE); KETONE, URINE NEG (NEG); NITRITE,URINE NEG (NEG); SQUAMOUS EPITHELIAL CELL URINE <1 /hpf (0-5); URINE COLOR YELLOW (YELLW/STRAW); URINE LEUKOCYTE ESTERASE NEG (NEG)
[2018-01-04 17:31] LABS: HEMOGLOBIN A1C 6.2 % (4.3-6.0)
[2018-01-04] MEDS: SPIRONOLACTONE 50 MG TAB PO SCH (18:00)
[2018-01-04] MEDS ORDERED: DO NOT ADM ANY ANTICOAGULANT DRUGS PRN (18:03)
--- NOTE | 2018-01-04 18:05 | GIPROC ---
[facility] [address] [facility]. [facility], [address] EGD PROCEDURE REPORT EXAM DATE: 01/04/2018 PATIENT NAME: Dimitri Howard MR #: [id number] BIRTHDATE: 1940 ATTENDING: David Gibson MD ORDER #: [id number] BOXING MACHINE OPERATOR: Alex Calix and Lennie Durand STATUS: inpatient INDICATIONS: The patient is a 77 yr old male here for an EGD due to melena PROCEDURE PERFORMED: EGD, diagnostic MEDICATIONS: None and Per Anesthesia. TOPICAL ANESTHETIC: none CONSENT: The patient understands the risks and benefits of the procedure and understands that these risks include, but are not limited to: sedation, allergic reaction, infection, perforation and/or bleeding. Alternative means of evaluation and treatment include, among others: physical exam, x-rays, and/or surgical intervention. The patient elects to proceed with this endoscopic procedure. medical equipment was checked for proper function. Hand hygiene and appropriate measures for infection prevention was taken. After the risks, benefits and alternatives of the procedure were thoroughly explained, Informed consent was verified, confirmed and timeout was successfully executed by the treatment team. The patient was anesthetized with topical anesthesia and the Pentax EG-[id number] endoscope was introduced through the mouth and advanced to the second portion of the duodenum. Retroflexed views revealed Old blood seen in the fundus The gastroscope was then slowly withdrawn and removed. ESOPHAGUS: The z-line was located 38cm from the incisors. Numerous nonbleeding ulcerssome with very also bands still present-were present in the mid and distal esophagus. Small nonbleeding varices were seen. No blood was seen in the esophagus. STOMACH: The stomach was entered and there was old blood seen in the fundusno varices. In the distal stomach there was red blood noted. It was washed and only portal hypertensive gastropathy as well as erosions were noted. There were not bleeding. DUODENUM: Old red blood was seen in the bulb and second portion. This was washed and no bleeding lesions seen under it. ADVERSE EVENTS: There were no complications. IMPRESSIONS: 1. The z-line was located 38cm from the incisors 2. Numerous nonbleeding ulcerssome with very also bands still present-were present in the mid and distal esophagus. Small nonbleeding varices were seen. No blood was seen in the esophagus 3. The stomach was entered and there was old blood seen in the fundusno varices. In the distal stomach there was red blood noted. It was washed and only portal hypertensive gastropathy as well as erosions were noted. There were not bleeding 4. Old red blood was seen in the bulb and second portion. This was washed and no bleeding lesions seen under it 5. Retroflexed views revealed Old blood seen in the fundus RECOMMENDATIONS: 1. Continue PPI 2. Contiinue Octreotide 3. May need repeat upper endoscopy to reassess the area is not visualized because of old blood PATIENT CONDITION: stable DISPOSITION: Inpatient REPEAT EXAM: NONE David Gibson MD eSigned: Dvaid Gibson MD 01/04/2018 6:05 PM cc: PATIENT NAME: Dimitri Howard MR#: [id number]
[2018-01-04] MEDS ORDERED: FLUMAZENIL 0.5 MG/5 ML VIAL IV PUSH PRN ×2 (18:30)
[2018-01-04 20:00] VITALS: BP 110/58; PULSE 91; RESP 20; TEMP 98; O2SAT 100
[2018-01-04] MEDS: SODIUM CHLOR 0.9% 1000 ML INJ 1,000 ML IV SCH (21:12)
[2018-01-04] MEDS: INSULIN ASPART SUPPLEMENTAL SCALE SQ SCH (21:12)
[2018-01-04 22:04] LABS: HEMATOCRIT 27.5 % (39.0-51.0); HEMOGLOBIN 9.2 GM/DL (13.0-17.0)
[2018-01-05] VITALS (8 sets, daily range): BP systolic 90–104; BP diastolic 51–59; PULSE 70–93; RESP 18–20; TEMP 97.3–98.2; O2SAT 96–100
[2018-01-05] MEDS: OCTREOTIDE INJ 500 MCG in SODIUM CHLORID 0.9% 500 ML INJ 500 ML IV SCH ×3 (00:35→22:40)
[2018-01-05] MEDS: PANTOPRAZOLE INJ 80 MG in SODIUM CHLORIDE 0.9% INJ 100 ML IV SCH ×3 (00:36→22:40)
[2018-01-05 05:13] LABS: AUTOMATED NEUTROPHIL # 7.2 TH/MM3 (1.8-7.7); BASOPHIL % 0.2 % (0.0-2.0); EOSINOPHIL # 0.1 TH/MM3 (0-0.4); HEMATOCRIT 25.7 % (39.0-51.0); HEMOGLOBIN 8.8 GM/DL (13.0-17.0); LYMPH % 8.8 % (9.0-44.0); LYMPHOCYTE # 0.8 TH/MM3 (1.0-4.8); MEAN CELL VOLUME 103.5 FL (80.0-100.0); MEAN CORPUSCULAR HEMOGLOBIN 35.5 PG (27.0-34.0); MEAN CORPUSCULAR HGB CONC 34.3 % (32.0-36.0); MEAN PLATELET VOLUME 10.4 FL (7.0-11.0); MONO % 8.7 % (0.0-8.0); MONOCYTE # 0.8 TH/MM3 (0-0.9); NEUT % 81.3 % (16.0-70.0); PLATELET COUNT 108 TH/MM3 (150-450); RED BLOOD COUNT 2.49 MIL/MM3 (4.50-5.90); RED CELL DISTRIBUTION WIDTH 15.4 % (11.6-17.2); WHITE BLOOD COUNT 8.8 TH/MM3 (4.0-11.0)
[2018-01-05 05:14] LABS: HEMATOCRIT 25.2 % (39.0-51.0); HEMOGLOBIN 8.6 GM/DL (13.0-17.0)
[2018-01-05 05:34] LABS: BICARBONATE 27.4 MEQ/L (21.0-32.0); CALCIUM 8.5 MG/DL (8.5-10.1); CREATININE 0.89 MG/DL (0.60-1.30)
[2018-01-05] MEDS: INSULIN ASPART SUPPLEMENTAL SCALE SQ SCH ×4 (08:00→21:36)
[2018-01-05] MEDS: SPIRONOLACTONE 50 MG TAB PO SCH ×3 (09:00→18:00)
[2018-01-05] MEDS: SODIUM CHLORIDE 0.9% FLUSH 10 ML FLUSH IV FLUSH SCH ×2 (09:00→21:36)
--- NOTE | 2018-01-05 09:32 | HHI.GIFU ---
GI Follow-up Note Consult Follow-up Subjective: Patient laying in bed comfortably. No bleeding this morning. Patient feels hungry. Objective: PHYSICAL EXAMINATION: 99/58-78-18 No fever HEENT: Throat is clear-no blood. NECK: Neck is supple, no JVD, no lymphadenopathy. CHEST: Chest is clear to auscultation and percussion. CARDIAC: Regular rate and rhythm with no murmur gallop or rubs. ABDOMEN: Soft, nondistended, nontender; no hepatosplenomegaly; bowel sounds are present in all four quadrants. EXTREMITIES: No edema. SKIN: no rash; no jaundice. DIRECTOR DIGITAL CATALOGUE: alert and oriented times three. Available Data (labs, X- Rays, Procedues) : Hemoglobin 8.6--suspect drop is from hydration ASSESSMENT/PLAN: 1. Melena 2. Anemia - 3. Cirrhosis of the liver with ascites. There is no ascites clinically at this time. 4. Esophageal varices-small 5. History of hepatic encephalopathy - he is clinically stable. 6. Patient had multiple mid and distal esophageal ulcers-some with Bands still on them 7. Old blood seen in the fundus. Red blood seen in the antrum--this area is washed and portal hypertensive gastropathy and erosions were noted 8. Old red blood seen in the duodenum PLAN: 1. I suspect he is bleeding from portal hypertensive gastropathy however the proximal stomach was not seen well. 2. Unfortunately patient is intolerant of nonselective [id number] is a treatment for portal hypertensive gastropathy. Other options include octreotide as well as TIPS. 3. Plan to repeat upper endoscopy tomorrow to see if the proximal stomach can be seen better. We just discussed the indications, risks, complications, benefits, alternatives, limitation including risk of bleeding ,perforation , infection arrhythmias and small possibility of . 4. Continue PPI and octreotide 5. Can try clear liquids today It was a pleasure seeing Dimitri Howard. Thank you for this consult. Entered by: David Landin MD January 05, 2018 09:32
--- NOTE | 2018-01-05 09:56 | HHI.FPPN ---
Subjective Remarks Events overnight. Patient lying in bed, appearing fatigue. Patient complains that he is hungry and thirsty. He states that he was unable to sleep due to the SCDs patient's blood pressure of 99/58 this morning. He denies abdominal pain, chest pain, shortness of breath, nausea vomiting, and diarrhea. (Marina Romero MD R1) Objective Vitals Vital Signs Date Time Temp Pulse Resp B/P (MAP) Pulse Ox O2 Delivery O2 Flow Rate FiO2 01/05/18 08:00 98.1 78 18 99/58 (72) 99 01/05/18 04:00 97.9 86 20 103/58 (73) 100 01/05/18 00:00 98.2 93 20 98/53 (68) 100 01/04/18 20:00 98.0 91 20 110/58 (75) 100 01/04/18 18:15 90 16 103/65 (78) 100 Nasal Cannula 2 01/04/18 18:07 98.2 90 16 112/68 (83) 100 Nasal Cannula 2 01/04/18 17:29 01/04/18 12:45 98 Room Air 01/04/18 12:44 96 110/70 (83) 01/04/18 12:09 97.6 97 21 95/57 (70) 98 Room Air I/O 01/04/18 01/04/18 01/04/18 01/05/18 01/05/18 01/05/18 07:00 15:00 23:00 07:00 15:00 23:00 Intake Total 250 ml 0 ml Output Total 1000 ml Balance 250 ml -1000 ml Intake Oral 0 ml Other 250 ml Output Urine Total 1000 ml (Marina Romero MD R1) Result Diagram: 01/05/18 0346 01/05/18 0346 Imaging GENERAL: Thin, elderly male in no acute distress SKIN: Jaundice improved from yesterday EYES: Pupils equal round and reactive. Extraocular motions intact. Slight scleral icterus present. No injection or drainage. ENT: Nose without bleeding, purulent drainage or septal hematoma. Throat without erythema, tonsillar hypertrophy or exudate. Uvula midline. Airway patent. NECK: Trachea midline. No JVD or lymphadenopathy. Supple, nontender, no meningeal signs. CARDIOVASCULAR: Regular rate and rhythm without murmurs, gallops, or rubs. RESPIRATORY: CTAB, no wheezes or crackles GASTROINTESTINAL: Abdomen soft, NT/ND, positive BS, liver palpable 3-4mm below the right coastal margin, no splenomegaly, no shifting dullness MUSCULOSKELETAL: Extremities without clubbing, cyanosis, or edema. No joint tenderness, effusion, or edema noted. No calf tenderness. Negative Homans sign bilaterally. NEUROLOGICAL: Awake, alert, oriented 3 (Marina Romero MD R1) A/P Assessment and Plan 77-year-old male with alcoholic cirrhosis with esophageal varices presents to the ED with melena. (Marina Romero MD R1) Attending Attestation Patient examined independently and case discussed with resident physicians I have read the above note and agree with the assessment/plan as discussed with me I was involved in all medical decision making for this patient Chay Lopez MD (Chay Lopez MD) Problem List: (1) Upper GI bleed ICD Codes: K92.2 - Gastrointestinal hemorrhage, unspecified Status: Acute Plan: Patient with extensive history of alcoholic cirrhosis with esophageal varices. Patient presents to the ED with melena secondary to upper GI bleed. Patient recently had band ligation x5 for Grade II-III esophageal varices on . GI consulted, recommendations appreciated -EGD 01/04: Numerous nonbleeding ulcers present in the mid and distal esophagus. Small nonbleeding varices were seen. Old blood seen in the fundus of the stomach. -Continue octreotide and protonix drip -To repeat upper endoscopy tomorrow to see if the proximal stomach can be seen better. Clear liquids H/H-->10.3/31/1-->9.2/27.5-->8.8/25.7-->8.6/25.2 Continue to trend H/H, transfuse if Hb<7 NS 100mls/hr (2) Cirrhosis of liver ICD Codes: K74.60 - Unspecified cirrhosis of liver Plan: Continue home spironolactone Held home furosemide (3) Diabetes ICD Codes: E11.9 - Type 2 diabetes mellitus without complications Plan: Patient states that his diabetes is controlled with diet at home Low sliding scale A1c 6.2% (4) Gout ICD Codes: M10.9 - Gout, unspecified Plan: Held allopurinol due to renal effects (5) Nutrition, metabolism, and development symptoms ICD Codes: R63.8 - Other symptoms and signs concerning food and fluid intake Plan: Diet: clear liquids Fluids: NS 100mls/hr Vitals every 4 monitor I's and O's Case Management Consulted (Marina Romero MD R1) Marina Romero MD R1 January 05, 2018 09:56 Chay Lopez MD January 05, 2018 11:17
[2018-01-05] MEDS ORDERED: SODIUM CHLOR 0.9% 1000 ML INJ 1,000 ML IV ONE ×2 (10:15→19:30)
[2018-01-05] MEDS: SODIUM CHLOR 0.9% 1000 ML INJ 1,000 ML IV SCH ×2 (10:41→21:35)
[2018-01-05 17:18] LABS: HEMATOCRIT 23.2 % (39.0-51.0); HEMOGLOBIN 7.7 GM/DL (13.0-17.0)
[2018-01-05] MEDS ORDERED: SODIUM CHLOR 0.9% 250 ML INJ 250 ML IV ONE (19:30)
[2018-01-05] MEDS ORDERED: FUROSEMIDE 20 MG/2 ML VIAL IV PUSH ONE (19:30)
[2018-01-05 21:54] LABS: HEMATOCRIT 22.2 % (39.0-51.0); HEMOGLOBIN 7.4 GM/DL (13.0-17.0)
[2018-01-06] VITALS (10 sets, daily range): BP systolic 96–122; BP diastolic 53–63; PULSE 68–79; RESP 16–18; TEMP 97.4–98.5; O2SAT 95–100
[2018-01-06] MEDS ORDERED: SODIUM CHLORID 0.9% 500 ML IV PRN (04:30)
[2018-01-06] MEDS ORDERED: POVIDONE IODINE 5% (ANTISEPSIS KIT) 4 APPLICATIONS EACH NARE PRN (04:30)
[2018-01-06] MEDS ORDERED: METOPROLOL TARTRATE 25 MG TAB PO PRN (04:30)
[2018-01-06] MEDS ORDERED: LACTATED RINGER'S 1000 ML IV PRN (04:30)
[2018-01-06] MEDS ORDERED: CHLORHEXIDINE GLUCONATE 2 % 1 PACK (2 CLOTHS) TOPICAL PRN (04:30)
[2018-01-06 05:22] LABS: HEMATOCRIT 22.9 % (39.0-51.0); HEMOGLOBIN 7.7 GM/DL (13.0-17.0); MEAN CORPUSCULAR HEMOGLOBIN 35.2 PG (27.0-34.0); MEAN CORPUSCULAR HGB CONC 33.6 % (32.0-36.0); MEAN PLATELET VOLUME 9.9 FL (7.0-11.0); PLATELET COUNT 92 TH/MM3 (150-450); RED BLOOD COUNT 2.18 MIL/MM3 (4.50-5.90); RED CELL DISTRIBUTION WIDTH 15.4 % (11.6-17.2); WHITE BLOOD COUNT 4.7 TH/MM3 (4.0-11.0)
[2018-01-06] MEDS: PANTOPRAZOLE INJ 80 MG in SODIUM CHLORIDE 0.9% INJ 100 ML IV SCH ×2 (05:22→17:35)
[2018-01-06] MEDS: OCTREOTIDE INJ 500 MCG in SODIUM CHLORID 0.9% 500 ML INJ 500 ML IV SCH (05:22)
[2018-01-06 05:52] LABS: BICARBONATE 26.3 MEQ/L (21.0-32.0); CREATININE 0.63 MG/DL (0.60-1.30)
[2018-01-06] MEDS: INSULIN ASPART SUPPLEMENTAL SCALE SQ SCH ×4 (08:00→21:24)
--- NOTE | 2018-01-06 08:19 | HHI.FPPN ---
Subjective Remarks No acute events overnight. Pt lying in bed, appears fatigue. States that he has epigastric pain upon coughing (8/10), otherwise, pain is tolerable and declined pain medications. Tolerating liquid diet. Currently on 3L NC, nurse reports that pt has been using oxygen intermittently. Nurse states that he endorses dizziness when he stands up. Hb 7.7 this AM. Will go ahead and transfuse 1 unit of RBC due to symptoms. Iron studies and Retic count ordered. Patient also complains of sharp chest pain, "felt as if somebody sat on him", ordered stat EKG and troponin. Denies SOB, N/V, and diarrhea. Patient will be going for repeat endoscopy at 1430 this afternoon per GI. (Marina Romero MD R1) Objective Vitals Vital Signs Date Time Temp Pulse Resp B/P (MAP) Pulse Ox O2 Delivery O2 Flow Rate FiO2 01/06/18 04:05 98.2 70 18 98/57 (71) 100 01/05/18 23:55 98.0 70 18 102/58 (73) 100 01/05/18 17:50 97.4 71 18 103/59 (74) 99 01/05/18 16:00 98.0 76 18 90/51 (64) 96 01/05/18 11:48 97.3 73 18 104/56 (72) 97 01/05/18 10:25 96 21.00 I/O 01/05/18 01/05/18 01/05/18 01/06/18 01/06/18 01/06/18 07:00 15:00 23:00 07:00 15:00 23:00 Intake Total 0 ml 1000 ml 2398 ml Output Total 1000 ml Balance -1000 ml 1000 ml 2398 ml Intake Oral 0 ml 0 ml 320 ml IV Total 1000 ml 2078 ml Output Urine Total 1000 ml # Voids 4 2 (Marina Romero MD R1) Result Diagram: 01/06/1843401/06/18434 Objective Remarks GENERAL: Thin, elderly male in no acute distress, fatigue SKIN: slight jaundice EYES: Pupils equal round and reactive. Extraocular motions intact. No scleral icterus present. No injection or drainage. CARDIOVASCULAR: Regular rate and rhythm without murmurs, gallops, or rubs. RESPIRATORY: CTAB, no wheezes or crackles, currently on 3L NC intermittently GASTROINTESTINAL: Abdomen soft, NT/ND, positive BS, liver palpable 3-4mm below the right coastal margin, no splenomegaly, no shifting dullness MUSCULOSKELETAL: Extremities without clubbing, cyanosis, or edema. No joint tenderness, effusion, or edema noted. No calf tenderness. Negative Homans sign bilaterally. NEUROLOGICAL: Awake, alert, oriented 3 (Marina Romero MD R1) A/P Assessment and Plan 77-year-old male with alcoholic cirrhosis with esophageal varices presents to the ED with melena. Discharge Planning Repeat Endoscopy today PT to eval and treat Anticipate discharge in 1-2 days if clinically improving (Marina Romero MD R1) Attending Attestation Patient examined by myself independently and case discussed with resident physicians I have read the above note and agree with the assessment/plan as discussed with me I was involved in all medical decision making for this patient Chay Lopez MD (Chay Lopez MD) Problem List: (1) Upper GI bleed ICD Codes: K92.2 - Gastrointestinal hemorrhage, unspecified Status: Acute Plan: Patient with extensive history of alcoholic cirrhosis with esophageal varices. Patient presents to the ED with melena secondary to upper GI bleed. Patient recently had band ligation x5 for Grade II-III esophageal varices on . GI consulted, recommendations appreciated -EGD 01/04: Numerous nonbleeding ulcers present in the mid and distal esophagus. Small nonbleeding varices were seen. Old blood seen in the fundus of the stomach. -Continue octreotide and protonix drip -repeat upper endoscopy today to see if the proximal stomach can be seen better. Clear liquids H/H-7.7/22.9 this AM, will transfuse 1 unit of RBC now due to symptoms of dizziness and fatigue Iron studies and Retic count pending Continue to trend H/H, transfuse if Hb<7 or symptomatic NS 100mls/hr (2) Chest pain ICD Codes: R07.9 - Chest pain, unspecified Plan: Patient complains of sharp chest pain this AM. Stat EKG and troponin pending (3) Cirrhosis of liver ICD Codes: K74.60 - Unspecified cirrhosis of liver Plan: Continue home spironolactone Held home furosemide and lactulose Ammonia level 57 on 01/04, patient is alert and oriented x3, will recheck ammonia level today (4) Diabetes ICD Codes: E11.9 - Type 2 diabetes mellitus without complications Plan: Patient states that his diabetes is controlled with diet at home Low sliding scale A1c 6.2% (5) Gout ICD Codes: M10.9 - Gout, unspecified Plan: Held allopurinol due to renal effects (6) Nutrition, metabolism, and development symptoms ICD Codes: R63.8 - Other symptoms and signs concerning food and fluid intake Plan: Diet: clear liquids Fluids: NS 100mls/hr Vitals every 4 monitor I's and O's Case Management Consulted (Marina Romero MD R1) Marina Romero MD R1 January 06, 2018 08:19 Chay Lopez MD January 06, 2018 14:23
[2018-01-06] MEDS: SODIUM CHLORIDE 0.9% FLUSH 10 ML FLUSH IV FLUSH SCH ×2 (09:00→21:24)
[2018-01-06] MEDS: SPIRONOLACTONE 50 MG TAB PO SCH ×3 (09:00→18:00)
[2018-01-06 10:12] LABS: RETIC # 72.7 MIL/L (20.0-150.0); RETIC % 3.3 % (0.4-3.0)
[2018-01-06 13:17] LABS: IRON (FE) 34 MCG/DL (65-175); TOTAL IRON BINDING CAPACITY 242 MCG/DL (250-450)
[2018-01-06] MEDS ORDERED: DO NOT ADM ANY ANTICOAGULANT DRUGS PRN (15:23)
--- NOTE | 2018-01-06 15:29 | GIPROC ---
[facility] [address] [facility]. [facility], [address] EGD PROCEDURE REPORT EXAM DATE: 01/06/2018 PATIENT NAME: Dimitri Howard MR #: [id number] BIRTHDATE: 1940 ATTENDING: David Gibson MD ORDER #: [id number] MASTER COASTWISE YACHT: Ann Morillo and Lennie Durand STATUS: inpatient INDICATIONS: The patient is a 77 yr old male here for an EGD due to Melena and anemia. Proximal stomach not seen well on previous upper endoscopy PROCEDURE PERFORMED: EGD w/ control of bleeding and APC MEDICATIONS: None and Per Anesthesia. TOPICAL ANESTHETIC: none CONSENT: The patient understands the risks and benefits of the procedure and understands that these risks include, but are not limited to: sedation, allergic reaction, infection, perforation and/or bleeding. Alternative means of evaluation and treatment include, among others: physical exam, x-rays, and/or surgical intervention. The patient elects to proceed with this endoscopic procedure. medical equipment was checked for proper function. Hand hygiene and appropriate measures for infection prevention was taken. After the risks, benefits and alternatives of the procedure were thoroughly explained, Informed consent was verified, confirmed and timeout was successfully executed by the treatment team. The patient was anesthetized with topical anesthesia and the Pentax [id number] endoscope was introduced through the mouth and advanced to the second portion of the duodenum. Retroflexion was performed and was normal The gastroscope was then slowly withdrawn and removed. ESOPHAGUS: The z-line was located 38cm from the incisors. Nonbleeding ulcer located just above the GE junction. Multiple non bleeding ulcers located in distal and mid esophagus. Some still had variceal bands on them. Small non-bleeding esophageal varices seen. STOMACH: Portal hypertensive gastropathy noted in the body of the stomach. Nonbleeding. Small antral erosions noted. 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 These would ooze when washed. Argon plasma cautery doneall bleeding ceased. DUODENUM: The duodenal mucosa appeared normal in the duodenal bulb and 2nd part duodenum. ADVERSE EVENTS: There were no complications. IMPRESSIONS: 1. The z-line was located 38cm from the incisors 2. Multiple non bleeding ulcers located in distal and mid esophagus. Some still had variceal bands on them. Small non-bleeding esophageal varices seen 3. Portal hypertensive gastropathy noted in the body of the stomach. Nonbleeding. Small antral erosions noted. 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 These would ooze when washed. Argon plasma cautery doneall bleeding ceased 4. Normal duodenal mucosa in the duodenal bulb and 2nd part duodenum 5. Retroflexion was performed and was normal RECOMMENDATIONS: Continue PPI PATIENT CONDITION: stable DISPOSITION: Inpatient REPEAT EXAM: David Gibson MD eSigned: David Gibson MD 01/06/2018 3:28 PM cc: PATIENT NAME: Dimitri Howard MR#: [id number]
[2018-01-06] MEDS ORDERED: SUCCINYLCHOLINE CHLORIDE 200 MG/10 ML VIAL IV ONE (15:34)
[2018-01-06] MEDS ORDERED: PROPOFOL 200 MG/20 ML AMP IV ONE (15:34)
[2018-01-06] MEDS ORDERED: LIDOCAINE HCL 1% PF 5 ML SYRINGE OTHER ONE (15:34)
[2018-01-06] MEDS ORDERED: NALOXONE HCL 0.4 MG/ML AMP IV PUSH PRN (15:45)
[2018-01-06] MEDS ORDERED: FLUMAZENIL 0.5 MG/5 ML VIAL IV PUSH PRN ×2 (15:45)
[2018-01-06] MEDS: SODIUM CHLOR 0.9% 1000 ML INJ 1,000 ML IV SCH (16:41)
--- NOTE | 2018-01-06 18:20 | EKG ---
Date Performed: 01/06/2018 Time Performed: 10:04:12 PTAGE: 77 years EKG: Sinus rhythm INFERIOR MYOCARDIAL INFARCTION , PROBABLY OLD Since previous tracing, no significant change noted AB NORMAL ECG PREVIOUS TRACING : 12/28/2017 11.26 DOCTOR: Sabina Pang Interpretating Date/Time 01/06/2018 18:19:37
[2018-01-06] MEDS: SUCRALFATE 1 GM/10 ML CUP PO SCH ×2 (19:01→21:25)
[2018-01-07] VITALS: BP 96/52; PULSE 68; RESP 18; TEMP 98.5; O2SAT 93
[2018-01-07] MEDS: OCTREOTIDE INJ 500 MCG in SODIUM CHLORID 0.9% 500 ML INJ 500 ML IV SCH ×3 (00:47→23:15)
[2018-01-07 04:00] VITALS: BP 90/54; PULSE 74; RESP 16; TEMP 98.4; O2SAT 94
[2018-01-07] MEDS: PANTOPRAZOLE INJ 80 MG in SODIUM CHLORIDE 0.9% INJ 100 ML IV SCH ×3 (04:12→23:15)
[2018-01-07 05:03] LABS: MEAN CELL VOLUME 101.1 FL (80.0-100.0); MEAN CORPUSCULAR HEMOGLOBIN 34.9 PG (27.0-34.0); MEAN CORPUSCULAR HGB CONC 34.5 % (32.0-36.0); PLATELET COUNT 101 TH/MM3 (150-450); RED BLOOD COUNT 2.57 MIL/MM3 (4.50-5.90); RED CELL DISTRIBUTION WIDTH 17.1 % (11.6-17.2); WHITE BLOOD COUNT 5.3 TH/MM3 (4.0-11.0)
[2018-01-07 05:21] LABS: BICARBONATE 26.6 MEQ/L (21.0-32.0); CALCIUM 7.8 MG/DL (8.5-10.1); CREATININE 0.63 MG/DL (0.60-1.30)
[2018-01-07 08:00] VITALS: BP 97/57; PULSE 72; RESP 18; TEMP 98.6; O2SAT 96
[2018-01-07] MEDS: INSULIN ASPART SUPPLEMENTAL SCALE SQ SCH ×4 (08:00→20:51)
[2018-01-07] MEDS: SODIUM CHLORIDE 0.9% FLUSH 10 ML FLUSH IV FLUSH SCH ×2 (09:00→20:51)
--- NOTE | 2018-01-07 09:04 | HHI.FPPN ---
Subjective Remarks s/p repeat endoscopy on 01/06 No acute events overnight. Patient received 1 unit of RBC overnight. Hb increased to 9.0 from 7.7. Patient reports that he feels much better after receiving blood. Physical therapy present at bedside. He states that he had assistance going to the bathroom and was not dizzy upon standing. He had 1 BM and states that it is black and tarry. Patient complains of epigastric pain, states that it is only painful with coughing. He denies CP, SOB, and N/V. (Marina Romero MD R1) Objective Vitals Vital Signs Date Time Temp Pulse Resp B/P (MAP) Pulse Ox O2 Delivery O2 Flow Rate FiO2 01/07/18 04:00 98.4 74 16 90/54 (66) 94 01/07/18 00:00 98.5 68 18 96/52 (67) 93 01/06/18 22:32 98.5 79 16 114/60 95 01/06/18 20:50 98.2 76 18 122/63 (82) 97 01/06/18 20:20 98.3 76 18 122/63 (82) 97 01/06/18 20:00 21 01/06/18 18:43 97.9 76 16 96/58 97 01/06/18 18:19 97.6 77 17 100/60 95 01/06/18 16:30 97.4 70 18 114/60 (78) 96 01/06/18 15:45 73 14 108/63 (78) 95 Room Air 01/06/18 15:30 74 19 110/63 (79) 100 Room Air 01/06/18 15:25 98.0 75 13 109/57 (74) 99 Room Air 01/06/18 11:49 97.9 70 18 99/53 (68) 99 01/06/18 10:05 99 Nasal Cannula 3.00 I/O 01/06/18 01/06/18 01/06/18 01/07/18 01/07/18 01/07/18 07:00 15:00 23:00 07:00 15:00 23:00 Intake Total 2398 ml 1110 ml 520 ml Output Total 675 ml Balance 2398 ml 435 ml 520 ml Intake Oral 320 ml 500 ml 520 ml IV Total 2078 ml Packed Cells 400 ml Blood Product IV Normal Saline Flush 10 ml Other 200 ml Output Urine Total 675 ml # Voids 2 3 # Bowel Movements 0 0 (Marina Romero MD R1) Result Diagram: 01/07/1842701/07/18427 Objective Remarks GENERAL: Thin, pleasant, elderly male in no acute distress SKIN: slight jaundice EYES: Pupils equal round and reactive. Extraocular motions intact. No scleral icterus present. No injection or drainage. CARDIOVASCULAR: Regular rate and rhythm without murmurs, gallops, or rubs. RESPIRATORY: CTAB, no wheezes or crackles GASTROINTESTINAL: Abdomen soft, NT/ND, positive BS, liver palpable 3-4mm below the right coastal margin, no splenomegaly, no shifting dullness MUSCULOSKELETAL: Extremities without clubbing, cyanosis, or edema. No joint tenderness, effusion, or edema noted. No calf tenderness. Negative Homans sign bilaterally. NEUROLOGICAL: Awake, alert, oriented 3 (Marina Romero MD R1) A/P Assessment and Plan 77-year-old male with alcoholic cirrhosis with esophageal varices presents to the ED with melena. Discharge Planning Awaiting GI clearance Continue to trend H&H Home health PT Anticipate discharge in 1-2 days if clinically improving (Marina Romero MD R1) Attending Attestation Patient examined independently of resident physicians in case discussed with resident physician I have read the above note and agree with the assessment/plan as discussed with me I was involved in all medical decision making for this patient Chay Lopez MD (Chay Lopez MD) Problem List: (1) Upper GI bleed ICD Codes: K92.2 - Gastrointestinal hemorrhage, unspecified Status: Acute Plan: Patient with extensive history of alcoholic cirrhosis with esophageal varices. Patient presents to the ED with melena secondary to upper GI bleed. Patient recently had band ligation x5 for Grade II-III esophageal varices on . GI consulted, recommendations appreciated -EGD 01/04: Numerous nonbleeding ulcers present in the mid and distal esophagus. Small nonbleeding varices were seen. Old blood seen in the fundus of the stomach. -Repeat EGD 01/06: Multiple nonbleeding ulcers located in the distal midesophagus. Small nonbleeding esophageal varices seen. Portal hypertensive gastropathy noted in the body of the stomach. Nonbleeding. Small antral erosions noted. Gastric antral vascular ectasia was noted in the antrum/pre- pyloric area. Normal duodenal mucosa in the duodenal bulb and second part duodenum. Retroflexion was performed and was normal. -Continue octreotide and Protonix drip Full liquid diet s/p 1 unit of RBC transfused, Hb increased to 9.0 from 7.7 this morning, patient clinically well Iron studies, Iron 34, TIBC 242, % saturation of 14 Retic count 3.3 Continue to trend H/H, transfuse if Hb<7 or symptomatic NS 100mls/hr (2) Cirrhosis of liver ICD Codes: K74.60 - Unspecified cirrhosis of liver Plan: Continue home spironolactone Held home furosemide and lactulose Ammonia level 57 on 01/04, patient is alert and oriented x3 Ammonia level 41 on 01/07 (3) Chest pain ICD Codes: R07.9 - Chest pain, unspecified Status: Resolved Plan: Patient complains of sharp chest pain yesterday. patient still complains of epigastric pain with coughing. Most likely due to post-EGD or MSK related Stat EKG-sinus rhythm, no ST changes and troponin 0.04 (4) Diabetes ICD Codes: E11.9 - Type 2 diabetes mellitus without complications Plan: Patient states that his diabetes is controlled with diet at home Low sliding scale A1c 6.2% (5) Gout ICD Codes: M10.9 - Gout, unspecified Plan: Held allopurinol due to renal effects (6) Nutrition, metabolism, and development symptoms ICD Codes: R63.8 - Other symptoms and signs concerning food and fluid intake Plan: Diet: full liquid Fluids: NS 100mls/hr Vitals every 4 monitor I's and O's Case Management Consulted (Marina Romero MD R1) Marina Romero MD R1 January 07, 2018 09:04 Chay Lopez MD January 07, 2018 11:46
--- NOTE | 2018-01-07 09:05 | HHI.FF ---
Face to Face Verification Diagnosis: (1) Cirrhosis of liver (2) Diabetes (3) Upper GI bleed Physical Therapy Order: Evaluate and Treat, Improve ambulation, Strength and gait training I have seen patient Dimitri Howard on 01/07/18. My clinical findings support the need for the requested home health care services because: Ltd mobility - disease progression Deconditioned w/ increased weakness I certify that my clinical findings support that this patient is homebound because: Impaired cognitive ability/safety Unsteady gait/balance Marina Romero MD R1 January 07, 2018 09:05
[2018-01-07] MEDS: SPIRONOLACTONE 50 MG TAB PO SCH ×3 (09:14→17:45)
[2018-01-07] MEDS: SUCRALFATE 1 GM/10 ML CUP PO SCH ×4 (09:14→20:51)
[2018-01-07] MEDS: LACTULOSE SYRUP 20 GM/30 ML CUP PO SCH ×2 (11:18→21:00)
[2018-01-07 12:00] VITALS: BP 94/54; PULSE 82; RESP 18; TEMP 97.9; O2SAT 96
[2018-01-07] MEDS: SODIUM CHLOR 0.9% 1000 ML INJ 1,000 ML IV SCH ×2 (12:41→22:41)
--- NOTE | 2018-01-07 13:06 | HHI.GIFU ---
GI Follow-up Note Consult Follow-up Subjective: Patient standing at bedside without dizziness. Had a small black bowel movement last night which is the first bowel movement he has had in some time. No bowel movements today. He denies any nausea, vomiting, abdominal pain Objective: PHYSICAL EXAMINATION: 97/57-72-18 No fever HEENT: no jaundice. NECK: Neck is supple, no JVD, no lymphadenopathy. CHEST: Chest is clear to auscultation and percussion. CARDIAC: Regular rate and rhythm with no murmur gallop or rubs. ABDOMEN: Soft, nondistended, nontender; no hepatosplenomegaly; bowel sounds are present in all four quadrants. EXTREMITIES: No edema. SKIN: no rash; no jaundice. 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 No asterixis Available Data (labs, X- Rays, Procedues) : Hemoglobin 9.0 ASSESSMENT/PLAN: 1. Melena -prob old blood last pm. No bleeding this am 2. Anemia - stable 3. Cirrhosis of the liver with ascites. There is no ascites clinically at this time. 4. Esophageal varices-small. non-bleeding 5. History of hepatic encephalopathy - he is clinically stable. 6. Patient had multiple mid and distal esophageal ulcers-some with Bands still on them 7. Portal hypertensive gastropathy was noted in the body of the stomach. Proximal stomach did not have any bleeding lesions 8. Nonbleeding antral erosions noted. 9. Gastric antral vascular ectasias (GAVE) noted--argon plasma cautery done to destroy these lesions. PLAN: 1. I suspect he is bleeding from portal hypertensive gastropathy as well as gastric antral vascular ectasias--the latter can recur despite cautery 2. Unfortunately patient is intolerant of nonselective [id number]-adye is a treatment for portal hypertensive gastropathy. Other options include octreotide as well as TIPS. The latter is not done in our hospital 3. Advance diet 4. Continue PPI and octreotide. If patient does well tomorrow start weaning the octreotide to 25 mcg/h for 12 hours and then stop it altogether It was a pleasure seeing Dimitri Howard. Thank you for this consult. Entered by: David Landin MD January 07, 2018 13:06
[2018-01-07 16:00] VITALS: BP 100/62; PULSE 73; RESP 18; TEMP 97.9; O2SAT 95
[2018-01-07 20:20] VITALS: BP 100/59; PULSE 82; RESP 17; TEMP 97.9; O2SAT 96
[2018-01-08 00:10] VITALS: BP 96/53; PULSE 75; RESP 17; TEMP 99.2; O2SAT 95
[2018-01-08 04:16] LABS: HEMATOCRIT 25.8 % (39.0-51.0); MEAN CELL VOLUME 101.2 FL (80.0-100.0); MEAN CORPUSCULAR HEMOGLOBIN 35.4 PG (27.0-34.0); MEAN PLATELET VOLUME 9.8 FL (7.0-11.0); PLATELET COUNT 103 TH/MM3 (150-450); RED BLOOD COUNT 2.55 MIL/MM3 (4.50-5.90); RED CELL DISTRIBUTION WIDTH 17.2 % (11.6-17.2); WHITE BLOOD COUNT 6.4 TH/MM3 (4.0-11.0)
[2018-01-08 04:20] VITALS: BP 99/53
[2018-01-08 04:47] LABS: BICARBONATE 26.4 MEQ/L (21.0-32.0); CALCIUM 7.7 MG/DL (8.5-10.1); CREATININE 0.77 MG/DL (0.60-1.30)
[2018-01-08 08:00] VITALS: BP 108/60; PULSE 78; RESP 17; TEMP 98.4; O2SAT 93
[2018-01-08] MEDS ORDERED: INSULIN DETEMIR 100 UNITS/ML VIAL SQ SCH ×2 (08:00→09:00)
--- NOTE | 2018-01-08 08:28 | HHI.FPPN ---
Subjective Remarks Patient states that he feels tired this morning and he is beginning to have abdominal discomfort after he ate last night due to fluid build up - he wants to know if he can be drained. Patient also reports pain in his chest when he coughs which he believes results from having two recent endoscopies. He denies dizziness and overall feels better than when he was admitted. He had one stool yesterday that was black. (Mi Moore MD R2) Objective Vitals Vital Signs Date Time Temp Pulse Resp B/P (MAP) Pulse Ox O2 Delivery O2 Flow Rate FiO2 01/08/18 04:20 99/53 (68) 01/08/18 00:10 99.2 75 17 96/53 (67) 95 01/07/18 20:20 97.9 82 17 100/59 (73) 96 01/07/18 16:00 97.9 73 18 100/62 (75) 95 01/07/18 12:00 97.9 82 18 94/54 (67) 96 I/O 01/07/18 01/07/18 01/07/18 01/08/18 01/08/18 01/08/18 07:00 15:00 23:00 07:00 15:00 23:00 Intake Total 520 ml 720 ml 360 ml Output Total 400 ml Balance 520 ml 720 ml -40 ml Intake Oral 520 ml 360 ml IV Total 720 ml Output Urine Total 400 ml # Voids 3 3 # Bowel Movements 0 0 (Mi Moore MD R2) Result Diagram: 01/08/18 0343 01/08/18 0343 Objective Remarks GENERAL: Thin, pleasant, elderly male in no acute distress SKIN: slight jaundice EYES: Pupils equal round and reactive. Extraocular motions intact. No scleral icterus present. No injection or drainage. CARDIOVASCULAR: Regular rate and rhythm without murmurs, gallops, or rubs. RESPIRATORY: Diffuse crackles GASTROINTESTINAL: Abdomen soft, moderately distended compared to admission, positive bowel sounds MUSCULOSKELETAL: Extremities without clubbing, cyanosis, or edema. No joint tenderness, effusion, or edema noted. No calf tenderness. NEUROLOGICAL: Awake, alert, oriented 3 (Mi Moore MD R2) A/P Assessment and Plan 77-year-old male with alcoholic cirrhosis and esophageal varices presented to the ED with melena. Discharge Planning Awaiting GI clearance Continue to trend H&H daily Home health PT Anticipate discharge in 1-2 days (Mi Moore MD R2) Attending Attestation Patient examined independently and case discussed with resident physicians I have read the above note and agree with the assessment/plan as discussed with me I was involved in all medical decision making for this patient Chay Lopez MD (Chay Lopez MD) Problem List: (1) Upper GI bleed ICD Codes: K92.2 - Gastrointestinal hemorrhage, unspecified Status: Acute Plan: Patient with extensive history of alcoholic cirrhosis with esophageal varices. GI consulted -EGD 01/04: Numerous nonbleeding ulcers present in the mid and distal esophagus. Small nonbleeding varices were seen. Old blood seen in the fundus of the stomach. -Repeat EGD 01/06: Multiple nonbleeding ulcers located in the distal midesophagus. Small nonbleeding esophageal varices seen. Portal hypertensive gastropathy noted in the body of the stomach. Nonbleeding. Small antral erosions noted. Gastric antral vascular ectasia was noted in the antrum/pre- pyloric area. Normal duodenal mucosa in the duodenal bulb and second part duodenum. Retroflexion was performed and was normal. -Patient cannot tolerate nonselective beta-blockers and may need TIPS which would require an outside hospital -Continue octreotide at 25ml/hr for 12 hours then stop -Continue Protonix drip H/H stable at 9 Iron studies, Iron 34, TIBC 242, % saturation of 14 Retic count 3.3 Continue to trend H/H, transfuse if Hb<7 or <8 and symptomatic (2) Cirrhosis of liver ICD Codes: K74.60 - Unspecified cirrhosis of liver Plan: Continue home spironolactone Continue home furosemide at 40mg PO BID Continue home lactulose at 30ml PO BID Ammonia level 68 on 01/08, patient is alert and oriented x3 (3) Fluid overload ICD Codes: E87.70 - Fluid overload, unspecified Plan: Distended abdomen and crackles on lung exam -Order chest x-ray PA lateral -Lasix 40mg IV x1 -Resume home Lasix PO at 40mg BID -Fluid restriction to 2L daily -Strict Is and Os -Consider IR consult for paracentesis if worsens (4) Diabetes ICD Codes: E11.9 - Type 2 diabetes mellitus without complications Plan: Patient states that his diabetes is controlled with diet at home Required 11 units SSi in the past 24 hours Start Levemir at 2.5 units subQ Low sliding scale (5) Low blood pressure ICD Codes: I95.9 - Hypotension, unspecified Plan: BPs range between 94-108 systolic Restart Midodrine 10 mg TID (6) Gout ICD Codes: M10.9 - Gout, unspecified Plan: Held allopurinol (7) Nutrition, metabolism, and development symptoms ICD Codes: R63.8 - Other symptoms and signs concerning food and fluid intake Plan: Diet: Diabetic diet Fluids: oral fluids Vitals every 4 monitor I's and O's Tessalon Perrles for cough Seen with Dr. Romero, PGY-1 (Mi Moore MD R2) Mi Moore MD R2 January 08, 2018 08:28 Chay Lopez MD January 08, 2018 14:32
[2018-01-08] MEDS ORDERED: FUROSEMIDE 40 MG/4 ML VIAL IV PUSH ONE (08:45)
[2018-01-08] MEDS ORDERED: BENZONATATE 100 MG CAP PO PRN (08:45)
[2018-01-08] MEDS: SODIUM CHLORIDE 0.9% FLUSH 10 ML FLUSH IV FLUSH SCH ×2 (09:00→21:00)
[2018-01-08] MEDS: MIDODRINE 5 MG TAB PO SCH ×3 (09:00→17:44)
[2018-01-08] MEDS: SPIRONOLACTONE 50 MG TAB PO SCH ×3 (09:52→18:00)
[2018-01-08] MEDS: SUCRALFATE 1 GM/10 ML CUP PO SCH ×4 (09:52→21:26)
[2018-01-08] MEDS: LACTULOSE SYRUP 20 GM/30 ML CUP PO SCH ×3 (09:52→21:26)
--- NOTE | 2018-01-08 10:51 | RADRPT ---
EXAM DATE: 01/08/2018 10:42 AM EDT AGE/SEX: 77 years / Male INDICATIONS: Pleural effusion. CLINICAL DATA: This is the patient's subsequent encounter. Patient reports that signs and symptoms h ave been present for 1 week and indicates a pain score of 0/10. MEDICAL/SURGICAL HISTORY: None. . ORIF right ribs. COMPARISON: [facility] [place], 01/[place]. . FINDINGS: PA and lateral views of the chest demonstrates a mild infiltrate in the left costophrenic angle. Ther e is also some mild blunting of the left costophrenic angle suggestive of a small effusion. This is a new finding compared to the prior study. The right lung remains clear and well aerated. The heart si ze is stable. The bony structures are stable.. CONCLUSION: 1. New small mild infiltrate in the left costophrenic angle with a small left effusion. 2. The right lung remains clear and well aerated. Electronically signed by: Chay Marte MD 01/08/2018 10:50 AM EDT
[2018-01-08] MEDS: INSULIN ASPART SUPPLEMENTAL SCALE SQ SCH ×4 (11:05→21:27)
[2018-01-08] MEDS: INSULIN DETEMIR 100 UNITS/ML VIAL SQ SCH ×2 (11:06→21:27)
[2018-01-08 12:00] VITALS: BP 120/71; PULSE 89; RESP 17; TEMP 98; O2SAT 96
[2018-01-08] MEDS: PANTOPRAZOLE INJ 80 MG in SODIUM CHLORIDE 0.9% INJ 100 ML IV SCH ×2 (12:54→19:15)
[2018-01-08] MEDS: OCTREOTIDE INJ 500 MCG in SODIUM CHLORID 0.9% 500 ML INJ 500 ML IV SCH (12:54)
--- NOTE | 2018-01-08 13:42 | HHI.GIFU ---
GI Follow-up Note Consult Follow-up Subjective: Patient laying in bed. Some pleuritic chest pain. Feels abdomen is filling up with ascitic fluid. Octreotide is being weaned Objective: PHYSICAL EXAMINATION: Vitals signs stable No fever HEENT: no jaundice. Throat is clear. NECK: Neck is supple, no JVD, no lymphadenopathy. CHEST: Chest is clear to auscultation and percussion. CARDIAC: Regular rate and rhythm with no murmur gallop or rubs. ABDOMEN: Soft but there appears to be increasing ascitic fluid. Minimal tenderness. no hepatosplenomegaly; bowel sounds are present in all four quadrants. EXTREMITIES: Noedema. SKIN: no rash; no jaundice. 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 Available Data (labs, X- Rays, Procedues) : Hemoglobin 9 ASSESSMENT/PLAN: 1. Melena -had a small black bowel movement. However hemoglobin stable. Suspect this is all blood 2. Anemia - stable 3. Cirrhosis of the liver with ascites. Ascites present. 4. Esophageal varices-small. non-bleeding 5. History of hepatic encephalopathy - he is clinically stable. 6. Patient had multiple mid and distal esophageal ulcers-some with Bands still on them 7. Portal hypertensive gastropathy was noted in the body of the stomach. Proximal stomach did not have any bleeding lesions 8. Nonbleeding antral erosions noted. 9. Gastric antral vascular ectasias (GAVE) noted--argon plasma cautery done to destroy these lesions. PLAN: 1. I suspect he is bleeding from portal hypertensive gastropathy as well as gastric antral vascular ectasias--the latter can recur despite cautery 2. Unfortunately patient is intolerant of nonselective [id number]-[id number] is a treatment for portal hypertensive gastropathy. Other options include octreotide as well as TIPS. The latter is not done in our hospital 3. Advance diet 4. Continue to wean off octreotide. 5. Ultrasound-guided paracentesis. Send fluid for cytology, cell count differential, culture and sensitivity and albumin 6. Start empiric antibiotics for possible SBP It was a pleasure seeing Dimitri Howard. Thank you for this consult. Entered by: David Landin MD January 08, 2018 13:42
[2018-01-08] MEDS: CIPROFLOXACIN 400 MG PREMIX 200 ML IV SCH (14:00)
[2018-01-08 16:00] VITALS: BP 94/53; PULSE 75; RESP 17; TEMP 98.8; O2SAT 94
[2018-01-08 16:50] LABS: INTERNATIONAL NORMALIZED RATIO 1.2 RATIO; PROTHROMBIN TIME - PATIENT 11.7 SEC (9.8-11.6)
[2018-01-08 17:00] LABS: TOTAL PROTEIN 5.8 GM/DL (6.4-8.2)
[2018-01-08] MEDS ORDERED: FUROSEMIDE 40 MG TAB PO SCH ×2 (18:00)
--- NOTE | 2018-01-08 19:00 | RADRPT ---
EXAM DATE: 01/08/2018 5:44 PM EDT AGE/SEX: 77 years / Male INDICATIONS: Ascites. CLINICAL DATA: This is the patient's subsequent encounter. Patient reports that signs and symptoms h ave been present for 4 - 6 months and indicates a pain score of 1/10. MEDICAL/SURGICAL HISTORY: Diabetes mellitus type II. Hiatal hernia. Gastrointestinal bleed. Liver disease. Cholecystectomy. Hernia repair. COMPARISON: No prior [facility] exams available for comparison. No external comparison. FINDINGS: Masses: None Fluid Collections: Trace fluid without drainable mild. Other: Negative. CONCLUSION: No evidence of significant ascites amenable to paracentesis. Electronically signed by: Randy Oliver MD 01/08/2018 6:59 PM EDT
[2018-01-08 20:45] VITALS: BP 105/57; PULSE 78; RESP 17; TEMP 98.5; O2SAT 97
[2018-01-09] VITALS: BP 99/61; PULSE 77; RESP 18; TEMP 99.1; O2SAT 94
[2018-01-09] MEDS: CIPROFLOXACIN 400 MG PREMIX 200 ML IV SCH (02:00)
[2018-01-09 04:00] VITALS: BP 91/53; PULSE 51; RESP 16; TEMP 98.3; O2SAT 94
[2018-01-09 04:04] LABS: HEMATOCRIT 25.1 % (39.0-51.0); HEMOGLOBIN 8.8 GM/DL (13.0-17.0); MEAN CELL VOLUME 101.4 FL (80.0-100.0); MEAN CORPUSCULAR HEMOGLOBIN 35.4 PG (27.0-34.0); MEAN CORPUSCULAR HGB CONC 34.9 % (32.0-36.0); MEAN PLATELET VOLUME 10.3 FL (7.0-11.0); PLATELET COUNT 101 TH/MM3 (150-450); RED BLOOD COUNT 2.47 MIL/MM3 (4.50-5.90); WHITE BLOOD COUNT 6.3 TH/MM3 (4.0-11.0)
[2018-01-09 04:32] LABS: ALT (GPT) 78 U/L (12-78); AST (GOT) 64 U/L (15-37); BICARBONATE 26.6 MEQ/L (21.0-32.0); BLOOD UREA NITROGEN 11 MG/DL (7-18); CALCIUM 7.6 MG/DL (8.5-10.1); CHLORIDE 101 MEQ/L (98-107); CREATININE 0.83 MG/DL (0.60-1.30); GLOMERULAR FILTRATION RATE 90 ML/MIN (>89); GLUCOSE,RANDOM 205 MG/DL (74-106); SODIUM (NA) 136 MEQ/L (136-145)
[2018-01-09 04:35] LABS: ALKALINE PHOSPHATASE 304 U/L (45-117); TOTAL PROTEIN 5.6 GM/DL (6.4-8.2)
[2018-01-09] MEDS: PANTOPRAZOLE INJ 80 MG in SODIUM CHLORIDE 0.9% INJ 100 ML IV SCH (05:15)
[2018-01-09] MEDS: MIDODRINE 5 MG TAB PO SCH ×2 (06:31→13:22)
[2018-01-09] MEDS: LACTULOSE SYRUP 20 GM/30 ML CUP PO SCH ×2 (06:32→14:00)
[2018-01-09] MEDS ORDERED: POTASSIUM CHLORIDE 20 MEQ CONTROLLED RELEASE TAB PO ONE (07:45)
[2018-01-09 08:00] VITALS: BP 106/62; PULSE 61; RESP 18; TEMP 98.6; O2SAT 92
[2018-01-09] MEDS: INSULIN ASPART SUPPLEMENTAL SCALE SQ SCH ×2 (08:00→12:00)
[2018-01-09] MEDS: SUCRALFATE 1 GM/10 ML CUP PO SCH ×2 (08:51→13:22)
[2018-01-09] MEDS: SODIUM CHLORIDE 0.9% FLUSH 10 ML FLUSH IV FLUSH SCH (08:52)
[2018-01-09] MEDS: SPIRONOLACTONE 50 MG TAB PO SCH ×2 (08:53→13:00)
[2018-01-09] MEDS ORDERED: FUROSEMIDE 20 MG TAB PO SCH (09:00)
[2018-01-09] MEDS ORDERED: INSULIN DETEMIR 100 UNITS/ML VIAL SQ SCH (09:00)
--- NOTE | 2018-01-09 11:13 | HHI.GIFU ---
GI Follow-up Note Consult Follow-up Subjective: Patient laying in bed comfortably--had multiple brown bowel movement. Complains of some bloating and gas. no significant ascites seen on ultrasound--no paracentesis done Objective: PHYSICAL EXAMINATION: Vitals signs stable No fever HEENT: Pupils round and reactive to light NECK: no lymphadenopathy. CHEST: Chest is clear to auscultation and percussion. CARDIAC: Regular rate and rhythm with no murmur gallop or rubs. ABDOMEN: Soft but mild tympany noted. nontender; no hepatosplenomegaly; bowel sounds are present in all four quadrants. Did not feel any ascites today EXTREMITIES: No clubbing, cyanosis, or edema. SKIN: no jaundice. MANAGER STATISTICAL PROGRAMMING: alert and oriented times three. Available Data (labs, X- Rays, Procedues) : Hemoglobin 8.8-stable ASSESSMENT/PLAN: 1. Melena -had multiple brown problems today. The multiple stools are probably related to lactulose 2. Anemia - stable 3. Cirrhosis of the liver with ascites. No significant ascites seen on ultrasound. I suspect his abdominal distention is related to lactulose which can cause gas and bloating. 4. Esophageal varices-small. non-bleeding 5. History of hepatic encephalopathy - he is clinically stable. 6. Patient had multiple mid and distal esophageal ulcers-some with Bands still on them 7. Portal hypertensive gastropathy was noted in the body of the stomach. Proximal stomach did not have any bleeding lesions 8. Nonbleeding antral erosions noted. 9. Gastric antral vascular ectasias (GAVE) noted--argon plasma cautery done to destroy these lesions. 10. Bloating and gas PLAN: 1. I suspect he is bleeding from portal hypertensive gastropathy as well as gastric antral vascular ectasias--the latter can recur despite cautery 2. Unfortunately patient is intolerant of nonselective gutb-zvbpibjf-hovd is a treatment for portal hypertensive gastropathy. Other options include octreotide as well as TIPS. The latter is not done in our hospital 3. Advance diet 4. Off octreotide at present 5. Since no abdominal ascites will stop Cipro 6. Because of abdominal bloating and gas and multiple bowel movements I would stop lactulose and add on Xifaxan 550 mg twice daily as an alternative It was a pleasure seeing Dimitri Howard. Thank you for this consult. Entered by: David Landin MD January 09, 2018 11:13
[2018-01-09] MEDS ORDERED: RIFAXIMIN 550 MG TAB PO SCH (11:30)
--- NOTE | 2018-01-09 11:37 | HHI.FPPN ---
Subjective Remarks No acute events overnight. Patient resting in bed comfortably. States that he has had multiple bowel movements due to increased dose of lactulose. Otherwise he is doing well. He denies chest pain or shortness of breath. Tolerating diet well. Vital signs stable. (Marina Romero MD R1) Objective Vitals Vital Signs Date Time Temp Pulse Resp B/P (MAP) Pulse Ox O2 Delivery O2 Flow Rate FiO2 01/09/18 08:00 98.6 61 18 106/62 (77) 92 01/09/18 04:00 98.3 51 16 91/53 (66) 94 01/09/18 00:00 99.1 77 18 99/61 (74) 94 01/08/18 20:45 98.5 78 17 105/57 (73) 97 01/08/18 19:30 Room Air 01/08/18 16:00 98.8 75 17 94/53 (67) 94 01/08/18 12:00 98.0 89 17 120/71 (87) 96 I/O 01/08/18 01/08/18 01/08/18 01/09/18 01/09/18 01/09/18 07:00 15:00 23:00 07:00 15:00 23:00 Intake Total 360 ml 480 ml 570 ml Output Total 400 ml 250 ml 200 ml Balance -40 ml -250 ml 480 ml 370 ml Intake Oral 360 ml 480 ml IV Total 570 ml Output Urine Total 400 ml 250 ml 200 ml # Voids 3 # Bowel Movements 0 (Marina Romero MD R1) Result Diagram: 01/09/18 0345 01/09/18 0345 Objective Remarks GENERAL: Thin, pleasant, elderly male in no acute distress SKIN: Jaundice has improved since admission EYES: Pupils equal round and reactive. Extraocular motions intact. No scleral icterus present. No injection or drainage. CARDIOVASCULAR: Regular rate and rhythm without murmurs, gallops, or rubs. RESPIRATORY: Clear to auscultation bilaterally, no wheezes or crackles GASTROINTESTINAL: Abdomen firm, moderately distended compared to admission, positive bowel sounds MUSCULOSKELETAL: Extremities without clubbing, cyanosis, or edema. No joint tenderness, effusion, or edema noted. No calf tenderness. NEUROLOGICAL: Awake, alert, oriented 3 (Marina Romero MD R1) A/P Assessment and Plan 77-year-old male with alcoholic cirrhosis and esophageal varices presented to the ED with melena. Discharge Planning Cleared from GI standpoint Home health PT Anticipate discharge today (Marina Romero MD R1) Attending Attestation Pt. examined independently and case discussed with resident physicians I have read the above note and agree with the assessment/plan as discussed with me I was involved in all medical decision making for this patient. Chay Lopez MD (Chay Lopez MD) Problem List: (1) Upper GI bleed ICD Codes: K92.2 - Gastrointestinal hemorrhage, unspecified Status: Acute Plan: Patient with extensive history of alcoholic cirrhosis with esophageal varices. GI consulted -EGD 01/04: Numerous nonbleeding ulcers present in the mid and distal esophagus. Small nonbleeding varices were seen. Old blood seen in the fundus of the stomach. -Repeat EGD 01/06: Multiple nonbleeding ulcers located in the distal midesophagus. Small nonbleeding esophageal varices seen. Portal hypertensive gastropathy noted in the body of the stomach. Nonbleeding. Small antral erosions noted. Gastric antral vascular ectasia was noted in the antrum/pre- pyloric area. Normal duodenal mucosa in the duodenal bulb and second part duodenum. Retroflexion was performed and was normal. -Patient cannot tolerate nonselective beta-blockers and may need TIPS which would require an outside hospital -Off octreotide -No abdominal ascites present on abdominal US- Cipro stopped (01/08-01/09) -Patient will be discharged with Protonix 40mg PO daily, Rifaximin 550mg PO BID in place of lactulose, and Sucralfate -F/U with Dr. Mclaughlin outpatient H/H stable Iron studies, Iron 34, TIBC 242, % saturation of 14 Retic count 3.3 (2) Cirrhosis of liver ICD Codes: K74.60 - Unspecified cirrhosis of liver Plan: Continue home spironolactone Continue home furosemide at 40mg PO BID Discontinued home lactulose at 30ml PO BID Start Rifaximin 550mg PO BID Ammonia level 68 on 01/08, patient is alert and oriented x3 (3) Diabetes ICD Codes: E11.9 - Type 2 diabetes mellitus without complications Plan: Patient states that his diabetes is controlled with diet at home Required 10units SSi in the past 24 hours Continue Levemir at 2.5 units subQ Low sliding scale Patient will be discharged with metformin (4) Low blood pressure ICD Codes: I95.9 - Hypotension, unspecified Plan: BPs range between 94-108 systolic Continue Midodrine 10 mg TID (5) Gout ICD Codes: M10.9 - Gout, unspecified Plan: Held allopurinol Continue home allopurinol upon discharge (6) Nutrition, metabolism, and development symptoms ICD Codes: R63.8 - Other symptoms and signs concerning food and fluid intake Plan: Diet: Diabetic diet Fluids: oral fluids Vitals every 4 monitor I's and O's Tessalon Perrles for cough (Marina Romero MD R1) Marina Romero MD R1 January 09, 2018 11:37 Chay Lopez MD January 09, 2018 12:53
[2018-01-09] MEDS ORDERED: PROT40TA PO (11:56)
[2018-01-09] MEDS ORDERED: XIFA550T4 PO (11:56)
[2018-01-09] MEDS ORDERED: BENZ100 PO (11:56)
[2018-01-09] MEDS ORDERED: SUCR1S PO (11:56)
[2018-01-09 12:00] VITALS: BP 95/61; PULSE 78; RESP 18; TEMP 98.4; O2SAT 96
--- NOTE | 2018-01-09 12:00 | HHI.DS ---
Discharge Summary Admission Date January 04, 2018 at 14:14 Admitting Diagnosis Upper GI bleed (1) Upper GI bleed Plan: Patient with extensive history of alcoholic cirrhosis with esophageal varices. GI consulted -EGD 01/04: Numerous nonbleeding ulcers present in the mid and distal esophagus. Small nonbleeding varices were seen. Old blood seen in the fundus of the stomach. -Repeat EGD 01/06: Multiple nonbleeding ulcers located in the distal midesophagus. Small nonbleeding esophageal varices seen. Portal hypertensive gastropathy noted in the body of the stomach. Nonbleeding. Small antral erosions noted. Gastric antral vascular ectasia was noted in the antrum/pre- pyloric area. Normal duodenal mucosa in the duodenal bulb and second part duodenum. Retroflexion was performed and was normal. -Patient cannot tolerate nonselective beta-blockers and may need TIPS which would require an outside hospital -Continue octreotide at 25ml/hr for 12 hours then stop -Continue Protonix drip H/H stable at 9 Iron studies, Iron 34, TIBC 242, % saturation of 14 Retic count 3.3 Continue to trend H/H, transfuse if Hb<7 or <8 and symptomatic ICD Codes: K92.2 - Gastrointestinal hemorrhage, unspecified Status: Acute (2) Cirrhosis of liver Plan: Continue home spironolactone Continue home furosemide at 40mg PO BID Continue home lactulose at 30ml PO BID Ammonia level 68 on 01/08, patient is alert and oriented x3 ICD Codes: K74.60 - Unspecified cirrhosis of liver (3) Fluid overload Plan: Distended abdomen and crackles on lung exam -Order chest x-ray PA lateral -Lasix 40mg IV x1 -Resume home Lasix PO at 40mg BID -Fluid restriction to 2L daily -Strict Is and Os -Consider IR consult for paracentesis if worsens ICD Codes: E87.70 - Fluid overload, unspecified (4) Diabetes Plan: Patient states that his diabetes is controlled with diet at home Required 11 units SSi in the past 24 hours Start Levemir at 2.5 units subQ Low sliding scale ICD Codes: E11.9 - Type 2 diabetes mellitus without complications (5) Low blood pressure Plan: BPs range between 94-108 systolic Restart Midodrine 10 mg TID ICD Codes: I95.9 - Hypotension, unspecified (6) Gout Plan: Held allopurinol ICD Codes: M10.9 - Gout, unspecified (7) Nutrition, metabolism, and development symptoms Plan: Diet: Diabetic diet Fluids: oral fluids Vitals every 4 monitor I's and O's Tessalon Perrles for cough Seen with Dr. Romero, PGY-1 ICD Codes: R63.8 - Other symptoms and signs concerning food and fluid intake Brief History 77-year-old male presenting to the hospital with melena and dizziness. He has a history of cirrhosis and recent esophageal varices requiring banding 1 week ago. He states that over the last 24 hours, he has noticed several episodes of dizziness when he tries to get up and walk and cut this causes him to lose his balance. He did fall over and scraped his left arm earlier today. He did not lose consciousness or hit his head. Patient also reports a history of black, sticky stools that started last night and was worse this morning. He denies any abdominal pain, he denies any nausea or vomiting/hematemesis, he denies any bright red blood per rectum. CBC/BMP: 01/09/18 0345 01/09/18 0345 Significant Findings Laboratory Tests Test 01/06/18 12:43 01/07/18 04:28 01/08/18 03:43 01/08/18 16:05 Iron Level 34 MCG/DL (65-175) Total Iron Binding Capacity 242 MCG/DL (250-450) Percent Iron Saturation 14.0 % (20-50) Ammonia 41 MCMOL/L (11-32) 68 MCMOL/L (11-32) Red Blood Count 2.57 MIL/MM3 (4.50-5.90) 2.55 MIL/MM3 (4.50-5.90) Hemoglobin 9.0 GM/DL (13.0-17.0) 9.0 GM/DL (13.0-17.0) Hematocrit 26.0 % (39.0-51.0) 25.8 % (39.0-51.0) Mean Corpuscular Volume 101.1 FL (80.0-100.0) 101.2 FL (80.0-100.0) Mean Corpuscular Hemoglobin 34.9 PG (27.0-34.0) 35.4 PG (27.0-34.0) Platelet Count 101 TH/MM3 (150-450) 103 TH/MM3 (150-450) Random Glucose 127 MG/DL (74-106) 177 MG/DL (74-106) Calcium Level 7.8 MG/DL (8.5-10.1) 7.7 MG/DL (8.5-10.1) Chloride Level 108 MEQ/L (98-107) Prothrombin Time 11.7 SEC (9.8-11.6) Total Protein 5.8 GM/DL (6.4-8.2) Test 01/09/18 03:45 Red Blood Count 2.47 MIL/MM3 (4.50-5.90) Hemoglobin 8.8 GM/DL (13.0-17.0) Hematocrit 25.1 % (39.0-51.0) Mean Corpuscular Volume 101.4 FL (80.0-100.0) Mean Corpuscular Hemoglobin 35.4 PG (27.0-34.0) Platelet Count 101 TH/MM3 (150-450) Random Glucose 205 MG/DL (74-106) Total Protein 5.6 GM/DL (6.4-8.2) Albumin 2.0 GM/DL (3.4-5.0) Calcium Level 7.6 MG/DL (8.5-10.1) Alkaline Phosphatase 304 U/L (45-117) Aspartate Amino Transf (AST/SGOT) 64 U/L (15-37) Potassium Level 3.3 MEQ/L (3.5-5.1) PE at Discharge GENERAL: Thin, pleasant, elderly male in no acute distress SKIN: slight jaundice EYES: Pupils equal round and reactive. Extraocular motions intact. No scleral icterus present. No injection or drainage. CARDIOVASCULAR: Regular rate and rhythm without murmurs, gallops, or rubs. RESPIRATORY: Diffuse crackles GASTROINTESTINAL: Abdomen soft, moderately distended compared to admission, positive bowel sounds MUSCULOSKELETAL: Extremities without clubbing, cyanosis, or edema. No joint tenderness, effusion, or edema noted. No calf tenderness. NEUROLOGICAL: Awake, alert, oriented 3 Marina Romero MD R1 January 09, 2018 12:00
--- NOTE | 2018-01-09 12:00 | HHI.DCPOC ---
Discharge Care Plan Diagnosis: (1) Cirrhosis of liver (2) Upper GI bleed Goals to Promote Your Health * To prevent worsening of your condition and complications * To maintain your health at the optimal level Directions to Meet Your Goals Take your medications as prescribed Follow your dietary instruction Follow activity as directed Keep your appointments as scheduled Take your immunizations and boosters as scheduled If your symptoms worsen call your PCP, if no PCP go to Urgent Care Center or Emergency Room Smoking is Dangerous to Your Health. Avoid second hand smoke Call the 24-hour hour crisis hotline for domestic abuse at Marina Romero MD R1 January 09, 2018 12:00
[2018-01-09] MEDS ORDERED: METF500T PO (12:05)
== END 2018-01-09 15:35 | disposition home or self-care (01) | DRG 392 ==
LOC: NEPC 11:48 → NEDA 14:14 → N06B 18:52
PROVIDERS: ADMIT Family Medicine; ATTEND Family Medicine
PROC: 0DJ08ZZ Inspection of Upper Intestinal Tract, Via Natural or Artificial Opening Endoscopic (ICD-10-PCS; 2018-01-04)
PROC: 30233N1 Transfusion of Nonautologous Red Blood Cells into Peripheral Vein, Percutaneous Approach (ICD-10-PCS; 2018-01-06)
PROC: 0D568ZZ Destruction of Stomach, Via Natural or Artificial Opening Endoscopic (ICD-10-PCS; principal; 2018-01-06 14:45)
DX: K31.819 Angiodysplasia of stomach and duodenum without bleeding (principal); I95.9 Hypotension, unspecified; K76.6 Portal hypertension; I85.10 Secondary esophageal varices without bleeding; K22.10 Ulcer of esophagus without bleeding; E87.70 Fluid overload, unspecified; K70.30 Alcoholic cirrhosis of liver without ascites; K31.89 Other diseases of stomach and duodenum; E11.9 Type 2 diabetes mellitus without complications; D64.9 Anemia, unspecified; M10.9 Gout, unspecified; Z66 Do not resuscitate; M19.90 Unspecified osteoarthritis, unspecified site; R42 Dizziness and giddiness; R14.0 Abdominal distension (gaseous); Z87.891 Personal history of nicotine dependence; Z85.828 Personal history of other malignant neoplasm of skin
CPT/HCPCS: 36430; 71046; 76705; 76937; 80048; 80053; 81001; 82140; 82948; 83036; 83540; 83550; 83615; 84155; 84484; 85014; 85018; 85025; 85027; 85044; 85610; 85730; 86850; 86900; 86901; 86920; 93005; 94150; 96361; 96374; C9113; J0330; J0744; J1815; J1940; J2354; J7030; J7040; P9016

== ENCOUNTER → 2018-02-01 | Outpatient (CLI) | payer MEDICARE ==
[~2018-02-01] MED LIST changes: +BENZ100 PO; +CHLORHEXIDINE GLUCONATE 2 % 1 PACK (2 CLOTHS) TOPICAL PRN; +CIPR250T52 PO; +DO NOT ADM ANY ANTICOAGULANT DRUGS PRN; +LACTATED RINGER'S 1000 ML IV PRN; +LIDOCAINE HCL 1% PF 5 ML SYRINGE OTHER ONE; +METF500T PO; +METOPROLOL TARTRATE 25 MG TAB PO PRN; +POVIDONE IODINE 5% (ANTISEPSIS KIT) 4 APPLICATIONS EACH NARE PRN; +PROPOFOL 200 MG/20 ML AMP IV ONE; +PROT40TA PO; +SODIUM CHLORID 0.9% 500 ML IV PRN; +SUCR1S PO; +SUCR1TAB PO; +XIFA550T4 PO
[2018-02-01 10:46] VITALS: BP 129/72; PULSE 62; RESP 20; TEMP 98.5; O2SAT 100
--- NOTE | 2018-02-01 12:18 | GIPROC ---
[facility] [address] [facility]. 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 PROCEDURE PERFORMED: EGD MEDICATIONS: Per Anesthesia . TOPICAL ANESTHETIC: none CONSENT: The patient understands the risks and benefits of the procedure and understands that these risks include, but are not limited to: sedation, allergic reaction, infection, perforation and/or bleeding. Alternative means of evaluation and treatment include, among others: physical exam, x-rays, and/or surgical intervention. The patient elects to proceed with this endoscopic procedure. medical equipment was checked for proper function. Hand hygiene and appropriate measures for infection prevention was taken. After the risks, benefits and alternatives of the procedure were thoroughly explained, Informed consent was verified, confirmed and timeout was successfully executed by the treatment team. The patient was anesthetized with topical anesthesia and the Pentax EG-[id number] endoscope was introduced through the mouth and advanced to the 2nd poriton of the duodenum . Retroflexion was performed and was normal The gastroscope was then slowly withdrawn and removed. No varices Minimal antral erythema NL duodenum ADVERSE EVENTS: There were no complications. IMPRESSIONS: As above RECOMMENDATIONS: Resume prior diet/medications. Return office visit in six months PATIENT CONDITION: Stable DISPOSITION: Home REPEAT EXAM: Repeat EGD/band ligation in one year. Neel Mclaughlin MD eSigned: Neel Mclaughlin MD 02/01/2018 12:17 PM cc: Wili James M.D. PATIENT NAME: Dimitri Howard MR#: [id number]
[2018-02-01 13:40] VITALS: BP 113/70; PULSE 72; RESP 20; TEMP 98.1; O2SAT 97
== END ==
LOC: HSDC 09:30
DX: K70.30 Alcoholic cirrhosis of liver without ascites (principal); K21.9 Gastro-esophageal reflux disease without esophagitis; E11.9 Type 2 diabetes mellitus without complications
CPT/HCPCS: 00731; 43235; J7120